=== PATIENT | female | born 1955 | race Caucasian/White ===

== ENCOUNTER 2018-10-23 16:20 | Inpatient (IN) | payer MEDICARE, MEDICAID ==
--- NOTE | 2018-10-23 17:55 | EDM.PDOC ---
ED HPI GENERAL MEDICAL PROBLEM - General Chief Complaint: Lower Extremity Injury/Pain Stated Complaint: FALL VIA [facility] Time Seen by Provider: 10/23/18 16:40 Source of Information: Reports: Patient, EMS, Provider History Limitations: Reports: No Limitations - History of Present Illness INITIAL COMMENTS - FREE TEXT/NARRATIVE: 63-year-old female brought in by ambulance with left hip pain. She fell earlier today while transferring from the bed to chair. She has intense left hip pain, unable to bear weight and pain with movement or manipulation. Onset: Sudden Duration: Hour(s): (Within the last several hours) Associated Symptoms: Denies: Confusion, Loss of Appetite, Shortness of Breath Left Hip Pain Score (Numeric/FACES): 8 - Related Data Allergies Allergy/AdvReac Type Severity Reaction Status Date / Time adhesive Allergy Cannot Verified 10/23/18 16:26 Remember atorvastatin calcium Allergy Cannot Verified 10/23/18 16:26 [From Lipitor] Remember clindamycin Allergy Cannot Verified 10/23/18 16:26 Remember cyclobenzaprine HCl Allergy Cannot Verified 10/23/18 16:26 [From Flexeril] Remember fentanyl Allergy Rash Verified 10/23/18 16:26 gabapentin Allergy Cannot Verified 10/23/18 16:26 Remember insulin glargine, human Allergy Rash Verified 10/23/18 16:26 recombin. a [From Lantus] Iodinated Contrast- Oral and Allergy Cannot Verified 10/23/18 16:26 IV Dye Remember [Iodinated Contrast Media - IV Dye] iodine Allergy Hives Verified 10/23/18 16:26 iopamidol Allergy Hives Verified 10/23/18 16:26 lactose Allergy Cannot Verified 10/23/18 16:26 Remember Latex, Natural Rubber Allergy Cannot Verified 10/23/18 16:26 Remember levofloxacin [From Levaquin] Allergy Rash Verified 10/23/18 16:26 lisinopril Allergy Cannot Verified 10/23/18 16:26 Remember oxybutynin Allergy Cannot Verified 10/23/18 16:26 Remember piperacillin Allergy Hives Verified 10/23/18 16:26 piperacillin sodium Allergy Hives Verified 10/23/18 16:26 [From Zosyn] red dye Allergy Cannot Verified 10/23/18 16:26 Remember silver Allergy Rash Verified 10/23/18 16:26 [From Tegaderm AG Mesh] simvastatin [From Zocor] Allergy Cannot Verified 10/23/18 16:26 Remember Sulfa (Sulfonamide Allergy Hives Verified 10/23/18 16:26 Antibiotics) tazobactam Allergy Hives Verified 10/23/18 16:26 tazobactam sodium Allergy Hives Verified 10/23/18 16:26 [From Zosyn] varenicline [Varenicline] Allergy Cannot Verified 10/23/18 16:26 Remember varenicline tartrate Allergy Cannot Verified 10/23/18 16:26 [From Chantix] Remember venlafaxine HCl Allergy Cannot Verified 10/23/18 16:26 [From Effexor] Remember baclofen AdvReac Irritabilit Verified 10/23/18 16:26 y esomeprazole AdvReac Diarrhea Verified 10/23/18 16:26 esomeprazole magnesium AdvReac Diarrhea Verified 10/23/18 16:26 [From Nexium] exenatide AdvReac Tachycardia Verified 10/23/18 16:26 insulin detemir AdvReac Nausea and Verified 10/23/18 16:26 [From Levemir] Vomiting metformin AdvReac Nausea Verified 10/23/18 16:26 promethazine AdvReac Nausea and Verified 10/23/18 16:26 Vomiting promethazine HCl AdvReac Nausea and Verified 10/23/18 16:26 [From Phenergan] Vomiting Home Meds: Home Meds Aspirin [Adult Low Dose Aspirin EC] 81 mg PO DAILY 04/16/13 [History] Ibuprofen 800 mg PO TID 04/16/13 [History] Lactulose [Generlac] 30 ml PO BID 04/16/13 [History] Magnesium Hydroxide [Milk of Magnesia] 30 ml PO Q48H PRN 03/31/16 [History] Sertraline [Zoloft] 150 mg PO DAILY 03/31/16 [History] Dextrose [Glucose] 1 tab PO Q1H PRN 06/12/16 [History] Hydrocodone/Acetaminophen [Hydrocodon-Acetaminophn 10-325] 1 tab PO TID [History] Menthol/Methyl Salicylate [Pain Relieving Rub Cream] 1 applic TOP TID 06/12/16 [ History] Propylene Glycol/Peg 400 [Systane Ultra 0.4-0.3% Eye Drp] 1 drop EYERT Q2HR PRN 06/12/16 [History] Calcium Carbonate/Vitamin D3 [Calcium 600 + Vit D 400 Softgl] 1 tab PO BID 10/23 [History] Chlorhexidine Gluconate 15 ml PO BID 10/23/18 [History] DULoxetine HCl [Duloxetine HCl] 30 mg PO BEDTIME 10/23/18 [History] DULoxetine HCl [Duloxetine HCl] 60 mg PO ACBREAKFAST 10/23/18 [History] Enalapril Maleate 40 mg PO BID 10/23/18 [History] Fluticasone Propionate [Flonase Allergy Relief] 2 spray KASIA ACBREAKFAST [History] Fluticasone/Salmeterol [Advair 250-50 Diskus] 1 puff INH BID 10/23/18 [History] Furosemide [Lasix] 20 mg PO DAILY 10/23/18 [History] Insulin Lispro Prot/Lispro [HumaLOG Mix 75-25] 62 units SUBCNJ BID 10/23/18 [ History] Lansoprazole [Prevacid] 30 mg PO BID 10/23/18 [History] Loratadine [Claritin] 10 mg PO BEDTIME 10/23/18 [History] Metoprolol Succinate [Toprol XL] 25 mg PO DAILY 10/23/18 [History] Potassium Chloride 20 meq PO TID 10/23/18 [History] Pregabalin [Lyrica] 150 mg PO BID 10/23/18 [History] Propylene Glycol/PEG 400/Pf [Systane 0.3-0.4% Eye Drop] 2 drop EYERT BID [History] SitaGLIPtin [Januvia] 50 mg PO DAILY 10/23/18 [History] Sucralfate [Carafate] 1 gm PO TID 10/23/18 [History] Torsemide 100 mg PO DAILY 10/23/18 [History] clonazePAM [Clonazepam] 1 mg PO BEDTIME 10/23/18 [History] Past Medical History HEENT History: Reports: Allergic Rhinitis, Impaired Vision Cardiovascular History: Reports: CAD, High Cholesterol, Hypertension, [place] Respiratory History: Reports: Bronchitis, Recurrent, Pneumonia, Recurrent, SOB Other Respiratory History: home O2 Gastrointestinal History: Reports: Chronic Constipation, Chronic Diarrhea, Gastritis, GERD, Hiatal Hernia [employer] History: Reports: Dysfunctional Uterine Bleeding, Musculoskeletal History: Reports: Back Pain, Chronic, Fibromyalgia, Osteoarthritis, Other (See Below) Other Musculoskeletal History: primary lateral sclerosis Psychiatric History: Reports: Anxiety, Panic Attack Endocrine/Metabolic History: Reports: Diabetes, Type II, IDDM, Obesity/BMI 30+ Hematologic History: Reports: Blood Transfusion(s) Dermatologic History: Reports: Decubitus Ulcer - Infectious Disease History Infectious Disease History: Reports: Other (See Below) Other Infectious Disease History: unable to obtain - Past Surgical History Cardiovascular Surgical History: Reports: Other (See Below) GI Surgical History: Reports: Appendectomy, Cholecystectomy, Colonoscopy, Other (See Below) Female Surgical History: Reports: D&C, Hysterectomy, Tubal Ligation Neurological Surgical History: Reports: Spinal Fusion, Other (See Below) Musculoskeletal Surgical History: Reports: Other (See Below) Social & Family History - Family History Family Medical History: Unobtainable - Tobacco Use Smoking Status *Q: Former Smoker Used Tobacco, but Quit: Yes Month/Year Tobacco Last Used: 06/2018 - Caffeine Use Caffeine Use: Reports: Coffee, Soda - Recreational Drug Use Recreational Drug Use: No Review of Systems - Review of Systems Review Of Systems: See Below Constitutional: Denies: Fever Respiratory: Reports: Shortness of Breath (Chronic COPD but much improved after stopping smoking) Cardiovascular: Denies: Chest Pain GI/Abdominal: Denies: Nausea, Vomiting Genitourinary: Reports: No Symptoms Skin: Denies: Bruising Neurological: Reports: Other (Chronic mood instability with PLS) Psychiatric: Reports: Depression, Mood Lability, Anxiety ED EXAM, GENERAL - Physical Exam Exam: See Below Exam Limited By: No Limitations General Appearance: Alert, Mild Distress (Fairly uncomfortable especially with any movement) Respiratory/Chest: No Respiratory Distress, Lungs Clear Cardiovascular: Regular Rate, Rhythm GI/Abdominal: Other (Morbidly obese) Extremities: Other (Left leg is extremely tender around the hip with any palpation or passive range of motion) Neurological: Alert, Oriented Skin Exam: Warm, Dry Course - Vital Signs Last Recorded V/S: Last Vital Signs Temp 97.7 F 10/24/18 04:02 Pulse 76 10/24/18 04:02 Resp 16 10/24/18 04:02 BP 115/45 L 10/24/18 04:02 Pulse Ox 91 L 10/24/18 05:00 - Orders/Labs/Meds Orders: Active Orders 24 hr Category Date Time Status Briscoe Catheter Insertion [Insert Urinary Catheter] [OM. Care 10/23/18 17:45 Ordered PC] Q24H Urinary Catheter Assessment [RC] ASDIRECTED Care 10/23/18 17:36 Active Medication Orders Hydrocodone Bitart/Acetaminophen ([place] 325-10 Mg) 1 tab PO TID [facility] Last Admin: 10/23/18 21:47 Dose: 1 tab Hydrocodone Bitart/Acetaminophen ([place] 325-10 Mg) 1 tab PO Q4H PRN PRN Reason: Pain (moderate 4-6) Albuterol (Proventil Neb Soln) 2.5 mg NEB Q4H PRN PRN Reason: Shortness Of Breath/wheezing Alogliptin Benzoate (Alogliptin) 12.5 mg PO DAILY [facility] Aspirin (Halfprin) 81 mg PO DAILY [facility] Clonazepam (Klonopin) 1 mg PO BEDTIME [facility] Last Admin: 10/23/18 21:47 Dose: 1 mg Duloxetine HCl (Cymbalta) 30 mg PO BEDTIME [facility] Last Admin: 10/23/18 21:47 Dose: 30 mg Duloxetine HCl (Cymbalta) 60 mg PO ACBREAKFAST [facility] Enalapril Maleate (Vasotec) 40 mg PO BID [facility] Last Admin: 10/23/18 22:40 Dose: 40 mg Ibuprofen (Motrin) 600 mg PO Q6H PRN PRN Reason: Pain/Fever Insulin Human Lispro (Humalog) 0 unit SUBCUT QIDACANDBED [facility]; Protocol Last Admin: 10/23/18 21:46 Dose: 4 units Lactulose (Chronulac) 30 gm PO BID [facility] Last Admin: 10/23/18 21:47 Dose: 30 gm Metoprolol Succinate (Toprol Xl) 25 mg PO DAILY [facility] Morphine Sulfate (Morphine) 4 mg IVPUSH Q2H PRN PRN Reason: Pain (severe 7-10) Last Admin: 10/24/18 04:04 Dose: 4 mg Admin: 10/24/18 00:39 Dose: 4 mg Admin: 10/23/18 22:26 Dose: 4 mg Non-Formulary Medication (Propylene Glycol/Peg 400/Pf [Systane 0.3-0.4% Eye Drop ]) 2 drop EYERT BID [facility] Non-Formulary Medication (Propylene Glycol/Peg 400 [Systane Ultra 0.4-0.3% Eye Drp]) 1 drop EYERT Q2HR PRN PRN Reason: tearing Ondansetron HCl (Zofran Odt) 4 mg PO Q6H PRN PRN Reason: Nausea able to take PO Ondansetron HCl (Zofran) 4 mg IV Q6H PRN PRN Reason: Nausea/Vomiting Pantoprazole Sodium (Protonix) 40 mg PO BIDAC [facility] Polyethylene Glycol (Miralax) 17 gm PO DAILY PRN PRN Reason: Constipation Pregabalin (Lyrica) 150 mg PO BID [facility] Last Admin: 10/23/18 21:47 Dose: 150 mg Fluticasone/Salmeterol (Fluticasone-Salmeterol 113-14 Mcg Powder Inh) 1 puff INH BID [facility] Last Admin: 10/23/18 22:27 Dose: Sertraline HCl (Zoloft) 150 mg PO DAILY [facility] Sucralfate (Carafate) 1 gm PO TID [facility] Last Admin: 10/23/18 21:52 Dose: 1 gm Labs: Laboratory Tests 10/23/18 10/23/18 Range/Units 18:00 18:00 WBC 6.7 (4.5-11.0) K/uL RBC 4.63 (3.30-5.50) M/uL Hgb 11.2 L (12.0-15.0) g/dL Hct 36.3 (36.0-48.0) % MCV 78 L (80-98) fL MCH 24 L (27-31) pg MCHC 31 L (32-36) % Plt Count 113 L (150-400) K/uL Neut % (Auto) 68 H (36-66) % Lymph % (Auto) 14 L (24-44) % Jerome % (Auto) 15 H (2-6) % Eos % (Auto) 3 (2-4) % Baso % (Auto) 1 (0-1) % Sodium 144 (140-148) mmol/L Potassium 3.0 L (3.6-5.2) mmol/L Chloride 104 (100-108) mmol/L Carbon Dioxide 32 (21-32) mmol/L Anion Gap 11.0 (5.0-14.0) mmol/L BUN 11 (7-18) mg/dL Creatinine 0.7 (0.6-1.0) mg/dL Est Cr Clr Drug Dosing 62.82 mL/min Estimated GFR (MDRD) > 60 (>60) Glucose 83 (74-106) mg/dL Calcium 8.8 (8.5-10.1) mg/dL Meds: Medications Generic Name Dose Route Start Last Admin Trade Name Freq PRN Reason Stop Dose Admin Hydrocodone Bitart/Acetaminophen 1 tab 10/23/18 21:00 10/23/18 21:47 [place] 325-10 Mg PO 1 tab TID [facility] Administration Hydrocodone Bitart/Acetaminophen 1 tab 10/23/18 19:19 [place] 325-10 Mg PO Q4H PRN Pain (moderate 4-6) Albuterol 2.5 mg 10/23/18 19:19 Proventil Neb Soln NEB Q4H PRN Shortness Of Breath/wheezing Alogliptin Benzoate 12.5 mg 10/24/18 09:00 Alogliptin PO DAILY [facility] Aspirin 81 mg 10/24/18 09:00 Halfprin PO DAILY [facility] Clonazepam 1 mg 10/23/18 21:00 10/23/18 21:47 Klonopin PO 1 mg BEDTIME [facility] Administration Duloxetine HCl 30 mg 10/23/18 21:00 10/23/18 21:47 Cymbalta PO 30 mg BEDTIME [facility] Administration Duloxetine HCl 60 mg 10/24/18 07:30 Cymbalta PO ACBREAKFAST [facility] Enalapril Maleate 40 mg 10/23/18 21:00 10/23/18 22:40 Vasotec PO 40 mg BID [facility] Administration Ibuprofen 600 mg 10/23/18 19:19 Motrin PO Q6H PRN Pain/Fever Insulin Human Lispro 0 unit 10/23/18 20:00 10/23/18 21:46 Humalog SUBCUT 4 units QIDACANDBED [facility] Administration Protocol Lactulose 30 gm 10/23/18 21:00 10/23/18 21:47 Chronulac PO 30 gm BID [facility] Administration Metoprolol Succinate 25 mg 10/24/18 09:00 Toprol Xl PO DAILY [facility] Morphine Sulfate 4 mg 10/23/18 19:19 10/24/18 04:04 Morphine IVPUSH 4 mg Q2H PRN Administration Pain (severe 7-10) Non-Formulary Medication 2 drop 10/23/18 21:00 Propylene Glycol/Peg 400/Pf [Systane 0.3-0.4% Eye Drop] EYERT BID [facility] Non-Formulary Medication 1 drop 10/23/18 19:19 Propylene Glycol/Peg 400 [Systane Ultra 0.4-0.3% Eye Drp] EYERT Q2HR PRN tearing Ondansetron HCl 4 mg 10/23/18 19:19 Zofran Odt PO Q6H PRN Nausea able to take PO Ondansetron HCl 4 mg 10/23/18 19:19 Zofran IV Q6H PRN Nausea/Vomiting Pantoprazole Sodium 40 mg 10/24/18 07:30 Protonix PO BIDAC [facility] Polyethylene Glycol 17 gm 10/23/18 19:19 Miralax PO DAILY PRN Constipation Pregabalin 150 mg 10/23/18 21:00 10/23/18 21:47 Lyrica PO 150 mg BID [facility] Administration Fluticasone/Salmeterol 1 puff 10/23/18 21:00 10/23/18 22:27 Fluticasone-Salmeterol 113-14 Mcg Powder Inh INH Not Given BID [facility] Sertraline HCl 150 mg 10/24/18 09:00 Zoloft PO DAILY [facility] Sucralfate 1 gm 10/23/18 21:00 10/23/18 21:52 Carafate PO 1 gm TID [facility] Administration Discontinued Medications Generic Name Dose Route Start Last Admin Trade Name Freq PRN Reason Stop Dose Admin Hydrocodone Bitart/Acetaminophen 1 tab 10/23/18 18:30 10/23/18 18:30 [place] 325-7.5 Mg PO 10/23/18 18:31 1 tab ONETIME ONE Administration - Re-Assessments/Exams Free Text/Narrative Re-Assessment/Exam: 10/23/18 18:40 X-ray of the pelvis and left hip were obtained which showed an intertrochanteric fracture, slightly displaced. Orthopedic consultation was obtained who consulted the hospitalist service and they agreed to admit the patient for medical preparation for left hip repair. Departure - Departure Time of Disposition: 19:18 Disposition: Admitted As Inpatient 64 Condition: Fair Clinical Impression: Closed intertrochanteric fracture of left hip, COPD (chronic obstructive pulmonary disease) - Discharge Information - My Orders Last 24 Hours: My Active Orders 10/23/18 17:36 Urinary Catheter Assessment [RC] ASDIRECTED 10/23/18 17:45 Briscoe Catheter Insertion [Insert Urinary Catheter] [OM.PC] Q24H - Assessment/Plan Last 24 Hours: My Active Orders 10/23/18 17:36 Urinary Catheter Assessment [RC] ASDIRECTED 10/23/18 17:45 Briscoe Catheter Insertion [Insert Urinary Catheter] [OM.PC] Q24H
--- NOTE | 2018-10-23 18:12 | CRLCR ---
Indication: Left hip pain after fall Technique: Frontal view pelvis, two view left hip Comparison: None Findings/impression: There is an intertrochanteric fracture of the left femur. There is mild cephalad migration of the femoral shaft in relation to the femoral head and neck. Remainder of the osseous structures appear intact. Dictated by Prema Dodson MD @ Oct 23 2018 6:09PM Signed by Dr. Prema Dodson @ Oct 23 2018 6:11PM
[2018-10-23] MEDS ORDERED: Acetaminophen/HYDROcodone 325-7.5 MG Tab PO ONE (18:30)
--- NOTE | 2018-10-23 18:46 | PCM.HP ---
H&P History of Present Illness - General Date of Service: 10/23/18 Admit Problem/Dx: Admission Diagnosis/Problem Admission Diagnosis/Problem Hip fracture requiring operative repair Source of Information: Patient, Family, Provider History Limitations: Reports: No Limitations - History of Present Illness Initial Comments - Free Text/Narative: Francisca presents to the emergency room today with left hip pain. She reports that she was transferring from her wheelchair to her regular chair in her apartment. Her left leg gave out on her and she fell to the floor landing on her left hip. She had immediate sharp and severe pain in the left hip. The pain did not radiate. She did not take anything to help with the pain prior to coming. An ambulance was summoned right away. She has had recent difficulties with pain in the left groin but it was not nearly as severe as this pain. She had been feeling well prior to the fall other than the left groin pain over the past few weeks. No recent difficulties with cough or shortness of breath. No fevers. No change in bowel or bladder habits. She has been up and moving around with her walker. She has been fairly independent in her assisted-living apartment. Workup in the emergency room revealed an intertrochanteric fracture of the left hip. Orthopedic surgery was consulted and operative intervention is planned as soon as parts are available, likely tomorrow. The patient will be admitted for pain control and surgical intervention. Left Hip Pain Score (Numeric/FACES): 8 - Related Data Allergies/Adverse Reactions: Allergies Allergy/AdvReac Type Severity Reaction Status Date / Time adhesive Allergy Cannot Verified 10/23/18 16:26 Remember atorvastatin calcium Allergy Cannot Verified 10/23/18 16:26 [From Lipitor] Remember clindamycin Allergy Cannot Verified 10/23/18 16:26 Remember cyclobenzaprine HCl Allergy Cannot Verified 10/23/18 16:26 [From Flexeril] Remember fentanyl Allergy Rash Verified 10/23/18 16:26 gabapentin Allergy Cannot Verified 10/23/18 16:26 Remember insulin glargine, human Allergy Rash Verified 10/23/18 16:26 recombin. a [From Lantus] Iodinated Contrast- Oral and Allergy Cannot Verified 10/23/18 16:26 IV Dye Remember [Iodinated Contrast Media - IV Dye] iodine Allergy Hives Verified 10/23/18 16:26 iopamidol Allergy Hives Verified 10/23/18 16:26 lactose Allergy Cannot Verified 10/23/18 16:26 Remember Latex, Natural Rubber Allergy Cannot Verified 10/23/18 16:26 Remember levofloxacin [From Levaquin] Allergy Rash Verified 10/23/18 16:26 lisinopril Allergy Cannot Verified 10/23/18 16:26 Remember oxybutynin Allergy Cannot Verified 10/23/18 16:26 Remember piperacillin Allergy Hives Verified 10/23/18 16:26 piperacillin sodium Allergy Hives Verified 10/23/18 16:26 [From Zosyn] red dye Allergy Cannot Verified 10/23/18 16:26 Remember silver Allergy Rash Verified 10/23/18 16:26 [From Tegaderm AG Mesh] simvastatin [From Zocor] Allergy Cannot Verified 10/23/18 16:26 Remember Sulfa (Sulfonamide Allergy Hives Verified 10/23/18 16:26 Antibiotics) tazobactam Allergy Hives Verified 10/23/18 16:26 tazobactam sodium Allergy Hives Verified 10/23/18 16:26 [From Zosyn] varenicline [Varenicline] Allergy Cannot Verified 10/23/18 16:26 Remember varenicline tartrate Allergy Cannot Verified 10/23/18 16:26 [From Chantix] Remember venlafaxine HCl Allergy Cannot Verified 10/23/18 16:26 [From Effexor] Remember baclofen AdvReac Irritabilit Verified 10/23/18 16:26 y esomeprazole AdvReac Diarrhea Verified 10/23/18 16:26 esomeprazole magnesium AdvReac Diarrhea Verified 10/23/18 16:26 [From Nexium] exenatide AdvReac Tachycardia Verified 10/23/18 16:26 insulin detemir AdvReac Nausea and Verified 10/23/18 16:26 [From Levemir] Vomiting metformin AdvReac Nausea Verified 10/23/18 16:26 promethazine AdvReac Nausea and Verified 10/23/18 16:26 Vomiting promethazine HCl AdvReac Nausea and Verified 10/23/18 16:26 [From Phenergan] Vomiting Home Medications: Home Meds Aspirin [Adult Low Dose Aspirin EC] 81 mg PO DAILY 04/16/13 [History] Ibuprofen 800 mg PO TID 04/16/13 [History] Lactulose [Generlac] 30 ml PO BID 04/16/13 [History] Magnesium Hydroxide [Milk of Magnesia] 30 ml PO Q48H PRN 03/31/16 [History] Sertraline [Zoloft] 150 mg PO DAILY 03/31/16 [History] Dextrose [Glucose] 1 tab PO Q1H PRN 06/12/16 [History] Hydrocodone/Acetaminophen [Hydrocodon-Acetaminophn 10-325] 1 tab PO TID [History] Menthol/Methyl Salicylate [Pain Relieving Rub Cream] 1 applic TOP TID 06/12/16 [ History] Propylene Glycol/Peg 400 [Systane Ultra 0.4-0.3% Eye Drp] 1 drop EYERT Q2HR PRN 06/12/16 [History] Calcium Carbonate/Vitamin D3 [Calcium 600 + Vit D 400 Softgl] 1 tab PO BID 10/23 [History] Chlorhexidine Gluconate 15 ml PO BID 10/23/18 [History] DULoxetine HCl [Duloxetine HCl] 30 mg PO BEDTIME 10/23/18 [History] DULoxetine HCl [Duloxetine HCl] 60 mg PO ACBREAKFAST 10/23/18 [History] Enalapril Maleate 40 mg PO BID 10/23/18 [History] Fluticasone Propionate [Flonase Allergy Relief] 2 spray KASIA ACBREAKFAST [History] Fluticasone/Salmeterol [Advair 250-50 Diskus] 1 puff INH BID 10/23/18 [History] Furosemide [Lasix] 20 mg PO DAILY 10/23/18 [History] Insulin Lispro Prot/Lispro [HumaLOG Mix 75-25] 62 units SUBCNJ BID 10/23/18 [ History] Lansoprazole [Prevacid] 30 mg PO BID 10/23/18 [History] Loratadine [Claritin] 10 mg PO BEDTIME 10/23/18 [History] Metoprolol Succinate [Toprol XL] 25 mg PO DAILY 10/23/18 [History] Potassium Chloride 20 meq PO TID 10/23/18 [History] Pregabalin [Lyrica] 150 mg PO BID 10/23/18 [History] Propylene Glycol/PEG 400/Pf [Systane 0.3-0.4% Eye Drop] 2 drop EYERT BID [History] SitaGLIPtin [Januvia] 50 mg PO DAILY 10/23/18 [History] Sucralfate [Carafate] 1 gm PO TID 10/23/18 [History] Torsemide 100 mg PO DAILY 10/23/18 [History] clonazePAM [Clonazepam] 1 mg PO BEDTIME 10/23/18 [History] Past Medical History HEENT History: Reports: Allergic Rhinitis, Impaired Vision Cardiovascular History: Reports: CAD, High Cholesterol, Hypertension, [place] Respiratory History: Reports: Bronchitis, Recurrent, Pneumonia, Recurrent, SOB Other Respiratory History: home O2 Gastrointestinal History: Reports: Chronic Constipation, Chronic Diarrhea, Gastritis, GERD, Hiatal Hernia [employer]ER History: Reports: Dysfunctional Uterine Bleeding, Musculoskeletal History: Reports: Back Pain, Chronic, Fibromyalgia, Osteoarthritis, Other (See Below) Other Musculoskeletal History: primary lateral sclerosis Psychiatric History: Reports: Anxiety, Panic Attack Endocrine/Metabolic History: Reports: Diabetes, Type II, IDDM, Obesity/BMI 30+ Hematologic History: Reports: Blood Transfusion(s) Dermatologic History: Reports: Decubitus Ulcer - Infectious Disease History Infectious Disease History: Reports: Other (See Below) Other Infectious Disease History: unable to obtain - Past Surgical History Cardiovascular Surgical History: Reports: Other (See Below) GI Surgical History: Reports: Appendectomy, Cholecystectomy, Colonoscopy, Other (See Below) Female Surgical History: Reports: D&C, Hysterectomy, Tubal Ligation Neurological Surgical History: Reports: Spinal Fusion, Other (See Below) Musculoskeletal Surgical History: Reports: Other (See Below) Social & Family History - Family History Family Medical History: Unobtainable - Tobacco Use Smoking Status *Q: Former Smoker Used Tobacco, but Quit: Yes Month/Year Tobacco Last Used: 06/2018 - Caffeine Use Caffeine Use: Reports: Coffee, Soda - Alcohol Use Alcohol Use History: No - Recreational Drug Use Recreational Drug Use: No H&P Review of Systems - Review of Systems: Review Of Systems: See Below Free Text/Narrative: A complete 12 point review of systems was obtained. Pertinent positives and negatives are noted in the history of present illness. All other systems were reviewed and were negative except as noted. Exam - Exam Exam: See Below - Vital Signs Vital Signs: Last Vital Signs Temp 35.8 C 10/23/18 16:28 Pulse 74 10/23/18 17:52 Resp 18 10/23/18 17:52 BP 181/82 H 10/23/18 17:52 Pulse Ox 94 L 10/23/18 17:52 Weight: 96.1 kg - Exam Quality Assessment: No: Supplemental Oxygen General: Alert, Oriented, Cooperative. No: Mild Distress HEENT: Conjunctiva Clear, Mucosa Moist & [place]. No: Scleral Icterus Neck: Supple, Trachea Midline. No: Lymphadenopathy Lungs: Clear to Auscultation, Normal Respiratory Effort Cardiovascular: Regular Rate, Regular Rhythm. No: Systolic Murmur GI/Abdominal Exam: Normal Bowel Sounds, Soft, Non-Tender, No Distention Extremities: Pedal Edema, Other (Tender over the left hip) Peripheral Pulses: 1+: Dorsalis Pedis (L), Dorsalis Pedis (R) Skin: Warm, Dry. No: Ecchymosis Neuro Extensive - Mental Status: Alert, Oriented x3, Nl Response to Commands Neuro Extensive - Motor, Sensory, Reflexes: CN II-XII Intact. No: Dysarthria, Abnormal Motor, Tremor Psychiatric: Alert, Normal Affect - Patient Data Lab Results Last 24 hrs: Laboratory Results - last 24 hr 10/23/18 Range/Units 18:00 WBC 6.7 (4.5-11.0) K/uL RBC 4.63 (3.30-5.50) M/uL Hgb 11.2 L (12.0-15.0) g/dL Hct 36.3 (36.0-48.0) % MCV 78 L (80-98) fL MCH 24 L (27-31) pg MCHC 31 L (32-36) % Plt Count 113 L (150-400) K/uL Neut % (Auto) 68 H (36-66) % Lymph % (Auto) 14 L (24-44) % [place] % (Auto) 15 H (2-6) % Eos % (Auto) 3 (2-4) % Baso % (Auto) 1 (0-1) % Result Diagrams: 10/23/18 18:00 Imaging Impressions Last 24 hrs: Left hip x-ray - images personally reviewed -there is evidence for a displaced intertrochanteric fracture of the left femur. Moderate arthritis changes also noted in the hip joint. *Q Meaningful Use (ADM) - VTE Risk Assess *Q Each Risk Factor Represents 1 Point: Swollen Legs, Current, Obesity ( BMI > 25 kg/m2), Abnormal Pulmonary Function (COPD) Total Score 1 Point Risk Factors: 3 Each Risk Factor Represents 2 Points: Age 60 - 74 Years Total Score 2 Point Risk Factors: 2 Each Risk Factor Represents 3 Points: None Total Score 3 Point Risk Factors: 0 Each Risk Factor Represents 5 Points: Hip, Pelvis or Leg Fracture, Less than 1 month Total Score 5 Point Risk Factors: 5 Venous Thromboembolism Risk Factor Score *Q: 10 - Problem List (1) Intertrochanteric fracture of left femur SNOMED Code(s): 334123244 ICD Code: S72.142A - DISPLACED INTERTROCHANTERIC FRACTURE OF LEFT FEMUR, INIT Status: Acute Current Visit: Yes Qualifiers: Encounter type: initial encounter Fracture type: closed Fracture alignment: displaced Qualified Code(s): S72.142A - Displaced intertrochanteric fracture of left femur, initial encounter for closed fracture (2) Diabetes mellitus, insulin dependent (IDDM), controlled SNOMED Code(s): 31677116 ICD Code: E11.9 - TYPE 2 DIABETES MELLITUS WITHOUT COMPLICATIONS; Z79.4 - WEIGHT TRAINER (CURRENT) USE OF INSULIN Status: Chronic Current Visit: No (3) Primary lateral sclerosis SNOMED Code(s): 34518340 ICD Code: G12.29 - OTHER MOTOR NEURON DISEASE Status: Chronic Current Visit: No Problem List Initiated/Reviewed/Updated: Yes Orders Last 24hrs: Active Orders 24 hr Category Date Time Status Patient Status Manage Transfer [TRANSFER] Routine ADT 10/23/18 18:24 Ordered Briscoe Catheter Insertion [Insert Urinary Catheter] [OM. Care 10/23/18 17:45 Ordered PC] Q24H Urinary Catheter Assessment [RC] ASDIRECTED Care 10/23/18 17:36 Active BASIC METABOLIC PANEL,BMP [CHEM] Urgent Lab 10/23/18 18:00 Received Resuscitation Status Routine Resus Stat 10/23/18 18:28 Ordered Assessment/Plan Comment:: ASSESSMENT AND PLAN - Intertrochanteric fracture left hip - secondary to fall. Recent difficulties with pain likely reflective of her arthritis in the hip joint. Operative intervention is recommended. I believe she is in optimal achievable medical condition at this time. She has had some recent difficulty with lower extremity swelling and I think an echocardiogram would be useful to rule out structural heart disease though believe this is unlikely. -Pain control -Nonweightbearing left leg -Echo in the morning -Orthopedic consultation obtained, surgical intervention will likely occur tomorrow afternoon -Nothing by mouth after midnight Type 2 diabetes mellitus, insulin-dependent - This is been well-controlled. Since she will be nothing by mouth after midnight we will hold her insulin and cover with medium dose sliding scale. Also noted are her allergies to glargine and Levemir. 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 Essential hypertension - Blood pressure moderately elevated, likely related to her pain. -Continue home medications Maintenance issues - - DVT prophylaxis - Mechanical with upcoming surgery - GI prophylaxis - PPI - Nutrition - nothing by mouth after midnight - Briscoe catheter - Placed in the emergency room with hip fracture need for strict intake and output monitoring CODE STATUS - Full code Admission justification - This patient will be admitted for inpatient services and is medically appropriate meeting medical necessity for inpatient admission as outlined in my documentation. I reasonably expect the patient will require inpatient services that span a period time over 2 midnights. I reasonably expect this patient to be discharged or transferred within 96 hours after admission to the Critical [facility]. Disposition - I would anticipate [facility] to [facility] after the hospital stay Primary care physician - Dr Herminia Meza M.D.
[2018-10-23] MEDS ORDERED: Ondansetron 4 MG/2 ML SDV IV PRN (19:19)
[2018-10-23] MEDS ORDERED: Ondansetron 4 MG Tab.DIS PO PRN (19:19)
[2018-10-23] MEDS ORDERED: Acetaminophen/HYDROcodone 325-10 MG Tab PO PRN (19:19)
[2018-10-23] MEDS ORDERED: Polyethylene Glycol 3350 Powder 17 GM Packet PO PRN (19:19)
[2018-10-23] MEDS ORDERED: Albuterol 0.083% 2.5 MG/3 ML Neb Soln NEB PRN (19:19)
[2018-10-23] MEDS ORDERED: Sucralfate 1 GM Tab PO SCH (21:00)
[2018-10-23] MEDS ORDERED: Fluticasone-Salmeterol 113-14 MCG Powder Inhalant INH SCH (21:00)
[2018-10-23] MEDS: Insulin Lispro 100 Unit/ML 3 ML KwikPen SUBCUT SCH (21:46)
[2018-10-23] MEDS: DULoxetine 30 MG Cap PO SCH (21:47)
[2018-10-23] MEDS: ClonazePAM 1 MG Tab PO SCH (21:47)
[2018-10-23] MEDS: Acetaminophen/HYDROcodone 325-10 MG Tab PO SCH (21:47)
[2018-10-23] MEDS: Lactulose Soln 10 GM/15 ML 15 ML UD Cup PO SCH (21:47)
[2018-10-23] MEDS: Pregabalin 75 MG Cap PO SCH (21:47)
[2018-10-23] MEDS: Morphine 4 MG/ML Syringe IVPUSH PRN (22:26)
[2018-10-23] MEDS: Enalapril 5 MG Tab PO SCH (22:40)
[2018-10-24] MEDS: Morphine 4 MG/ML Syringe IVPUSH PRN ×3 (00:39→13:38)
--- NOTE | 2018-10-24 07:42 | PCM.CONS ---
H&P History of Present Illness - General Date of Service: 10/24/18 Admit Problem/Dx: Admission Diagnosis/Problem Admission Diagnosis/Problem Hip fracture requiring operative repair Source of Information: Patient, Family, Old Records, Provider History Limitations: Reports: No Limitations - History of Present Illness Initial Comments - Free Text/Narative: 63 year old female admitted through ED yesterday with left hip fracture. Patient slipped while tranferring to a chair. Fell to the floor and had had hip pain. Evaluation in ED revealed a high intertrochanteric hip fracture. Has multiple medical problems, no further work up anticipated. Symptom Onset Date: 10/23/18 Location: Reports: Lower Extremity, Left ( ) Left Hip Pain Score (Numeric/FACES): 8 - Related Data Allergies/Adverse Reactions: Allergies Allergy/AdvReac Type Severity Reaction Status Date / Time adhesive Allergy Cannot Verified 10/23/18 16:26 Remember atorvastatin calcium Allergy Cannot Verified 10/23/18 16:26 [From Lipitor] Remember clindamycin Allergy Cannot Verified 10/23/18 16:26 Remember cyclobenzaprine HCl Allergy Cannot Verified 10/23/18 16:26 [From Flexeril] Remember fentanyl Allergy Rash Verified 10/23/18 16:26 gabapentin Allergy Cannot Verified 10/23/18 16:26 Remember insulin glargine, human Allergy Rash Verified 10/23/18 16:26 recombin. a [From Lantus] Iodinated Contrast- Oral and Allergy Cannot Verified 10/23/18 16:26 IV Dye Remember [Iodinated Contrast Media - IV Dye] iodine Allergy Hives Verified 10/23/18 16:26 iopamidol Allergy Hives Verified 10/23/18 16:26 lactose Allergy Cannot Verified 10/23/18 16:26 Remember Latex, Natural Rubber Allergy Cannot Verified 10/23/18 16:26 Remember levofloxacin [From Levaquin] Allergy Rash Verified 10/23/18 16:26 lisinopril Allergy Cannot Verified 10/23/18 16:26 Remember oxybutynin Allergy Cannot Verified 10/23/18 16:26 Remember piperacillin Allergy Hives Verified 10/23/18 16:26 piperacillin sodium Allergy Hives Verified 10/23/18 16:26 [From Zosyn] red dye Allergy Cannot Verified 10/23/18 16:26 Remember silver Allergy Rash Verified 10/23/18 16:26 [From Tegaderm AG Mesh] simvastatin [From Zocor] Allergy Cannot Verified 10/23/18 16:26 Remember Sulfa (Sulfonamide Allergy Hives Verified 10/23/18 16:26 Antibiotics) tazobactam Allergy Hives Verified 10/23/18 16:26 tazobactam sodium Allergy Hives Verified 10/23/18 16:26 [From Zosyn] varenicline [Varenicline] Allergy Cannot Verified 10/23/18 16:26 Remember varenicline tartrate Allergy Cannot Verified 10/23/18 16:26 [From Chantix] Remember venlafaxine HCl Allergy Cannot Verified 10/23/18 16:26 [From Effexor] Remember baclofen AdvReac Irritabilit Verified 10/23/18 16:26 y esomeprazole AdvReac Diarrhea Verified 10/23/18 16:26 esomeprazole magnesium AdvReac Diarrhea Verified 10/23/18 16:26 [From Nexium] exenatide AdvReac Tachycardia Verified 10/23/18 16:26 insulin detemir AdvReac Nausea and Verified 10/23/18 16:26 [From Levemir] Vomiting metformin AdvReac Nausea Verified 10/23/18 16:26 promethazine AdvReac Nausea and Verified 10/23/18 16:26 Vomiting promethazine HCl AdvReac Nausea and Verified 10/23/18 16:26 [From Phenergan] Vomiting Home Medications: Home Meds Aspirin [Adult Low Dose Aspirin EC] 81 mg PO DAILY 04/16/13 [History] Ibuprofen 800 mg PO TID 04/16/13 [History] Lactulose [Generlac] 30 ml PO BID 04/16/13 [History] Magnesium Hydroxide [Milk of Magnesia] 30 ml PO Q48H PRN 03/31/16 [History] Sertraline [Zoloft] 150 mg PO DAILY 03/31/16 [History] Dextrose [Glucose] 1 tab PO Q1H PRN 06/12/16 [History] Hydrocodone/Acetaminophen [Hydrocodon-Acetaminophn 10-325] 1 tab PO TID [History] Menthol/Methyl Salicylate [Pain Relieving Rub Cream] 1 applic TOP TID 06/12/16 [ History] Propylene Glycol/Peg 400 [Systane Ultra 0.4-0.3% Eye Drp] 1 drop EYERT Q2HR PRN 06/12/16 [History] Calcium Carbonate/Vitamin D3 [Calcium 600 + Vit D 400 Softgl] 1 tab PO BID 10/23 [History] Chlorhexidine Gluconate 15 ml PO BID 10/23/18 [History] DULoxetine HCl [Duloxetine HCl] 30 mg PO BEDTIME 10/23/18 [History] DULoxetine HCl [Duloxetine HCl] 60 mg PO ACBREAKFAST 10/23/18 [History] Enalapril Maleate 40 mg PO BID 10/23/18 [History] Fluticasone Propionate [Flonase Allergy Relief] 2 spray [place] ACBREAKFAST [History] Fluticasone/Salmeterol [Advair 250-50 Diskus] 1 puff INH BID 10/23/18 [History] Furosemide [Lasix] 20 mg PO DAILY 10/23/18 [History] Insulin Lispro Prot/Lispro [HumaLOG Mix 75-25] 62 units SUBCNJ BID 10/23/18 [ History] Lansoprazole [Prevacid] 30 mg PO BID 10/23/18 [History] Loratadine [Claritin] 10 mg PO BEDTIME 10/23/18 [History] Metoprolol Succinate [Toprol XL] 25 mg PO DAILY 10/23/18 [History] Potassium Chloride 20 meq PO TID 10/23/18 [History] Pregabalin [Lyrica] 150 mg PO BID 10/23/18 [History] Propylene Glycol/PEG 400/Pf [Systane 0.3-0.4% Eye Drop] 2 drop EYERT BID [History] SitaGLIPtin [Januvia] 50 mg PO DAILY 10/23/18 [History] Sucralfate [Carafate] 1 gm PO TID 10/23/18 [History] Torsemide 100 mg PO DAILY 10/23/18 [History] clonazePAM [Clonazepam] 1 mg PO BEDTIME 10/23/18 [History] Past Medical History HEENT History: Reports: Allergic Rhinitis, Impaired Vision Cardiovascular History: Reports: CAD, High Cholesterol, Hypertension, [place] Respiratory History: Reports: Bronchitis, Recurrent, Pneumonia, Recurrent, SOB Other Respiratory History: home O2 Gastrointestinal History: Reports: Chronic Constipation, Chronic Diarrhea, Gastritis, GERD, Hiatal Hernia VP RHEUMATOLOGY History: Reports: Dysfunctional Uterine Bleeding, Musculoskeletal History: Reports: Back Pain, Chronic, Fibromyalgia, Osteoarthritis, Other (See Below) Other Musculoskeletal History: primary lateral sclerosis Psychiatric History: Reports: Anxiety, Panic Attack Endocrine/Metabolic History: Reports: Diabetes, Type II, IDDM, Obesity/BMI 30+ Hematologic History: Reports: Blood Transfusion(s) Dermatologic History: Reports: Decubitus Ulcer - Infectious Disease History Infectious Disease History: Reports: Other (See Below) Other Infectious Disease History: unable to obtain - Past Surgical History Cardiovascular Surgical History: Reports: Other (See Below) GI Surgical History: Reports: Appendectomy, Cholecystectomy, Colonoscopy, Other (See Below) Female Surgical History: Reports: D&C, Hysterectomy, Tubal Ligation Neurological Surgical History: Reports: Spinal Fusion, Other (See Below) Musculoskeletal Surgical History: Reports: Other (See Below) Social & Family History - Family History Family Medical History: Unobtainable - Tobacco Use Smoking Status *Q: Former Smoker Used Tobacco, but Quit: Yes Month/Year Tobacco Last Used: 06/2018 Second Hand Smoke Exposure: No - Caffeine Use Caffeine Use: Reports: Coffee, Soda - Recreational Drug Use Recreational Drug Use: No H&P Review of Systems - Review of Systems: Review Of Systems: See Below Musculoskeletal: Reports: Other (has been having left hip/groin pain ) Exam - Exam Exam: See Below - Vital Signs Vital Signs: Last Vital Signs Temp 35.9 C 10/24/18 07:16 Pulse 74 10/24/18 07:16 Resp 14 10/24/18 07:16 BP 102/41 L 10/24/18 07:16 Pulse Ox 91 L 10/24/18 07:16 Weight: 114.305 kg - Exam General: Alert, Oriented Skin: Warm, Dry, Intact Physical Exam Comments:: Left leg short compared to right, pain with motion of the leg, sensation intact , circulation intact - Patient Data Lab Results Last 24 hrs: Laboratory Results - last 24 hr 10/23/18 10/23/18 Range/Units 18:00 18:00 WBC 6.7 (4.5-11.0) K/uL RBC 4.63 (3.30-5.50) M/uL Hgb 11.2 L (12.0-15.0) g/dL Hct 36.3 (36.0-48.0) % MCV 78 L (80-98) fL MCH 24 L (27-31) pg MCHC 31 L (32-36) % Plt Count 113 L (150-400) K/uL Neut % (Auto) 68 H (36-66) % Lymph % (Auto) 14 L (24-44) % [place] % (Auto) 15 H (2-6) % Eos % (Auto) 3 (2-4) % Baso % (Auto) 1 (0-1) % Sodium 144 (140-148) mmol/L Potassium 3.0 L (3.6-5.2) mmol/L Chloride 104 (100-108) mmol/L Carbon Dioxide 32 (21-32) mmol/L Anion Gap 11.0 (5.0-14.0) mmol/L BUN 11 (7-18) mg/dL Creatinine 0.7 (0.6-1.0) mg/dL Est Cr Clr Drug Dosing 62.82 mL/min Estimated GFR (MDRD) > 60 (>60) Glucose 83 (74-106) mg/dL Calcium 8.8 (8.5-10.1) mg/dL Result Diagrams: 10/23/18 18:00 10/23/18 18:00 Consult PN Assessment/Plan Procedures: Procedures AIRWAY INHALATION TREATMENT (07/23/16) ASSAY OF CK (CPK) (12/17/15) ASSAY OF LACTIC ACID (07/23/16) ASSAY OF LIPASE (12/17/15) ASSAY OF MAGNESIUM (07/23/16) ASSAY OF NATRIURETIC PEPTIDE (07/23/16) ASSAY OF TROPONIN QUANT (03/31/16) BLOOD CULTURE FOR BACTERIA (07/23/16) BLOOD GASES ANY COMBINATION (03/31/16) C-REACTIVE PROTEIN (03/31/16) CARDIAC REHAB/MONITOR (08/04/14) CHANGE GASTROSTOMY TUBE (09/18/14) CHEST X-RAY 1 VIEW FRONTAL (07/23/16) CHEST X-RAY 2VW FRONTAL&LATL (09/24/14) COMPLETE CBC AUTOMATED (07/23/16) COMPLETE CBC W/AUTO DIFF WBC (07/23/16) COMPREHEN METABOLIC PANEL (07/23/16) CT ABD & PELVIS W/O CONTRAST (09/24/14) CT HEAD/BRAIN W/O DYE (03/31/16) CT THORAX W/O DYE (09/24/14) CULTURE AEROBIC IDENTIFY (07/23/16) CULTURE OTHR SPECIMN AEROBIC (07/23/16) DX MAMMO INCL CAD UNI (11/15/17) ELECTROCARDIOGRAM REPORT (03/31/16) ELECTROCARDIOGRAM TRACING (03/31/16) EMERGENCY DEPT VISIT (07/23/16) EMERGENCY DEPT VISIT (06/12/16) EMERGENCY DEPT VISIT (06/12/16) EMERGENCY DEPT VISIT (09/24/14) EMERGENCY DEPT VISIT (09/24/14) EMERGENCY DEPT VISIT (03/22/14) EVALUATE PT USE OF INHALER (03/31/16) GLUCOSE BLOOD TEST (07/23/16) HYDRATE IV INFUSION ADD-ON (07/23/16) HYDRATION IV INFUSION INIT (07/23/16) INFLUENZA ASSAY W/OPTIC (07/23/16) INITIAL OBSERVATION CARE (03/31/16) MEASURE BLOOD OXYGEN LEVEL (03/31/16) METABOLIC PANEL TOTAL CA (07/23/16) OT EVALUATION (02/17/14) PROTHROMBIN TIME (07/23/16) PT EVAL LOW COMPLEX 20 MIN (07/23/16) RBC SED RATE NONAUTOMATED (03/31/16) ROUTINE VENIPUNCTURE (07/23/16) SCR MAMMO BI INCL CAD (11/10/17) SMEAR GRAM STAIN (07/23/16) THER/PROPH/DIAG INJ IV PUSH (03/31/16) THROMBOPLASTIN TIME PARTIAL (07/23/16) TX/PRO/DX INJ SAME DRUG WOOL FLEECE SORTER (03/31/16) ULTRASOUND BREAST LIMITED (11/15/17) URINALYSIS AUTO W/SCOPE (07/23/16) WITHDRAWAL OF ARTERIAL BLOOD (03/31/16) X-RAY EXAM SERIES ABDOMEN (09/24/14) (1) Closed intertrochanteric fracture of left hip SNOMED Code(s): 02970990 Code(s): S72.142A - DISPLACED INTERTROCHANTERIC FRACTURE OF LEFT FEMUR, INIT Current Visit: Yes Qualifiers: Encounter type: initial encounter Fracture alignment: displaced Qualified Code(s): S72.142A - Displaced intertrochanteric fracture of left femur , initial encounter for closed fracture Problem List Initiated/Reviewed/Updated: Yes Plan: Left hip fracture requires surgery. Given configuration of the fracture and patients medical conditions, recommend hemiarthroplasty of left hip. This type of fracture requires a prosthesis other than the standard stem that is in- house. Specialized instruments and implants are being shipped in. May be available this afternoon but unsure at this time when surgery could be performed. Discussed planned surgery with patient and family yesterday in ED. Will proceed when implants available.
[2018-10-24] MEDS: Hypromellose 0.4% Ophth Soln 15 ML Bottle EYERT SCH ×3 (07:58→22:04)
[2018-10-24] MEDS: DULoxetine 30 MG Cap PO SCH ×2 (08:16→22:00)
[2018-10-24] MEDS: Pantoprazole 40 MG Tab.CR PO SCH ×2 (08:16→17:24)
[2018-10-24] MEDS: Insulin Lispro 100 Unit/ML 3 ML KwikPen SUBCUT SCH ×4 (08:26→22:06)
[2018-10-24] MEDS: Lactulose Soln 10 GM/15 ML 15 ML UD Cup PO SCH ×2 (08:58→22:01)
[2018-10-24] MEDS: Aspirin 81 MG Tab.EC PO SCH (08:58)
[2018-10-24] MEDS: Sertraline 50 MG Tab PO SCH (08:59)
[2018-10-24] MEDS: Pregabalin 75 MG Cap PO SCH ×2 (08:59→23:21)
[2018-10-24] MEDS: Acetaminophen/HYDROcodone 325-10 MG Tab PO SCH ×3 (08:59→21:59)
[2018-10-24] MEDS: Potassium Chloride 20 MEQ, Lidocaine 1% 2 ML in Sodium Chloride 0.9% 100 ML IV SCH ×2 (10:19→12:32)
[2018-10-24] MEDS: Sucralfate 1 GM Tab PO SCH ×2 (13:32→16:09)
--- NOTE | 2018-10-24 14:33 | PCM.PN ---
- General Info Date of Service: 10/24/18 Subjective Update: there were no acute events overnight. She did receive morphine 3 times because of severe pain in the left leg. She is very somnolent this morning and had difficulty talking to her. She has not had any fevers. Surgical intervention is planned later in the day. Functional Status: Reports: Pain Controlled - Patient Data Vitals - Most Recent: Last Vital Signs Temp 36.2 C 10/24/18 10:54 Pulse 72 10/24/18 10:54 Resp 16 10/24/18 10:54 BP 105/39 L 10/24/18 10:54 Pulse Ox 94 L 10/24/18 10:54 Weight - Most Recent: 114.305 kg I&O - Last 24 Hours: Intake & Output 10/23/18 10/24/18 10/24/18 22:59 06:59 14:59 Intake Total 240 168 Output Total 2550 350 Balance -2310 -350 168 Lab Results Last 24 Hours: Laboratory Results - last 24 hr 10/23/18 10/23/18 10/24/18 Range/Units 18:00 18:00 08:43 WBC 6.7 (4.5-11.0) K/uL RBC 4.63 (3.30-5.50) M/uL Hgb 11.2 L (12.0-15.0) g/dL Hct 36.3 (36.0-48.0) % MCV 78 L (80-98) fL MCH 24 L (27-31) pg MCHC 31 L (32-36) % Plt Count 113 L (150-400) K/uL Neut % (Auto) 68 H (36-66) % Lymph % (Auto) 14 L (24-44) % [place] % (Auto) 15 H (2-6) % Eos % (Auto) 3 (2-4) % Baso % (Auto) 1 (0-1) % Sodium 144 (140-148) mmol/L Potassium 3.0 L (3.6-5.2) mmol/L Chloride 104 (100-108) mmol/L Carbon Dioxide 32 (21-32) mmol/L Anion Gap 11.0 (5.0-14.0) mmol/L BUN 11 (7-18) mg/dL Creatinine 0.7 (0.6-1.0) mg/dL Est Cr Clr Drug Dosing 62.82 mL/min Estimated GFR (MDRD) > 60 (>60) Glucose 83 (74-106) mg/dL Calcium 8.8 (8.5-10.1) mg/dL Blood Type A POSITIVE Gel Antibody Screen Negative Med Orders - Current: Current Medications Hydrocodone Bitart/Acetaminophen ([place] 325-10 Mg) 1 tab PO TID [facility] Last Admin: 10/24/18 08:59 Dose: Not Given Hydrocodone Bitart/Acetaminophen ([place] 325-10 Mg) 1 tab PO Q4H PRN PRN Reason: Pain (moderate 4-6) Last Admin: 10/24/18 09:32 Dose: 1 tab Albuterol (Proventil Neb Soln) 2.5 mg NEB Q4H PRN PRN Reason: Shortness Of Breath/wheezing Alogliptin Benzoate (Alogliptin) 12.5 mg PO DAILY [facility] Last Admin: 10/24/18 08:58 Dose: Not Given Artificial Tears (Natural Balance Tears) 0 ml EYERT BID [facility] Last Admin: 10/24/18 09:31 Dose: Not Given Artificial Tears (Natural Balance Tears) 0 ml EYERT Q2H PRN PRN Reason: tearing Aspirin (Halfprin) 81 mg PO DAILY [facility] Last Admin: 10/24/18 08:58 Dose: Not Given Bandage/Support Products ( Nasal Reaming Machine Operator) 1 applic NASBOTH BID [facility] Stop: 10/31/18 09:01 Clonazepam (Klonopin) 1 mg PO BEDTIME [facility] Last Admin: 10/23/18 21:47 Dose: 1 mg Duloxetine HCl (Cymbalta) 30 mg PO BEDTIME [facility] Last Admin: 10/23/18 21:47 Dose: 30 mg Duloxetine HCl (Cymbalta) 60 mg PO ACBREAKFAST [facility] Last Admin: 10/24/18 08:16 Dose: Not Given Enalapril Maleate (Vasotec) 40 mg PO BID [facility] Last Admin: 10/23/18 22:40 Dose: 40 mg Cefazolin Sodium/Dextrose 2 gm (/ Premix) 50 mls @ 100 mls/hr IV ONETIME ONE Stop: 10/24/18 08:57 Ibuprofen (Motrin) 600 mg PO Q6H PRN PRN Reason: Pain/Fever Insulin Human Lispro (Humalog) 0 unit SUBCUT QIDACANDBED [facility]; Protocol Last Admin: 10/24/18 11:43 Dose: 2 units Lactulose (Chronulac) 30 gm PO BID [facility] Last Admin: 10/24/18 08:58 Dose: Not Given Metoprolol Succinate (Toprol Xl) 25 mg PO DAILY [facility] Ondansetron HCl (Zofran Odt) 4 mg PO Q6H PRN PRN Reason: Nausea able to take PO Ondansetron HCl (Zofran) 4 mg IV Q6H PRN PRN Reason: Nausea/Vomiting Pantoprazole Sodium (Protonix) 40 mg PO BIDAC [facility] Last Admin: 10/24/18 08:16 Dose: Not Given Polyethylene Glycol (Miralax) 17 gm PO DAILY PRN PRN Reason: Constipation Pregabalin (Lyrica) 150 mg PO BID [facility] Last Admin: 10/24/18 08:59 Dose: Not Given Fluticasone/Salmeterol (Fluticasone-Salmeterol 113-14 Mcg Powder Inh) 0 puff INH BIDRT [facility] Sertraline HCl (Zoloft) 150 mg PO DAILY [facility] Last Admin: 10/24/18 08:59 Dose: Not Given Sucralfate (Carafate) 1 gm PO TIDAC [facility] Last Admin: 10/24/18 13:32 Dose: Not Given Discontinued Medications Hydrocodone Bitart/Acetaminophen ([place] 325-7.5 Mg) 1 tab PO ONETIME ONE Stop: 10/23/18 18:31 Last Admin: 10/23/18 18:30 Dose: 1 tab Potassium Chloride 20 meq/Lidocaine HCl 2 ml/ Sodium Chloride 112 mls @ 56 mls/ hr IV Q2H [facility] Stop: 10/24/18 13:59 Last Admin: 10/24/18 12:32 Dose: 56 mls/hr Morphine Sulfate (Morphine) 4 mg IVPUSH Q2H PRN PRN Reason: Pain (severe 7-10) Last Admin: 10/24/18 13:38 Dose: 4 mg Fluticasone/Salmeterol (Fluticasone-Salmeterol 113-14 Mcg Powder Inh) 1 puff INH BID [facility] Last Admin: 10/23/18 22:27 Dose: Not Given Sucralfate (Carafate) 1 gm PO TID [facility] Last Admin: 10/23/18 21:52 Dose: 1 gm - Exam Quality Assessment: Supplemental Oxygen General: Lethargic. No: Alert HEENT: Pupils Equal Lungs: Normal Respiratory Effort Cardiovascular: Regular Rate, Regular Rhythm GI/Abdominal Exam: Soft, No Distention Psy/Mental Status: No: Alert, Agitated - Problem List & Annotations (1) Intertrochanteric fracture of left femur SNOMED Code(s): 953348274 Code(s): S72.142A - DISPLACED INTERTROCHANTERIC FRACTURE OF LEFT FEMUR, INIT Status: Acute Current Visit: Yes Qualifiers: Encounter type: initial encounter Fracture type: closed Fracture alignment: displaced Qualified Code(s): S72.142A - Displaced intertrochanteric fracture of left femur, initial encounter for closed fracture (2) Diabetes mellitus, insulin dependent (IDDM), controlled SNOMED Code(s): 36688965 Code(s): E11.9 - TYPE 2 DIABETES MELLITUS WITHOUT COMPLICATIONS; Z79.4 - MANAGER MONITORING (CURRENT) USE OF INSULIN Status: Chronic Current Visit: No (3) Primary lateral sclerosis SNOMED Code(s): 70015946 Code(s): G12.29 - OTHER MOTOR NEURON DISEASE Status: Chronic Current Visit: No - Problem List Review Problem List Initiated/Reviewed/Updated: Yes - My Orders Last 24 Hours: My Active Orders 10/23/18 18:28 Resuscitation Status Routine 10/23/18 19:19 Patient Status [ADT] Routine Antiembolic Devices [RC] .Routine Bedrest Bedside Commode [RC] ASDIRECTED Communication Order [RC] PRN Communication Order [RC] PRN Diabetes Education [RC] Click to Edit Intake and Output [RC] QSHIFT Notify Provider Consults [RC] ASDIRECTED Notify Provider Vital Signs [RC] ASDIRECTED Notify Provider [RC] PRN Oxygen Therapy [RC] PRN RT Aerosol Therapy [RC] ASDIRECTED VTE/DVT Education [RC] Per Unit Routine Vital Signs [RC] Q4H Consult to Physician [CONS] Routine Acetaminophen/HYDROcodone [[place] 325-10 MG] 1 tab PO Q4H PRN Albuterol [Proventil Neb Soln] 2.5 mg NEB Q4H PRN Hypromellose [Natural Balance Tears] 0 ml EYERT Q2H PRN Ibuprofen [Motrin] 600 mg PO Q6H PRN Morphine 4 mg IVPUSH Q2H PRN Ondansetron [Zofran ODT] 4 mg PO Q6H PRN Ondansetron [Zofran] 4 mg IV Q6H PRN Polyethylene Glycol 3350 [MiraLAX] 17 gm PO DAILY PRN Antiembolic Hose [OM.PC] Per Unit Routine VTE Pharmacological Contraindications [AST] Per Unit Routine 10/23/18 20:00 Insulin Lispro [HumaLOG] See Protocol SUBCUT QIDACANDBED 10/23/18 21:00 Acetaminophen/HYDROcodone [[place] 325-10 MG] 1 tab PO TID ClonazePAM [KlonoPIN] 1 mg PO BEDTIME DULoxetine [Cymbalta] 30 mg PO BEDTIME Enalapril [Vasotec] 40 mg PO BID Hypromellose [Natural Balance Tears] 0 ml EYERT BID Lactulose [Chronulac] 30 gm PO BID Pregabalin [Lyrica] 150 mg PO BID 10/23/18 Dinner Nothing per Oral After Midnight Diet [DIET] 10/24/18 07:00 Echo Comp wo Cont [US] Routine 10/24/18 07:30 DULoxetine [Cymbalta] 60 mg PO ACBREAKFAST Pantoprazole [ProTONIX] 40 mg PO BIDAC 10/24/18 09:00 Alogliptin Benzoate [Alogliptin] 12.5 mg PO DAILY Aspirin [Halfprin] 81 mg PO DAILY Metoprolol Succinate [Toprol XL] 25 mg PO DAILY Sertraline [Zoloft] 150 mg PO DAILY 10/24/18 11:00 Sucralfate [Carafate] 1 gm PO TIDAC 10/24/18 14:30 Morphine 2 mg IVPUSH Q2H PRN 10/24/18 16:30 GLUCOSE POC LAB TO COLLECT [POC] QIDACANDBED 10/24/18 21:00 GLUCOSE POC LAB TO COLLECT [POC] QIDACANDBED Fluticasone/Salmeterol [Fluticasone-Salmeterol 113-14 MCG Powder Inh] 0 puff INH BIDRT 10/25/18 05:00 BASIC METABOLIC PANEL,BMP [CHEM] Timed CBC W/O DIFF,HEMOGRAM [HEME] Timed (1) - Plan Plan:: ASSESSMENT AND PLAN - Intertrochanteric fracture left hip - secondary to fall. Operative intervention is planned for later in the day. Pain control has been adequate and she is lethargic, probably secondary to pain medications at this time. -Pain control (decreasing morphine dose) -Nonweightbearing left leg -Orthopedic consultation appreciated, surgery planned later -Nothing by mouth Type 2 diabetes mellitus, insulin-dependent - This has been well-controlled. currently not receiving long-acting insulin because of nothing by mouth status. 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 Essential hypertension - Blood pressure moderately elevated, likely related to her pain. -Continue home medications Maintenance issues - - DVT prophylaxis - Mechanical with upcoming surgery - GI prophylaxis - PPI - Nutrition - nothing by mouth - Briscoe catheter - Placed in the emergency room with hip fracture need for strict intake and output monitoring, will remain in place until after surgery Disposition - I would anticipate discharge to the care home for subacute rehabilitation after the hospital stay Patrick Meza M.D.
[2018-10-24] MEDS: Lactated Ringers 1,000 ML IV SCH (14:47)
[2018-10-24] MEDS: Enalapril 5 MG Tab PO SCH ×2 (15:03→22:02)
[2018-10-24] MEDS: Metoprolol Succinate 25 MG Tab.ER PO SCH (15:03)
[2018-10-24] MEDS ORDERED: hydrOXYzine HCl 100 MG/2 ML SDV IM ONE (15:15)
[2018-10-24] MEDS ORDERED: Lactated Ringers 500 ML IV SCH (15:15)
[2018-10-24] MEDS ORDERED: Povidone-Iodine 10% Soln 118.25 ML Bottle ONE (15:32)
[2018-10-24] MEDS ORDERED: fentaNYL 100 MCG/2 ML SDV ONE (15:56)
[2018-10-24] MEDS ORDERED: Propofol 200 MG/20 ML SDV ONE ×2 (15:56→17:44)
[2018-10-24] MEDS ORDERED: Midazolam 1 MG/ML 2 ML SDV ONE (15:57)
[2018-10-24] MEDS: Morphine 2 MG/ML Syringe IVPUSH PRN ×2 (16:00→20:10)
[2018-10-24] MEDS: Nozin Nasal Sanitizer NASBOTH SCH ×2 (16:07→22:06)
[2018-10-24] MEDS ORDERED: ceFAZolin 2 GM in Premix Bag 1 BAG IV ONE (16:15)
[2018-10-24] MEDS ORDERED: ePHEDrine 50 MG/ML SDV ONE (17:41)
[2018-10-24] MEDS ORDERED: Lactated Ringers 1,000 ML ONE (18:29)
--- NOTE | 2018-10-24 19:54 | CRLCR ---
INDICATION: Status left hip repair. TECHNIQUE: X-ray left hip, single portable view. COMPARISON: Left pelvic radiograph 10/23/2018. FINDINGS: There are interval postsurgical changes of a total left hip arthroplasty. The alignment appears within normal limits. The remaining visualized osseous structures are unremarkable. No radiopaque foreign body is seen. IMPRESSION: Postsurgical changes of total left hip arthroplasty. Dictated by Anne Marie Le MD @ 10/24/2018 7:51:55 PM Dictated by: Anne Marie Le MD @ 10/24/2018 19:51:59 (Electronically Signed)
[2018-10-24] MEDS ORDERED: Furosemide 40 MG/4 ML VIAL IVPUSH ONE (21:46)
[2018-10-24] MEDS: Hypromellose 0.4% Ophth Soln 15 ML Bottle EYERT PRN (22:00)
[2018-10-24] MEDS ORDERED: ceFAZolin 1 GM Vial ONE (22:03)
[2018-10-24] MEDS: Fluticasone-Salmeterol 113-14 MCG Powder Inhalant INH SCH (22:03)
[2018-10-24] MEDS ORDERED: Sodium Chloride 0.9% 50 ML ONE (22:03)
[2018-10-24] MEDS: ceFAZolin 1 GM in Premix Bag 1 BAG IV SCH ×2 (22:20→22:27)
[2018-10-24] MEDS: ClonazePAM 1 MG Tab PO SCH (23:21)
[2018-10-25] MEDS: Morphine 2 MG/ML Syringe IVPUSH PRN ×2 (00:26→06:26)
[2018-10-25] MEDS: Ibuprofen 600 MG Tab PO PRN (00:26)
[2018-10-25] MEDS: Lactated Ringers 1,000 ML IV SCH ×2 (00:39→09:45)
[2018-10-25] MEDS: Acetaminophen/oxyCODONE 325-5 MG Tab PO PRN ×3 (01:33→20:50)
[2018-10-25] MEDS ORDERED: ceFAZolin 1 GM Vial ONE (05:16)
[2018-10-25] MEDS ORDERED: Sodium Chloride 0.9% 50 ML ONE (05:16)
[2018-10-25] MEDS: ceFAZolin 1 GM in Premix Bag 1 BAG IV SCH ×3 (05:24→22:48)
[2018-10-25] MEDS: Fluticasone-Salmeterol 113-14 MCG Powder Inhalant INH SCH ×2 (07:14→20:50)
[2018-10-25] MEDS: Pantoprazole 40 MG Tab.CR PO SCH ×2 (07:27→15:59)
[2018-10-25] MEDS: DULoxetine 30 MG Cap PO SCH ×2 (07:27→20:52)
[2018-10-25] MEDS: Sucralfate 1 GM Tab PO SCH ×3 (07:27→15:59)
--- NOTE | 2018-10-25 07:48 | PCM.SN ---
- Free Text/Narrative Note: 10/24/2018 time: 2100 call from 2 [facility], concerns of shortness of breath and wheezing O:Vital signs: RR 17-18 B/P 120/58 O2 sat 88-90% on 3 L NC Lungs wheezing bilateral A: wheezing P: Lasix 40 mg IV now and give Albuterol neb. continue present plan of care.
[2018-10-25] MEDS: Enoxaparin 30 MG/0.3 ML Syringe SUBCUT SCH (08:34)
[2018-10-25] MEDS: Nozin Nasal Sanitizer NASBOTH SCH ×2 (08:34→20:52)
[2018-10-25] MEDS: Aspirin 81 MG Tab.EC PO SCH (08:35)
[2018-10-25] MEDS: Lactulose Soln 10 GM/15 ML 15 ML UD Cup PO SCH ×2 (08:35→20:51)
[2018-10-25] MEDS: Hypromellose 0.4% Ophth Soln 15 ML Bottle EYERT SCH ×2 (08:36→21:11)
[2018-10-25] MEDS: Enalapril 5 MG Tab PO SCH ×2 (08:38→21:11)
[2018-10-25] MEDS: Sertraline 50 MG Tab PO SCH (08:38)
[2018-10-25] MEDS: Metoprolol Succinate 25 MG Tab.ER PO SCH (08:39)
[2018-10-25] MEDS: Acetaminophen/HYDROcodone 325-10 MG Tab PO SCH (08:49)
[2018-10-25] MEDS: Pregabalin 75 MG Cap PO SCH ×2 (08:49→20:57)
[2018-10-25] MEDS: Insulin Lispro 100 Unit/ML 3 ML KwikPen SUBCUT SCH ×4 (08:50→20:49)
--- NOTE | 2018-10-25 10:22 | PCM.PN ---
- General Info Date of Service: 10/25/18 Subjective Update: Overnight the patient had some difficulty with increased shortness of breath. She did receive a dose of furosemide with improvement in her respiratory status. This morning she has sleepy again like yesterday. She is able to wake up but not able to stay awake very long. She has not had pain medication recently. Her sisters report that this is not unusual for her to be very sleepy in the morning. Blood pressures are on the low side of normal at this time. Urine output has been on the low side. She has not had any fevers. Surgical intervention yesterday went well. Functional Status: Reports: Pain Controlled - Review of Systems General: Reports: Weakness Musculoskeletal: Reports: Leg Pain - Patient Data Vitals - Most Recent: Last Vital Signs Temp 35.7 C 10/25/18 07:54 Pulse 80 10/25/18 08:39 Resp 16 10/25/18 07:54 BP 110/41 L 10/25/18 08:39 Pulse Ox 91 L 10/25/18 07:54 Weight - Most Recent: 114.305 kg I&O - Last 24 Hours: Intake & Output 10/24/18 10/25/18 10/25/18 22:59 06:59 14:59 Intake Total 1200 1648 Output Total 650 250 35 Balance 550 1398 -35 Lab Results Last 24 Hours: Laboratory Results - last 24 hr 10/24/18 10/25/18 10/25/18 Range/Units 19:00 04:45 04:45 WBC 7.6 (4.5-11.0) K/uL RBC 3.70 (3.30-5.50) M/uL Hgb 10.6 L 8.9 L (12.0-15.0) g/dL Hct 35.9 L 29.8 L (36.0-48.0) % MCV 81 (80-98) fL MCH 24 L (27-31) pg MCHC 30 L (32-36) % Plt Count 106 L (150-400) K/uL Sodium 141 (140-148) mmol/L Potassium 3.4 L (3.6-5.2) mmol/L Chloride 105 (100-108) mmol/L Carbon Dioxide 31 (21-32) mmol/L Anion Gap 8.4 (5.0-14.0) mmol/L BUN 21 H D (7-18) mg/dL Creatinine 1.0 (0.6-1.0) mg/dL Est Cr Clr Drug Dosing 46.40 mL/min Estimated GFR (MDRD) 56 L (>60) Glucose 245 H (74-106) mg/dL Calcium 7.9 L (8.5-10.1) mg/dL Med Orders - Current: Current Medications Hydrocodone Bitart/Acetaminophen ([place]ide 325-10 Mg) 1 tab PO Q3H PRN PRN Reason: Pain (mild 1-3) Albuterol (Proventil Neb Soln) 2.5 mg NEB Q4H PRN PRN Reason: Shortness Of Breath/wheezing Last Admin: 10/24/18 22:01 Dose: 2.5 mg Alogliptin Benzoate (Alogliptin) 12.5 mg PO DAILY [facility] Last Admin: 10/25/18 08:35 Dose: 12.5 mg Artificial Tears (Natural Balance Tears) 0 ml EYERT BID [facility] Last Admin: 10/25/18 08:36 Dose: 2 drop Artificial Tears (Natural Balance Tears) 0 ml EYERT Q2H PRN PRN Reason: tearing Last Admin: 10/24/18 22:00 Dose: 2 drop Aspirin (Halfprin) 81 mg PO DAILY [facility] Last Admin: 10/25/18 08:35 Dose: 81 mg Bandage/Support Products ( Nasal Operational Intelligence Officer) 1 applic NASBOTH BID [facility] Stop: 10/31/18 09:01 Last Admin: 10/25/18 08:34 Dose: 1 applic Clonazepam (Klonopin) 1 mg PO BEDTIME [facility] Last Admin: 10/24/18 23:21 Dose: Not Given Duloxetine HCl (Cymbalta) 30 mg PO BEDTIME [facility] Last Admin: 10/24/18 22:00 Dose: 30 mg Duloxetine HCl (Cymbalta) 60 mg PO ACBREAKFAST [facility] Last Admin: 10/25/18 07:27 Dose: 60 mg Enalapril Maleate (Vasotec) 40 mg PO BID [facility] Last Admin: 10/25/18 08:38 Dose: 40 mg Enoxaparin Sodium (Lovenox) 30 mg SUBCUT Q24H [facility] Last Admin: 10/25/18 08:34 Dose: 30 mg Furosemide (Lasix) 20 mg PO DAILY [facility] Lactated Ringer's (Ringers, Lactated) 1,000 mls @ 100 mls/hr IV ASDIRECTED [facility] Last Admin: 10/25/18 09:45 Dose: 100 mls/hr Cefazolin Sodium/Dextrose 1 gm (/ Premix) 50 mls @ 100 mls/hr IV Q8HR [facility] Stop: 10/26/18 06:29 Last Admin: 10/25/18 05:24 Dose: Not Given Potassium Chloride 20 meq/Lidocaine HCl 2 ml/ Sodium Chloride 112 mls @ 56 mls/ hr IV Q2H [facility] Stop: 10/25/18 13:59 Ibuprofen (Motrin) 600 mg PO Q6H PRN PRN Reason: Pain/Fever Last Admin: 10/25/18 00:26 Dose: 600 mg Insulin Human Lispro (Humalog) 0 unit SUBCUT QIDACANDBED [facility]; Protocol Last Admin: 10/25/18 08:50 Dose: 4 units Lactulose (Chronulac) 30 gm PO BID [facility] Last Admin: 10/25/18 08:35 Dose: 30 gm Metoprolol Succinate (Toprol Xl) 25 mg PO DAILY [facility] Last Admin: 10/25/18 08:39 Dose: 25 mg Morphine Sulfate (Morphine) 2 mg IVPUSH Q2H PRN PRN Reason: Pain (severe 7-10) Last Admin: 10/25/18 06:26 Dose: 2 mg Ondansetron HCl (Zofran Odt) 4 mg PO Q6H PRN PRN Reason: Nausea able to take PO Ondansetron HCl (Zofran) 4 mg IV Q6H PRN PRN Reason: Nausea/Vomiting Oxycodone/Acetaminophen (Percocet 325-5 Mg) 0 tab PO Q6H PRN PRN Reason: Pain (moderate 4-6) Last Admin: 10/25/18 01:33 Dose: 2 tab Pantoprazole Sodium (Protonix) 40 mg PO BIDAC [facility] Last Admin: 10/25/18 07:27 Dose: 40 mg Polyethylene Glycol (Miralax) 17 gm PO DAILY PRN PRN Reason: Constipation Pregabalin (Lyrica) 150 mg PO BID [facility] Last Admin: 10/25/18 08:49 Dose: 150 mg Fluticasone/Salmeterol (Fluticasone-Salmeterol 113-14 Mcg Powder Inh) 0 puff INH BIDRT [facility] Last Admin: 10/25/18 07:14 Dose: 1 puff Sertraline HCl (Zoloft) 150 mg PO DAILY [facility] Last Admin: 10/25/18 08:38 Dose: 150 mg Sucralfate (Carafate) 1 gm PO TIDAC [facility] Last Admin: 10/25/18 07:27 Dose: 1 gm Discontinued Medications Hydrocodone Bitart/Acetaminophen ([place] 325-7.5 Mg) 1 tab PO ONETIME ONE Stop: 10/23/18 18:31 Last Admin: 10/23/18 18:30 Dose: 1 tab Hydrocodone Bitart/Acetaminophen ([place]ide 325-10 Mg) 1 tab PO TID [facility] Last Admin: 10/25/18 08:49 Dose: 1 tab Hydrocodone Bitart/Acetaminophen ([place]ide 325-10 Mg) 1 tab PO Q4H PRN PRN Reason: Pain (moderate 4-6) Last Admin: 10/24/18 09:32 Dose: 1 tab Cefazolin Sodium (Ancef) Confirm Administered Dose 1 gm .ROUTE .STK-MED ONE Stop: 10/24/18 22:04 Last Admin: 10/24/18 22:27 Dose: 1 gm Cefazolin Sodium (Ancef) Confirm Administered Dose 1 gm .ROUTE .STK-MED ONE Stop: 10/25/18 05:17 Last Admin: 10/25/18 05:24 Dose: 1 gm Ephedrine Sulfate (Ephedrine Sulfate) Confirm Administered Dose 50 mg .ROUTE .STK-MED ONE Stop: 10/24/18 17:42 Fentanyl (Sublimaze) Confirm Administered Dose 100 mcg .ROUTE .STK-MED ONE Stop: 10/24/18 15:57 Furosemide (Lasix) 40 mg IVPUSH ONETIME ONE Stop: 10/24/18 21:47 Last Admin: 10/24/18 22:20 Dose: 40 mg Hydroxyzine HCl (Vistaril) 50 mg IM ONETIME ONE Stop: 10/24/18 15:16 Last Admin: 10/24/18 15:11 Dose: 50 mg Potassium Chloride 20 meq/Lidocaine HCl 2 ml/ Sodium Chloride 112 mls @ 56 mls/ hr IV Q2H [facility] Stop: 10/24/18 13:59 Last Admin: 10/24/18 12:32 Dose: 56 mls/hr Cefazolin Sodium/Dextrose 2 gm (/ Premix) 50 mls @ 100 mls/hr IV ONETIME ONE Stop: 10/24/18 16:44 Last Admin: 10/24/18 16:30 Dose: 100 mls/hr Lactated Ringer's (Ringers, Lactated) 500 mls @ 500 mls/hr IV ASDIRECTED [facility] Stop: 10/24/18 16:16 Last Admin: 10/24/18 15:15 Dose: 500 mls/hr Lactated Ringer's (Ringers, Lactated) Confirm Administered Dose 1,000 mls @ as directed .ROUTE .STK-MED ONE Stop: 10/24/18 18:30 Sodium Chloride (Normal Saline) Confirm Administered Dose 50 mls @ as directed .ROUTE .STK-MED ONE Stop: 10/24/18 22:04 Last Admin: 10/24/18 22:27 Dose: 100 mls/hr Sodium Chloride (Normal Saline) Confirm Administered Dose 50 mls @ as directed .ROUTE .STK-MED ONE Stop: 10/25/18 05:17 Last Admin: 10/25/18 05:24 Dose: 100 mls/hr Midazolam HCl (Versed 1 Mg/Ml) Confirm Administered Dose 2 mg .ROUTE .STK-MED ONE Stop: 10/24/18 15:58 Morphine Sulfate (Morphine) 4 mg IVPUSH Q2H PRN PRN Reason: Pain (severe 7-10) Last Admin: 10/24/18 13:38 Dose: 4 mg Povidone Iodine (Betadine 10% Soln) Confirm Administered Dose 1 ml .ROUTE .STK- MED ONE Stop: 10/24/18 15:33 Last Admin: 10/24/18 17:08 Dose: 20 ml Propofol (Diprivan 20 Ml) Confirm Administered Dose 200 mg .ROUTE .STK-MED ONE Stop: 10/24/18 15:57 Propofol (Diprivan 20 Ml) Confirm Administered Dose 200 mg .ROUTE .STK-MED ONE Stop: 10/24/18 17:45 Fluticasone/Salmeterol (Fluticasone-Salmeterol 113-14 Mcg Powder Inh) 1 puff INH BID [facility] Last Admin: 10/23/18 22:27 Dose: Not Given Sucralfate (Carafate) 1 gm PO TID [facility] Last Admin: 10/23/18 21:52 Dose: 1 gm - Exam Quality Assessment: Supplemental Oxygen General: Alert, No Acute Distress, Lethargic. No: Oriented, Cooperative Lungs: Clear to Auscultation, Normal Respiratory Effort Cardiovascular: Regular Rate, Regular Rhythm GI/Abdominal Exam: Soft, No Distention Extremities: No Pedal Edema. No: Increased Warmth Skin: Warm, Dry Wound/Incisions: Dressing Dry and Intact, No Drainage Psy/Mental Status: Alert. No: Agitated - Problem List & Annotations (1) Intertrochanteric fracture of left femur SNOMED Code(s): 769856851 Code(s): S72.142A - DISPLACED INTERTROCHANTERIC FRACTURE OF LEFT FEMUR, INIT Status: Acute Current Visit: Yes Qualifiers: Encounter type: initial encounter Fracture type: closed Fracture alignment: displaced Qualified Code(s): S72.142A - Displaced intertrochanteric fracture of left femur, initial encounter for closed fracture (2) Diabetes mellitus, insulin dependent (IDDM), controlled SNOMED Code(s): 84770135 Code(s): E11.9 - TYPE 2 DIABETES MELLITUS WITHOUT COMPLICATIONS; Z79.4 - SKILLED NURSING (CURRENT) USE OF INSULIN Status: Chronic Current Visit: No (3) Primary lateral sclerosis SNOMED Code(s): 50839776 Code(s): G12.29 - OTHER MOTOR NEURON DISEASE Status: Chronic Current Visit: No - Problem List Review Problem List Initiated/Reviewed/Updated: Yes - My Orders Last 24 Hours: My Active Orders 10/24/18 11:00 Sucralfate [Carafate] 1 gm PO TIDAC 10/24/18 14:30 Morphine 2 mg IVPUSH Q2H PRN 10/24/18 14:45 Lactated Ringers [Ringers, Lactated] 1,000 ml IV ASDIRECTED 10/24/18 21:00 Fluticasone/Salmeterol [Fluticasone-Salmeterol 113-14 MCG Powder Inh] 0 puff INH BIDRT 10/25/18 07:00 Echo Comp wo Cont [US] Routine 10/25/18 10:00 Potassium Chloride 20 meq Lidocaine 1% [Xylocaine 1%] 2 ml Sodium Chloride 0.9 % [Normal Saline] 100 ml IV Q2H 04/25/19 10:19 Up With Assistance [RC] ASDIRECTED 10/25/18 11:30 GLUCOSE POC LAB TO COLLECT [POC] QIDACANDBED 10/25/18 16:30 GLUCOSE POC LAB TO COLLECT [POC] QIDACANDBED 10/25/18 21:00 GLUCOSE POC LAB TO COLLECT [POC] QIDACANDBED 10/26/18 05:00 BASIC METABOLIC PANEL,BMP [CHEM] Timed CBC W/O DIFF,HEMOGRAM [HEME] Timed (1) 10/26/18 09:00 Furosemide [Lasix] 20 mg PO DAILY - Plan Plan:: ASSESSMENT AND PLAN - Intertrochanteric fracture left hip - status post surgical intervention with left hemiarthroplasty. Pain well-controlled but she is little bit somnolent. Urine output on the borderline side. -Pain control (decreasing morphine dose) -Weightbearing as tolerated -Physical therapy Type 2 diabetes mellitus, insulin-dependent - moderate elevation of sugars, plan to restart long-acting insulin. 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 Essential hypertension - Blood pressure moderately elevated, likely related to her pain. -Continue home medications Maintenance issues - - DVT prophylaxis - Mechanical - GI prophylaxis - PPI - Nutrition - ADAT - Briscoe catheter - Placed in the emergency room with hip fracture need for strict intake and output monitoring, will remain in place until tomorrow Disposition - I would anticipate discharge to the long-term for subacute rehabilitation after the hospital stay Patrick Meza M.D.
[2018-10-25] MEDS: Potassium Chloride 20 MEQ, Lidocaine 1% 2 ML in Sodium Chloride 0.9% 100 ML IV SCH ×2 (10:25→13:51)
[2018-10-25] MEDS ORDERED: Sodium Chloride 0.9% 500 ML IV SCH (12:30)
[2018-10-25] MEDS ORDERED: Sodium Chloride 0.9% 500 ML IV ONE (13:30)
--- NOTE | 2018-10-25 16:43 | PCM.SURGPN ---
- General Info Date of Service: 10/25/18 Date of Surgery/Procedure: 10/24/18 POD#: 1 Functional Status: Reports: Pain Controlled, Tolerating Diet - Review of Systems Systems Review Comment:: Drowsy but arousable, reports pain is more under control than before surgery. - Patient Data Vitals - Most Recent: Last Vital Signs Temp 35.9 C 10/25/18 14:37 Pulse 80 10/25/18 14:37 Resp 14 10/25/18 14:37 BP 104/43 L 10/25/18 14:37 Pulse Ox 92 L 10/25/18 14:37 Weight - Most Recent: 114.305 kg I&O - Last 24 Hours: Intake & Output 10/25/18 10/25/18 10/25/18 06:59 14:59 22:59 Intake Total 1648 1329 Output Total 250 35 Balance 1398 1294 Lab Results Last 24 Hrs: Laboratory Results - last 24 hr 10/24/18 10/25/18 10/25/18 Range/Units 19:00 04:45 04:45 WBC 7.6 (4.5-11.0) K/uL RBC 3.70 (3.30-5.50) M/uL Hgb 10.6 L 8.9 L (12.0-15.0) g/dL Hct 35.9 L 29.8 L (36.0-48.0) % MCV 81 (80-98) fL MCH 24 L (27-31) pg MCHC 30 L (32-36) % Plt Count 106 L (150-400) K/uL Sodium 141 (140-148) mmol/L Potassium 3.4 L (3.6-5.2) mmol/L Chloride 105 (100-108) mmol/L Carbon Dioxide 31 (21-32) mmol/L Anion Gap 8.4 (5.0-14.0) mmol/L BUN 21 H D (7-18) mg/dL Creatinine 1.0 (0.6-1.0) mg/dL Est Cr Clr Drug Dosing 46.40 mL/min Estimated GFR (MDRD) 56 L (>60) Glucose 245 H (74-106) mg/dL Calcium 7.9 L (8.5-10.1) mg/dL Med Orders - Current: Current Medications Hydrocodone Bitart/Acetaminophen (Nada 325-10 Mg) 1 tab PO Q3H PRN PRN Reason: Pain (mild 1-3) Albuterol (Proventil Neb Soln) 2.5 mg NEB Q4H PRN PRN Reason: Shortness Of Breath/wheezing Last Admin: 10/24/18 22:01 Dose: 2.5 mg Alogliptin Benzoate (Alogliptin) 12.5 mg PO DAILY [facility] Last Admin: 10/25/18 08:35 Dose: 12.5 mg Artificial Tears (Natural Balance Tears) 0 ml EYERT BID [facility] Last Admin: 10/25/18 08:36 Dose: 2 drop Artificial Tears (Natural Balance Tears) 0 ml EYERT Q2H PRN PRN Reason: tearing Last Admin: 10/24/18 22:00 Dose: 2 drop Aspirin (Halfprin) 81 mg PO DAILY [facility] Last Admin: 10/25/18 08:35 Dose: 81 mg Bandage/Support Products ( Nasal Employment Educational Coord) 1 applic NASBOTH BID [facility] Stop: 10/31/18 09:01 Last Admin: 10/25/18 08:34 Dose: 1 applic Clonazepam (Klonopin) 1 mg PO BEDTIME [facility] Last Admin: 10/24/18 23:21 Dose: Not Given Duloxetine HCl (Cymbalta) 30 mg PO BEDTIME [facility] Last Admin: 10/24/18 22:00 Dose: 30 mg Duloxetine HCl (Cymbalta) 60 mg PO ACBREAKFAST [facility] Last Admin: 10/25/18 07:27 Dose: 60 mg Enalapril Maleate (Vasotec) 40 mg PO BID [facility] Last Admin: 10/25/18 08:38 Dose: 40 mg Enoxaparin Sodium (Lovenox) 30 mg SUBCUT Q24H [facility] Last Admin: 10/25/18 08:34 Dose: 30 mg Furosemide (Lasix) 20 mg PO DAILY [facility] Lactated Ringer's (Ringers, Lactated) 1,000 mls @ 100 mls/hr IV ASDIRECTED [facility] Last Admin: 10/25/18 09:45 Dose: 100 mls/hr Cefazolin Sodium/Dextrose 1 gm (/ Premix) 50 mls @ 100 mls/hr IV Q8HR [facility] Stop: 10/26/18 06:29 Last Admin: 10/25/18 14:45 Dose: 100 mls/hr Ibuprofen (Motrin) 600 mg PO Q6H PRN PRN Reason: Pain/Fever Last Admin: 10/25/18 00:26 Dose: 600 mg Insulin Human Lispro (Humalog) 0 unit SUBCUT QIDACANDBED [facility]; Protocol Insulin Lispro Protam/Lispro Human (Humalog Mix 75-25) 15 unit SUBCUT BIDAC [facility] Lactulose (Chronulac) 30 gm PO BID [facility] Last Admin: 10/25/18 08:35 Dose: 30 gm Metoprolol Succinate (Toprol Xl) 25 mg PO DAILY [facility] Last Admin: 10/25/18 08:39 Dose: 25 mg Morphine Sulfate (Morphine) 2 mg IVPUSH Q2H PRN PRN Reason: Pain (severe 7-10) Last Admin: 10/25/18 06:26 Dose: 2 mg Ondansetron HCl (Zofran Odt) 4 mg PO Q6H PRN PRN Reason: Nausea able to take PO Ondansetron HCl (Zofran) 4 mg IV Q6H PRN PRN Reason: Nausea/Vomiting Oxycodone/Acetaminophen (Percocet 325-5 Mg) 0 tab PO Q6H PRN PRN Reason: Pain (moderate 4-6) Last Admin: 10/25/18 11:25 Dose: 2 tab Pantoprazole Sodium (Protonix) 40 mg PO BIDAC [facility] Last Admin: 10/25/18 15:59 Dose: 40 mg Polyethylene Glycol (Miralax) 17 gm PO DAILY PRN PRN Reason: Constipation Pregabalin (Lyrica) 150 mg PO BID [facility] Last Admin: 10/25/18 08:49 Dose: 150 mg Fluticasone/Salmeterol (Fluticasone-Salmeterol 113-14 Mcg Powder Inh) 0 puff INH BIDRT [facility] Last Admin: 10/25/18 07:14 Dose: 1 puff Sertraline HCl (Zoloft) 150 mg PO DAILY [facility] Last Admin: 10/25/18 08:38 Dose: 150 mg Sucralfate (Carafate) 1 gm PO TIDAC [facility] Last Admin: 10/25/18 15:59 Dose: 1 gm Discontinued Medications Hydrocodone Bitart/Acetaminophen (Nada 325-7.5 Mg) 1 tab PO ONETIME ONE Stop: 10/23/18 18:31 Last Admin: 10/23/18 18:30 Dose: 1 tab Hydrocodone Bitart/Acetaminophen (Nada 325-10 Mg) 1 tab PO TID MINA Last Admin: 10/25/18 08:49 Dose: 1 tab Hydrocodone Bitart/Acetaminophen (Nada 325-10 Mg) 1 tab PO Q4H PRN PRN Reason: Pain (moderate 4-6) Last Admin: 10/24/18 09:32 Dose: 1 tab Cefazolin Sodium (Ancef) Confirm Administered Dose 1 gm .ROUTE .STK-MED ONE Stop: 10/24/18 22:04 Last Admin: 10/24/18 22:27 Dose: 1 gm Cefazolin Sodium (Ancef) Confirm Administered Dose 1 gm .ROUTE .STK-MED ONE Stop: 10/25/18 05:17 Last Admin: 10/25/18 05:24 Dose: 1 gm Ephedrine Sulfate (Ephedrine Sulfate) Confirm Administered Dose 50 mg .ROUTE .STK-MED ONE Stop: 10/24/18 17:42 Fentanyl (Sublimaze) Confirm Administered Dose 100 mcg .ROUTE .STK-MED ONE Stop: 10/24/18 15:57 Furosemide (Lasix) 40 mg IVPUSH ONETIME ONE Stop: 10/24/18 21:47 Last Admin: 10/24/18 22:20 Dose: 40 mg Hydroxyzine HCl (Vistaril) 50 mg IM ONETIME ONE Stop: 10/24/18 15:16 Last Admin: 10/24/18 15:11 Dose: 50 mg Potassium Chloride 20 meq/Lidocaine HCl 2 ml/ Sodium Chloride 112 mls @ 56 mls/ hr IV Q2H MINA Stop: 10/24/18 13:59 Last Admin: 10/24/18 12:32 Dose: 56 mls/hr Cefazolin Sodium/Dextrose 2 gm (/ Premix) 50 mls @ 100 mls/hr IV ONETIME ONE Stop: 10/24/18 16:44 Last Admin: 10/24/18 16:30 Dose: 100 mls/hr Lactated Ringer's (Ringers, Lactated) 500 mls @ 500 mls/hr IV ASDIRECTED MINA Stop: 10/24/18 16:16 Last Admin: 10/24/18 15:15 Dose: 500 mls/hr Lactated Ringer's (Ringers, Lactated) Confirm Administered Dose 1,000 mls @ as directed .ROUTE .STK-MED ONE Stop: 10/24/18 18:30 Sodium Chloride (Normal Saline) Confirm Administered Dose 50 mls @ as directed .ROUTE .STK-MED ONE Stop: 10/24/18 22:04 Last Admin: 10/24/18 22:27 Dose: 100 mls/hr Sodium Chloride (Normal Saline) Confirm Administered Dose 50 mls @ as directed .ROUTE .STK-MED ONE Stop: 10/25/18 05:17 Last Admin: 10/25/18 05:24 Dose: 100 mls/hr Potassium Chloride 20 meq/Lidocaine HCl 2 ml/ Sodium Chloride 112 mls @ 56 mls/ hr IV Q2H MINA Stop: 10/25/18 13:59 Last Admin: 10/25/18 13:51 Dose: 56 mls/hr Sodium Chloride (Normal Saline) 500 mls @ 500 mls/hr IV ASDIRECTED ONE Stop: 10/25/18 14:29 Last Admin: 10/25/18 13:31 Dose: 500 mls/hr Insulin Human Lispro (Humalog) 0 unit SUBCUT QIDACANDBED [facility]; Protocol Last Admin: 10/25/18 13:32 Dose: 2 units Midazolam HCl (Versed 1 Mg/Ml) Confirm Administered Dose 2 mg .ROUTE .STK-MED ONE Stop: 10/24/18 15:58 Morphine Sulfate (Morphine) 4 mg IVPUSH Q2H PRN PRN Reason: Pain (severe 7-10) Last Admin: 10/24/18 13:38 Dose: 4 mg Povidone Iodine (Betadine 10% Soln) Confirm Administered Dose 1 ml .ROUTE .STK- MED ONE Stop: 10/24/18 15:33 Last Admin: 10/24/18 17:08 Dose: 20 ml Propofol (Diprivan 20 Ml) Confirm Administered Dose 200 mg .ROUTE .STK-MED ONE Stop: 10/24/18 15:57 Propofol (Diprivan 20 Ml) Confirm Administered Dose 200 mg .ROUTE .STK-MED ONE Stop: 10/24/18 17:45 Fluticasone/Salmeterol (Fluticasone-Salmeterol 113-14 Mcg Powder Inh) 1 puff INH BID [facility] Last Admin: 10/23/18 22:27 Dose: Not Given Sucralfate (Carafate) 1 gm PO TID MINA Last Admin: 10/23/18 21:52 Dose: 1 gm - Exam Wound/Incisions: Dressing Dry and Intact Physical Findings Comment:: Moderate swelling around hip, no excessive swelling in leg, Jil's negative. - Problem List & Annotations (1) Closed intertrochanteric fracture of left hip SNOMED Code(s): 64040622 Code(s): S72.142A - DISPLACED INTERTROCHANTERIC FRACTURE OF LEFT FEMUR, INIT Status: Acute Current Visit: Yes Qualifiers: Encounter type: initial encounter Fracture alignment: displaced Qualified Code(s): S72.142A - Displaced intertrochanteric fracture of left femur , initial encounter for closed fracture (2) Postoperative anemia due to acute blood loss SNOMED Code(s): 24756334131027891 Code(s): D62 - ACUTE POSTHEMORRHAGIC ANEMIA Status: Acute Current Visit: Yes - Problem List Review Problem List Initiated/Reviewed/Updated: Yes - My Orders Last 24 Hours: Active Orders 24 hr Category Date Time Status Communication Order [RC] PRN Care 10/25/18 16:06 Active Communication Order [RC] PRN Care 10/25/18 16:06 Active Up With Assistance [RC] ASDIRECTED Care 10/25/18 10:19 Active Up to Chair [RC] QID Care 10/24/18 18:57 Active Consult to Occupational Therapy [OT Evaluation and Cons 10/24/18 18:52 Active Treatment] [CONS] Routine Consult to Physical Therapy [PT Evaluation and Cons 10/24/18 18:51 Active Treatment] [CONS] Routine 2 Gram Sodium Diet [DIET] Diet 10/25/18 Breakfast Active Echo Comp wo Cont [US] Routine Exams 10/25/18 07:00 Taken BASIC METABOLIC PANEL,BMP [CHEM] Timed Lab 10/26/18 05:00 Ordered CBC W/O DIFF,HEMOGRAM [HEME] Timed (1) Lab 10/26/18 05:00 Ordered GLUCOSE POC LAB TO COLLECT [POC] QIDACANDBED Lab 10/25/18 21:00 Ordered Acetaminophen/HYDROcodone [Nada 325-10 MG] Med 10/24/18 18:59 Active 1 tab PO Q3H PRN Acetaminophen/oxyCODONE [Percocet 325-5 MG] Med 10/24/18 18:59 Active See Dose Instructions PO Q6H PRN Enoxaparin [Lovenox] Med 10/25/18 08:00 Active 30 mg SUBCUT Q24H Fluticasone/Salmeterol [Fluticasone-Salmeterol 113-14 Med 10/24/18 21:00 Active MCG Powder Inh] 0 puff INH BIDRT Furosemide [Lasix] Med 10/26/18 09:00 Active 20 mg PO DAILY Insulin Lispro Prot/Lispro [HumaLOG Mix 75-25] Med 10/25/18 16:30 Active 15 unit SUBCUT BIDAC Insulin Lispro [HumaLOG] Med 10/25/18 17:00 Active See Protocol SUBCUT QIDACANDBED ceFAZolin [Ancef] 1 gm Med 10/24/18 22:00 Active Premix Bag 1 bag IV Q8HR Medication Orders Hydrocodone Bitart/Acetaminophen (Nada 325-10 Mg) 1 tab PO Q3H PRN PRN Reason: Pain (mild 1-3) Albuterol (Proventil Neb Soln) 2.5 mg NEB Q4H PRN PRN Reason: Shortness Of Breath/wheezing Last Admin: 10/24/18 22:01 Dose: 2.5 mg Alogliptin Benzoate (Alogliptin) 12.5 mg PO DAILY [facility] Last Admin: 10/25/18 08:35 Dose: 12.5 mg Admin: 10/24/18 08:58 Dose: Artificial Tears (Natural Balance Tears) 0 ml EYERT BID [facility] Last Admin: 10/25/18 08:36 Dose: 2 drop Admin: 10/24/18 22:04 Dose: 2 drop Admin: 10/24/18 09:31 Dose: Not Given Admin: 10/24/18 07:58 Dose: Artificial Tears (Natural Balance Tears) 0 ml EYERT Q2H PRN PRN Reason: tearing Last Admin: 10/24/18 22:00 Dose: 2 drop Aspirin (Halfprin) 81 mg PO DAILY [facility] Last Admin: 10/25/18 08:35 Dose: 81 mg Admin: 10/24/18 08:58 Dose: Bandage/Support Products ( Nasal Employment Educational Coord) 1 applic NASBOTH BID [facility] Stop: 10/31/18 09:01 Last Admin: 10/25/18 08:34 Dose: 1 applic Admin: 10/24/18 22:06 Dose: 1 applic Admin: 10/24/18 16:07 Dose: 1 applic Clonazepam (Klonopin) 1 mg PO BEDTIME [facility] Last Admin: 10/24/18 23:21 Dose: Admin: 10/23/18 21:47 Dose: 1 mg Duloxetine HCl (Cymbalta) 30 mg PO BEDTIME [facility] Last Admin: 10/24/18 22:00 Dose: 30 mg Admin: 10/23/18 21:47 Dose: 30 mg Duloxetine HCl (Cymbalta) 60 mg PO ACBREAKFAST [facility] Last Admin: 10/25/18 07:27 Dose: 60 mg Admin: 10/24/18 08:16 Dose: Enalapril Maleate (Vasotec) 40 mg PO BID [facility] Last Admin: 10/25/18 08:38 Dose: 40 mg Admin: 10/24/18 22:02 Dose: 40 mg Admin: 10/24/18 15:03 Dose: Admin: 10/23/18 22:40 Dose: 40 mg Enoxaparin Sodium (Lovenox) 30 mg SUBCUT Q24H [facility] Last Admin: 10/25/18 08:34 Dose: 30 mg Furosemide (Lasix) 20 mg PO DAILY [facility] Lactated Ringer's (Ringers, Lactated) 1,000 mls @ 100 mls/hr IV ASDIRECTED [facility] Last Admin: 10/25/18 09:45 Dose: 100 mls/hr Infusion: 10/25/18 09:45 Dose: 100 mls/hr Admin: 10/25/18 00:39 Dose: 100 mls/hr Infusion: 10/25/18 00:39 Dose: 100 mls/hr Admin: 10/24/18 14:47 Dose: 100 mls/hr Cefazolin Sodium/Dextrose 1 gm (/ Premix) 50 mls @ 100 mls/hr IV Q8HR [facility] Stop: 10/26/18 06:29 Last Admin: 10/25/18 14:45 Dose: 100 mls/hr Admin: 10/25/18 05:24 Dose: Not Given Admin: 10/24/18 22:27 Dose: Not Given Ibuprofen (Motrin) 600 mg PO Q6H PRN PRN Reason: Pain/Fever Last Admin: 10/25/18 00:26 Dose: 600 mg Insulin Human Lispro (Humalog) 0 unit SUBCUT QIDACANDBED [facility]; Protocol Insulin Lispro Protam/Lispro Human (Humalog Mix 75-25) 15 unit SUBCUT BIDAC [facility] Lactulose (Chronulac) 30 gm PO BID [facility] Last Admin: 10/25/18 08:35 Dose: 30 gm Admin: 10/24/18 22:01 Dose: 30 gm Admin: 10/24/18 08:58 Dose: Admin: 10/23/18 21:47 Dose: 30 gm Metoprolol Succinate (Toprol Xl) 25 mg PO DAILY [facility] Last Admin: 10/25/18 08:39 Dose: 25 mg Admin: 10/24/18 15:03 Dose: Morphine Sulfate (Morphine) 2 mg IVPUSH Q2H PRN PRN Reason: Pain (severe 7-10) Last Admin: 10/25/18 06:26 Dose: 2 mg Admin: 10/25/18 00:26 Dose: 2 mg Admin: 10/24/18 20:10 Dose: 2 mg Admin: 10/24/18 16:00 Dose: 2 mg Ondansetron HCl (Zofran Odt) 4 mg PO Q6H PRN PRN Reason: Nausea able to take PO Ondansetron HCl (Zofran) 4 mg IV Q6H PRN PRN Reason: Nausea/Vomiting Oxycodone/Acetaminophen (Percocet 325-5 Mg) 0 tab PO Q6H PRN PRN Reason: Pain (moderate 4-6) Last Admin: 10/25/18 11:25 Dose: 2 tab Admin: 10/25/18 01:33 Dose: 2 tab Pantoprazole Sodium (Protonix) 40 mg PO BIDAC [facility] Last Admin: 10/25/18 15:59 Dose: 40 mg Admin: 10/25/18 07:27 Dose: 40 mg Admin: 10/24/18 17:24 Dose: Not Given Admin: 10/24/18 08:16 Dose: Polyethylene Glycol (Miralax) 17 gm PO DAILY PRN PRN Reason: Constipation Pregabalin (Lyrica) 150 mg PO BID [facility] Last Admin: 10/25/18 08:49 Dose: 150 mg Admin: 10/24/18 23:21 Dose: Admin: 10/24/18 08:59 Dose: Admin: 10/23/18 21:47 Dose: 150 mg Fluticasone/Salmeterol (Fluticasone-Salmeterol 113-14 Mcg Powder Inh) 0 puff INH BIDRT [facility] Last Admin: 10/25/18 07:14 Dose: 1 puff Admin: 10/24/18 22:03 Dose: 1 puff Sertraline HCl (Zoloft) 150 mg PO DAILY [facility] Last Admin: 10/25/18 08:38 Dose: 150 mg Admin: 10/24/18 08:59 Dose: Sucralfate (Carafate) 1 gm PO TIDAC [facility] Last Admin: 10/25/18 15:59 Dose: 1 gm Admin: 10/25/18 10:34 Dose: 1 gm Admin: 10/25/18 07:27 Dose: 1 gm Admin: 10/24/18 16:09 Dose: Not Given Admin: 10/24/18 13:32 Dose: - Assessment Assessment (Free Text/Narrative):: Stable post op, no complications. Decreased H/H in the range expected for this surgery. May dip a little more over next day or so. - Plan Plan (Free Text/Narrative):: May be up in chair and transfer WBAT on the left leg. Follow posterior hip precautions for the next 4 weeks. Dressing can be changed tomorrow and OK to shower if no drainage. Recommend anti-coagulation for DVT prophylaxis for one month, Lovenox or equivalent. OK to transfer to Rehab/SNF when medically stable. Follow up in Ortho Clinic in approx. 2 weeks.
[2018-10-25] MEDS: Insulin Lispro Protamine/Lispro 75-25 100 Units/ML 10 ML Vial SUBCUT SCH (16:59)
[2018-10-25] MEDS: ClonazePAM 1 MG Tab PO SCH (21:11)
[2018-10-25] MEDS ORDERED: Lactated Ringers 500 ML IV ONE (22:35)
--- NOTE | 2018-10-26 00:01 | OR ---
DATE OF PROCEDURE: 10/24/2018 PREOPERATIVE DIAGNOSIS: Peritrochanteric fracture, left hip. POSTOPERATIVE DIAGNOSIS: Peritrochanteric fracture, left hip. PROCEDURE: Hemiarthroplasty, left hip, using cemented calcar replacing stem, size 13, 44 mm cup with a +0 neck length, 22 mm head. ANESTHESIA: Spinal with sedation. 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 She was attempting to transfer from chair to wheelchair when she slipped and fell to the floor. X-rays revealed a fracture of the left hip. Fracture is an intertrochanteric variant. She is taken to the operating room today for hemiarthroplasty of the left hip and possible fixation of the greater trochanter. The risks, benefits, and potential complications were discussed with Francisca and her family who has the power of claims attorney. PROCEDURE IN DETAIL: After adequate anesthesia was obtained, the patient was placed in the lateral decubitus position and secured with the hip positioner. The left hip and leg were then prepped and draped in a sterile fashion. Incision was made over the greater trochanter and carried down through the subcutaneous tissues. Hemostasis was obtained with electrocautery. The tensor fascia was split in line with its fibers and a Charnley retractor was then placed. Short external rotators were taken off the greater trochanter with electrocautery. The piriformis was tagged, released, and retracted medially. Hip capsule was entered. This revealed the fracture at the base of the femoral neck extending up into the medial aspect of the greater trochanter, but not extending through the lateral cortex. The femoral head and neck portion of the fragment was removed. This was measured at approximately 45 mm. A 46 mm trial was placed in the acetabulum, which had a good fit. Attention was turned to the femur. Canal was broached to a size 13. Trial stem was placed to assess length and version. A zero neck length trial head was placed with the trial cup. This recreated the limb length without a calcar buildup on the stem. The trial stem and cup were removed. Canal was then thoroughly irrigated with a pulse lavage brush tip. A canal cement restrictor was created using a small portion of bone cement just beyond the length of the planned stem. This was allowed to harden in place. The canal was then irrigated once again with the brush tip clothing trades workers. Canal was then filled in a retrograde fashion with a cement gun and the cement was pressurized. The stem was then pressed into position and held at the correct rotation as the cement cured. Excess cement was removed. Once the cement had cured, a trial reduction was again performed, which showed good mormon of limb length and stability with the hip flexed, adducted, and internally rotated. The trial was removed. The final bipolar cup and head were tapped onto the taper and reduced once again. Again, limb length was assessed and was found to be even. The hip was irrigated with a dilute solution of Betadine. Capsule was closed with a #1 Ethibond. Piriformis was reattached to the greater trochanter with #1 Ethibond. Tensor fascia was then closed in a running fashion with #1 Ethibond. Skin was closed with 2-0 Vicryl in the deep layer and a running 3-0 Monocryl on the skin. Steri-Strips were applied. Sterile dressing was then placed. The patient tolerated the procedure well. There were no complications. She was taken from the operating room in a stable condition. Brock Booth MD /[id number] RUTHIE
[2018-10-26] MEDS: ceFAZolin 1 GM in Premix Bag 1 BAG IV SCH (07:17)
[2018-10-26] MEDS: Acetaminophen/oxyCODONE 325-5 MG Tab PO PRN (07:24)
[2018-10-26] MEDS: Fluticasone-Salmeterol 113-14 MCG Powder Inhalant INH SCH ×2 (07:27→20:56)
[2018-10-26] MEDS: Pantoprazole 40 MG Tab.CR PO SCH ×2 (07:28→16:12)
[2018-10-26] MEDS: Sucralfate 1 GM Tab PO SCH ×3 (07:28→16:12)
[2018-10-26] MEDS: DULoxetine 30 MG Cap PO SCH ×2 (07:29→20:56)
[2018-10-26] MEDS: Enoxaparin 30 MG/0.3 ML Syringe SUBCUT SCH (07:31)
[2018-10-26] MEDS: Insulin Lispro 100 Unit/ML 3 ML KwikPen SUBCUT SCH ×4 (07:32→21:06)
[2018-10-26] MEDS: Insulin Lispro Protamine/Lispro 75-25 100 Units/ML 10 ML Vial SUBCUT SCH ×2 (07:37→16:21)
[2018-10-26] MEDS: Ibuprofen 600 MG Tab PO PRN (10:07)
[2018-10-26] MEDS: Enalapril 5 MG Tab PO SCH (10:08)
[2018-10-26] MEDS: Hypromellose 0.4% Ophth Soln 15 ML Bottle EYERT PRN ×2 (10:09→21:00)
[2018-10-26] MEDS: Nozin Nasal Sanitizer NASBOTH SCH ×2 (10:09→20:54)
[2018-10-26] MEDS: Lactulose Soln 10 GM/15 ML 15 ML UD Cup PO SCH ×2 (10:10→20:55)
[2018-10-26] MEDS: Sertraline 50 MG Tab PO SCH (10:12)
[2018-10-26] MEDS: Furosemide 20 MG Tab PO SCH (10:13)
[2018-10-26] MEDS: Aspirin 81 MG Tab.EC PO SCH (10:13)
[2018-10-26] MEDS: Hypromellose 0.4% Ophth Soln 15 ML Bottle EYERT SCH ×2 (10:14→21:03)
[2018-10-26] MEDS: Pregabalin 75 MG Cap PO SCH ×2 (10:22→21:10)
[2018-10-26] MEDS: Lactated Ringers 1,000 ML IV SCH ×2 (11:47→20:50)
--- NOTE | 2018-10-26 12:24 | PCM.PN ---
- General Info Date of Service: 10/26/18 Subjective Update: Overnight there is difficulty with hypotension and low urine output. Patient did receive a fluid bolus with some improvement. She continues to be sleepy though less so today. She has not been out of bed or able to work with physical therapy as of yet. She appears comfortable at rest but has severe pain in her left hip with any sort of movement. No complaints of shortness of breath. Blood sugars have been fairly well-controlled but appetite has not been great. Hemoglobin has trended down. Functional Status: Reports: Pain Controlled, Tolerating Diet - Review of Systems General: Reports: Weakness. Denies: Fever Musculoskeletal: Reports: Leg Pain Psychiatric: Reports: Confusion - Patient Data Vitals - Most Recent: Last Vital Signs Temp 35.4 C 10/26/18 10:52 Pulse 86 10/26/18 10:52 Resp 18 10/26/18 10:52 BP 106/38 L 10/26/18 10:52 Pulse Ox 96 10/26/18 10:52 Weight - Most Recent: 114.305 kg I&O - Last 24 Hours: Intake & Output 10/25/18 10/26/18 10/26/18 22:59 06:59 14:59 Intake Total 297 2359 Output Total 155 240 275 Balance 142 -240 2084 Lab Results Last 24 Hours: Laboratory Results - last 24 hr 10/26/18 10/26/18 Range/Units 05:47 05:47 WBC 8.3 (4.5-11.0) K/uL RBC 3.29 L (3.30-5.50) M/uL Hgb 8.0 L (12.0-15.0) g/dL Hct 26.8 L (36.0-48.0) % MCV 82 (80-98) fL MCH 24 L (27-31) pg MCHC 30 L (32-36) % Plt Count 88 L (150-400) K/uL Sodium 141 (140-148) mmol/L Potassium 3.7 (3.6-5.2) mmol/L Chloride 106 (100-108) mmol/L Carbon Dioxide 28 (21-32) mmol/L Anion Gap 7.1 (5.0-14.0) mmol/L BUN 29 H (7-18) mg/dL Creatinine 1.3 H (0.6-1.0) mg/dL Est Cr Clr Drug Dosing 35.68 mL/min Estimated GFR (MDRD) 41 L (>60) Glucose 158 H (74-106) mg/dL Calcium 8.0 L (8.5-10.1) mg/dL Med Orders - Current: Current Medications Hydrocodone Bitart/Acetaminophen ([place] 325-10 Mg) 1 tab PO Q3H PRN PRN Reason: Pain Albuterol (Proventil Neb Soln) 2.5 mg NEB Q4H PRN PRN Reason: Shortness Of Breath/wheezing Last Admin: 10/24/18 22:01 Dose: 2.5 mg Alogliptin Benzoate (Alogliptin) 12.5 mg PO DAILY [facility] Last Admin: 10/26/18 10:12 Dose: 12.5 mg Artificial Tears (Natural Balance Tears) 0 ml EYERT BID [facility] Last Admin: 10/26/18 10:14 Dose: 2 drop Artificial Tears (Natural Balance Tears) 0 ml EYERT Q2H PRN PRN Reason: tearing Last Admin: 10/26/18 10:09 Dose: 1 drop Aspirin (Halfprin) 81 mg PO DAILY [facility] Last Admin: 10/26/18 10:13 Dose: 81 mg Bandage/Support Products ( Nasal Resolution Rep) 1 applic NASBOTH BID [facility] Stop: 10/31/18 09:01 Last Admin: 10/26/18 10:09 Dose: 1 applic Clonazepam (Klonopin) 1 mg PO BEDTIME [facility] Last Admin: 10/25/18 21:11 Dose: Not Given Duloxetine HCl (Cymbalta) 30 mg PO BEDTIME [facility] Last Admin: 10/25/18 20:52 Dose: 30 mg Duloxetine HCl (Cymbalta) 60 mg PO ACBREAKFAST [facility] Last Admin: 10/26/18 07:29 Dose: 60 mg Enalapril Maleate (Vasotec) 40 mg PO BID [facility] Last Admin: 10/26/18 10:08 Dose: Not Given Enoxaparin Sodium (Lovenox) 30 mg SUBCUT Q24H [facility] Last Admin: 10/26/18 07:31 Dose: 30 mg Furosemide (Lasix) 20 mg PO DAILY [facility] Last Admin: 10/26/18 10:13 Dose: 20 mg Lactated Ringer's (Ringers, Lactated) 1,000 mls @ 100 mls/hr IV ASDIRECTED [facility] Last Admin: 10/26/18 11:47 Dose: 100 mls/hr Ibuprofen (Motrin) 600 mg PO Q6H PRN PRN Reason: Pain/Fever Last Admin: 10/26/18 10:07 Dose: 600 mg Insulin Human Lispro (Humalog) 0 unit SUBCUT QIDACANDBED [facility]; Protocol Last Admin: 10/26/18 12:18 Dose: 2 unit Lactulose (Chronulac) 30 gm PO BID [facility] Last Admin: 10/26/18 10:10 Dose: 30 gm Metoprolol Succinate (Toprol Xl) 25 mg PO DAILY [facility] Last Admin: 10/25/18 08:39 Dose: 25 mg Morphine Sulfate (Morphine) 2 mg IVPUSH Q2H PRN PRN Reason: Pain (severe 7-10) Last Admin: 10/25/18 06:26 Dose: 2 mg Ondansetron HCl (Zofran Odt) 4 mg PO Q6H PRN PRN Reason: Nausea able to take PO Ondansetron HCl (Zofran) 4 mg IV Q6H PRN PRN Reason: Nausea/Vomiting Pantoprazole Sodium (Protonix) 40 mg PO BIDAC [facility] Last Admin: 10/26/18 07:28 Dose: 40 mg Polyethylene Glycol (Miralax) 17 gm PO DAILY PRN PRN Reason: Constipation Pregabalin (Lyrica) 150 mg PO BID [facility] Last Admin: 10/26/18 10:22 Dose: 150 mg Fluticasone/Salmeterol (Fluticasone-Salmeterol 113-14 Mcg Powder Inh) 0 puff INH BIDRT [facility] Last Admin: 10/26/18 07:27 Dose: 60 puff Sertraline HCl (Zoloft) 150 mg PO DAILY [facility] Last Admin: 10/26/18 10:12 Dose: 150 mg Sucralfate (Carafate) 1 gm PO TIDAC [facility] Last Admin: 10/26/18 12:19 Dose: 1 gm Discontinued Medications Hydrocodone Bitart/Acetaminophen ([place] 325-7.5 Mg) 1 tab PO ONETIME ONE Stop: 10/23/18 18:31 Last Admin: 10/23/18 18:30 Dose: 1 tab Hydrocodone Bitart/Acetaminophen ([place] 325-10 Mg) 1 tab PO TID [facility] Last Admin: 10/25/18 08:49 Dose: 1 tab Hydrocodone Bitart/Acetaminophen ([place] 325-10 Mg) 1 tab PO Q4H PRN PRN Reason: Pain (moderate 4-6) Last Admin: 10/24/18 09:32 Dose: 1 tab Cefazolin Sodium (Ancef) Confirm Administered Dose 1 gm .ROUTE .STK-MED ONE Stop: 10/24/18 22:04 Last Admin: 10/24/18 22:27 Dose: 1 gm Cefazolin Sodium (Ancef) Confirm Administered Dose 1 gm .ROUTE .STK-MED ONE Stop: 10/25/18 05:17 Last Admin: 10/25/18 05:24 Dose: 1 gm Ephedrine Sulfate (Ephedrine Sulfate) Confirm Administered Dose 50 mg .ROUTE .STK-MED ONE Stop: 10/24/18 17:42 Fentanyl (Sublimaze) Confirm Administered Dose 100 mcg .ROUTE .STK-MED ONE Stop: 10/24/18 15:57 Furosemide (Lasix) 40 mg IVPUSH ONETIME ONE Stop: 10/24/18 21:47 Last Admin: 10/24/18 22:20 Dose: 40 mg Hydroxyzine HCl (Vistaril) 50 mg IM ONETIME ONE Stop: 10/24/18 15:16 Last Admin: 10/24/18 15:11 Dose: 50 mg Potassium Chloride 20 meq/Lidocaine HCl 2 ml/ Sodium Chloride 112 mls @ 56 mls/ hr IV Q2H [facility] Stop: 10/24/18 13:59 Last Admin: 10/24/18 12:32 Dose: 56 mls/hr Cefazolin Sodium/Dextrose 2 gm (/ Premix) 50 mls @ 100 mls/hr IV ONETIME ONE Stop: 10/24/18 16:44 Last Admin: 10/24/18 16:30 Dose: 100 mls/hr Lactated Ringer's (Ringers, Lactated) 500 mls @ 500 mls/hr IV ASDIRECTED [facility] Stop: 10/24/18 16:16 Last Admin: 10/24/18 15:15 Dose: 500 mls/hr Lactated Ringer's (Ringers, Lactated) Confirm Administered Dose 1,000 mls @ as directed .ROUTE .STK-MED ONE Stop: 10/24/18 18:30 Cefazolin Sodium/Dextrose 1 gm (/ Premix) 50 mls @ 100 mls/hr IV Q8HR [facility] Stop: 10/26/18 06:29 Last Admin: 10/26/18 07:17 Dose: 100 mls/hr Sodium Chloride (Normal Saline) Confirm Administered Dose 50 mls @ as directed .ROUTE .STK-MED ONE Stop: 10/24/18 22:04 Last Admin: 10/24/18 22:27 Dose: 100 mls/hr Sodium Chloride (Normal Saline) Confirm Administered Dose 50 mls @ as directed .ROUTE .STK-MED ONE Stop: 10/25/18 05:17 Last Admin: 10/25/18 05:24 Dose: 100 mls/hr Potassium Chloride 20 meq/Lidocaine HCl 2 ml/ Sodium Chloride 112 mls @ 56 mls/ hr IV Q2H [facility] Stop: 10/25/18 13:59 Last Admin: 10/25/18 13:51 Dose: 56 mls/hr Sodium Chloride (Normal Saline) 500 mls @ 500 mls/hr IV ASDIRECTED ONE Stop: 10/25/18 14:29 Last Admin: 10/25/18 13:31 Dose: 500 mls/hr Lactated Ringer's (Ringers, Lactated) 500 mls @ 500 mls/hr IV ONETIME ONE Stop: 10/25/18 23:34 Last Admin: 10/25/18 22:46 Dose: 500 mls/hr Insulin Human Lispro (Humalog) 0 unit SUBCUT QIDACANDBED [facility]; Protocol Last Admin: 10/25/18 13:32 Dose: 2 units Insulin Lispro Protam/Lispro Human (Humalog Mix 75-25) 15 unit SUBCUT BIDAC [facility] Last Admin: 10/26/18 07:37 Dose: 15 units Midazolam HCl (Versed 1 Mg/Ml) Confirm Administered Dose 2 mg .ROUTE .STK-MED ONE Stop: 10/24/18 15:58 Morphine Sulfate (Morphine) 4 mg IVPUSH Q2H PRN PRN Reason: Pain (severe 7-10) Last Admin: 10/24/18 13:38 Dose: 4 mg Oxycodone/Acetaminophen (Percocet 325-5 Mg) 0 tab PO Q6H PRN PRN Reason: Pain (moderate 4-6) Last Admin: 10/26/18 07:24 Dose: 1 tab Povidone Iodine (Betadine 10% Soln) Confirm Administered Dose 1 ml .ROUTE .STK- MED ONE Stop: 10/24/18 15:33 Last Admin: 10/24/18 17:08 Dose: 20 ml Propofol (Diprivan 20 Ml) Confirm Administered Dose 200 mg .ROUTE .STK-MED ONE Stop: 10/24/18 15:57 Propofol (Diprivan 20 Ml) Confirm Administered Dose 200 mg .ROUTE .STK-MED ONE Stop: 10/24/18 17:45 Fluticasone/Salmeterol (Fluticasone-Salmeterol 113-14 Mcg Powder Inh) 1 puff INH BID [facility] Last Admin: 10/23/18 22:27 Dose: Not Given Sucralfate (Carafate) 1 gm PO TID [facility] Last Admin: 10/23/18 21:52 Dose: 1 gm - Exam Quality Assessment: Supplemental Oxygen General: Alert, Cooperative, No Acute Distress, Lethargic. No: Oriented HEENT: Pupils Equal Lungs: Clear to Auscultation, Normal Respiratory Effort Cardiovascular: Regular Rate, Regular Rhythm GI/Abdominal Exam: Soft, No Distention Extremities: No Pedal Edema Skin: Warm, Dry Wound/Incisions: Dressing Dry and Intact, No Drainage Psy/Mental Status: Alert, Other (confused) - Problem List & Annotations (1) Intertrochanteric fracture of left femur SNOMED Code(s): 876607275 Code(s): S72.142A - DISPLACED INTERTROCHANTERIC FRACTURE OF LEFT FEMUR, INIT Status: Acute Current Visit: Yes Qualifiers: Encounter type: initial encounter Fracture type: closed Fracture alignment: displaced Qualified Code(s): S72.142A - Displaced intertrochanteric fracture of left femur, initial encounter for closed fracture (2) Diabetes mellitus, insulin dependent (IDDM), controlled SNOMED Code(s): 18834614 Code(s): E11.9 - TYPE 2 DIABETES MELLITUS WITHOUT COMPLICATIONS; Z79.4 - [facility] (CURRENT) USE OF INSULIN Status: Chronic Current Visit: No (3) Primary lateral sclerosis SNOMED Code(s): 00420593 Code(s): G12.29 - OTHER MOTOR NEURON DISEASE Status: Chronic Current Visit: No - Problem List Review Problem List Initiated/Reviewed/Updated: Yes - My Orders Last 24 Hours: My Active Orders 10/25/18 16:06 Communication Order [RC] PRN Communication Order [RC] PRN 10/25/18 16:30 Insulin Lispro Prot/Lispro [HumaLOG Mix 75-25] 15 unit SUBCUT BIDAC 10/25/18 17:00 Insulin Lispro [HumaLOG] See Protocol SUBCUT QIDACANDBED 10/26/18 09:00 Furosemide [Lasix] 20 mg PO DAILY 10/26/18 16:30 GLUCOSE POC LAB TO COLLECT [POC] QIDACANDBED Insulin Lispro Prot/Lispro [HumaLOG Mix 75-25] 20 unit SUBCUT BIDAC 10/26/18 21:00 GLUCOSE POC LAB TO COLLECT [POC] QIDACANDBED 10/27/18 05:00 BASIC METABOLIC PANEL,BMP [CHEM] Timed CBC W/O DIFF,HEMOGRAM [HEME] Timed (1) RED BLOOD CELLS LP [BBK] Timed 10/27/18 09:00 Sertraline [Zoloft] 100 mg PO DAILY - Plan Plan:: ASSESSMENT AND PLAN - Intertrochanteric fracture left hip - status post surgical intervention with left hemiarthroplasty. Pain well-controlled at rest but less so with any activity. Has not been able to work with physical therapy as of yet. -Pain control with hydrocodone -Discontinue oxycodone -Weightbearing as tolerated -Physical therapy Anemia due to acute blood loss - hemoglobin has dropped more than 3 points following surgery, possibly a component of dilution. No strong evidence for bleeding. -Repeat hemoglobin in the morning -Type and cross 2 units in the morning Type 2 diabetes mellitus, insulin-dependent - sugars fairly well controlled. 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 Essential hypertension - Blood pressure has been on the low side and antihypertensives have been on hold. -Hold home medications Maintenance issues - - DVT prophylaxis - Mechanical - GI prophylaxis - PPI - Nutrition - diabetic diet - Briscoe catheter - Placed in the emergency room with hip fracture need for strict intake and output monitoring, will remain in place until mental status normalizes Disposition - I would anticipate discharge to the intermediate for subacute rehabilitation after the hospital stay Patrick Meza M.D.
[2018-10-26] MEDS: Metoprolol Succinate 25 MG Tab.ER PO SCH (12:55)
[2018-10-26] MEDS: Acetaminophen/HYDROcodone 325-10 MG Tab PO PRN ×2 (12:58→20:52)
[2018-10-26] MEDS: Morphine 2 MG/ML Syringe IVPUSH PRN (13:02)
[2018-10-26] MEDS: ClonazePAM 1 MG Tab PO SCH (21:10)
[2018-10-27] MEDS: Lactated Ringers 1,000 ML IV SCH (06:52)
[2018-10-27] MEDS: Fluticasone-Salmeterol 113-14 MCG Powder Inhalant INH SCH ×2 (07:42→20:56)
[2018-10-27] MEDS: Insulin Lispro 100 Unit/ML 3 ML KwikPen SUBCUT SCH ×4 (08:08→21:07)
[2018-10-27] MEDS: DULoxetine 30 MG Cap PO SCH ×2 (08:15→20:55)
[2018-10-27] MEDS: Sucralfate 1 GM Tab PO SCH ×3 (08:15→15:44)
[2018-10-27] MEDS: Enoxaparin 30 MG/0.3 ML Syringe SUBCUT SCH (08:16)
[2018-10-27] MEDS: Pantoprazole 40 MG Tab.CR PO SCH ×2 (08:16→15:45)
[2018-10-27] MEDS: Lactulose Soln 10 GM/15 ML 15 ML UD Cup PO SCH ×2 (08:18→20:53)
[2018-10-27] MEDS: Aspirin 81 MG Tab.EC PO SCH (08:18)
[2018-10-27] MEDS: Furosemide 20 MG Tab PO SCH (08:19)
[2018-10-27] MEDS: Hypromellose 0.4% Ophth Soln 15 ML Bottle EYERT SCH ×2 (08:19→20:59)
[2018-10-27] MEDS: Sertraline 50 MG Tab PO SCH (08:20)
[2018-10-27] MEDS: Nozin Nasal Sanitizer NASBOTH SCH ×2 (08:40→20:52)
[2018-10-27] MEDS: Insulin Lispro Protamine/Lispro 75-25 100 Units/ML 10 ML Vial SUBCUT SCH ×3 (08:40→16:58)
[2018-10-27] MEDS: Pregabalin 75 MG Cap PO SCH ×2 (08:44→21:01)
[2018-10-27] MEDS ORDERED: Magnesium Hydroxide 400 MG/5 ML Susp 30 ML Cup PO PRN (10:48)
--- NOTE | 2018-10-27 10:51 | PCM.PN ---
- General Info Date of Service: 10/27/18 Subjective Update: There were no acute events overnight. She is more alert and interactive today though she's not back to baseline. She is still little bit confused but not hallucinating. She reports mild pain in her hip at rest but severe pain with any activity. She does not feel short of breath. Appetite has been improving. Blood sugars have been acceptable. Urine output has been better overnight. Hemoglobin did drop below 8 and she will be receiving 1 unit of packed red blood cells. She is able to get up with the Marian steady. Functional Status: Reports: Pain Controlled. Denies: Ambulating - Review of Systems General: Reports: Weakness. Denies: Fever Neurological: Reports: Confusion - Patient Data Vitals - Most Recent: Last Vital Signs Temp 36.9 C 10/27/18 08:45 Pulse 108 H 10/27/18 08:45 Resp 20 10/27/18 08:45 BP 137/45 L 10/27/18 08:45 Pulse Ox 94 L 10/27/18 08:45 Weight - Most Recent: 114.305 kg I&O - Last 24 Hours: Intake & Output 10/26/18 10/27/18 10/27/18 22:59 06:59 14:59 Intake Total 2394 1550 Output Total 575 775 Balance 1819 775 Lab Results Last 24 Hours: Laboratory Results - last 24 hr 10/24/18 10/27/18 10/27/18 Range/Units 08:43 04:25 04:25 WBC 5.6 (4.5-11.0) K/uL RBC 2.98 L (3.30-5.50) M/uL Hgb 7.5 L (12.0-15.0) g/dL Hct 23.7 L (36.0-48.0) % MCV 80 (80-98) fL MCH 25 L (27-31) pg MCHC 32 (32-36) % Plt Count 85 L (150-400) K/uL Sodium 138 L (140-148) mmol/L Potassium 3.4 L (3.6-5.2) mmol/L Chloride 103 (100-108) mmol/L Carbon Dioxide 28 (21-32) mmol/L Anion Gap 10.4 (5.0-14.0) mmol/L BUN 19 H (7-18) mg/dL Creatinine 0.7 (0.6-1.0) mg/dL Est Cr Clr Drug Dosing 66.26 mL/min Estimated GFR (MDRD) > 60 (>60) Glucose 154 H (74-106) mg/dL Calcium 8.0 L (8.5-10.1) mg/dL Blood Type Gel Antibody Screen Crossmatch See Detail 10/27/18 Range/Units 04:25 WBC (4.5-11.0) K/uL RBC (3.30-5.50) M/uL Hgb (12.0-15.0) g/dL Hct (36.0-48.0) % MCV (80-98) fL MCH (27-31) pg MCHC (32-36) % Plt Count (150-400) K/uL Sodium (140-148) mmol/L Potassium (3.6-5.2) mmol/L Chloride (100-108) mmol/L Carbon Dioxide (21-32) mmol/L Anion Gap (5.0-14.0) mmol/L BUN (7-18) mg/dL Creatinine (0.6-1.0) mg/dL Est Cr Clr Drug Dosing mL/min Estimated GFR (MDRD) (>60) Glucose (74-106) mg/dL Calcium (8.5-10.1) mg/dL Blood Type A POSITIVE Gel Antibody Screen Negative Crossmatch See Detail Med Orders - Current: Current Medications Hydrocodone Bitart/Acetaminophen (Blevins 325-10 Mg) 1 tab PO Q3H PRN PRN Reason: Pain Last Admin: 10/26/18 20:52 Dose: 1 tab Albuterol (Proventil Neb Soln) 2.5 mg NEB Q4H PRN PRN Reason: Shortness Of Breath/wheezing Last Admin: 10/24/18 22:01 Dose: 2.5 mg Alogliptin Benzoate (Alogliptin) 12.5 mg PO DAILY [facility] Last Admin: 10/27/18 08:17 Dose: 12.5 mg Artificial Tears (Natural Balance Tears) 0 ml EYERT BID [facility] Last Admin: 10/27/18 08:19 Dose: 1 drop Artificial Tears (Natural Balance Tears) 0 ml EYERT Q2H PRN PRN Reason: tearing Last Admin: 10/26/18 10:09 Dose: 1 drop Aspirin (Halfprin) 81 mg PO DAILY [facility] Last Admin: 10/27/18 08:18 Dose: 81 mg Bandage/Support Products ( Nasal Geropsychologist) 1 applic NASBOTH BID [facility] Stop: 10/31/18 09:01 Last Admin: 10/27/18 08:40 Dose: 1 applic Clonazepam (Klonopin) 1 mg PO BEDTIME [facility] Last Admin: 10/26/18 21:10 Dose: 1 mg Duloxetine HCl (Cymbalta) 30 mg PO BEDTIME [facility] Last Admin: 10/26/18 20:56 Dose: 30 mg Duloxetine HCl (Cymbalta) 60 mg PO ACBREAKFAST [facility] Last Admin: 10/27/18 08:15 Dose: 60 mg Enalapril Maleate (Vasotec) 40 mg PO BID [facility] Last Admin: 10/26/18 10:08 Dose: Not Given Furosemide (Lasix) 20 mg PO DAILY [facility] Last Admin: 10/27/18 08:19 Dose: 20 mg Lactated Ringer's (Ringers, Lactated) 1,000 mls @ 100 mls/hr IV ASDIRECTED [facility] Last Admin: 10/27/18 06:52 Dose: 100 mls/hr Ibuprofen (Motrin) 600 mg PO Q6H PRN PRN Reason: Pain/Fever Last Admin: 10/26/18 10:07 Dose: 600 mg Insulin Human Lispro (Humalog) 0 unit SUBCUT QIDACANDBED [facility]; Protocol Last Admin: 10/27/18 08:08 Dose: Not Given Insulin Lispro Protam/Lispro Human (Humalog Mix 75-25) 25 unit SUBCUT BIDAC [facility] Last Admin: 10/27/18 08:40 Dose: 25 units Lactulose (Chronulac) 30 gm PO BID [facility] Last Admin: 10/27/18 08:18 Dose: 30 gm Metoprolol Succinate (Toprol Xl) 25 mg PO DAILY [facility] Last Admin: 10/26/18 12:55 Dose: Not Given Morphine Sulfate (Morphine) 2 mg IVPUSH Q2H PRN PRN Reason: Pain (severe 7-10) Last Admin: 10/26/18 13:02 Dose: 2 mg Ondansetron HCl (Zofran Odt) 4 mg PO Q6H PRN PRN Reason: Nausea able to take PO Ondansetron HCl (Zofran) 4 mg IV Q6H PRN PRN Reason: Nausea/Vomiting Pantoprazole Sodium (Protonix) 40 mg PO BIDAC [facility] Last Admin: 10/27/18 08:16 Dose: 40 mg Polyethylene Glycol (Miralax) 17 gm PO DAILY PRN PRN Reason: Constipation Pregabalin (Lyrica) 150 mg PO BID [facility] Last Admin: 10/27/18 08:44 Dose: 150 mg Fluticasone/Salmeterol (Fluticasone-Salmeterol 113-14 Mcg Powder Inh) 0 puff INH BIDRT [facility] Last Admin: 10/27/18 07:42 Dose: 1 puff Sertraline HCl (Zoloft) 100 mg PO DAILY [facility] Last Admin: 10/27/18 08:20 Dose: 100 mg Sucralfate (Carafate) 1 gm PO TIDAC [facility] Last Admin: 10/27/18 08:15 Dose: 1 gm Discontinued Medications Hydrocodone Bitart/Acetaminophen (Blevins 325-7.5 Mg) 1 tab PO ONETIME ONE Stop: 10/23/18 18:31 Last Admin: 10/23/18 18:30 Dose: 1 tab Hydrocodone Bitart/Acetaminophen (Blevins 325-10 Mg) 1 tab PO TID [facility] Last Admin: 10/25/18 08:49 Dose: 1 tab Hydrocodone Bitart/Acetaminophen (Blevins 325-10 Mg) 1 tab PO Q4H PRN PRN Reason: Pain (moderate 4-6) Last Admin: 10/24/18 09:32 Dose: 1 tab Cefazolin Sodium (Ancef) Confirm Administered Dose 1 gm .ROUTE .STK-MED ONE Stop: 10/24/18 22:04 Last Admin: 10/24/18 22:27 Dose: 1 gm Cefazolin Sodium (Ancef) Confirm Administered Dose 1 gm .ROUTE .STK-MED ONE Stop: 10/25/18 05:17 Last Admin: 10/25/18 05:24 Dose: 1 gm Enoxaparin Sodium (Lovenox) 30 mg SUBCUT Q24H [facility] Last Admin: 10/27/18 08:16 Dose: 30 mg Ephedrine Sulfate (Ephedrine Sulfate) Confirm Administered Dose 50 mg .ROUTE .STK-MED ONE Stop: 10/24/18 17:42 Fentanyl (Sublimaze) Confirm Administered Dose 100 mcg .ROUTE .STK-MED ONE Stop: 10/24/18 15:57 Furosemide (Lasix) 40 mg IVPUSH ONETIME ONE Stop: 10/24/18 21:47 Last Admin: 10/24/18 22:20 Dose: 40 mg Hydroxyzine HCl (Vistaril) 50 mg IM ONETIME ONE Stop: 10/24/18 15:16 Last Admin: 10/24/18 15:11 Dose: 50 mg Potassium Chloride 20 meq/Lidocaine HCl 2 ml/ Sodium Chloride 112 mls @ 56 mls/ hr IV Q2H [facility] Stop: 10/24/18 13:59 Last Admin: 10/24/18 12:32 Dose: 56 mls/hr Cefazolin Sodium/Dextrose 2 gm (/ Premix) 50 mls @ 100 mls/hr IV ONETIME ONE Stop: 10/24/18 16:44 Last Admin: 10/24/18 16:30 Dose: 100 mls/hr Lactated Ringer's (Ringers, Lactated) 500 mls @ 500 mls/hr IV ASDIRECTED [facility] Stop: 10/24/18 16:16 Last Admin: 10/24/18 15:15 Dose: 500 mls/hr Lactated Ringer's (Ringers, Lactated) Confirm Administered Dose 1,000 mls @ as directed .ROUTE .STK-MED ONE Stop: 10/24/18 18:30 Cefazolin Sodium/Dextrose 1 gm (/ Premix) 50 mls @ 100 mls/hr IV Q8HR [facility] Stop: 10/26/18 06:29 Last Admin: 10/26/18 07:17 Dose: 100 mls/hr Sodium Chloride (Normal Saline) Confirm Administered Dose 50 mls @ as directed .ROUTE .STK-MED ONE Stop: 10/24/18 22:04 Last Admin: 10/24/18 22:27 Dose: 100 mls/hr Sodium Chloride (Normal Saline) Confirm Administered Dose 50 mls @ as directed .ROUTE .STK-MED ONE Stop: 10/25/18 05:17 Last Admin: 10/25/18 05:24 Dose: 100 mls/hr Potassium Chloride 20 meq/Lidocaine HCl 2 ml/ Sodium Chloride 112 mls @ 56 mls/ hr IV Q2H [facility] Stop: 10/25/18 13:59 Last Admin: 10/25/18 13:51 Dose: 56 mls/hr Sodium Chloride (Normal Saline) 500 mls @ 500 mls/hr IV ASDIRECTED ONE Stop: 10/25/18 14:29 Last Admin: 10/25/18 13:31 Dose: 500 mls/hr Lactated Ringer's (Ringers, Lactated) 500 mls @ 500 mls/hr IV ONETIME ONE Stop: 10/25/18 23:34 Last Admin: 10/25/18 22:46 Dose: 500 mls/hr Insulin Human Lispro (Humalog) 0 unit SUBCUT QIDACANDBED [facility]; Protocol Last Admin: 10/25/18 13:32 Dose: 2 units Insulin Lispro Protam/Lispro Human (Humalog Mix 75-25) 15 unit SUBCUT BIDAC [facility] Last Admin: 10/26/18 07:37 Dose: 15 units Insulin Lispro Protam/Lispro Human (Humalog Mix 75-25) 20 unit SUBCUT BIDAC [facility] Last Admin: 10/26/18 16:21 Dose: 20 units Midazolam HCl (Versed 1 Mg/Ml) Confirm Administered Dose 2 mg .ROUTE .STK-MED ONE Stop: 10/24/18 15:58 Morphine Sulfate (Morphine) 4 mg IVPUSH Q2H PRN PRN Reason: Pain (severe 7-10) Last Admin: 10/24/18 13:38 Dose: 4 mg Oxycodone/Acetaminophen (Percocet 325-5 Mg) 0 tab PO Q6H PRN PRN Reason: Pain (moderate 4-6) Last Admin: 10/26/18 07:24 Dose: 1 tab Povidone Iodine (Betadine 10% Soln) Confirm Administered Dose 1 ml .ROUTE .STK- MED ONE Stop: 10/24/18 15:33 Last Admin: 10/24/18 17:08 Dose: 20 ml Propofol (Diprivan 20 Ml) Confirm Administered Dose 200 mg .ROUTE .STK-MED ONE Stop: 10/24/18 15:57 Propofol (Diprivan 20 Ml) Confirm Administered Dose 200 mg .ROUTE .STK-MED ONE Stop: 10/24/18 17:45 Fluticasone/Salmeterol (Fluticasone-Salmeterol 113-14 Mcg Powder Inh) 1 puff INH BID [facility] Last Admin: 10/23/18 22:27 Dose: Not Given Sertraline HCl (Zoloft) 150 mg PO DAILY [facility] Last Admin: 10/26/18 10:12 Dose: 150 mg Sucralfate (Carafate) 1 gm PO TID [facility] Last Admin: 10/23/18 21:52 Dose: 1 gm - Exam Quality Assessment: Supplemental Oxygen General: Alert, Cooperative, No Acute Distress. No: Oriented HEENT: No: Mucous Membr. Moist/[place] (dry) Lungs: Clear to Auscultation, Normal Respiratory Effort Cardiovascular: Regular Rate, Regular Rhythm GI/Abdominal Exam: Normal Bowel Sounds, Soft, No Distention Extremities: No Pedal Edema. No: Increased Warmth Skin: Warm, Dry Wound/Incisions: Dressing Dry and Intact Psy/Mental Status: Alert, Other (confused) - Problem List & Annotations (1) Intertrochanteric fracture of left femur SNOMED Code(s): 071149350 Code(s): S72.142A - DISPLACED INTERTROCHANTERIC FRACTURE OF LEFT FEMUR, INIT Status: Acute Current Visit: Yes Qualifiers: Encounter type: initial encounter Fracture type: closed Fracture alignment: displaced Qualified Code(s): S72.142A - Displaced intertrochanteric fracture of left femur, initial encounter for closed fracture (2) Diabetes mellitus, insulin dependent (IDDM), controlled SNOMED Code(s): 00958517 Code(s): E11.9 - TYPE 2 DIABETES MELLITUS WITHOUT COMPLICATIONS; Z79.4 - ART THERAPY SPECIALIST (CURRENT) USE OF INSULIN Status: Chronic Current Visit: No (3) Primary lateral sclerosis SNOMED Code(s): 37389380 Code(s): G12.29 - OTHER MOTOR NEURON DISEASE Status: Chronic Current Visit: No - Problem List Review Problem List Initiated/Reviewed/Updated: Yes - My Orders Last 24 Hours: My Active Orders 10/27/18 04:25 RED BLOOD CELLS LP [BBK] Routine TYPE AND SCREEN [BBK] Routine 10/27/18 08:26 Transfuse Red Blood Cells [COMM] Routine 10/27/18 08:30 Insulin Lispro Prot/Lispro [HumaLOG Mix 75-25] 25 unit SUBCUT BIDAC 10/27/18 09:00 Sertraline [Zoloft] 100 mg PO DAILY 10/27/18 10:48 Magnesium Hydroxide [Milk of Magnesia] 30 ml PO BID PRN 04/27/19 11:00 Potassium Chloride 20 MEQ,Lidocaine 1% 2 ML IN 100ML NS @ 50 MLS/HR Potassium Chloride 20 meq Lidocaine 1% [Xylocaine 1%] 2 ml Sodium Chloride 0.9% [Normal Saline] 100 ml IV Q2H 10/27/18 11:30 GLUCOSE POC LAB TO COLLECT [POC] QIDACANDBED 10/27/18 16:30 GLUCOSE POC LAB TO COLLECT [POC] QIDACANDBED 10/27/18 21:00 GLUCOSE POC LAB TO COLLECT [POC] QIDACANDBED 10/28/18 05:00 BASIC METABOLIC PANEL,BMP [CHEM] Timed CBC W/O DIFF,HEMOGRAM [HEME] Timed (1) - Plan Plan:: ASSESSMENT AND PLAN - Intertrochanteric fracture left hip - status post surgical intervention with left hemiarthroplasty 10/24. Pain well-controlled at rest but less so with any activity. Very weak and having difficulty getting out of bed secondary to pain. Has been able to use the lift assist device to some extent. More alert and interactive today. Urine output has been acceptable. -Pain control with hydrocodone -Weightbearing as tolerated -Physical therapy Anemia due to acute blood loss - hemoglobin has dropped below 8 at this time. She is still borderline hypotensive so I plan to transfuse 1 unit of red blood cells this morning. -Transfuse 1 unit PRBCs -Repeat hemoglobin in the morning Type 2 diabetes mellitus, insulin-dependent - sugars fairly well controlled. 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 Chronic weakness is complicating her recovery. Essential hypertension - Blood pressure has been on the low side and antihypertensives have been on hold and will remain so. -Hold home medications Maintenance issues - - DVT prophylaxis - Mechanical - GI prophylaxis - PPI - Nutrition - diabetic diet - Briscoe catheter - Placed in the emergency room with hip fracture need for strict intake and output monitoring, will remain in place until mental status normalizes, hopefully tomorrow Disposition - I would anticipate [facility] after the hospital stay Patrick Meza M.D.
[2018-10-27] MEDS ORDERED: Witch Hazel Medicated Pads 100/Jar TOP PRN (10:55)
[2018-10-27] MEDS: Ibuprofen 600 MG Tab PO PRN (11:53)
[2018-10-27] MEDS: Potassium Chloride 20 MEQ, Lidocaine 1% 2 ML in Sodium Chloride 0.9% 100 ML IV SCH ×3 (14:21→17:36)
[2018-10-27] MEDS: Hypromellose 0.4% Ophth Soln 15 ML Bottle EYERT PRN (20:57)
[2018-10-27] MEDS: Nystatin Topical Powder 15 GM Bottle TOP SCH (20:58)
[2018-10-27] MEDS: ClonazePAM 1 MG Tab PO SCH (21:01)
[2018-10-27] MEDS: Acetaminophen/HYDROcodone 325-10 MG Tab PO PRN (21:06)
[2018-10-28] MEDS: Fluticasone-Salmeterol 113-14 MCG Powder Inhalant INH SCH ×2 (07:53→21:28)
[2018-10-28] MEDS: Insulin Lispro 100 Unit/ML 3 ML KwikPen SUBCUT SCH ×4 (08:41→21:24)
[2018-10-28] MEDS: Insulin Lispro Protamine/Lispro 75-25 100 Units/ML 10 ML Vial SUBCUT SCH ×2 (08:45→16:36)
[2018-10-28] MEDS: Acetaminophen/HYDROcodone 325-10 MG Tab PO PRN ×3 (08:50→21:34)
[2018-10-28] MEDS: Nozin Nasal Sanitizer NASBOTH SCH ×2 (08:52→21:24)
[2018-10-28] MEDS: Pantoprazole 40 MG Tab.CR PO SCH ×2 (08:53→16:33)
[2018-10-28] MEDS: Sertraline 50 MG Tab PO SCH (08:53)
[2018-10-28] MEDS: DULoxetine 30 MG Cap PO SCH ×2 (08:53→21:29)
[2018-10-28] MEDS: Furosemide 20 MG Tab PO SCH (08:53)
[2018-10-28] MEDS: Sucralfate 1 GM Tab PO SCH ×3 (08:53→16:33)
[2018-10-28] MEDS: Lactulose Soln 10 GM/15 ML 15 ML UD Cup PO SCH ×2 (08:54→21:26)
[2018-10-28] MEDS: Aspirin 81 MG Tab.EC PO SCH (08:54)
[2018-10-28] MEDS: Hypromellose 0.4% Ophth Soln 15 ML Bottle EYERT SCH ×2 (08:55→21:30)
[2018-10-28] MEDS: Nystatin Topical Powder 15 GM Bottle TOP SCH ×2 (08:56→21:23)
[2018-10-28] MEDS: Pregabalin 75 MG Cap PO SCH ×2 (09:06→21:34)
[2018-10-28] MEDS: Metoprolol Succinate 25 MG Tab.ER PO SCH (09:07)
--- NOTE | 2018-10-28 11:09 | PCM.PN ---
- General Info Date of Service: 10/28/18 Subjective Update: There were no acute events overnight. The patient is more alert and interactive again today but still is mildly confused. Blood pressure has stabilized but her enalapril remains on hold. Blood sugars moderately elevated. Moving much better today and was able to get to the chair. She is moving her left leg without significant pain at this time. Hemoglobin improved with transfusion yesterday. Functional Status: Reports: Pain Controlled, Tolerating Diet, Ambulating - Review of Systems General: Reports: Weakness - Patient Data Vitals - Most Recent: Last Vital Signs Temp 36.4 C 10/28/18 07:55 Pulse 101 H 10/28/18 09:07 Resp 12 10/28/18 07:55 BP 139/56 L 10/28/18 09:07 Pulse Ox 92 L 10/28/18 07:55 Weight - Most Recent: 114.305 kg I&O - Last 24 Hours: Intake & Output 10/27/18 10/28/18 10/28/18 22:59 06:59 14:59 Intake Total 961 480 Output Total 250 575 Balance 711 -95 Lab Results Last 24 Hours: Laboratory Results - last 24 hr 10/27/18 10/28/18 10/28/18 Range/Units 04:25 05:00 06:00 WBC 5.8 (4.5-11.0) K/uL RBC 3.32 (3.30-5.50) M/uL Hgb 8.4 L (12.0-15.0) g/dL Hct 27.2 L (36.0-48.0) % MCV 82 (80-98) fL MCH 25 L (27-31) pg MCHC 31 L (32-36) % Plt Count 110 L (150-400) K/uL Sodium 139 L (140-148) mmol/L Potassium 3.6 (3.6-5.2) mmol/L Chloride 105 (100-108) mmol/L Carbon Dioxide 27 (21-32) mmol/L Anion Gap 10.6 (5.0-14.0) mmol/L BUN 11 (7-18) mg/dL Creatinine 0.6 (0.6-1.0) mg/dL Est Cr Clr Drug Dosing 77.30 mL/min Estimated GFR (MDRD) > 60 (>60) Glucose 146 H (74-106) mg/dL Calcium 8.3 L (8.5-10.1) mg/dL Crossmatch See Detail Med Orders - Current: Current Medications Hydrocodone Bitart/Acetaminophen ([place] 325-10 Mg) 1 tab PO Q3H PRN PRN Reason: Pain Last Admin: 10/28/18 08:50 Dose: 1 tab Albuterol (Proventil Neb Soln) 2.5 mg NEB Q4H PRN PRN Reason: Shortness Of Breath/wheezing Last Admin: 10/24/18 22:01 Dose: 2.5 mg Alogliptin Benzoate (Alogliptin) 12.5 mg PO DAILY [facility] Last Admin: 10/28/18 08:54 Dose: 12.5 mg Artificial Tears (Natural Balance Tears) 0 ml EYERT BID [facility] Last Admin: 10/28/18 08:55 Dose: 2 drop Artificial Tears (Natural Balance Tears) 0 ml EYERT Q2H PRN PRN Reason: tearing Last Admin: 10/26/18 10:09 Dose: 1 drop Aspirin (Halfprin) 81 mg PO DAILY [facility] Last Admin: 10/28/18 08:54 Dose: 81 mg Bandage/Support Products ( Nasal Flap Presser) 1 applic NASBOTH BID [facility] Stop: 10/31/18 09:01 Last Admin: 10/28/18 08:52 Dose: 1 applic Clonazepam (Klonopin) 1 mg PO BEDTIME [facility] Last Admin: 10/27/18 21:01 Dose: 1 mg Duloxetine HCl (Cymbalta) 30 mg PO BEDTIME [facility] Last Admin: 10/27/18 20:55 Dose: 30 mg Duloxetine HCl (Cymbalta) 60 mg PO ACBREAKFAST [facility] Last Admin: 10/28/18 08:53 Dose: 60 mg Enalapril Maleate (Vasotec) 40 mg PO BID [facility] Last Admin: 10/26/18 10:08 Dose: Not Given Furosemide (Lasix) 20 mg PO DAILY [facility] Last Admin: 10/28/18 08:53 Dose: 20 mg Ibuprofen (Motrin) 600 mg PO Q6H PRN PRN Reason: Pain/Fever Last Admin: 10/27/18 11:53 Dose: 600 mg Insulin Human Lispro (Humalog) 0 unit SUBCUT QIDACANDBED [facility]; Protocol Last Admin: 10/28/18 08:41 Dose: 1 unit Insulin Lispro Protam/Lispro Human (Humalog Mix 75-25) 30 unit SUBCUT BIDAC [facility] Lactulose (Chronulac) 30 gm PO BID [facility] Last Admin: 10/28/18 08:54 Dose: 30 gm Magnesium Hydroxide (Milk Of Magnesia) 30 ml PO BID PRN PRN Reason: Constipation Last Admin: 10/27/18 15:52 Dose: 30 ml Metoprolol Succinate (Toprol Xl) 25 mg PO DAILY [facility] Last Admin: 10/28/18 09:07 Dose: 25 mg Nystatin (Nystop) 0 gm TOP BID [facility] Last Admin: 10/28/18 08:56 Dose: 1 applic Ondansetron HCl (Zofran Odt) 4 mg PO Q6H PRN PRN Reason: Nausea able to take PO Pantoprazole Sodium (Protonix) 40 mg PO BIDAC [facility] Last Admin: 10/28/18 08:53 Dose: 40 mg Polyethylene Glycol (Miralax) 17 gm PO DAILY PRN PRN Reason: Constipation Potassium Chloride (Klor-Con M20) 40 meq PO ONETIME ONE Stop: 10/28/18 11:09 Pregabalin (Lyrica) 150 mg PO BID [facility] Last Admin: 10/28/18 09:06 Dose: 150 mg Fluticasone/Salmeterol (Fluticasone-Salmeterol 113-14 Mcg Powder Inh) 0 puff INH BIDRT [facility] Last Admin: 10/28/18 07:53 Dose: 60 puff Sertraline HCl (Zoloft) 100 mg PO DAILY [facility] Last Admin: 10/28/18 08:53 Dose: 100 mg Sucralfate (Carafate) 1 gm PO TIDAC [facility] Last Admin: 10/28/18 08:53 Dose: 1 gm Witch Lala (Tucks) 1 pad TOP ASDIRECTED PRN PRN Reason: Hemorrhoids Discontinued Medications Hydrocodone Bitart/Acetaminophen ([place] 325-7.5 Mg) 1 tab PO ONETIME ONE Stop: 10/23/18 18:31 Last Admin: 10/23/18 18:30 Dose: 1 tab Hydrocodone Bitart/Acetaminophen ([place] 325-10 Mg) 1 tab PO TID [facility] Last Admin: 10/25/18 08:49 Dose: 1 tab Hydrocodone Bitart/Acetaminophen ([place] 325-10 Mg) 1 tab PO Q4H PRN PRN Reason: Pain (moderate 4-6) Last Admin: 10/24/18 09:32 Dose: 1 tab Cefazolin Sodium (Ancef) Confirm Administered Dose 1 gm .ROUTE .STK-MED ONE Stop: 10/24/18 22:04 Last Admin: 10/24/18 22:27 Dose: 1 gm Cefazolin Sodium (Ancef) Confirm Administered Dose 1 gm .ROUTE .STK-MED ONE Stop: 10/25/18 05:17 Last Admin: 10/25/18 05:24 Dose: 1 gm Enoxaparin Sodium (Lovenox) 30 mg SUBCUT Q24H [facility] Last Admin: 10/27/18 08:16 Dose: 30 mg Ephedrine Sulfate (Ephedrine Sulfate) Confirm Administered Dose 50 mg .ROUTE .STK-MED ONE Stop: 10/24/18 17:42 Fentanyl (Sublimaze) Confirm Administered Dose 100 mcg .ROUTE .STK-MED ONE Stop: 10/24/18 15:57 Furosemide (Lasix) 40 mg IVPUSH ONETIME ONE Stop: 10/24/18 21:47 Last Admin: 10/24/18 22:20 Dose: 40 mg Hydroxyzine HCl (Vistaril) 50 mg IM ONETIME ONE Stop: 10/24/18 15:16 Last Admin: 10/24/18 15:11 Dose: 50 mg Potassium Chloride 20 meq/Lidocaine HCl 2 ml/ Sodium Chloride 112 mls @ 56 mls/ hr IV Q2H [facility]A Stop: 10/24/18 13:59 Last Admin: 10/24/18 12:32 Dose: 56 mls/hr Cefazolin Sodium/Dextrose 2 gm (/ Premix) 50 mls @ 100 mls/hr IV ONETIME ONE Stop: 10/24/18 16:44 Last Admin: 10/24/18 16:30 Dose: 100 mls/hr Lactated Ringer's (Ringers, Lactated) 1,000 mls @ 100 mls/hr IV ASDIRECTED [facility] Last Admin: 10/27/18 06:52 Dose: 100 mls/hr Lactated Ringer's (Ringers, Lactated) 500 mls @ 500 mls/hr IV ASDIRECTED [facility] Stop: 10/24/18 16:16 Last Admin: 10/24/18 15:15 Dose: 500 mls/hr Lactated Ringer's (Ringers, Lactated) Confirm Administered Dose 1,000 mls @ as directed .ROUTE .STK-MED ONE Stop: 10/24/18 18:30 Cefazolin Sodium/Dextrose 1 gm (/ Premix) 50 mls @ 100 mls/hr IV Q8HR [facility] Stop: 10/26/18 06:29 Last Admin: 10/26/18 07:17 Dose: 100 mls/hr Sodium Chloride (Normal Saline) Confirm Administered Dose 50 mls @ as directed .ROUTE .STK-MED ONE Stop: 10/24/18 22:04 Last Admin: 10/24/18 22:27 Dose: 100 mls/hr Sodium Chloride (Normal Saline) Confirm Administered Dose 50 mls @ as directed .ROUTE .[facility]-MED ONE Stop: 10/25/18 05:17 Last Admin: 10/25/18 05:24 Dose: 100 mls/hr Potassium Chloride 20 meq/Lidocaine HCl 2 ml/ Sodium Chloride 112 mls @ 56 mls/ hr IV Q2H [facility] Stop: 10/25/18 13:59 Last Admin: 10/25/18 13:51 Dose: 56 mls/hr Sodium Chloride (Normal Saline) 500 mls @ 500 mls/hr IV ASDIRECTED ONE Stop: 10/25/18 14:29 Last Admin: 10/25/18 13:31 Dose: 500 mls/hr Lactated Ringer's (Ringers, Lactated) 500 mls @ 500 mls/hr IV ONETIME ONE Stop: 10/25/18 23:34 Last Admin: 10/25/18 22:46 Dose: 500 mls/hr Potassium Chloride 20 meq/Lidocaine HCl 2 ml/ Sodium Chloride 112 mls @ 56 mls/ hr IV Q2H [facility] Stop: 10/27/18 15:29 Last Admin: 10/27/18 17:36 Dose: 56 mls/hr Insulin Human Lispro (Humalog) 0 unit SUBCUT QIDACANDBED [facility]; Protocol Last Admin: 10/25/18 13:32 Dose: 2 units Insulin Lispro Protam/Lispro Human (Humalog Mix 75-25) 15 unit SUBCUT BIDAC [facility] Last Admin: 10/26/18 07:37 Dose: 15 units Insulin Lispro Protam/Lispro Human (Humalog Mix 75-25) 20 unit SUBCUT BIDAC [facility] Last Admin: 10/27/18 15:31 Dose: Not Given Insulin Lispro Protam/Lispro Human (Humalog Mix 75-25) 25 unit SUBCUT BIDAC [facility] Last Admin: 10/28/18 08:45 Dose: 25 units Midazolam HCl (Versed 1 Mg/Ml) Confirm Administered Dose 2 mg .ROUTE .STK-MED ONE Stop: 10/24/18 15:58 Morphine Sulfate (Morphine) 4 mg IVPUSH Q2H PRN PRN Reason: Pain (severe 7-10) Last Admin: 10/24/18 13:38 Dose: 4 mg Morphine Sulfate (Morphine) 2 mg IVPUSH Q2H PRN PRN Reason: Pain (severe 7-10) Last Admin: 10/26/18 13:02 Dose: 2 mg Ondansetron HCl (Zofran) 4 mg IV Q6H PRN PRN Reason: Nausea/Vomiting Oxycodone/Acetaminophen (Percocet 325-5 Mg) 0 tab PO Q6H PRN PRN Reason: Pain (moderate 4-6) Last Admin: 10/26/18 07:24 Dose: 1 tab Povidone Iodine (Betadine 10% Soln) Confirm Administered Dose 1 ml .ROUTE .STK- MED ONE Stop: 10/24/18 15:33 Last Admin: 10/24/18 17:08 Dose: 20 ml Propofol (Diprivan 20 Ml) Confirm Administered Dose 200 mg .ROUTE .STK-MED ONE Stop: 10/24/18 15:57 Propofol (Diprivan 20 Ml) Confirm Administered Dose 200 mg .ROUTE .STK-MED ONE Stop: 10/24/18 17:45 Fluticasone/Salmeterol (Fluticasone-Salmeterol 113-14 Mcg Powder Inh) 1 puff INH BID [facility] Last Admin: 10/23/18 22:27 Dose: Not Given Sertraline HCl (Zoloft) 150 mg PO DAILY [facility] Last Admin: 10/26/18 10:12 Dose: 150 mg Sucralfate (Carafate) 1 gm PO TID [facility] Last Admin: 10/23/18 21:52 Dose: 1 gm - Exam Quality Assessment: No: Supplemental Oxygen General: Alert, Oriented, Cooperative, No Acute Distress Lungs: Clear to Auscultation, Normal Respiratory Effort Cardiovascular: Regular Rate, Regular Rhythm GI/Abdominal Exam: Soft, No Distention Extremities: No Pedal Edema Psy/Mental Status: Alert, Normal Affect - Problem List & Annotations (1) Intertrochanteric fracture of left femur SNOMED Code(s): 991145099 Code(s): S72.142A - DISPLACED INTERTROCHANTERIC FRACTURE OF LEFT FEMUR, INIT Status: Acute Current Visit: Yes Qualifiers: Encounter type: initial encounter Fracture type: closed Fracture alignment: displaced Qualified Code(s): S72.142A - Displaced intertrochanteric fracture of left femur, initial encounter for closed fracture (2) Diabetes mellitus, insulin dependent (IDDM), controlled SNOMED Code(s): 96505685 Code(s): E11.9 - TYPE 2 DIABETES MELLITUS WITHOUT COMPLICATIONS; 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 Status: Chronic Current Visit: No (3) Primary lateral sclerosis SNOMED Code(s): 33883992 Code(s): G12.29 - OTHER MOTOR NEURON DISEASE Status: Chronic Current Visit: No - Problem List Review Problem List Initiated/Reviewed/Updated: Yes - My Orders Last 24 Hours: My Active Orders 10/27/18 10:48 Magnesium Hydroxide [Milk of Magnesia] 30 ml PO BID PRN 10/27/18 10:55 Witch Lala [Tucks] 1 pad TOP ASDIRECTED PRN 10/27/18 21:00 Nystatin [Nystop] 0 gm TOP BID 10/28/18 10:26 DC Briscoe Catheter [Urinary Catheter Removal] [RC] Per Unit Routine Peripheral IV Discontinue [OM.PC] Routine 10/28/18 11:08 Potassium Chloride [Klor-Con M20] 40 meq PO ONETIME ONE 10/28/18 11:30 GLUCOSE POC LAB TO COLLECT [POC] QIDACANDBED 10/28/18 16:30 GLUCOSE POC LAB TO COLLECT [POC] QIDACANDBED Insulin Lispro Prot/Lispro [HumaLOG Mix 75-25] 30 unit SUBCUT BIDAC 10/28/18 21:00 GLUCOSE POC LAB TO COLLECT [POC] QIDACANDBED 10/29/18 05:00 BASIC METABOLIC PANEL,BMP [CHEM] Timed CBC W/O DIFF,HEMOGRAM [HEME] Timed (1) - Plan Plan:: ASSESSMENT AND PLAN - Intertrochanteric fracture left hip - status post surgical intervention with left hemiarthroplasty 10/24. Pain control much better today. She is moving much better today. Still a little bit confused with previous pain medications anesthesia but overall doing much better today. -Pain control with hydrocodone -Weightbearing as tolerated -Physical therapy Anemia due to acute blood loss - hemoglobin responded well to transfusion yesterday. -Repeat hemoglobin in the morning Type 2 diabetes mellitus, insulin-dependent - sugars fairly well controlled. 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 Chronic weakness is complicating her recovery. Essential hypertension - Blood pressure has has improved over the past 24 hours. -Hold enalapril Maintenance issues - - DVT prophylaxis - Mechanical - GI prophylaxis - PPI - Nutrition - diabetic diet - Briscoe catheter - will be removed today Disposition - I would anticipate discharge to the detention for subacute rehabilitation after the hospital stay, likely tomorrow if stable overnight Patrick Meza M.D.
[2018-10-28] MEDS ORDERED: Potassium Chloride 20 MEQ Tab.ER PO ONE (11:30)
--- NOTE | 2018-10-28 15:12 | PCM.DCSUM1 ---
Discharge Summary - Hospital Course Brief History: 63 -year-old female with insulin-dependent diabetes mellitus and primary lateral sclerosis who presented with left hip pain after a fall at her assisted-living residence. Workup in the emergency room suggested a peritrochanteric fracture of the left hip and she was admitted for surgical intervention. Diagnosis: Stroke: No - Discharge Data Discharge Date: 10/29/18 Discharge Disposition: DC/Tfer to [facility] 03 Condition: Fair - Discharge Diagnosis/Problem(s) (1) Intertrochanteric fracture of left femur SNOMED Code(s): 656075593 ICD Code: S72.142A - DISPLACED INTERTROCHANTERIC FRACTURE OF LEFT FEMUR, INIT Status: Acute Current Visit: Yes Qualifiers: Encounter type: initial encounter Fracture type: closed Fracture alignment: displaced Qualified Code(s): S72.142A - Displaced intertrochanteric fracture of left femur, initial encounter for closed fracture (2) Diabetes mellitus, insulin dependent (IDDM), controlled SNOMED Code(s): 93333085 ICD Code: E11.9 - TYPE 2 DIABETES MELLITUS WITHOUT COMPLICATIONS; Z79.4 - ELECTRIFICATION ADVISER (CURRENT) USE OF INSULIN Status: Chronic Current Visit: No (3) Primary lateral sclerosis SNOMED Code(s): 53364084 ICD Code: G12.29 - OTHER MOTOR NEURON DISEASE Status: Chronic Current Visit: No (4) Hypokalemia SNOMED Code(s): 97742061 ICD Code: E87.6 - HYPOKALEMIA Status: Acute Current Visit: Yes (5) Postoperative anemia due to acute blood loss SNOMED Code(s): 33591303232761732 ICD Code: D62 - ACUTE POSTHEMORRHAGIC ANEMIA Status: Acute Current Visit : Yes (6) Status post left hip replacement SNOMED Code(s): 446558765, 983256473, 212899915, 539387872 ICD Code: Z96.642 - PRESENCE OF LEFT ARTIFICIAL HIP JOINT Status: Acute Current Visit: Yes - Patient Summary/Data Consults: Consultations 10/23/18 19:19 Consult to Physician [CONS] Routine Consulting Provider: Brock Booth Courtesy Call Completed to Consulting Physician: Yes Reason for Consult: left hip fracture Person Notified: STAFF DEVELOPMENT COORDINATOR RN Date Notified: 10/23/18 Special Instructions: planning surgery tomorrow afternoon or 10/24/18 18:51 Consult to Physical Therapy [PT Evaluation and Treatment] [CONS] Routine Please Evaluate and Treat. PT Reason for Consult: Post op Ortho Surgery Pending Discharge: Yes Discharge Disposition: [facility] Special Instructions: S/P left hip hemiarthroplasty, WBAT, posterior hip precautions This query below is only for informational purposes and is not editable. Admission Diagnosis/Problem: Hip fracture requiring operative repair 10/24/18 18:52 Consult to Occupational Therapy [OT Evaluation and Treatment] [CONS] Routine Please Evaluate and Treat. OT Reason for Consult: ADL's Pending Discharge: Yes Discharge Disposition: [facility] Facility Special Instructions: S/P left hip hemiarthroplasty, posterior hip precautions This query below is only for informational purposes and is not editable. Admission Diagnosis/Problem: Hip fracture requiring operative repair Hospital Course: Francisca presented to the emergency room with left hip pain after falling at her assisted-living residence. X-ray of the left hip revealed a peritrochanteric fracture of the left hip. This was displaced slightly. With a pH was consult and then she was admitted to the hospital for surgical management. The afternoon following admission she did have an uneventful hemiarthroplasty of the left hip. Postoperatively her course was complicated by initially a low urine output. She received several doses of IV fluids overnight to help with low urine output. The day after surgery she was fairly lethargic. This persisted for a couple of days. I suspect it was because of her sensitivity to the anesthesia medications. There is probably some contribution from her postoperative pain medications as well. She also had difficulties with hypotension and the first couple of days postoperatively. Eventually with fluid boluses and a transfusion of one unit of packed red blood cells her blood pressures have stabilized and started to rise towards the upper limits of normal. Her hypoactive delirium has slowly and steadily improved throughout the course of the hospital stay. She has been tolerating the hydrocodone quite well for pain control. She has made big strides in her ability to get out of bed in the past 24 hours. She has had a bowel movement. Pain has been very well- controlled using only oral medications. Respiratory status initially was hampered by mild hypoxia, probably related to her hypoactive delirium and a component of hypoventilation. This has been slowly improving and she is only on a small quantity of supplemental oxygen at this time. Her Briscoe catheter has been removed. Kidney function has been stable. Blood sugars have been slowly rising as her appetite has been improving and we've been titrating her insulin doses up towards her usual dose. I believe she is safe and stable for transfer to the detention at this time. She would benefit from subacute rehabilitation with her hip fracture. There are no weightbearing limitations. She should be following up with orthopedics in about 10 days. - Patient Instructions Diet: Diabetic Diet (1800 calorie ADA) Activity: As Tolerated Activity, Other: No weight bearing restrictions Showering/Bathing: May Shower Notify Provider of: Fever, Increased Pain, Nausea and/or Vomiting Other/Special Instructions: 1. You were in the hospital for management of a left hip fracture that resulted from a fall at [facility]. The fracture required operative intervention. You have been improving following surgery. You do not have any weightbearing restrictions. You may use ibuprofen for mild pain and hydrocodone for moderate or severe pain. 2. Referral to PT and OT. 3. Oxygen 1-3 L/min to keep sats >90%. 4. repeat hemoglobin in 3-4 days time - diagnosis: Anemia due to blood loss. 5. Code status - FULL CODE - Discharge Plan *PRESCRIPTION DRUG MONITORING PROGRAM REVIEWED*: No *COPY OF PRESCRIPTION DRUG MONITORING REPORT IN PATIENT DREAD: No Prescriptions/Med Rec: clonazePAM [Klonopin] 1 mg PO BEDTIME #30 tablet DULoxetine HCl [Duloxetine HCl] 30 mg PO BEDTIME #30 capsule. Hydrocodone/Acetaminophen [Hydrocodon-Acetaminophn 10-325] 1 tab PO Q4H PRN #60 tablet PRN Reason: Pain Nystatin [Nystop] 1 gm TOP BID #1 bottle Pregabalin [Lyrica] 150 mg PO BID #60 capsule Home Medications: Home Meds Aspirin [Adult Low Dose Aspirin EC] 81 mg PO DAILY 04/16/13 [History] Ibuprofen 800 mg PO TID 04/16/13 [History] Lactulose [Generlac] 30 ml PO BID 04/16/13 [History] Magnesium Hydroxide [Milk of Magnesia] 30 ml PO Q48H PRN 03/31/16 [History] Sertraline [Zoloft] 100 mg PO DAILY 03/31/16 [History] Dextrose [Glucose] 1 tab PO Q1H PRN 06/12/16 [History] Menthol/Methyl Salicylate [Pain Relieving Rub Cream] 1 applic TOP TID 06/12/16 [ History] Propylene Glycol/Peg 400 [Systane Ultra 0.4-0.3% Eye Drp] 1 drop EYERT Q2HR PRN 06/12/16 [History] Calcium Carbonate/Vitamin D3 [Calcium 600 + Vit D 400 Softgl] 1 tab PO BID 10/23 [History] Chlorhexidine Gluconate 15 ml PO BID 10/23/18 [History] DULoxetine HCl [Duloxetine HCl] 60 mg PO ACBREAKFAST 10/23/18 [History] Enalapril Maleate 40 mg PO BID 10/23/18 [History] Fluticasone Propionate [Flonase Allergy Relief] 2 spray KASIA ACBREAKFAST [History] Fluticasone/Salmeterol [Advair 250-50 Diskus] 1 puff INH BID 10/23/18 [History] Furosemide [Lasix] 20 mg PO DAILY 10/23/18 [History] Insulin Lispro Prot/Lispro [HumaLOG Mix 75-25] 62 units SUBCNJ BID 10/23/18 [ History] Lansoprazole [Prevacid] 30 mg PO BID 10/23/18 [History] Loratadine [Claritin] 10 mg PO BEDTIME 10/23/18 [History] Metoprolol Succinate [Toprol XL] 25 mg PO DAILY 10/23/18 [History] Potassium Chloride 20 meq PO TID 10/23/18 [History] Propylene Glycol/PEG 400/Pf [Systane 0.3-0.4% Eye Drop] 2 drop EYERT BID [History] SitaGLIPtin [Januvia] 50 mg PO DAILY 10/23/18 [History] Sucralfate [Carafate] 1 gm PO TID 10/23/18 [History] DULoxetine HCl [Duloxetine HCl] 30 mg PO BEDTIME #30 capsule. 10/28/18 [Rx] Hydrocodone/Acetaminophen [Hydrocodon-Acetaminophn 10-325] 1 tab PO Q4H PRN #60 tablet 10/28/18 [Rx] Nystatin [Nystop] 1 gm TOP BID #1 bottle 10/28/18 [Rx] Pregabalin [Lyrica] 150 mg PO BID #60 capsule 10/28/18 [Rx] clonazePAM [Klonopin] 1 mg PO BEDTIME #30 tablet 10/28/18 [Rx] Oxygen Therapy Mode: Nasal Cannula Oxygen Flow Rate (L/min): 1 (1-3 L/min) Patient Handouts: Hip Fracture Referrals: Brock Booth MD [Physician] - (10 days - f/u left hip fracture ) Ayush Hope MD [Physician] - (1-2 weeks - f/u hospital stay for hip fracture ) - Discharge Summary/Plan Comment DC Time >30 min.: Yes (45 - new detention discharge) - Patient Data Vitals - Most Recent: Last Vital Signs Temp 35.9 C 10/28/18 11:54 Pulse 90 10/28/18 11:54 Resp 16 10/28/18 11:54 BP 127/54 L 10/28/18 11:54 Pulse Ox 95 10/28/18 11:54 Weight - Most Recent: 114.305 kg I&O - Last 24 hours: Intake & Output 10/28/18 10/28/18 10/28/18 06:59 14:59 22:59 Intake Total 480 900 Output Total 575 800 Balance -95 100 Lab Results - Last 24 hrs: Laboratory Results - last 24 hr 10/28/18 10/28/18 Range/Units 05:00 06:00 WBC 5.8 (4.5-11.0) K/uL RBC 3.32 (3.30-5.50) M/uL Hgb 8.4 L (12.0-15.0) g/dL Hct 27.2 L (36.0-48.0) % MCV 82 (80-98) fL MCH 25 L (27-31) pg MCHC 31 L (32-36) % Plt Count 110 L (150-400) K/uL Sodium 139 L (140-148) mmol/L Potassium 3.6 (3.6-5.2) mmol/L Chloride 105 (100-108) mmol/L Carbon Dioxide 27 (21-32) mmol/L Anion Gap 10.6 (5.0-14.0) mmol/L BUN 11 (7-18) mg/dL Creatinine 0.6 (0.6-1.0) mg/dL Est Cr Clr Drug Dosing 77.30 mL/min Estimated GFR (MDRD) > 60 (>60) Glucose 146 H (74-106) mg/dL Calcium 8.3 L (8.5-10.1) mg/dL Med Orders - Current: Current Medications Hydrocodone Bitart/Acetaminophen ([place] 325-10 Mg) 1 tab PO Q3H PRN PRN Reason: Pain Last Admin: 10/28/18 08:50 Dose: 1 tab Albuterol (Proventil Neb Soln) 2.5 mg NEB Q4H PRN PRN Reason: Shortness Of Breath/wheezing Last Admin: 10/24/18 22:01 Dose: 2.5 mg Alogliptin Benzoate (Alogliptin) 12.5 mg PO DAILY [facility] Last Admin: 10/28/18 08:54 Dose: 12.5 mg Artificial Tears (Natural Balance Tears) 0 ml EYERT BID [facility] Last Admin: 10/28/18 08:55 Dose: 2 drop Artificial Tears (Natural Balance Tears) 0 ml EYERT Q2H PRN PRN Reason: tearing Last Admin: 10/26/18 10:09 Dose: 1 drop Aspirin (Halfprin) 81 mg PO DAILY [facility] Last Admin: 10/28/18 08:54 Dose: 81 mg Bandage/Support Products ( Nasal Logistics Engineer) 1 applic NASBOTH BID [facility] Stop: 10/31/18 09:01 Last Admin: 10/28/18 08:52 Dose: 1 applic Clonazepam (Klonopin) 1 mg PO BEDTIME [facility] Last Admin: 10/27/18 21:01 Dose: 1 mg Duloxetine HCl (Cymbalta) 30 mg PO BEDTIME [facility] Last Admin: 10/27/18 20:55 Dose: 30 mg Duloxetine HCl (Cymbalta) 60 mg PO ACBREAKFAST [facility] Last Admin: 10/28/18 08:53 Dose: 60 mg Enalapril Maleate (Vasotec) 40 mg PO BID [facility] Last Admin: 10/26/18 10:08 Dose: Not Given Furosemide (Lasix) 20 mg PO DAILY [facility] Last Admin: 10/28/18 08:53 Dose: 20 mg Ibuprofen (Motrin) 600 mg PO Q6H PRN PRN Reason: Pain/Fever Last Admin: 10/27/18 11:53 Dose: 600 mg Insulin Human Lispro (Humalog) 0 unit SUBCUT QIDACANDBED [facility]; Protocol Last Admin: 10/28/18 11:39 Dose: 2 unit Insulin Lispro Protam/Lispro Human (Humalog Mix 75-25) 30 unit SUBCUT BIDAC [facility] Lactulose (Chronulac) 30 gm PO BID [facility] Last Admin: 10/28/18 08:54 Dose: 30 gm Magnesium Hydroxide (Milk Of Magnesia) 30 ml PO BID PRN PRN Reason: Constipation Last Admin: 10/27/18 15:52 Dose: 30 ml Metoprolol Succinate (Toprol Xl) 25 mg PO DAILY [facility] Last Admin: 10/28/18 09:07 Dose: 25 mg Nystatin (Nystop) 0 gm TOP BID [facility] Last Admin: 10/28/18 08:56 Dose: 1 applic Ondansetron HCl (Zofran Odt) 4 mg PO Q6H PRN PRN Reason: Nausea able to take PO Pantoprazole Sodium (Protonix) 40 mg PO BIDAC [facility] Last Admin: 10/28/18 08:53 Dose: 40 mg Polyethylene Glycol (Miralax) 17 gm PO DAILY PRN PRN Reason: Constipation Pregabalin (Lyrica) 150 mg PO BID [facility] Last Admin: 10/28/18 09:06 Dose: 150 mg Fluticasone/Salmeterol (Fluticasone-Salmeterol 113-14 Mcg Powder Inh) 0 puff INH BIDRT [facility] Last Admin: 10/28/18 07:53 Dose: 60 puff Sertraline HCl (Zoloft) 100 mg PO DAILY [facility] Last Admin: 10/28/18 08:53 Dose: 100 mg Sucralfate (Carafate) 1 gm PO TIDAC [facility] Last Admin: 10/28/18 11:38 Dose: 1 gm Witch Lala (Tucks) 1 pad TOP ASDIRECTED PRN PRN Reason: Hemorrhoids Discontinued Medications Hydrocodone Bitart/Acetaminophen ([place] 325-7.5 Mg) 1 tab PO ONETIME ONE Stop: 10/23/18 18:31 Last Admin: 10/23/18 18:30 Dose: 1 tab Hydrocodone Bitart/Acetaminophen ([place] 325-10 Mg) 1 tab PO TID [facility] Last Admin: 10/25/18 08:49 Dose: 1 tab Hydrocodone Bitart/Acetaminophen ([place] 325-10 Mg) 1 tab PO Q4H PRN PRN Reason: Pain (moderate 4-6) Last Admin: 10/24/18 09:32 Dose: 1 tab Cefazolin Sodium (Ancef) Confirm Administered Dose 1 gm .ROUTE .STK-MED ONE Stop: 10/24/18 22:04 Last Admin: 10/24/18 22:27 Dose: 1 gm Cefazolin Sodium (Ancef) Confirm Administered Dose 1 gm .ROUTE .STK-MED ONE Stop: 10/25/18 05:17 Last Admin: 10/25/18 05:24 Dose: 1 gm Enoxaparin Sodium (Lovenox) 30 mg SUBCUT Q24H [facility] Last Admin: 10/27/18 08:16 Dose: 30 mg Ephedrine Sulfate (Ephedrine Sulfate) Confirm Administered Dose 50 mg .ROUTE .STK-MED ONE Stop: 10/24/18 17:42 Fentanyl (Sublimaze) Confirm Administered Dose 100 mcg .ROUTE .STK-MED ONE Stop: 10/24/18 15:57 Furosemide (Lasix) 40 mg IVPUSH ONETIME ONE Stop: 10/24/18 21:47 Last Admin: 10/24/18 22:20 Dose: 40 mg Hydroxyzine HCl (Vistaril) 50 mg IM ONETIME ONE Stop: 10/24/18 15:16 Last Admin: 10/24/18 15:11 Dose: 50 mg Potassium Chloride 20 meq/Lidocaine HCl 2 ml/ Sodium Chloride 112 mls @ 56 mls/ hr IV Q2H [facility] Stop: 10/24/18 13:59 Last Admin: 10/24/18 12:32 Dose: 56 mls/hr Cefazolin Sodium/Dextrose 2 gm (/ Premix) 50 mls @ 100 mls/hr IV ONETIME ONE Stop: 10/24/18 16:44 Last Admin: 10/24/18 16:30 Dose: 100 mls/hr Lactated Ringer's (Ringers, Lactated) 1,000 mls @ 100 mls/hr IV ASDIRECTED [facility] Last Admin: 10/27/18 06:52 Dose: 100 mls/hr Lactated Ringer's (Ringers, Lactated) 500 mls @ 500 mls/hr IV ASDIRECTED [facility] Stop: 10/24/18 16:16 Last Admin: 10/24/18 15:15 Dose: 500 mls/hr Lactated Ringer's (Ringers, Lactated) Confirm Administered Dose 1,000 mls @ as directed .ROUTE .STK-MED ONE Stop: 10/24/18 18:30 Cefazolin Sodium/Dextrose 1 gm (/ Premix) 50 mls @ 100 mls/hr IV Q8HR [facility] Stop: 10/26/18 06:29 Last Admin: 10/26/18 07:17 Dose: 100 mls/hr Sodium Chloride (Normal Saline) Confirm Administered Dose 50 mls @ as directed .[facility]TE [facility] Stop: 10/24/18 22:04 Last Admin: 10/24/18 22:27 Dose: 100 mls/hr Sodium Chloride (Normal Saline) Confirm Administered Dose 50 mls @ as directed .[facility]TE [facility] Stop: 10/25/18 05:17 Last Admin: 10/25/18 05:24 Dose: 100 mls/hr Potassium Chloride 20 meq/Lidocaine HCl 2 ml/ Sodium Chloride 112 mls @ 56 mls/ hr IV Q2H [facility] Stop: 10/25/18 13:59 Last Admin: 10/25/18 13:51 Dose: 56 mls/hr Sodium Chloride (Normal Saline) 500 mls @ 500 mls/hr IV ASDIRECTED ONE Stop: 10/25/18 14:29 Last Admin: 10/25/18 13:31 Dose: 500 mls/hr Lactated Ringer's (Ringers, Lactated) 500 mls @ 500 mls/hr IV ONETIME ONE Stop: 10/25/18 23:34 Last Admin: 10/25/18 22:46 Dose: 500 mls/hr Potassium Chloride 20 meq/Lidocaine HCl 2 ml/ Sodium Chloride 112 mls @ 56 mls/ hr IV Q2H [facility] Stop: 10/27/18 15:29 Last Admin: 10/27/18 17:36 Dose: 56 mls/hr Insulin Human Lispro (Humalog) 0 unit SUBCUT QIDACANDBED [facility]; Protocol Last Admin: 10/25/18 13:32 Dose: 2 units Insulin Lispro Protam/Lispro Human (Humalog Mix 75-25) 15 unit SUBCUT BIDAC [facility] Last Admin: 10/26/18 07:37 Dose: 15 units Insulin Lispro Protam/Lispro Human (Humalog Mix 75-25) 20 unit SUBCUT BIDAC [facility] Last Admin: 10/27/18 15:31 Dose: Not Given Insulin Lispro Protam/Lispro Human (Humalog Mix 75-25) 25 unit SUBCUT BIDAC [facility] Last Admin: 10/28/18 08:45 Dose: 25 units Midazolam HCl (Versed 1 Mg/Ml) Confirm Administered Dose 2 mg .ROUTE .STK-MED ONE Stop: 10/24/18 15:58 Morphine Sulfate (Morphine) 4 mg IVPUSH Q2H PRN PRN Reason: Pain (severe 7-10) Last Admin: 10/24/18 13:38 Dose: 4 mg Morphine Sulfate (Morphine) 2 mg IVPUSH Q2H PRN PRN Reason: Pain (severe 7-10) Last Admin: 10/26/18 13:02 Dose: 2 mg Ondansetron HCl (Zofran) 4 mg IV Q6H PRN PRN Reason: Nausea/Vomiting Oxycodone/Acetaminophen (Percocet 325-5 Mg) 0 tab PO Q6H PRN PRN Reason: Pain (moderate 4-6) Last Admin: 10/26/18 07:24 Dose: 1 tab Potassium Chloride (Klor-Con M20) 40 meq PO ONETIME ONE Stop: 10/28/18 11:31 Last Admin: 10/28/18 11:38 Dose: 40 meq Povidone Iodine (Betadine 10% Soln) Confirm Administered Dose 1 ml .ROUTE .STK- MED ONE Stop: 10/24/18 15:33 Last Admin: 10/24/18 17:08 Dose: 20 ml Propofol (Diprivan 20 Ml) Confirm Administered Dose 200 mg .ROUTE .STK-MED ONE Stop: 10/24/18 15:57 Propofol (Diprivan 20 Ml) Confirm Administered Dose 200 mg .ROUTE .STK-MED ONE Stop: 10/24/18 17:45 Fluticasone/Salmeterol (Fluticasone-Salmeterol 113-14 Mcg Powder Inh) 1 puff INH BID [facility] Last Admin: 10/23/18 22:27 Dose: Not Given Sertraline HCl (Zoloft) 150 mg PO DAILY [facility] Last Admin: 10/26/18 10:12 Dose: 150 mg Sucralfate (Carafate) 1 gm PO TID [facility] Last Admin: 10/23/18 21:52 Dose: 1 gm - Exam Quality Assessment: Reports: Supplemental Oxygen General: Reports: Alert, Oriented, Cooperative, No Acute Distress Lungs: Reports: Clear to Auscultation, Normal Respiratory Effort Cardiovascular: Reports: Regular Rate, Regular Rhythm Extremities: No Pedal Edema Wound/Incisions: Reports: Dressing Dry and Intact Psy/Mental Status: Reports: Alert, Normal Affect *Q Meaningful Use (DIS) - VTE *Q VTE Pharmacological Contraindications *Q: Patient Scheduled Surgery
[2018-10-28] MEDS: ClonazePAM 1 MG Tab PO SCH (21:34)
[2018-10-29] MEDS: Acetaminophen/HYDROcodone 325-10 MG Tab PO PRN ×2 (00:44→10:53)
[2018-10-29] MEDS: Fluticasone-Salmeterol 113-14 MCG Powder Inhalant INH SCH (07:33)
[2018-10-29 08:15] VITALS: BP 131/49
[2018-10-29] MEDS: Insulin Lispro 100 Unit/ML 3 ML KwikPen SUBCUT SCH ×2 (08:37→12:23)
[2018-10-29] MEDS: Aspirin 81 MG Tab.EC PO SCH (08:38)
[2018-10-29] MEDS: Pantoprazole 40 MG Tab.CR PO SCH (08:38)
[2018-10-29] MEDS: Sucralfate 1 GM Tab PO SCH ×2 (08:38→10:53)
[2018-10-29] MEDS: DULoxetine 30 MG Cap PO SCH (08:39)
[2018-10-29] MEDS: Lactulose Soln 10 GM/15 ML 15 ML UD Cup PO SCH (08:40)
[2018-10-29] MEDS: Furosemide 20 MG Tab PO SCH (08:41)
[2018-10-29] MEDS: Nozin Nasal Sanitizer NASBOTH SCH (08:41)
[2018-10-29] MEDS: Nystatin Topical Powder 15 GM Bottle TOP SCH (08:42)
[2018-10-29] MEDS: Hypromellose 0.4% Ophth Soln 15 ML Bottle EYERT PRN (08:42)
[2018-10-29] MEDS: Metoprolol Succinate 25 MG Tab.ER PO SCH (08:44)
[2018-10-29] MEDS: Sertraline 50 MG Tab PO SCH (08:44)
[2018-10-29] MEDS: Hypromellose 0.4% Ophth Soln 15 ML Bottle EYERT SCH (08:44)
[2018-10-29] MEDS: Pregabalin 75 MG Cap PO SCH (08:51)
[2018-10-29] MEDS: Insulin Lispro Protamine/Lispro 75-25 100 Units/ML 10 ML Vial SUBCUT SCH (08:53)
--- NOTE | 2018-10-30 12:51 | PCM.SURGPN ---
- General Info Date of Service: 10/29/18 Date of Surgery/Procedure: 10/24/18 Post-Op Diagnosis: S/P hemiarthroplasty left hip Functional Status: Reports: Pain Controlled - Review of Systems General: Reports: No Symptoms Skin: Reports: No Symptoms Systems Review Comment:: Reports PLS is acting up a bit more. Hip pain fairly well controlled. - Patient Data Vitals - Most Recent: Last Vital Signs Temp 36.3 C 10/29/18 08:12 Pulse 87 10/29/18 08:44 Resp 16 10/29/18 08:12 BP 131/49 L 10/29/18 08:44 Pulse Ox 93 L 10/29/18 08:12 Weight - Most Recent: 114.305 kg Med Orders - Current: Current Medications Discontinued Medications Hydrocodone Bitart/Acetaminophen ([place] 325-7.5 Mg) 1 tab PO ONETIME ONE Stop: 10/23/18 18:31 Last Admin: 10/23/18 18:30 Dose: 1 tab Hydrocodone Bitart/Acetaminophen ([place] 325-10 Mg) 1 tab PO TID [facility] Last Admin: 10/25/18 08:49 Dose: 1 tab Hydrocodone Bitart/Acetaminophen ([place] 325-10 Mg) 1 tab PO Q4H PRN PRN Reason: Pain (moderate 4-6) Last Admin: 10/24/18 09:32 Dose: 1 tab Hydrocodone Bitart/Acetaminophen ([place] 325-10 Mg) 1 tab PO Q3H PRN PRN Reason: Pain Last Admin: 10/29/18 10:53 Dose: 1 tab Albuterol (Proventil Neb Soln) 2.5 mg NEB Q4H PRN PRN Reason: Shortness Of Breath/wheezing Last Admin: 10/24/18 22:01 Dose: 2.5 mg Alogliptin Benzoate (Alogliptin) 12.5 mg PO DAILY [facility] Last Admin: 10/29/18 08:39 Dose: 12.5 mg Artificial Tears (Natural Balance Tears) 0 ml EYERT BID [facility] Last Admin: 10/29/18 08:44 Dose: 2 drop Artificial Tears (Natural Balance Tears) 0 ml EYERT Q2H PRN PRN Reason: tearing Last Admin: 10/29/18 08:42 Dose: 1 drop Aspirin (Halfprin) 81 mg PO DAILY [facility] Last Admin: 10/29/18 08:38 Dose: 81 mg Bandage/Support Products ( Nasal Assurance Associate) 1 applic NASBOTH BID [facility] Stop: 10/31/18 09:01 Last Admin: 10/29/18 08:41 Dose: 1 applic Cefazolin Sodium (Ancef) Confirm Administered Dose 1 gm .ROUTE .STK-MED ONE Stop: 10/24/18 22:04 Last Admin: 10/24/18 22:27 Dose: 1 gm Cefazolin Sodium (Ancef) Confirm Administered Dose 1 gm .ROUTE .STK-MED ONE Stop: 10/25/18 05:17 Last Admin: 10/25/18 05:24 Dose: 1 gm Clonazepam (Klonopin) 1 mg PO BEDTIME [facility] Last Admin: 10/28/18 21:34 Dose: 1 mg Duloxetine HCl (Cymbalta) 30 mg PO BEDTIME [facility] Last Admin: 10/28/18 21:29 Dose: 30 mg Duloxetine HCl (Cymbalta) 60 mg PO ACBREAKFAST [facility] Last Admin: 10/29/18 08:39 Dose: 60 mg Enalapril Maleate (Vasotec) 40 mg PO BID [facility] Last Admin: 10/26/18 10:08 Dose: Not Given Enoxaparin Sodium (Lovenox) 30 mg SUBCUT Q24H [facility] Last Admin: 10/27/18 08:16 Dose: 30 mg Ephedrine Sulfate (Ephedrine Sulfate) Confirm Administered Dose 50 mg .ROUTE .STK-MED ONE Stop: 10/24/18 17:42 Fentanyl (Sublimaze) Confirm Administered Dose 100 mcg .ROUTE .STK-MED ONE Stop: 10/24/18 15:57 Furosemide (Lasix) 40 mg IVPUSH ONETIME ONE Stop: 10/24/18 21:47 Last Admin: 10/24/18 22:20 Dose: 40 mg Furosemide (Lasix) 20 mg PO DAILY [facility] Last Admin: 10/29/18 08:41 Dose: 20 mg Hydroxyzine HCl (Vistaril) 50 mg IM ONETIME ONE Stop: 10/24/18 15:16 Last Admin: 10/24/18 15:11 Dose: 50 mg Potassium Chloride 20 meq/Lidocaine HCl 2 ml/ Sodium Chloride 112 mls @ 56 mls/ hr IV Q2H [facility] Stop: 10/24/18 13:59 Last Admin: 10/24/18 12:32 Dose: 56 mls/hr Cefazolin Sodium/Dextrose 2 gm (/ Premix) 50 mls @ 100 mls/hr IV ONETIME ONE Stop: 10/24/18 16:44 Last Admin: 10/24/18 16:30 Dose: 100 mls/hr Lactated Ringer's (Ringers, Lactated) 1,000 mls @ 100 mls/hr IV ASDIRECTED [facility] Last Admin: 10/27/18 06:52 Dose: 100 mls/hr Lactated Ringer's (Ringers, Lactated) 500 mls @ 500 mls/hr IV ASDIRECTED [facility] Stop: 10/24/18 16:16 Last Admin: 10/24/18 15:15 Dose: 500 mls/hr Lactated Ringer's (Ringers, Lactated) Confirm Administered Dose 1,000 mls @ as directed .ROUTE .STK-MED ONE Stop: 10/24/18 18:30 Cefazolin Sodium/Dextrose 1 gm (/ Premix) 50 mls @ 100 mls/hr IV Q8HR [facility] Stop: 10/26/18 06:29 Last Admin: 10/26/18 07:17 Dose: 100 mls/hr Sodium Chloride (Normal Saline) Confirm Administered Dose 50 mls @ as directed .ROUTE .STK-MED ONE Stop: 10/24/18 22:04 Last Admin: 10/24/18 22:27 Dose: 100 mls/hr Sodium Chloride (Normal Saline) Confirm Administered Dose 50 mls @ as directed .ROUTE .STK-MED ONE Stop: 10/25/18 05:17 Last Admin: 10/25/18 05:24 Dose: 100 mls/hr Potassium Chloride 20 meq/Lidocaine HCl 2 ml/ Sodium Chloride 112 mls @ 56 mls/ hr IV Q2H [facility] Stop: 10/25/18 13:59 Last Admin: 10/25/18 13:51 Dose: 56 mls/hr Sodium Chloride (Normal Saline) 500 mls @ 500 mls/hr IV ASDIRECTED ONE Stop: 10/25/18 14:29 Last Admin: 10/25/18 13:31 Dose: 500 mls/hr Lactated Ringer's (Ringers, Lactated) 500 mls @ 500 mls/hr IV ONETIME ONE Stop: 10/25/18 23:34 Last Admin: 10/25/18 22:46 Dose: 500 mls/hr Potassium Chloride 20 meq/Lidocaine HCl 2 ml/ Sodium Chloride 112 mls @ 56 mls/ hr IV Q2H [facility] Stop: 10/27/18 15:29 Last Admin: 10/27/18 17:36 Dose: 56 mls/hr Ibuprofen (Motrin) 600 mg PO Q6H PRN PRN Reason: Pain/Fever Last Admin: 10/27/18 11:53 Dose: 600 mg Insulin Human Lispro (Humalog) 0 unit SUBCUT QIDACANDBED [facility]; Protocol Last Admin: 10/25/18 13:32 Dose: 2 units Insulin Human Lispro (Humalog) 0 unit SUBCUT QIDACANDBED [facility]; Protocol Last Admin: 10/29/18 12:23 Dose: 2 unit Insulin Lispro Protam/Lispro Human (Humalog Mix 75-25) 15 unit SUBCUT BIDAC [facility] Last Admin: 10/26/18 07:37 Dose: 15 units Insulin Lispro Protam/Lispro Human (Humalog Mix 75-25) 20 unit SUBCUT BIDAC [facility] Last Admin: 10/27/18 15:31 Dose: Not Given Insulin Lispro Protam/Lispro Human (Humalog Mix 75-25) 25 unit SUBCUT BIDAC [facility] Last Admin: 10/28/18 08:45 Dose: 25 units Insulin Lispro Protam/Lispro Human (Humalog Mix 75-25) 30 unit SUBCUT BIDAC [facility] Last Admin: 10/29/18 08:53 Dose: 30 units Lactulose (Chronulac) 30 gm PO BID [facility] Last Admin: 10/29/18 08:40 Dose: 30 gm Magnesium Hydroxide (Milk Of Magnesia) 30 ml PO BID PRN PRN Reason: Constipation Last Admin: 10/27/18 15:52 Dose: 30 ml Metoprolol Succinate (Toprol Xl) 25 mg PO DAILY [facility] Last Admin: 10/29/18 08:44 Dose: 25 mg Midazolam HCl (Versed 1 Mg/Ml) Confirm Administered Dose 2 mg .ROUTE .STK-MED ONE Stop: 10/24/18 15:58 Morphine Sulfate (Morphine) 4 mg IVPUSH Q2H PRN PRN Reason: Pain (severe 7-10) Last Admin: 10/24/18 13:38 Dose: 4 mg Morphine Sulfate (Morphine) 2 mg IVPUSH Q2H PRN PRN Reason: Pain (severe 7-10) Last Admin: 10/26/18 13:02 Dose: 2 mg Nystatin (Nystop) 0 gm TOP BID [facility] Last Admin: 10/29/18 08:42 Dose: 1 applic Ondansetron HCl (Zofran Odt) 4 mg PO Q6H PRN PRN Reason: Nausea able to take PO Ondansetron HCl (Zofran) 4 mg IV Q6H PRN PRN Reason: Nausea/Vomiting Oxycodone/Acetaminophen (Percocet 325-5 Mg) 0 tab PO Q6H PRN PRN Reason: Pain (moderate 4-6) Last Admin: 10/26/18 07:24 Dose: 1 tab Pantoprazole Sodium (Protonix) 40 mg PO BIDAC [facility] Last Admin: 10/29/18 08:38 Dose: 40 mg Polyethylene Glycol (Miralax) 17 gm PO DAILY PRN PRN Reason: Constipation Potassium Chloride (Klor-Con M20) 40 meq PO ONETIME ONE Stop: 10/28/18 11:31 Last Admin: 10/28/18 11:38 Dose: 40 meq Povidone Iodine (Betadine 10% Soln) Confirm Administered Dose 1 ml .ROUTE .STK- MED ONE Stop: 10/24/18 15:33 Last Admin: 10/24/18 17:08 Dose: 20 ml Pregabalin (Lyrica) 150 mg PO BID [facility] Last Admin: 10/29/18 08:51 Dose: 150 mg Propofol (Diprivan 20 Ml) Confirm Administered Dose 200 mg .ROUTE .STK-MED ONE Stop: 10/24/18 15:57 Propofol (Diprivan 20 Ml) Confirm Administered Dose 200 mg .ROUTE .STK-MED ONE Stop: 10/24/18 17:45 Fluticasone/Salmeterol (Fluticasone-Salmeterol 113-14 Mcg Powder Inh) 1 puff INH BID [facility] Last Admin: 10/23/18 22:27 Dose: Not Given Fluticasone/Salmeterol (Fluticasone-Salmeterol 113-14 Mcg Powder Inh) 0 puff INH BIDRT [facility] Last Admin: 10/29/18 07:33 Dose: 1 puff Sertraline HCl (Zoloft) 150 mg PO DAILY [facility] Last Admin: 10/26/18 10:12 Dose: 150 mg Sertraline HCl (Zoloft) 100 mg PO DAILY [facility] Last Admin: 10/29/18 08:44 Dose: 100 mg Sucralfate (Carafate) 1 gm PO TID [facility] Last Admin: 10/23/18 21:52 Dose: 1 gm Sucralfate (Carafate) 1 gm PO TIDAC [facility] Last Admin: 10/29/18 10:53 Dose: 1 gm Witch Lala (Tucks) 1 pad TOP ASDIRECTED PRN PRN Reason: Hemorrhoids - Exam Wound/Incisions: Healing Well Skin: Warm, Dry, Intact Physical Findings Comment:: Mild swelling in hip and thigh, Jil's negative. - Problem List & Annotations (1) Closed intertrochanteric fracture of left hip SNOMED Code(s): 08177653 Code(s): S72.142A - DISPLACED INTERTROCHANTERIC FRACTURE OF LEFT FEMUR, INIT Status: Acute Qualifiers: Encounter type: initial encounter Fracture alignment: displaced Qualified Code(s): S72.142A - Displaced intertrochanteric fracture of left femur , initial encounter for closed fracture (2) Postoperative anemia due to acute blood loss SNOMED Code(s): 04391068405122627 Code(s): D62 - ACUTE POSTHEMORRHAGIC ANEMIA Status: Acute (3) Status post left hip replacement SNOMED Code(s): 162207073, 700990368, 701611891, 879820123 Code(s): Z96.642 - PRESENCE OF LEFT ARTIFICIAL HIP JOINT Status: Acute Annotation/Comment:: Cemented hemiarthroplasty - Problem List Review Problem List Initiated/Reviewed/Updated: Yes - Assessment Assessment (Free Text/Narrative):: No new complaints. Tolerating being up in chair. - Plan Plan (Free Text/Narrative):: Transferring to SNF today. Continue PT/OT, WBAT on left. Follow up Ortho 2 weeks.
== END 2018-10-29 12:30 | DRG 470 ==
LOC: JP.ED 16:20 → JP.2SS 18:24 → JP.MS 10-26 15:16
PROVIDERS: ADMIT Internal Medicine; ATTEND Hospitalist
PROC: 0SRS0J9 Replacement of Left Hip Joint, Femoral Surface with Synthetic Substitute, Cemented, Open Approach (ICD-10-PCS; principal; 2018-10-24)
PROC: 30233N1 Transfusion of Nonautologous Red Blood Cells into Peripheral Vein, Percutaneous Approach (ICD-10-PCS; 2018-10-27)
DX: S72.142A Displaced intertrochanteric fracture of left femur, initial encounter for closed fracture (principal); G12.23 Primary lateral sclerosis; D62 Acute posthemorrhagic anemia; W07.XXXA Fall from chair, initial encounter; Y92.099 Unspecified place in other non-institutional residence as the place of occurrence of the external cause; I10 Essential (primary) hypertension; E11.9 Type 2 diabetes mellitus without complications; J44.9 Chronic obstructive pulmonary disease, unspecified; Z87.891 Personal history of nicotine dependence; M25.552 Pain in left hip; Z99.81 Dependence on supplemental oxygen; I25.10 Atherosclerotic heart disease of native coronary artery without angina pectoris; I95.9 Hypotension, unspecified; J30.9 Allergic rhinitis, unspecified; E78.00 Pure hypercholesterolemia, unspecified; I25.2 Old myocardial infarction; Z98.1 Arthrodesis status; F41.9 Anxiety disorder, unspecified; F41.0 Panic disorder [episodic paroxysmal anxiety]; M79.7 Fibromyalgia; M54.9 Dorsalgia, unspecified; G89.29 Other chronic pain; K59.09 Other constipation; K44.9 Diaphragmatic hernia without obstruction or gangrene; K21.9 Gastro-esophageal reflux disease without esophagitis; Z87.01 Personal history of pneumonia (recurrent); H54.7 Unspecified visual loss; E66.9 Obesity, unspecified; Z68.38 Body mass index [BMI] 38.0-38.9, adult; Z79.4 Long term (current) use of insulin; Z79.82 Long term (current) use of aspirin; Z88.1 Allergy status to other antibiotic agents; Z91.041 Radiographic dye allergy status; Z91.040 Latex allergy status; Z88.2 Allergy status to sulfonamides; Z88.8 Allergy status to other drugs, medicaments and biological substances; Z91.048 Other nonmedicinal substance allergy status; Z90.49 Acquired absence of other specified parts of digestive tract; Z90.710 Acquired absence of both cervix and uterus; E87.6 Hypokalemia
CPT/HCPCS: 36415; 36430; 51702; 72170; 73502-LT; 80048; 82962; 85014; 85018; 85025; 85027; 86850; 86900; 86901; 86920; 86922; 93306; 94640; 94762; 97110-GP; 97162-GP; 97530-GP; 99284; 99284-25; A9270-GY; C1713; J0690; J1650; J1815; J1940; J2001; J2250; J2270; J2704; J3010; J3410; J3480; J7030; J7040; J7050; J7120; P9016

== ENCOUNTER 2018-12-24 15:29 | Inpatient (IN) | payer MEDICARE ==
--- NOTE | 2018-12-24 16:47 | EDM.PDOC ---
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 She does still live in assisted living so it's unsure if she's had dark stools or another source of blood loss. She denies any persistent fevers, denies shortness of breath or cough. She's been walking with her walker without difficulty, and his been confused enough to go outside without assistance. She is not showing up for her meals regularly as she usually does. Over the weekend she ate "a gallon of ice cream" and nothing else. She denies any headaches or nausea or vomiting. She does have a significant bruise around her left knee from a recent fall, and chronic slowly worsening lower extremity edema. Onset: Unknown/Unsure (Symptoms seem to be worsening over the past 2 months since her surgery, worse especially the last several days) Associated Symptoms: Reports: Confusion, Loss of Appetite, Malaise. Denies: Chest Pain, Cough, Nausea/Vomiting - Related Data Allergies Allergy/AdvReac Type Severity Reaction Status Date / Time adhesive Allergy Cannot Verified 10/23/18 16:26 Remember atorvastatin calcium Allergy Cannot Verified 10/23/18 16:26 [From Lipitor] Remember clindamycin Allergy Cannot Verified 10/23/18 16:26 Remember cyclobenzaprine HCl Allergy Cannot Verified 10/23/18 16:26 [From Flexeril] Remember fentanyl Allergy Rash Verified 10/23/18 16:26 gabapentin Allergy Cannot Verified 10/23/18 16:26 Remember insulin glargine, human Allergy Rash Verified 10/23/18 16:26 recombin. a [From Lantus] Iodinated Contrast- Oral and Allergy Cannot Verified 10/23/18 16:26 IV Dye Remember [Iodinated Contrast Media - IV Dye] iodine Allergy Hives Verified 10/23/18 16:26 iopamidol Allergy Hives Verified 10/23/18 16:26 lactose Allergy Cannot Verified 10/23/18 16:26 Remember Latex, Natural Rubber Allergy Cannot Verified 04/23/19 16:26 Remember levofloxacin [From Levaquin] Allergy Rash Verified 10/23/18 16:26 lisinopril Allergy Cannot Verified 10/23/18 16:26 Remember oxybutynin Allergy Cannot Verified 10/23/18 16:26 Remember piperacillin Allergy Hives Verified 10/23/18 16:26 piperacillin sodium Allergy Hives Verified 10/23/18 16:26 [From Zosyn] red dye Allergy Cannot Verified 10/23/18 16:26 Remember silver Allergy Rash Verified 10/23/18 16:26 [From Tegaderm AG Mesh] simvastatin [From Zocor] Allergy Cannot Verified 10/23/18 16:26 Remember Sulfa (Sulfonamide Allergy Hives Verified 10/23/18 16:26 Antibiotics) tazobactam Allergy Hives Verified 10/23/18 16:26 tazobactam sodium Allergy Hives Verified 10/23/18 16:26 [From Zosyn] varenicline [Varenicline] Allergy Cannot Verified 10/23/18 16:26 Remember varenicline tartrate Allergy Cannot Verified 10/23/18 16:26 [From Chantix] Remember venlafaxine HCl Allergy Cannot Verified 10/23/18 16:26 [From Effexor] Remember baclofen AdvReac Irritabilit Verified 10/23/18 16:26 y esomeprazole AdvReac Diarrhea Verified 10/23/18 16:26 esomeprazole magnesium AdvReac Diarrhea Verified 10/23/18 16:26 [From Nexium] exenatide AdvReac Tachycardia Verified 10/23/18 16:26 insulin detemir AdvReac Nausea and Verified 10/23/18 16:26 [From Levemir] Vomiting metformin AdvReac Nausea Verified 10/23/18 16:26 promethazine AdvReac Nausea and Verified 10/23/18 16:26 Vomiting promethazine HCl AdvReac Nausea and Verified 10/23/18 16:26 [From Phenergan] Vomiting Home Meds: Home Meds Aspirin [Adult Low Dose Aspirin EC] 81 mg PO DAILY 04/16/13 [History] Ibuprofen 800 mg PO TID 04/16/13 [History] Lactulose [Generlac] 30 ml PO BID 04/16/13 [History] Magnesium Hydroxide [Milk of Magnesia] 30 ml PO Q48H PRN 03/31/16 [History] Sertraline [Zoloft] 100 mg PO DAILY 03/31/16 [History] Dextrose [Glucose] 1 tab PO Q1H PRN 06/12/16 [History] Menthol/Methyl Salicylate [Pain Relieving Rub Cream] 1 applic TOP TID 06/12/16 [ History] Propylene Glycol/Peg 400 [Systane Ultra 0.4-0.3% Eye Drp] 1 drop EYERT Q2HR PRN 06/12/16 [History] Calcium Carbonate/Vitamin D3 [Calcium 600 + Vit D 400 Softgl] 1 tab PO BID 10/23 [History] Chlorhexidine Gluconate 15 ml PO BID 10/23/18 [History] DULoxetine HCl [Duloxetine HCl] 60 mg PO ACBREAKFAST 10/23/18 [History] Enalapril Maleate 40 mg PO BID 10/23/18 [History] Fluticasone Propionate [Flonase Allergy Relief] 2 spray KASIA ACBREAKFAST [History] Fluticasone/Salmeterol [Advair 250-50 Diskus] 1 puff INH BID 10/23/18 [History] Furosemide [Lasix] 20 mg PO DAILY 10/23/18 [History] Insulin Lispro Prot/Lispro [HumaLOG Mix 75-25] 62 units SUBCNJ BID 10/23/18 [ History] Lansoprazole [Prevacid] 30 mg PO BID 10/23/18 [History] Loratadine [Claritin] 10 mg PO BEDTIME 10/23/18 [History] Metoprolol Succinate [Toprol XL] 25 mg PO DAILY 10/23/18 [History] Potassium Chloride 20 meq PO TID 10/23/18 [History] Propylene Glycol/PEG 400/Pf [Systane 0.3-0.4% Eye Drop] 2 drop EYERT BID [History] SitaGLIPtin [Januvia] 50 mg PO DAILY 10/23/18 [History] Sucralfate [Carafate] 1 gm PO TID 10/23/18 [History] DULoxetine HCl [Duloxetine HCl] 30 mg PO BEDTIME #30 capsule.dr 10/28/18 [Rx] Hydrocodone/Acetaminophen [Hydrocodon-Acetaminophn 10-325] 1 tab PO Q4H PRN #60 tablet 10/28/18 [Rx] Nystatin [Nystop] 1 gm TOP BID #1 bottle 10/28/18 [Rx] Pregabalin [Lyrica] 150 mg PO BID #60 capsule 10/28/18 [Rx] clonazePAM [Klonopin] 1 mg PO BEDTIME #30 tablet 10/28/18 [Rx] Alendronate Sodium 1 tab PO ASDIRECTED 12/24/18 [History] Loperamide HCl [Imodium A-D] 2 mg PO ASDIRECTED 12/24/18 [History] Torsemide 50 mg PO DAILY 12/24/18 [History] Past Medical History HEENT History: Reports: Allergic Rhinitis, Impaired Vision Cardiovascular History: Reports: CAD, High Cholesterol, Hypertension, [place] Respiratory History: Reports: Bronchitis, Recurrent, Pneumonia, Recurrent, SOB Other Respiratory History: home O2 at night Gastrointestinal History: Reports: Chronic Constipation, Chronic Diarrhea, Gastritis, GERD, Hiatal Hernia Genitourinary History: Reports: None LYMPHEDEMA THERAPIST History: Reports: Dysfunctional Uterine Bleeding, Musculoskeletal History: Reports: Back Pain, Chronic, Fibromyalgia, Osteoarthritis, Other (See Below) Other Musculoskeletal History: primary lateral sclerosis Neurological History: Reports: None Psychiatric History: Reports: Anxiety, Panic Attack Endocrine/Metabolic History: Reports: Diabetes, Type II, IDDM, Obesity/BMI 30+ Hematologic History: Reports: Blood Transfusion(s) Immunologic History: Reports: None Oncologic (Cancer) History: Reports: None Dermatologic History: Reports: Decubitus Ulcer - Infectious Disease History Infectious Disease History: Reports: Other (See Below) Other Infectious Disease History: unable to obtain - Past Surgical History GI Surgical History: Reports: Appendectomy, Cholecystectomy, Colonoscopy Female Surgical History: Reports: D&C, Hysterectomy, Tubal Ligation Neurological Surgical History: Reports: Spinal Fusion Musculoskeletal Surgical History: Reports: Hip Replacement Other Musculoskeletal Surgeries/Procedures:: left hip liana Social & Family History - Family History Family Medical History: Unobtainable - Tobacco Use Smoking Status *Q: Never Smoker - Caffeine Use Caffeine Use: Reports: Coffee, Soda - Recreational Drug Use Recreational Drug Use: No ED ROS GENERAL - Review of Systems Review Of Systems: See Below Constitutional: Reports: Malaise, Decreased Appetite. Denies: Fever, Chills Respiratory: Denies: Shortness of Breath Cardiovascular: Denies: Chest Pain GI/Abdominal: Denies: Abdominal Pain, Nausea, Vomiting : Reports: No Symptoms Neurological: Reports: Confusion, Other (Worsening expressive aphasia) ED EXAM, GENERAL - Physical Exam Exam: See Below Exam Limited By: Physical Impairment (Some expressive aphasia) General Appearance: Alert, No Apparent Distress Eye Exam: Bilateral Eye: EOMI (No jaundice) Throat/Mouth: Other (Dental caries are present) Head: Atraumatic Neck: Supple, Non-Tender Respiratory/Chest: Lungs Clear Cardiovascular: Regular Rate, Rhythm GI/Abdominal: Other (Morbidly obese) Extremities: Pedal Edema (Significant pitting edema bilaterally, fairly large ecchymotic bruise around the inferior lateral aspect of the left knee) Neurological: Alert, Oriented, Confused, Slow to Respond Psychiatric: Anxious, Tearful (Intermittently tearful when discussing her concerns) Skin Exam: Other (Large bruise around the left knee, also several bruises on the abdomen and upper extremities) Course - Vital Signs Last Recorded V/S: Last Vital Signs Temp 96.7 F 12/26/18 10:03 Pulse 76 12/26/18 10:03 Resp 16 12/26/18 10:03 BP 158/70 H 12/26/18 10:03 Pulse Ox 93 L 12/26/18 10:03 - Orders/Labs/Meds Orders: Medication Orders Acetaminophen (Tylenol) 650 mg PO Q4H PRN PRN Reason: Pain (Mild 1-3)/fever Alendronate Sodium (Fosamax) 70 mg PO Mo@0700 [facility] Alogliptin Benzoate (Alogliptin) 25 mg PO DAILY [facility] Last Admin: 12/25/18 09:10 Dose: 25 mg Artificial Tears (Natural Balance Tears) 0 ml EYERT BID [facility] Last Admin: 12/25/18 21:08 Dose: 1 drop Admin: 12/25/18 09:09 Dose: 2 drop Admin: 12/24/18 23:00 Dose: 2 drop Aspirin (Halfprin) 81 mg PO DAILY [facility] Last Admin: 12/25/18 09:06 Dose: 81 mg Clonazepam (Klonopin) 1 mg PO BEDTIME [facility] Last Admin: 12/25/18 21:04 Dose: 1 mg Admin: 12/24/18 22:37 Dose: 1 mg Dextrose (Glutose 15) 15 gm PO ONETIME PRN PRN Reason: Hypoglycemia Dextrose/Water (Dextrose 50% In Water) 50 ml IV ONETIME PRN PRN Reason: Hypoglycemia Last Admin: 12/26/18 00:44 Dose: 50 ml Duloxetine HCl (Cymbalta) 30 mg PO BEDTIME [facility] Last Admin: 12/25/18 21:04 Dose: 30 mg Admin: 12/24/18 22:36 Dose: 30 mg Duloxetine HCl (Cymbalta) 60 mg PO ACBREAKFAST [facility] Last Admin: 12/25/18 09:02 Dose: 60 mg Enalapril Maleate (Vasotec) 40 mg PO BID [facility] Last Admin: 12/25/18 21:10 Dose: 40 mg Admin: 12/25/18 09:08 Dose: 40 mg Admin: 12/24/18 22:52 Dose: 40 mg Enoxaparin Sodium (Lovenox) 40 mg SUBCUT DAILY [facility] Last Admin: 12/25/18 09:06 Dose: 40 mg Ferrous Sulfate (Ferrous Sulfate) 325 mg PO BIDMEALS [facility] Last Admin: 12/25/18 17:02 Dose: 325 mg Fluticasone Propionate (Flonase) 0 gm KASIA ACBREAKFAST [facility] Last Admin: 12/25/18 09:01 Dose: 1 spray Ferric Sodium Gluconate Complex 250 mg/ Sodium Chloride 120 mls @ 50 mls/hr IV ONETIME ONE Stop: 12/26/18 12:23 Dextrose/Sodium Chloride (Dextrose 5%-Normal Saline) 1,000 mls @ 100 mls/hr IV ASDIRECTED [facility] Last Admin: 12/26/18 01:00 Dose: 100 mls/hr Ibuprofen (Motrin) 800 mg PO TID [facility] Last Admin: 12/25/18 21:08 Dose: 800 mg Admin: 12/25/18 13:51 Dose: 800 mg Admin: 12/25/18 09:08 Dose: 800 mg Admin: 12/24/18 22:37 Dose: 800 mg Insulin Human Lispro (Humalog) 0 unit SUBCUT QIDACANDBED [facility]; Protocol Last Admin: 12/26/18 08:42 Dose: Not Given Admin: 12/25/18 21:05 Dose: 2 units Admin: 12/25/18 16:59 Dose: 1 units Admin: 12/25/18 11:21 Dose: Not Given Admin: 12/25/18 07:58 Dose: Not Given Admin: 12/24/18 22:51 Dose: 3 units Insulin Lispro Protam/Lispro Human (Humalog Mix 75-25) 62 unit SUBCUT BID [facility] Last Admin: 12/25/18 21:27 Dose: 62 units Admin: 12/25/18 09:17 Dose: 62 units Admin: 12/24/18 22:58 Dose: 62 units Lactulose (Chronulac) 20 gm PO BID [facility] Last Admin: 12/25/18 21:05 Dose: 20 gm Admin: 12/25/18 09:04 Dose: Not Given Admin: 12/24/18 22:44 Dose: Not Given Loratadine (Claritin) 10 mg PO BEDTIME [facility] Last Admin: 12/25/18 21:07 Dose: 10 mg Admin: 12/24/18 22:37 Dose: 10 mg Metoprolol Succinate (Toprol Xl) 25 mg PO DAILY [facility] Last Admin: 12/25/18 09:10 Dose: 25 mg Ondansetron HCl (Zofran) 4 mg IV Q4H PRN PRN Reason: Nausea/Vomiting Pantoprazole Sodium (Protonix) 40 mg PO BID [facility] Last Admin: 12/25/18 21:09 Dose: 40 mg Admin: 12/25/18 09:08 Dose: 40 mg Admin: 12/24/18 22:37 Dose: 40 mg Polyethylene Glycol (Miralax) 17 gm PO DAILY PRN PRN Reason: Constipation Potassium Chloride (Klor-Con M20) 20 meq PO TID [facility] Last Admin: 12/25/18 21:08 Dose: 20 meq Admin: 12/25/18 13:52 Dose: 20 meq Admin: 12/25/18 09:06 Dose: 20 meq Admin: 12/24/18 22:38 Dose: 20 meq Pregabalin (Lyrica) 150 mg PO BID [facility] Last Admin: 12/25/18 21:04 Dose: 150 mg Admin: 12/25/18 09:16 Dose: 150 mg Admin: 12/24/18 22:36 Dose: 150 mg Fluticasone/Salmeterol (Fluticasone-Salmeterol 113-14 Mcg Powder Inh) 1 puff INH BIDRT [facility] Last Admin: 12/26/18 07:50 Dose: 1 puff Admin: 12/25/18 21:07 Dose: 1 puff Sertraline HCl (Zoloft) 100 mg PO DAILY [facility] Last Admin: 12/25/18 09:07 Dose: 100 mg Sodium Chloride (Saline Flush) 10 ml FLUSH ASDIRECTED PRN PRN Reason: Keep Vein Open Sucralfate (Carafate) 1 gm PO TID [facility] Last Admin: 12/25/18 21:07 Dose: 1 gm Admin: 12/25/18 13:51 Dose: 1 gm Admin: 12/25/18 09:03 Dose: 1 gm Admin: 12/24/18 22:38 Dose: 1 gm Labs: Laboratory Tests 12/24/18 12/24/18 12/24/18 Range/Units 16:54 16:55 16:55 WBC 3.7 L (4.5-11.0) K/uL RBC 3.38 (3.30-5.50) M/uL Hgb 7.7 L (12.0-15.0) g/dL Hct 26.4 L (36.0-48.0) % MCV 78 L (80-98) fL MCH 23 L (27-31) pg MCHC 29 L (32-36) % Plt Count 129 L (150-400) K/uL Neut % (Auto) 55 (36-66) % Lymph % (Auto) 23 L (24-44) % Moca % (Auto) 17 H (2-6) % Eos % (Auto) 5 H (2-4) % Baso % (Auto) 1 (0-1) % Sodium 141 (140-148) mmol/L Potassium 3.2 L (3.6-5.2) mmol/L Chloride 104 (100-108) mmol/L Carbon Dioxide 31 (21-32) mmol/L Anion Gap 9.2 (5.0-14.0) mmol/L BUN 14 D (7-18) mg/dL Creatinine 0.8 (0.6-1.0) mg/dL Est Cr Clr Drug Dosing 55.45 mL/min Estimated GFR (MDRD) > 60 (>60) Glucose 186 H (74-106) mg/dL Calcium 8.1 L (8.5-10.1) mg/dL Total Bilirubin 1.0 D (0.2-1.0) mg/dL AST 33 (15-37) U/L ALT 23 (12-78) U/L Alkaline Phosphatase 118 H (46-116) U/L Troponin I (0.000-0.056) ng/mL Total Protein 6.3 L (6.4-8.2) g/dL Albumin 2.5 L (3.4-5.0) g/dL Globulin 3.8 H (2.3-3.5) g/dL Albumin/Globulin Ratio 0.7 L (1.2-2.2) TSH, Ultra Sensitive (0.358-3.740) uIU/mL Urine Color Urine Appearance Urine pH (4.5-8.0) Ur Specific [place] (1.008-1.030) Urine Protein (NEGATIVE) mg/dL Urine Glucose (UA) (NEGATIVE) mg/dL Urine Ketones (NEGATIVE) mg/dL Urine Occult Blood (NEGATIVE) Urine Nitrite (NEGATIVE) Urine Bilirubin (NEGATIVE) Urine Urobilinogen (NORMAL) mg/dL Ur Leukocyte Esterase (NEGATIVE) Urine RBC (0-5) Urine WBC (0-5) Ur Epithelial Cells Amorphous Sediment Urine Bacteria Urine Mucus Blood Type A POSITIVE Gel Antibody Screen Negative Crossmatch See Detail 12/24/18 12/24/18 Range/Units 16:55 17:24 WBC (4.5-11.0) K/uL RBC (3.30-5.50) M/uL Hgb (12.0-15.0) g/dL Hct (36.0-48.0) % MCV (80-98) fL MCH (27-31) pg MCHC (32-36) % Plt Count (150-400) K/uL Neut % (Auto) (36-66) % Lymph % (Auto) (24-44) % Moca % (Auto) (2-6) % Eos % (Auto) (2-4) % Baso % (Auto) (0-1) % Sodium (140-148) mmol/L Potassium (3.6-5.2) mmol/L Chloride (100-108) mmol/L Carbon Dioxide (21-32) mmol/L Anion Gap (5.0-14.0) mmol/L BUN (7-18) mg/dL Creatinine (0.6-1.0) mg/dL Est Cr Clr Drug Dosing mL/min Estimated GFR (MDRD) (>60) Glucose (74-106) mg/dL Calcium (8.5-10.1) mg/dL Total Bilirubin (0.2-1.0) mg/dL AST (15-37) U/L ALT (12-78) U/L Alkaline Phosphatase (46-116) U/L Troponin I 0.021 (0.000-0.056) ng/mL Total Protein (6.4-8.2) g/dL Albumin (3.4-5.0) g/dL Globulin (2.3-3.5) g/dL Albumin/Globulin Ratio (1.2-2.2) TSH, Ultra Sensitive 2.298 (0.358-3.740) uIU/mL Urine Color Yellow Urine Appearance Clear Urine pH 6.0 (4.5-8.0) Ur Specific [place] 1.010 (1.008-1.030) Urine Protein Negative (NEGATIVE) mg/dL Urine Glucose (UA) Normal (NEGATIVE) mg/dL Urine Ketones Negative (NEGATIVE) mg/dL Urine Occult Blood Negative (NEGATIVE) Urine Nitrite Negative (NEGATIVE) Urine Bilirubin Negative (NEGATIVE) Urine Urobilinogen Normal (NORMAL) mg/dL Ur Leukocyte Esterase Negative (NEGATIVE) Urine RBC Not seen (0-5) Urine WBC 0-5 (0-5) Ur Epithelial Cells Rare Amorphous Sediment Not seen Urine Bacteria Not seen Urine Mucus Not seen Blood Type Gel Antibody Screen Crossmatch Meds: Medications Generic Name Dose Route Start Last Admin Trade Name Freq PRN Reason Stop Dose Admin Acetaminophen 650 mg 12/24/18 20:34 Tylenol PO Q4H PRN Pain (Mild 1-3)/fever Alendronate Sodium 70 mg 12/31/18 07:00 Fosamax PO Mo@0700 [facility] Alogliptin Benzoate 25 mg 12/25/18 09:00 12/25/18 09:10 Alogliptin PO 25 mg DAILY [facility] Administration Artificial Tears 0 ml 12/24/18 21:00 12/25/18 21:08 Natural Balance Tears EYERT 1 drop BID [facility] Administration Aspirin 81 mg 12/25/18 09:00 12/25/18 09:06 Halfprin PO 81 mg DAILY [facility] Administration Clonazepam 1 mg 12/24/18 21:00 12/25/18 21:04 Klonopin PO 1 mg BEDTIME [facility] Administration Dextrose 15 gm 12/24/18 20:34 Glutose 15 PO ONETIME PRN Hypoglycemia Dextrose/Water 50 ml 12/24/18 20:34 12/26/18 00:44 Dextrose 50% In Water IV 50 ml ONETIME PRN Administration Hypoglycemia Duloxetine HCl 30 mg 12/24/18 21:00 12/25/18 21:04 Cymbalta PO 30 mg BEDTIME [facility] Administration Duloxetine HCl 60 mg 12/25/18 07:30 12/25/18 09:02 Cymbalta PO 60 mg ACBREAKFAST [facility] Administration Enalapril Maleate 40 mg 12/24/18 21:00 12/25/18 21:10 Vasotec PO 40 mg BID [facility] Administration Enoxaparin Sodium 40 mg 12/25/18 09:00 12/25/18 09:06 Lovenox SUBCUT 40 mg DAILY [facility] Administration Ferrous Sulfate 325 mg 12/25/18 17:00 12/25/18 17:02 Ferrous Sulfate PO 325 mg BIDMEALS [facility] Administration Fluticasone Propionate 0 gm 12/25/18 07:30 12/25/18 09:01 Flonase KASIA 1 spray ACBREAKFAST [facility] Administration Ferric Sodium Gluconate 120 mls @ 50 mls/hr 12/26/18 10:00 Complex 250 mg/ Sodium IV 12/26/18 12:23 Chloride ONETIME ONE Dextrose/Sodium Chloride 1,000 mls @ 100 mls/hr 12/26/18 01:00 12/26/18 01:00 Dextrose 5%-Normal Saline IV 100 mls/hr ASDIRECTED [facility] Administration Ibuprofen 800 mg 12/24/18 21:00 12/25/18 21:08 Motrin PO 800 mg TID [facility] Administration Insulin Human Lispro 0 unit 12/24/18 20:34 12/26/18 08:42 Humalog SUBCUT Not Given QIDACANDBED [facility] Protocol Insulin Lispro Protam/Lispro Human 62 unit 12/24/18 21:00 12/25/18 21:27 Humalog Mix 75-25 SUBCUT 62 units BID [facility] Administration Lactulose 20 gm 12/24/18 21:00 12/25/18 21:05 Chronulac PO 20 gm BID [facility] Administration Loratadine 10 mg 12/24/18 21:00 12/25/18 21:07 Claritin PO 10 mg BEDTIME [facility] Administration Metoprolol Succinate 25 mg 12/25/18 09:00 12/25/18 09:10 Toprol Xl PO 25 mg DAILY [facility] Administration Ondansetron HCl 4 mg 12/24/18 20:34 Zofran IV Q4H PRN Nausea/Vomiting Pantoprazole Sodium 40 mg 12/24/18 21:00 12/25/18 21:09 Protonix PO 40 mg BID [facility] Administration Polyethylene Glycol 17 gm 12/24/18 20:34 Miralax PO DAILY PRN Constipation Potassium Chloride 20 meq 12/24/18 21:00 12/25/18 21:08 Klor-Con M20 PO 20 meq TID [facility] Administration Pregabalin 150 mg 12/24/18 21:00 12/25/18 21:04 Lyrica PO 150 mg BID [facility] Administration Fluticasone/Salmeterol 1 puff 12/25/18 21:00 12/26/18 07:50 Fluticasone-Salmeterol 113-14 Mcg Powder Inh INH 1 puff BIDRT [facility] Administration Sertraline HCl 100 mg 12/25/18 09:00 12/25/18 09:07 Zoloft PO 100 mg DAILY [facility] Administration Sodium Chloride 10 ml 12/24/18 20:34 Saline Flush FLUSH ASDIRECTED PRN Keep Vein Open Sucralfate 1 gm 12/24/18 21:00 12/25/18 21:07 Carafate PO 1 gm TID [facility] Administration Discontinued Medications Generic Name Dose Route Start Last Admin Trade Name Freq PRN Reason Stop Dose Admin Bisacodyl 10 mg 12/25/18 16:15 12/25/18 16:34 Dulcolax PO 12/25/18 16:16 10 mg ONETIME ONE Administration Bisacodyl 10 mg 12/25/18 20:00 12/25/18 21:06 Dulcolax PO 12/25/18 20:01 10 mg ONETIME ONE Administration Fluticasone Propionate 0 gm 12/25/18 07:30 Flonase KASIA ACBREAKFAST [facility] Furosemide 40 mg 12/24/18 20:34 12/24/18 22:56 Lasix IVPUSH 12/24/18 20:35 40 mg NOW ONE Administration Ferric Sodium Gluconate 120 mls @ 50 mls/hr 12/25/18 10:00 12/25/18 11:18 Complex 250 mg/ Sodium IV 12/25/18 12:23 50 mls/hr Chloride ONETIME ONE Administration Lactated Ringer's Confirm 12/26/18 08:46 Ringers, Lactated Administered 12/26/18 08:47 Dose 1,000 mls @ as directed .ROUTE .STK-MED ONE Polyethylene Glycol 238 gm 12/25/18 17:00 12/25/18 16:57 Miralax PO 12/25/18 17:01 238 gram ONETIME ONE Administration Potassium Chloride 40 meq 12/24/18 20:34 12/24/18 22:36 Klor-Con M20 PO 12/24/18 20:35 40 meq ONETIME ONE Administration Potassium Chloride 40 meq 12/24/18 22:00 12/24/18 23:03 Klor-Con M20 PO 12/24/18 22:01 40 meq ONETIME ONE Administration Potassium Chloride 40 meq 12/26/18 09:00 Klor-Con M20 PO 12/26/18 09:01 ONETIME ONE Propofol Confirm 12/26/18 08:17 Diprivan 20 Ml Administered 12/26/18 08:18 Dose 200 mg .ROUTE .STK-MED ONE Propofol Confirm 12/26/18 08:57 Diprivan 20 Ml Administered 12/26/18 08:58 Dose 200 mg .ROUTE .STK-MED ONE Fluticasone/Salmeterol 1 puff 12/24/18 21:00 12/25/18 08:19 Fluticasone-Salmeterol 113-14 Mcg Powder Inh INH 1 puff BID [facility] Administration - Re-Assessments/Exams Free Text/Narrative Re-Assessment/Exam: 12/24/18 17:34 A CBC, CMP, TSH was obtained as well as a head CT. A UA also obtained by clean catch. 12/24/18 18:12 CBC revealed a hemoglobin of only 7.7. TSH was normal, UA negative and CT of the head was normal. CMP showed no cause for confusion or weakness. The family does not feel the patient is stable enough, is too confused and is at high risk of hurting herself if she goes back to assisted living. I discussed her case with Dr. Velazquez, he agreed to visit with the family and patient and consider admission for anemia of unknown cause and increasing confusion. Departure - Departure Time of Disposition: 19:57 Disposition: Admitted As Inpatient 64 Clinical Impression: Confusion Anemia Qualifiers: Anemia type: unspecified type Qualified Code(s): D64.9 - Anemia, unspecified - Discharge Information
--- NOTE | 2018-12-24 17:50 | CRLCT ---
INDICATION: Confusion TECHNIQUE: CT head without contrast. COMPARISON: None. FINDINGS: CSF spaces: Within normal limits for age. Brain parenchyma: The cruz-white differentiation is normal. No sign of mass, hemorrhage, or midline shift. Skull base and calvarium: The visualized paranasal sinuses and mastoid air cells demonstrate no acute or significant findings. The visualized orbits are grossly unremarkable. No skull fractures. Bilateral temporomandibular joint osteoarthritis. IMPRESSION: Unremarkable noncontrast head CT. Please note that all CT scans at this facility use dose modulation, iterative reconstruction, and/or weight-based dosing when appropriate to reduce radiation dose to as low as reasonably achievable. Dictated by Carlos Santos MD @ Dec 24 2018 5:46PM Signed by Dr. Carlos Santos @ Dec 24 2018 5:48PM
--- NOTE | 2018-12-24 19:24 | PCM.HP ---
H&P History of Present Illness - General Date of Service: 12/24/18 Admit Problem/Dx: Admission Diagnosis/Problem Admission Diagnosis/Problem Anemia Source of Information: Family, Old Records, Provider, RN Notes Reviewed History Limitations: Reports: Altered Mental Status (Cognitive impairment/ confusion) - History of Present Illness Initial Comments - Free Text/Narative: Ms. Lee is a 63-year-old woman who was admitted through the emergency department for further evaluation and management of confusion and worsening anemia. She has a known history of chronic anemia, during last hospitalization for a hip fracture recurrent transfusion of 1 unit of red blood cells. At the time of discharge hemoglobin was 9.3. 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 Family is noted since her hip surgery 2 months ago that she is experienced more rapid cognitive decline and his often been very confused. Sister was going to visit her daughter today and found her walking down the street wearing her winter coat, despite the relatively high temperature. Patient is unaware of her confusion and denies that there is a significant problem. Family reports that at times she is fairly lucid and at other times very confused. Decline in cognitive function has occurred over the past few years but has become significantly worse in the past few months. There is a family history of early onset dementia. - Related Data Allergies/Adverse Reactions: Allergies Allergy/AdvReac Type Severity Reaction Status Date / Time adhesive Allergy Cannot Verified 10/23/18 16:26 Remember atorvastatin calcium Allergy Cannot Verified 10/23/18 16:26 [From Lipitor] Remember clindamycin Allergy Cannot Verified 10/23/18 16:26 Remember cyclobenzaprine HCl Allergy Cannot Verified 10/23/18 16:26 [From Flexeril] Remember fentanyl Allergy Rash Verified 10/23/18 16:26 gabapentin Allergy Cannot Verified 10/23/18 16:26 Remember insulin glargine, human Allergy Rash Verified 10/23/18 16:26 recombin. a [From Lantus] Iodinated Contrast- Oral and Allergy Cannot Verified 10/23/18 16:26 IV Dye Remember [Iodinated Contrast Media - IV Dye] iodine Allergy Hives Verified 10/23/18 16:26 iopamidol Allergy Hives Verified 10/23/18 16:26 lactose Allergy Cannot Verified 10/23/18 16:26 Remember Latex, Natural Rubber Allergy Cannot Verified 10/23/18 16:26 Remember levofloxacin [From Levaquin] Allergy Rash Verified 10/23/18 16:26 lisinopril Allergy Cannot Verified 10/23/18 16:26 Remember oxybutynin Allergy Cannot Verified 10/23/18 16:26 Remember piperacillin Allergy Hives Verified 10/23/18 16:26 piperacillin sodium Allergy Hives Verified 10/23/18 16:26 [From Zosyn] red dye Allergy Cannot Verified 10/23/18 16:26 Remember silver Allergy Rash Verified 10/23/18 16:26 [From Tegaderm AG Mesh] simvastatin [From Zocor] Allergy Cannot Verified 10/23/18 16:26 Remember Sulfa (Sulfonamide Allergy Hives Verified 10/23/18 16:26 Antibiotics) tazobactam Allergy Hives Verified 10/23/18 16:26 tazobactam sodium Allergy Hives Verified 10/23/18 16:26 [From Zosyn] varenicline [Varenicline] Allergy Cannot Verified 10/23/18 16:26 Remember varenicline tartrate Allergy Cannot Verified 10/23/18 16:26 [From Chantix] Remember venlafaxine HCl Allergy Cannot Verified 10/23/18 16:26 [From Effexor] Remember baclofen AdvReac Irritabilit Verified 10/23/18 16:26 y esomeprazole AdvReac Diarrhea Verified 10/23/18 16:26 esomeprazole magnesium AdvReac Diarrhea Verified 10/23/18 16:26 [From Nexium] exenatide AdvReac Tachycardia Verified 10/23/18 16:26 insulin detemir AdvReac Nausea and Verified 10/23/18 16:26 [From Levemir] Vomiting metformin AdvReac Nausea Verified 10/23/18 16:26 promethazine AdvReac Nausea and Verified 10/23/18 16:26 Vomiting promethazine HCl AdvReac Nausea and Verified 10/23/18 16:26 [From Phenergan] Vomiting Home Medications: Home Meds Aspirin [Adult Low Dose Aspirin EC] 81 mg PO DAILY 04/16/13 [History] Ibuprofen 800 mg PO TID 04/16/13 [History] Lactulose [Generlac] 30 ml PO BID 04/16/13 [History] Magnesium Hydroxide [Milk of Magnesia] 30 ml PO Q48H PRN 03/31/16 [History] Sertraline [Zoloft] 100 mg PO DAILY 03/31/16 [History] Dextrose [Glucose] 1 tab PO Q1H PRN 06/12/16 [History] Menthol/Methyl Salicylate [Pain Relieving Rub Cream] 1 applic TOP TID 06/12/16 [ History] Propylene Glycol/Peg 400 [Systane Ultra 0.4-0.3% Eye Drp] 1 drop EYERT Q2HR PRN 06/12/16 [History] Calcium Carbonate/Vitamin D3 [Calcium 600 + Vit D 400 Softgl] 1 tab PO BID 10/23 [History] Chlorhexidine Gluconate 15 ml PO BID 10/23/18 [History] DULoxetine HCl [Duloxetine HCl] 60 mg PO ACBREAKFAST 10/23/18 [History] Enalapril Maleate 40 mg PO BID 10/23/18 [History] Fluticasone Propionate [Flonase Allergy Relief] 2 spray KASIA ACBREAKFAST [History] Fluticasone/Salmeterol [Advair 250-50 Diskus] 1 puff INH BID 10/23/18 [History] Furosemide [Lasix] 20 mg PO DAILY 10/23/18 [History] Insulin Lispro Prot/Lispro [HumaLOG Mix 75-25] 62 units SUBCNJ BID 10/23/18 [ History] Lansoprazole [Prevacid] 30 mg PO BID 10/23/18 [History] Loratadine [Claritin] 10 mg PO BEDTIME 10/23/18 [History] Metoprolol Succinate [Toprol XL] 25 mg PO DAILY 10/23/18 [History] Potassium Chloride 20 meq PO TID 10/23/18 [History] Propylene Glycol/PEG 400/Pf [Systane 0.3-0.4% Eye Drop] 2 drop EYERT BID [History] SitaGLIPtin [Januvia] 50 mg PO DAILY 10/23/18 [History] Sucralfate [Carafate] 1 gm PO TID 10/23/18 [History] DULoxetine HCl [Duloxetine HCl] 30 mg PO BEDTIME #30 capsule. 10/28/18 [Rx] Hydrocodone/Acetaminophen [Hydrocodon-Acetaminophn 10-325] 1 tab PO Q4H PRN #60 tablet 10/28/18 [Rx] Nystatin [Nystop] 1 gm TOP BID #1 bottle 10/28/18 [Rx] Pregabalin [Lyrica] 150 mg PO BID #60 capsule 10/28/18 [Rx] clonazePAM [Klonopin] 1 mg PO BEDTIME #30 tablet 10/28/18 [Rx] Alendronate Sodium 1 tab PO ASDIRECTED 12/24/18 [History] Loperamide HCl [Imodium A-D] 2 mg PO ASDIRECTED 12/24/18 [History] Torsemide 50 mg PO DAILY 12/24/18 [History] Past Medical History HEENT History: Reports: Allergic Rhinitis, Impaired Vision Cardiovascular History: Reports: CAD, High Cholesterol, Hypertension, [place] Respiratory History: Reports: Bronchitis, Recurrent, Pneumonia, Recurrent, SOB Other Respiratory History: home O2 at night Gastrointestinal History: Reports: Chronic Constipation, Chronic Diarrhea, Gastritis, GERD, Hiatal Hernia Genitourinary History: Reports: None [employer] History: Reports: Dysfunctional Uterine Bleeding, Musculoskeletal History: Reports: Back Pain, Chronic, Fibromyalgia, Osteoarthritis, Other (See Below) Other Musculoskeletal History: primary lateral sclerosis Neurological History: Reports: None Psychiatric History: Reports: Anxiety, Panic Attack Endocrine/Metabolic History: Reports: Diabetes, Type II, IDDM, Obesity/BMI 30+ Hematologic History: Reports: Blood Transfusion(s) Immunologic History: Reports: None Oncologic (Cancer) History: Reports: None Dermatologic History: Reports: Decubitus Ulcer - Infectious Disease History Infectious Disease History: Reports: Other (See Below) Other Infectious Disease History: unable to obtain - Past Surgical History GI Surgical History: Reports: Appendectomy, Cholecystectomy, Colonoscopy Female Surgical History: Reports: D&C, Hysterectomy, Tubal Ligation Neurological Surgical History: Reports: Spinal Fusion Musculoskeletal Surgical History: Reports: Hip Replacement Other Musculoskeletal Surgeries/Procedures:: left hip liana Social & Family History - Family History Family Medical History: Unobtainable - Tobacco Use Smoking Status *Q: Never Smoker - Caffeine Use Caffeine Use: Reports: Coffee, Soda - Recreational Drug Use Recreational Drug Use: No H&P Review of Systems - Review of Systems: Review Of Systems: Unable To Obtain General: Reports: ROS unobtainable (Secondary to cognitive impairment) Exam - Exam Exam: See Below - Vital Signs Vital Signs: Last Vital Signs Temp 97.0 F 12/24/18 16:21 Pulse 88 12/24/18 18:44 Resp 16 12/24/18 16:21 BP 150/69 H 12/24/18 18:44 Pulse Ox 93 L 12/24/18 16:21 Weight: 252 lb - Exam Quality Assessment: DVT Prophylaxis General: Alert, Cooperative, Mild Distress. No: Oriented HEENT: Conjunctiva Clear, Hearing Intact, Mucosa Moist & [place], Normal Nasal Septum, Posterior Pharynx Clear, Pupils Equal Neck: Supple, Trachea Midline, +2 Carotid Pulse wo Bruit Lungs: Clear to Auscultation, Normal Respiratory Effort Cardiovascular: Regular Rate, Regular Rhythm, Normal S1, Normal S2 GI/Abdominal Exam: Soft, Non-Tender, No Organomegaly, No Distention Back Exam: Normal Inspection, Full Range of Motion Extremities: Non-Tender, Pedal Edema Skin: Warm, Dry, Intact Neurological: Cranial Nerves Intact, Strength Equal Bilateral, Normal Speech, Sensation Intact. No: Focal Deficit Neuro Extensive - Mental Status: Alert, Disorientation to Time, Memory Loss- Remote Events, Memory Loss-Recent Events. No: Oriented x3, Normal Cognition, Memory Intact, Disorientation to Person, Disorientation to Place - Patient Data Lab Results Last 24 hrs: Laboratory Results - last 24 hr 12/24/18 12/24/18 12/24/18 Range/Units 16:55 16:55 16:55 WBC 3.7 L (4.5-11.0) K/uL RBC 3.38 (3.30-5.50) M/uL Hgb 7.7 L (12.0-15.0) g/dL Hct 26.4 L (36.0-48.0) % MCV 78 L (80-98) fL MCH 23 L (27-31) pg MCHC 29 L (32-36) % Plt Count 129 L (150-400) K/uL Neut % (Auto) 55 (36-66) % Lymph % (Auto) 23 L (24-44) % [place] % (Auto) 17 H (2-6) % Eos % (Auto) 5 H (2-4) % Baso % (Auto) 1 (0-1) % Sodium 141 (140-148) mmol/L Potassium 3.2 L (3.6-5.2) mmol/L Chloride 104 (100-108) mmol/L Carbon Dioxide 31 (21-32) mmol/L Anion Gap 9.2 (5.0-14.0) mmol/L BUN 14 D (7-18) mg/dL Creatinine 0.8 (0.6-1.0) mg/dL Est Cr Clr Drug Dosing 55.45 mL/min Estimated GFR (MDRD) > 60 (>60) Glucose 186 H (74-106) mg/dL Calcium 8.1 L (8.5-10.1) mg/dL Total Bilirubin 1.0 D (0.2-1.0) mg/dL AST 33 (15-37) U/L ALT 23 (12-78) U/L Alkaline Phosphatase 118 H (46-116) U/L Troponin I 0.021 (0.000-0.056) ng/mL Total Protein 6.3 L (6.4-8.2) g/dL Albumin 2.5 L (3.4-5.0) g/dL Globulin 3.8 H (2.3-3.5) g/dL Albumin/Globulin Ratio 0.7 L (1.2-2.2) TSH, Ultra Sensitive 2.298 (0.358-3.740) uIU/mL Urine Color Urine Appearance Urine pH (4.5-8.0) Ur Specific [place] (1.008-1.030) Urine Protein (NEGATIVE) mg/dL Urine Glucose (UA) (NEGATIVE) mg/dL Urine Ketones (NEGATIVE) mg/dL Urine Occult Blood (NEGATIVE) Urine Nitrite (NEGATIVE) Urine Bilirubin (NEGATIVE) Urine Urobilinogen (NORMAL) mg/dL Ur Leukocyte Esterase (NEGATIVE) Urine RBC (0-5) Urine WBC (0-5) Ur Epithelial Cells Amorphous Sediment Urine Bacteria Urine Mucus 12/24/18 Range/Units 17:24 WBC (4.5-11.0) K/uL RBC (3.30-5.50) M/uL Hgb (12.0-15.0) g/dL Hct (36.0-48.0) % MCV (80-98) fL MCH (27-31) pg MCHC (32-36) % Plt Count (150-400) K/uL Neut % (Auto) (36-66) % Lymph % (Auto) (24-44) % [place] % (Auto) (2-6) % Eos % (Auto) (2-4) % Baso % (Auto) (0-1) % Sodium (140-148) mmol/L Potassium (3.6-5.2) mmol/L Chloride (100-108) mmol/L Carbon Dioxide (21-32) mmol/L Anion Gap (5.0-14.0) mmol/L BUN (7-18) mg/dL Creatinine (0.6-1.0) mg/dL Est Cr Clr Drug Dosing mL/min Estimated GFR (MDRD) (>60) Glucose (74-106) mg/dL Calcium (8.5-10.1) mg/dL Total Bilirubin (0.2-1.0) mg/dL AST (15-37) U/L ALT (12-78) U/L Alkaline Phosphatase (46-116) U/L Troponin I (0.000-0.056) ng/mL Total Protein (6.4-8.2) g/dL Albumin (3.4-5.0) g/dL Globulin (2.3-3.5) g/dL Albumin/Globulin Ratio (1.2-2.2) TSH, Ultra Sensitive (0.358-3.740) uIU/mL Urine Color Yellow Urine Appearance Clear Urine pH 6.0 (4.5-8.0) Ur Specific [place] 1.010 (1.008-1.030) Urine Protein Negative (NEGATIVE) mg/dL Urine Glucose (UA) Normal (NEGATIVE) mg/dL Urine Ketones Negative (NEGATIVE) mg/dL Urine Occult Blood Negative (NEGATIVE) Urine Nitrite Negative (NEGATIVE) Urine Bilirubin Negative (NEGATIVE) Urine Urobilinogen Normal (NORMAL) mg/dL Ur Leukocyte Esterase Negative (NEGATIVE) Urine RBC Not seen (0-5) Urine WBC 0-5 (0-5) Ur Epithelial Cells Rare Amorphous Sediment Not seen Urine Bacteria Not seen Urine Mucus Not seen Result Diagrams: 12/24/18 16:55 12/24/18 16:55 *Q Meaningful Use (ADM) - VTE Risk Assess *Q Each Risk Factor Represents 1 Point: Obesity ( BMI > 25 kg/m2) Total Score 1 Point Risk Factors: 1 Each Risk Factor Represents 2 Points: Age 60 - 74 Years Total Score 2 Point Risk Factors: 2 Each Risk Factor Represents 3 Points: None Total Score 3 Point Risk Factors: 0 Each Risk Factor Represents 5 Points: None Total Score 5 Point Risk Factors: 0 Venous Thromboembolism Risk Factor Score *Q: 3 Problem List Initiated/Reviewed/Updated: Yes Orders Last 24hrs: Active Orders 24 hr Category Date Time Status Patient Status Manage Transfer [TRANSFER] Routine ADT 12/24/18 18:59 Active Resuscitation Status Routine Resus Stat 12/24/18 19:04 Ordered Assessment/Plan Comment:: ASSESSMENT AND PLAN MICROCYTIC ANEMIA-chronic anemia, with more acute drop over the last few months. She is confused and unable to provide a good history concerning melenic or bloody stools. -Reassess hemoglobin in a.m. -Consider transfusion if hemoglobin drops below 7 -Iron, B12, folic acid, reticulocyte count, and LDH pending with a.m. lab -Consider upper and lower endoscopy for further evaluation PLS-resonant for many years and resulting in progressive neurologic decline. COGNITIVE IMPAIRMENT-slowly progressive over the past few years, more rapid progression in the past few months. Cognitive decline is reached the point that she is no longer safe in a semi-independent living situation -Received with long term placement -Outpatient neuropsychiatric evaluation TYPE 2 DIABETES MELLITUS -Continue usual dose of long acting insulin -4 times a day glucometers -Low-dose sliding scale insulin MAINTENANCE ISSUES -DVT prophylaxis; Lovenox 40 mg subcutaneous daily -GI prophylaxis; not indicated -[place] catheter; not indicated -Nutrition; 2 g sodium diet -Nicotine dependence; not required CODE STATUS-FULL CODE ADMISSION STATUS-patient will be admitted to inpatient status, expect at least a 2 night hospital stay for evaluation and management of problems as outlined above. At the time of this admission I do not reasonably expected evaluation and management of this problem will require more than a 96 hour hospital stay. DISPOSITION-anticipate discharge to home after the hospital stay. PRIMARY CARE PROVIDER-Dr. Hope
[2018-12-24] MEDS ORDERED: Furosemide 40 MG/4 ML VIAL IVPUSH ONE (20:34)
[2018-12-24] MEDS ORDERED: Acetaminophen 325 MG Tab PO PRN (20:34)
[2018-12-24] MEDS ORDERED: Ondansetron 4 MG/2 ML SDV IV PRN (20:34)
[2018-12-24] MEDS ORDERED: Sodium Chloride 0.9% 10 ML Syringe FLUSH PRN (20:34)
[2018-12-24] MEDS ORDERED: Glucose Gel 15 GM in 37.5 GM Tube PO PRN (20:34)
[2018-12-24] MEDS ORDERED: 50% Dextrose in Water 50 ML Syringe IV PRN (20:34)
[2018-12-24] MEDS ORDERED: Polyethylene Glycol 3350 Powder 17 GM Packet PO PRN (20:34)
[2018-12-24] MEDS ORDERED: Potassium Chloride 20 MEQ Tab.ER PO ONE ×2 (20:34→22:00)
[2018-12-24] MEDS: Lactulose Soln 10 GM/15 ML 15 ML UD Cup PO SCH ×2 (22:35→22:44)
[2018-12-24] MEDS: Pregabalin 75 MG Cap PO SCH (22:36)
[2018-12-24] MEDS: DULoxetine 30 MG Cap PO SCH (22:36)
[2018-12-24] MEDS: Loratadine 10 MG Tab PO SCH (22:37)
[2018-12-24] MEDS: ClonazePAM 1 MG Tab PO SCH (22:37)
[2018-12-24] MEDS: Pantoprazole 40 MG Tab.CR PO SCH (22:37)
[2018-12-24] MEDS: Ibuprofen 800 MG Tab PO SCH (22:37)
[2018-12-24] MEDS: Sucralfate 1 GM Tab PO SCH (22:38)
[2018-12-24] MEDS: Potassium Chloride 20 MEQ Tab.ER PO SCH (22:38)
[2018-12-24] MEDS: Insulin Lispro 100 Unit/ML 3 ML KwikPen SUBCUT SCH (22:51)
[2018-12-24] MEDS: Enalapril 5 MG Tab PO SCH (22:52)
[2018-12-24] MEDS: Fluticasone-Salmeterol 113-14 MCG Powder Inhalant INH SCH (22:57)
[2018-12-24] MEDS: Insulin Lispro Protamine/Lispro 75-25 100 Units/ML 10 ML Vial SUBCUT SCH (22:58)
[2018-12-24] MEDS: Hypromellose 0.4% Ophth Soln 15 ML Bottle EYERT SCH (23:00)
[2018-12-25] MEDS ORDERED: Fluticasone Propionate Nasal Spray 16 GM Bottle NAS SCH (07:30)
[2018-12-25] MEDS: Insulin Lispro 100 Unit/ML 3 ML KwikPen SUBCUT SCH ×4 (07:58→21:05)
[2018-12-25] MEDS: Fluticasone-Salmeterol 113-14 MCG Powder Inhalant INH SCH ×2 (08:19→21:07)
[2018-12-25] MEDS: Fluticasone Propionate Nasal Spray 16 GM Bottle NAS SCH (09:01)
[2018-12-25] MEDS: DULoxetine 30 MG Cap PO SCH ×2 (09:02→21:04)
[2018-12-25] MEDS: Sucralfate 1 GM Tab PO SCH ×3 (09:03→21:07)
[2018-12-25] MEDS: Lactulose Soln 10 GM/15 ML 15 ML UD Cup PO SCH ×2 (09:04→21:05)
[2018-12-25] MEDS: Aspirin 81 MG Tab.EC PO SCH (09:06)
[2018-12-25] MEDS: Potassium Chloride 20 MEQ Tab.ER PO SCH ×3 (09:06→21:08)
[2018-12-25] MEDS: Enoxaparin 40 MG/0.4 ML Syringe SUBCUT SCH (09:06)
[2018-12-25] MEDS: Sertraline 50 MG Tab PO SCH (09:07)
[2018-12-25] MEDS: Enalapril 5 MG Tab PO SCH ×2 (09:08→21:10)
[2018-12-25] MEDS: Ibuprofen 800 MG Tab PO SCH ×3 (09:08→21:08)
[2018-12-25] MEDS: Pantoprazole 40 MG Tab.CR PO SCH ×2 (09:08→21:09)
[2018-12-25] MEDS: Hypromellose 0.4% Ophth Soln 15 ML Bottle EYERT SCH ×2 (09:09→21:08)
[2018-12-25] MEDS: Metoprolol Succinate 25 MG Tab.ER PO SCH (09:10)
[2018-12-25] MEDS: Pregabalin 75 MG Cap PO SCH ×2 (09:16→21:04)
[2018-12-25] MEDS: Insulin Lispro Protamine/Lispro 75-25 100 Units/ML 10 ML Vial SUBCUT SCH ×2 (09:17→21:27)
[2018-12-25] MEDS ORDERED: Sodium Ferric Gluconate Cmplex 250 MG in Sodium Chloride 0.9% 100 ML IV ONE (10:00)
--- NOTE | 2018-12-25 15:36 | PCM.PN ---
- General Info Date of Service: 12/25/18 Subjective Update: Ms. Hooker has remained fairly weak and lethargic thus far during hospitalization. Hemoglobin remains low, peripheral edema improved with IV diuretics. She denies significant pain or discomfort. Evaluation of anemia shows evidence of a low iron level and low iron saturation, with microcytic indices. - Review of Systems General: Reports: Weakness. Denies: Fever, Chills Pulmonary: Reports: No Symptoms Cardiovascular: Reports: No Symptoms Gastrointestinal: Reports: No Symptoms - Patient Data Vitals - Most Recent: Last Vital Signs Temp 98.8 F 12/25/18 15:19 Pulse 76 12/25/18 15:19 Resp 18 12/25/18 15:19 BP 125/46 L 12/25/18 15:19 Pulse Ox 95 12/25/18 15:19 Weight - Most Recent: 249 lb 14.4 oz I&O - Last 24 Hours: Intake & Output 12/25/18 12/25/18 12/25/18 06:59 14:59 22:59 Intake Total 650 Output Total 1300 575 100 Balance -1300 75 -100 Lab Results Last 24 Hours: Laboratory Results - last 24 hr 12/24/18 12/24/18 12/24/18 Range/Units 16:55 16:55 16:55 WBC 3.7 L (4.5-11.0) K/uL RBC 3.38 (3.30-5.50) M/uL Hgb 7.7 L (12.0-15.0) g/dL Hct 26.4 L (36.0-48.0) % MCV 78 L (80-98) fL MCH 23 L (27-31) pg MCHC 29 L (32-36) % Plt Count 129 L (150-400) K/uL Neut % (Auto) 55 (36-66) % Lymph % (Auto) 23 L (24-44) % [place] % (Auto) 17 H (2-6) % Eos % (Auto) 5 H (2-4) % Baso % (Auto) 1 (0-1) % Percent Retic (0.5-1.5) % Sodium 141 (140-148) mmol/L Potassium 3.2 L (3.6-5.2) mmol/L Chloride 104 (100-108) mmol/L Carbon Dioxide 31 (21-32) mmol/L Anion Gap 9.2 (5.0-14.0) mmol/L BUN 14 D (7-18) mg/dL Creatinine 0.8 (0.6-1.0) mg/dL Est Cr Clr Drug Dosing 55.45 mL/min Estimated GFR (MDRD) > 60 (>60) Glucose 186 H (74-106) mg/dL Calcium 8.1 L (8.5-10.1) mg/dL Iron (50-170) ug/dL TIBC (250-450) ug/dl % Saturation (20-55) % Total Bilirubin 1.0 D (0.2-1.0) mg/dL AST 33 (15-37) U/L ALT 23 (12-78) U/L Alkaline Phosphatase 118 H (46-116) U/L Lactate Dehydrogenase (82-234) U/L Troponin I 0.021 (0.000-0.056) ng/mL Total Protein 6.3 L (6.4-8.2) g/dL Albumin 2.5 L (3.4-5.0) g/dL Globulin 3.8 H (2.3-3.5) g/dL Albumin/Globulin Ratio 0.7 L (1.2-2.2) Vitamin B12 (193-986) pg/ml Folate (8.6-58.9) ng/ml TSH, Ultra Sensitive 2.298 (0.358-3.740) uIU/mL Urine Color Urine Appearance Urine pH (4.5-8.0) Ur Specific [place] (1.008-1.030) Urine Protein (NEGATIVE) mg/dL Urine Glucose (UA) (NEGATIVE) mg/dL Urine Ketones (NEGATIVE) mg/dL Urine Occult Blood (NEGATIVE) Urine Nitrite (NEGATIVE) Urine Bilirubin (NEGATIVE) Urine Urobilinogen (NORMAL) mg/dL Ur Leukocyte Esterase (NEGATIVE) Urine RBC (0-5) Urine WBC (0-5) Ur Epithelial Cells Amorphous Sediment Urine Bacteria Urine Mucus 12/24/18 12/25/18 12/25/18 Range/Units 17:24 05:10 05:10 WBC 4.0 L (4.5-11.0) K/uL RBC 3.37 (3.30-5.50) M/uL Hgb 7.7 L (12.0-15.0) g/dL Hct 26.3 L (36.0-48.0) % MCV 78 L (80-98) fL MCH 23 L (27-31) pg MCHC 29 L (32-36) % Plt Count 133 L (150-400) K/uL Neut % (Auto) 62 (36-66) % Lymph % (Auto) 16 L (24-44) % [place] % (Auto) 19 H (2-6) % Eos % (Auto) 3 (2-4) % Baso % (Auto) 1 (0-1) % Percent Retic 2.2 H (0.5-1.5) % Sodium 144 (140-148) mmol/L Potassium 3.7 (3.6-5.2) mmol/L Chloride 108 (100-108) mmol/L Carbon Dioxide 29 (21-32) mmol/L Anion Gap 7.0 (5.0-14.0) mmol/L BUN 13 (7-18) mg/dL Creatinine 0.7 (0.6-1.0) mg/dL Est Cr Clr Drug Dosing 63.37 mL/min Estimated GFR (MDRD) > 60 (>60) Glucose 72 L (74-106) mg/dL Calcium 8.2 L (8.5-10.1) mg/dL Iron (50-170) ug/dL TIBC (250-450) ug/dl % Saturation (20-55) % Total Bilirubin (0.2-1.0) mg/dL AST (15-37) U/L ALT (12-78) U/L Alkaline Phosphatase (46-116) U/L Lactate Dehydrogenase 330 H (82-234) U/L Troponin I (0.000-0.056) ng/mL Total Protein (6.4-8.2) g/dL Albumin (3.4-5.0) g/dL Globulin (2.3-3.5) g/dL Albumin/Globulin Ratio (1.2-2.2) Vitamin B12 852 (193-986) pg/ml Folate > 20.0 (8.6-58.9) ng/ml TSH, Ultra Sensitive (0.358-3.740) uIU/mL Urine Color Yellow Urine Appearance Clear Urine pH 6.0 (4.5-8.0) Ur Specific [place] 1.010 (1.008-1.030) Urine Protein Negative (NEGATIVE) mg/dL Urine Glucose (UA) Normal (NEGATIVE) mg/dL Urine Ketones Negative (NEGATIVE) mg/dL Urine Occult Blood Negative (NEGATIVE) Urine Nitrite Negative (NEGATIVE) Urine Bilirubin Negative (NEGATIVE) Urine Urobilinogen Normal (NORMAL) mg/dL Ur Leukocyte Esterase Negative (NEGATIVE) Urine RBC Not seen (0-5) Urine WBC 0-5 (0-5) Ur Epithelial Cells Rare Amorphous Sediment Not seen Urine Bacteria Not seen Urine Mucus Not seen 12/25/18 Range/Units 05:10 WBC (4.5-11.0) K/uL RBC (3.30-5.50) M/uL Hgb (12.0-15.0) g/dL Hct (36.0-48.0) % MCV (80-98) fL MCH (27-31) pg MCHC (32-36) % Plt Count (150-400) K/uL Neut % (Auto) (36-66) % Lymph % (Auto) (24-44) % [place] % (Auto) (2-6) % Eos % (Auto) (2-4) % Baso % (Auto) (0-1) % Percent Retic (0.5-1.5) % Sodium (140-148) mmol/L Potassium (3.6-5.2) mmol/L Chloride (100-108) mmol/L Carbon Dioxide (21-32) mmol/L Anion Gap (5.0-14.0) mmol/L BUN (7-18) mg/dL Creatinine (0.6-1.0) mg/dL Est Cr Clr Drug Dosing mL/min Estimated GFR (MDRD) (>60) Glucose (74-106) mg/dL Calcium (8.5-10.1) mg/dL Iron 21 L (50-170) ug/dL TIBC 386 (250-450) ug/dl % Saturation 5 L (20-55) % Total Bilirubin (0.2-1.0) mg/dL AST (15-37) U/L ALT (12-78) U/L Alkaline Phosphatase (46-116) U/L Lactate Dehydrogenase (82-234) U/L Troponin I (0.000-0.056) ng/mL Total Protein (6.4-8.2) g/dL Albumin (3.4-5.0) g/dL Globulin (2.3-3.5) g/dL Albumin/Globulin Ratio (1.2-2.2) Vitamin B12 (193-986) pg/ml Folate (8.6-58.9) ng/ml TSH, Ultra Sensitive (0.358-3.740) uIU/mL Urine Color Urine Appearance Urine pH (4.5-8.0) Ur Specific [place] (1.008-1.030) Urine Protein (NEGATIVE) mg/dL Urine Glucose (UA) (NEGATIVE) mg/dL Urine Ketones (NEGATIVE) mg/dL Urine Occult Blood (NEGATIVE) Urine Nitrite (NEGATIVE) Urine Bilirubin (NEGATIVE) Urine Urobilinogen (NORMAL) mg/dL Ur Leukocyte Esterase (NEGATIVE) Urine RBC (0-5) Urine WBC (0-5) Ur Epithelial Cells Amorphous Sediment Urine Bacteria Urine Mucus Med Orders - Current: Current Medications Acetaminophen (Tylenol) 650 mg PO Q4H PRN PRN Reason: Pain (Mild 1-3)/fever Alendronate Sodium (Fosamax) 70 mg PO Mo@0700 [facility] Alogliptin Benzoate (Alogliptin) 25 mg PO DAILY [facility] Last Admin: 12/25/18 09:10 Dose: 25 mg Artificial Tears (Natural Balance Tears) 0 ml EYERT BID [facility] Last Admin: 12/25/18 09:09 Dose: 2 drop Aspirin (Halfprin) 81 mg PO DAILY [facility] Last Admin: 12/25/18 09:06 Dose: 81 mg Bisacodyl (Dulcolax) 10 mg PO ONETIME ONE Stop: 12/25/18 15:28 Bisacodyl (Dulcolax) 10 mg PO ONETIME ONE Stop: 12/25/18 20:01 Clonazepam (Klonopin) 1 mg PO BEDTIME [facility] Last Admin: 12/24/18 22:37 Dose: 1 mg Dextrose (Glutose 15) 15 gm PO ONETIME PRN PRN Reason: Hypoglycemia Dextrose/Water (Dextrose 50% In Water) 50 ml IV ONETIME PRN PRN Reason: Hypoglycemia Duloxetine HCl (Cymbalta) 30 mg PO BEDTIME [facility] Last Admin: 12/24/18 22:36 Dose: 30 mg Duloxetine HCl (Cymbalta) 60 mg PO ACBREAKFAST [facility] Last Admin: 12/25/18 09:02 Dose: 60 mg Enalapril Maleate (Vasotec) 40 mg PO BID [facility] Last Admin: 12/25/18 09:08 Dose: 40 mg Enoxaparin Sodium (Lovenox) 40 mg SUBCUT DAILY [facility] Last Admin: 12/25/18 09:06 Dose: 40 mg Fluticasone Propionate (Flonase) 0 gm KASIA ACBREAKFAST [facility] Last Admin: 12/25/18 09:01 Dose: 1 spray Ferric Sodium Gluconate Complex 250 mg/ Sodium Chloride 120 mls @ 50 mls/hr IV ONETIME ONE Stop: 12/26/18 11:23 Ibuprofen (Motrin) 800 mg PO TID [facility] Last Admin: 12/25/18 13:51 Dose: 800 mg Insulin Human Lispro (Humalog) 0 unit SUBCUT QIDACANDBED [facility]; Protocol Last Admin: 12/25/18 11:21 Dose: Not Given Insulin Lispro Protam/Lispro Human (Humalog Mix 75-25) 62 unit SUBCUT BID [facility] Last Admin: 12/25/18 09:17 Dose: 62 units Lactulose (Chronulac) 20 gm PO BID [facility] Last Admin: 12/25/18 09:04 Dose: Not Given Loratadine (Claritin) 10 mg PO BEDTIME [facility] Last Admin: 12/24/18 22:37 Dose: 10 mg Metoprolol Succinate (Toprol Xl) 25 mg PO DAILY [facility] Last Admin: 12/25/18 09:10 Dose: 25 mg Ondansetron HCl (Zofran) 4 mg IV Q4H PRN PRN Reason: Nausea/Vomiting Pantoprazole Sodium (Protonix) 40 mg PO BID [facility] Last Admin: 12/25/18 09:08 Dose: 40 mg Polyethylene Glycol (Miralax) 17 gm PO DAILY PRN PRN Reason: Constipation Polyethylene Glycol (Miralax) 238 gm PO ONETIME ONE Stop: 12/25/18 17:01 Potassium Chloride (Klor-Con M20) 20 meq PO TID [facility] Last Admin: 12/25/18 13:52 Dose: 20 meq Pregabalin (Lyrica) 150 mg PO BID [facility] Last Admin: 12/25/18 09:16 Dose: 150 mg Fluticasone/Salmeterol (Fluticasone-Salmeterol 113-14 Mcg Powder Inh) 1 puff INH BIDRT [facility] Sertraline HCl (Zoloft) 100 mg PO DAILY [facility] Last Admin: 12/25/18 09:07 Dose: 100 mg Sodium Chloride (Saline Flush) 10 ml FLUSH ASDIRECTED PRN PRN Reason: Keep Vein Open Sucralfate (Carafate) 1 gm PO TID [facility] Last Admin: 12/25/18 13:51 Dose: 1 gm Discontinued Medications Fluticasone Propionate (Flonase) 0 gm KASIA ACBREAKFAST [facility] Furosemide (Lasix) 40 mg IVPUSH NOW ONE Stop: 12/24/18 20:35 Last Admin: 12/24/18 22:56 Dose: 40 mg Ferric Sodium Gluconate Complex 250 mg/ Sodium Chloride 120 mls @ 50 mls/hr IV ONETIME ONE Stop: 12/25/18 12:23 Last Admin: 12/25/18 11:18 Dose: 50 mls/hr Potassium Chloride (Klor-Con M20) 40 meq PO ONETIME ONE Stop: 12/24/18 20:35 Last Admin: 12/24/18 22:36 Dose: 40 meq Potassium Chloride (Klor-Con M20) 40 meq PO ONETIME ONE Stop: 12/24/18 22:01 Last Admin: 12/24/18 23:03 Dose: 40 meq Fluticasone/Salmeterol (Fluticasone-Salmeterol 113-14 Mcg Powder Inh) 1 puff INH BID [facility] Last Admin: 12/25/18 08:19 Dose: 1 puff - Exam Quality Assessment: DVT Prophylaxis General: Cooperative, No Acute Distress Lungs: Clear to Auscultation, Normal Respiratory Effort Cardiovascular: Regular Rate, Regular Rhythm, No Murmurs GI/Abdominal Exam: Soft, Non-Tender, No Organomegaly, No Distention Extremities: Non-Tender, Pedal Edema - Problem List Review Problem List Initiated/Reviewed/Updated: Yes - My Orders Last 24 Hours: My Active Orders 12/24/18 19:04 Resuscitation Status Routine 12/24/18 20:34 Patient Status [ADT] Routine Ambulate [RC] QID Blood Glucose Check, Bedside [RC] QIDACANDBED Communication Order [RC] STAT Diabetes Education [RC] Click to Edit Height and Weight [RC] DAILY Intake and Output [RC] QSHIFT Notify Provider Vital Signs [RC] ASDIRECTED Notify Provider [RC] PRN Oxygen Therapy [RC] PRN Up With Assistance [RC] ASDIRECTED Up to Chair [RC] QID VTE/DVT Education [RC] Per Unit Routine Vital Signs [RC] Q4H Acetaminophen [Tylenol] 650 mg PO Q4H PRN Dextrose 50% in Water 50 ml IV ONETIME PRN Dextrose [Glutose 15] 15 gm PO ONETIME PRN Insulin Lispro [HumaLOG] See Protocol SUBCUT QIDACANDBED Ondansetron [Zofran] 4 mg IV Q4H PRN Polyethylene Glycol 3350 [MiraLAX] 17 gm PO DAILY PRN Sodium Chloride 0.9% [Saline Flush] 10 ml FLUSH ASDIRECTED PRN Saline Lock Insert [OM.PC] Routine 12/24/18 21:00 ClonazePAM [KlonoPIN] 1 mg PO BEDTIME DULoxetine [Cymbalta] 30 mg PO BEDTIME Enalapril [Vasotec] 40 mg PO BID Hypromellose [Natural Balance Tears] 0 ml EYERT BID Ibuprofen [Motrin] 800 mg PO TID Insulin Lispro Prot/Lispro [HumaLOG Mix 75-25] 62 unit SUBCUT BID Lactulose [Chronulac] 20 gm PO BID Loratadine [Claritin] 10 mg PO BEDTIME Pantoprazole [ProTONIX] 40 mg PO BID Potassium Chloride [Klor-Con M20] 20 meq PO TID Pregabalin [Lyrica] 150 mg PO BID Sucralfate [Carafate] 1 gm PO TID 12/25/18 07:30 DULoxetine [Cymbalta] 60 mg PO ACBREAKFAST Fluticasone Propionate [Flonase] 0 gm KASIA ACBREAKFAST 12/25/18 09:00 Alogliptin Benzoate [Alogliptin] 25 mg PO DAILY Aspirin [Halfprin] 81 mg PO DAILY Enoxaparin [Lovenox] 40 mg SUBCUT DAILY Metoprolol Succinate [Toprol XL] 25 mg PO DAILY Sertraline [Zoloft] 100 mg PO DAILY 12/25/18 15:27 Verify Patient Consent Obtain [RC] ASDIRECTED Bisacodyl [Dulcolax] 10 mg PO ONETIME ONE Schedule Procedure [COMM] Routine 12/25/18 15:28 Notify Provider Consults [RC] ASDIRECTED Consult to Physician [CONS] Routine 12/25/18 15:32 Consult to Physical Therapy [PT Evaluation and Treatment] [CONS] Routine 12/25/18 16:30 GLUCOSE POC LAB TO COLLECT [POC] QIDACANDBED 12/25/18 17:00 Polyethylene Glycol 3350 [MiraLAX] 238 gm PO ONETIME ONE 12/25/18 20:00 Bisacodyl [Dulcolax] 10 mg PO ONETIME ONE 12/25/18 21:00 GLUCOSE POC LAB TO COLLECT [POC] QIDACANDBED Fluticasone/Salmeterol [Fluticasone-Salmeterol 113-14 MCG Powder Inh] 1 puff INH BIDRT 12/25/18 Breakfast Clear Liquid Diet [DIET] 12/26/18 05:00 BASIC METABOLIC PANEL,BMP [CHEM] Timed CBC WITH AUTO DIFF [HEME] Timed 12/26/18 07:30 GLUCOSE POC LAB TO COLLECT [POC] QIDACANDBED 12/26/18 09:00 Sodium Ferric Gluconate Cmplex [Ferrlecit IV] 250 mg Sodium Chloride 0.9% [ Normal Saline] 100 ml IV ONETIME 12/26/18 11:30 GLUCOSE POC LAB TO COLLECT [POC] QIDACANDBED 12/26/18 16:30 GLUCOSE POC LAB TO COLLECT [POC] QIDACANDBED 12/26/18 21:00 GLUCOSE POC LAB TO COLLECT [POC] QIDACANDBED 12/27/18 07:30 GLUCOSE POC LAB TO COLLECT [POC] QIDACANDBED 12/27/18 11:30 GLUCOSE POC LAB TO COLLECT [POC] QIDACANDBED 12/27/18 16:30 GLUCOSE POC LAB TO COLLECT [POC] QIDACANDBED 12/27/18 21:00 GLUCOSE POC LAB TO COLLECT [POC] QIDACANDBED 12/28/18 07:30 GLUCOSE POC LAB TO COLLECT [POC] QIDACANDBED 12/28/18 11:30 GLUCOSE POC LAB TO COLLECT [POC] QIDACANDBED 12/28/18 16:30 GLUCOSE POC LAB TO COLLECT [POC] QIDACANDBED 12/28/18 21:00 GLUCOSE POC LAB TO COLLECT [POC] QIDACANDBED 12/29/18 07:30 GLUCOSE POC LAB TO COLLECT [POC] QIDACANDBED 12/29/18 11:30 GLUCOSE POC LAB TO COLLECT [POC] QIDACANDBED 12/29/18 16:30 GLUCOSE POC LAB TO COLLECT [POC] QIDACANDBED 12/31/18 07:00 Alendronate [Fosamax] 70 mg PO Mo@0700 - Plan Plan:: ASSESSMENT AND PLAN MICROCYTIC ANEMIA-chronic anemia, with more acute drop over the last few months. She is confused and unable to provide a good history concerning melenic or bloody stools. Iron level found to be low on labs from earlier today. -IV iron 250 mg today and tomorrow -EGD and colonoscopy in a.m, Dr. Delgado -Reassess hemoglobin in a.m. 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 COGNITIVE IMPAIRMENT-slowly progressive over the past few years, more rapid progression in the past few months. Cognitive decline is reached the point that she is no longer safe in a semi-independent living situation -Proceed with halfway placement -Outpatient neuropsychiatric evaluation TYPE 2 DIABETES MELLITUS -Continue usual dose of long acting insulin -4 times a day glucometers -Low-dose sliding scale insulin MAINTENANCE ISSUES -DVT prophylaxis; Lovenox 40 mg subcutaneous daily -GI prophylaxis; not indicated -[place] catheter; not indicated -Nutrition; 2 g sodium diet -Nicotine dependence; not required CODE STATUS-FULL CODE ADMISSION STATUS-patient will be admitted to inpatient status, expect at least a 2 night hospital stay for evaluation and management of problems as outlined above. At the time of this admission I do not reasonably expected evaluation and management of this problem will require more than a 96 hour hospital stay. DISPOSITION-anticipate discharge to home after the hospital stay. PRIMARY CARE PROVIDER-Dr. Hope
[2018-12-25] MEDS ORDERED: Bisacodyl 5 MG Tab PO ONE ×2 (16:15→20:00)
[2018-12-25] MEDS ORDERED: Polyethylene Glycol 3350 Powder 238 GM Bot PO ONE (17:00)
[2018-12-25] MEDS: Ferrous Sulfate 325 MG Tab PO SCH (17:02)
[2018-12-25] MEDS: ClonazePAM 1 MG Tab PO SCH (21:04)
[2018-12-25] MEDS: Loratadine 10 MG Tab PO SCH (21:07)
[2018-12-26] MEDS: Dextrose 5%-0.9% NaCl 1,000 ML IV SCH ×2 (01:00→10:34)
[2018-12-26] MEDS: Fluticasone-Salmeterol 113-14 MCG Powder Inhalant INH SCH ×2 (07:50→20:45)
[2018-12-26] MEDS ORDERED: Propofol 200 MG/20 ML SDV ONE ×2 (08:17→08:57)
[2018-12-26] MEDS: Insulin Lispro 100 Unit/ML 3 ML KwikPen SUBCUT SCH ×4 (08:42→22:24)
[2018-12-26] MEDS ORDERED: Lactated Ringers 1,000 ML ONE (08:46)
[2018-12-26] MEDS ORDERED: Sodium Ferric Gluconate Cmplex 250 MG in Sodium Chloride 0.9% 100 ML IV ONE (10:00)
[2018-12-26] MEDS: Ibuprofen 800 MG Tab PO SCH ×3 (10:15→20:41)
[2018-12-26] MEDS: Sucralfate 1 GM Tab PO SCH ×3 (10:15→20:41)
[2018-12-26] MEDS: DULoxetine 30 MG Cap PO SCH ×2 (10:16→20:41)
[2018-12-26] MEDS: Potassium Chloride 20 MEQ Tab.ER PO ONE ×2 (10:17→10:20)
[2018-12-26] MEDS: Enalapril 5 MG Tab PO SCH ×2 (10:18→20:40)
[2018-12-26] MEDS: Ferrous Sulfate 325 MG Tab PO SCH ×2 (10:18→17:30)
[2018-12-26] MEDS: Aspirin 81 MG Tab.EC PO SCH (10:19)
[2018-12-26] MEDS: Pantoprazole 40 MG Tab.CR PO SCH ×2 (10:19→20:41)
[2018-12-26] MEDS: Sertraline 50 MG Tab PO SCH (10:20)
[2018-12-26] MEDS: Metoprolol Succinate 25 MG Tab.ER PO SCH (10:21)
[2018-12-26] MEDS: Potassium Chloride 20 MEQ Tab.ER PO SCH ×3 (10:22→20:41)
[2018-12-26] MEDS: Hypromellose 0.4% Ophth Soln 15 ML Bottle EYERT SCH ×2 (10:22→20:42)
[2018-12-26] MEDS: Lactulose Soln 10 GM/15 ML 15 ML UD Cup PO SCH ×3 (10:23→20:57)
[2018-12-26] MEDS: Fluticasone Propionate Nasal Spray 16 GM Bottle NAS SCH (10:44)
[2018-12-26] MEDS: Pregabalin 75 MG Cap PO SCH ×2 (10:51→20:50)
[2018-12-26] MEDS: Insulin Lispro Protamine/Lispro 75-25 100 Units/ML 10 ML Vial SUBCUT SCH ×2 (11:45→22:23)
--- NOTE | 2018-12-26 16:08 | PCM.PN ---
- General Info Date of Service: 12/26/18 Subjective Update: Ms. Hooker has been stable since yesterday, hemoglobin did drop to 7.5 morning. She will be transfused 1 unit of red blood cells today. EGD and colonoscopy performed earlier today by Dr. Delgado. EGD showed evidence of esophageal varices as well as gastritis which is the likely source of recent blood loss. Colonoscopy was clear except for evidence of diverticulosis. There was no evidence of active bleeding noted on either study. Functional Status: Reports: Pain Controlled, Tolerating Diet, Ambulating, Urinating - Review of Systems General: Reports: Weakness. Denies: Fever, Chills Pulmonary: Reports: No Symptoms Cardiovascular: Reports: No Symptoms Gastrointestinal: Reports: No Symptoms Psychiatric: Reports: Depression - Patient Data Vitals - Most Recent: Last Vital Signs Temp 98 F 12/26/18 15:00 Pulse 87 12/26/18 10:40 Resp 18 12/26/18 15:00 BP 155/73 H 12/26/18 10:40 Pulse Ox 90 L 12/26/18 10:40 Weight - Most Recent: 255 lb 9 oz I&O - Last 24 Hours: Intake & Output 12/26/18 12/26/18 12/26/18 06:59 14:59 22:59 Intake Total 1060 200 Output Total 1500 Balance -440 200 Lab Results Last 24 Hours: Laboratory Results - last 24 hr 12/24/18 12/26/18 12/26/18 Range/Units 16:54 05:00 05:00 WBC 3.9 L (4.5-11.0) K/uL RBC 3.29 L (3.30-5.50) M/uL Hgb 7.5 L (12.0-15.0) g/dL Hct 25.7 L (36.0-48.0) % MCV 78 L (80-98) fL MCH 23 L (27-31) pg MCHC 29 L (32-36) % Plt Count 119 L (150-400) K/uL Neut % (Auto) 61 (36-66) % Lymph % (Auto) 19 L (24-44) % Mower % (Auto) 17 H (2-6) % Eos % (Auto) 3 (2-4) % Baso % (Auto) 1 (0-1) % Sodium 143 (140-148) mmol/L Potassium 3.5 L (3.6-5.2) mmol/L Chloride 110 H (100-108) mmol/L Carbon Dioxide 29 (21-32) mmol/L Anion Gap 7.5 (5.0-14.0) mmol/L BUN 9 (7-18) mg/dL Creatinine 0.6 (0.6-1.0) mg/dL Est Cr Clr Drug Dosing 73.93 mL/min Estimated GFR (MDRD) > 60 (>60) Glucose 60 L (74-106) mg/dL Calcium 8.2 L (8.5-10.1) mg/dL Blood Type A POSITIVE Gel Antibody Screen Negative Crossmatch See Detail Med Orders - Current: Current Medications Acetaminophen (Tylenol) 650 mg PO Q4H PRN PRN Reason: Pain (Mild 1-3)/fever Alendronate Sodium (Fosamax) 70 mg PO Mo@0700 [facility] Alogliptin Benzoate (Alogliptin) 25 mg PO DAILY [facility] Last Admin: 12/26/18 10:16 Dose: 25 mg Artificial Tears (Natural Balance Tears) 0 ml EYERT BID [facility] Last Admin: 12/26/18 10:22 Dose: 2 drop Aspirin (Halfprin) 81 mg PO DAILY [facility] Last Admin: 12/26/18 10:19 Dose: 81 mg Clonazepam (Klonopin) 1 mg PO BEDTIME [facility] Last Admin: 12/25/18 21:04 Dose: 1 mg Dextrose (Glutose 15) 15 gm PO ONETIME PRN PRN Reason: Hypoglycemia Dextrose/Water (Dextrose 50% In Water) 50 ml IV ONETIME PRN PRN Reason: Hypoglycemia Last Admin: 12/26/18 00:44 Dose: 50 ml Duloxetine HCl (Cymbalta) 30 mg PO BEDTIME [facility] Last Admin: 12/25/18 21:04 Dose: 30 mg Duloxetine HCl (Cymbalta) 60 mg PO ACBREAKFAST [facility] Last Admin: 12/26/18 10:16 Dose: 60 mg Enalapril Maleate (Vasotec) 40 mg PO BID [facility] Last Admin: 12/26/18 10:18 Dose: 40 mg Enoxaparin Sodium (Lovenox) 40 mg SUBCUT DAILY [facility] Last Admin: 12/25/18 09:06 Dose: 40 mg Ferrous Sulfate (Ferrous Sulfate) 325 mg PO BIDMEALS [facility] Last Admin: 12/26/18 10:18 Dose: 325 mg Fluticasone Propionate (Flonase) 0 gm KASIA ACBREAKFAST [facility] Last Admin: 12/26/18 10:44 Dose: 2 spray Ibuprofen (Motrin) 800 mg PO TID [facility] Last Admin: 12/26/18 14:38 Dose: 800 mg Insulin Human Lispro (Humalog) 0 unit SUBCUT QIDACANDBED [facility]; Protocol Last Admin: 12/26/18 12:56 Dose: 1 units Insulin Lispro Protam/Lispro Human (Humalog Mix 75-25) 62 unit SUBCUT BID [facility] Last Admin: 12/26/18 11:45 Dose: Not Given Lactulose (Chronulac) 20 gm PO BID [facility] Last Admin: 12/26/18 10:23 Dose: 20 gm Loratadine (Claritin) 10 mg PO BEDTIME [facility] Last Admin: 12/25/18 21:07 Dose: 10 mg Metoprolol Succinate (Toprol Xl) 25 mg PO DAILY [facility] Last Admin: 12/26/18 10:21 Dose: 25 mg Ondansetron HCl (Zofran) 4 mg IV Q4H PRN PRN Reason: Nausea/Vomiting Pantoprazole Sodium (Protonix) 40 mg PO BID [facility] Last Admin: 12/26/18 10:19 Dose: 40 mg Polyethylene Glycol (Miralax) 17 gm PO DAILY PRN PRN Reason: Constipation Potassium Chloride (Klor-Con M20) 20 meq PO TID [facility] Last Admin: 12/26/18 14:38 Dose: 20 meq Pregabalin (Lyrica) 150 mg PO BID [facility] Last Admin: 12/26/18 10:51 Dose: 150 mg Fluticasone/Salmeterol (Fluticasone-Salmeterol 113-14 Mcg Powder Inh) 1 puff INH BIDRT [facility] Last Admin: 12/26/18 07:50 Dose: 1 puff Sertraline HCl (Zoloft) 150 mg PO DAILY [facility] Sodium Chloride (Saline Flush) 10 ml FLUSH ASDIRECTED PRN PRN Reason: Keep Vein Open Sucralfate (Carafate) 1 gm PO TID [facility] Last Admin: 12/26/18 14:38 Dose: 1 gm Discontinued Medications Bisacodyl (Dulcolax) 10 mg PO ONETIME ONE Stop: 12/25/18 16:16 Last Admin: 12/25/18 16:34 Dose: 10 mg Bisacodyl (Dulcolax) 10 mg PO ONETIME ONE Stop: 12/25/18 20:01 Last Admin: 12/25/18 21:06 Dose: 10 mg Fluticasone Propionate (Flonase) 0 gm KASIA ACBREAKFAST [facility] Furosemide (Lasix) 40 mg IVPUSH NOW ONE Stop: 12/24/18 20:35 Last Admin: 12/24/18 22:56 Dose: 40 mg Ferric Sodium Gluconate Complex 250 mg/ Sodium Chloride 120 mls @ 50 mls/hr IV ONETIME ONE Stop: 12/25/18 12:23 Last Admin: 12/25/18 11:18 Dose: 50 mls/hr Ferric Sodium Gluconate Complex 250 mg/ Sodium Chloride 120 mls @ 50 mls/hr IV ONETIME ONE Stop: 12/26/18 12:23 Last Admin: 12/26/18 10:35 Dose: 50 mls/hr Dextrose/Sodium Chloride (Dextrose 5%-Normal Saline) 1,000 mls @ 100 mls/hr IV ASDIRECTED [facility] Last Admin: 12/26/18 10:34 Dose: 100 mls/hr Lactated Ringer's (Ringers, Lactated) Confirm Administered Dose 1,000 mls @ as directed .ROUTE .STK-MED ONE Stop: 12/26/18 08:47 Polyethylene Glycol (Miralax) 238 gm PO ONETIME ONE Stop: 12/25/18 17:01 Last Admin: 12/25/18 16:57 Dose: 238 gram Potassium Chloride (Klor-Con M20) 40 meq PO ONETIME ONE Stop: 12/24/18 20:35 Last Admin: 12/24/18 22:36 Dose: 40 meq Potassium Chloride (Klor-Con M20) 40 meq PO ONETIME ONE Stop: 12/24/18 22:01 Last Admin: 12/24/18 23:03 Dose: 40 meq Potassium Chloride (Klor-Con M20) 40 meq PO ONETIME ONE Stop: 12/26/18 09:01 Last Admin: 12/26/18 10:20 Dose: 40 meq Propofol (Diprivan 20 Ml) Confirm Administered Dose 200 mg .ROUTE .STK-MED ONE Stop: 12/26/18 08:18 Propofol (Diprivan 20 Ml) Confirm Administered Dose 200 mg .ROUTE .STK-MED ONE Stop: 12/26/18 08:58 Fluticasone/Salmeterol (Fluticasone-Salmeterol 113-14 Mcg Powder Inh) 1 puff INH BID [facility] Last Admin: 12/25/18 08:19 Dose: 1 puff Sertraline HCl (Zoloft) 100 mg PO DAILY [facility] Last Admin: 12/26/18 10:20 Dose: 100 mg - Exam Quality Assessment: DVT Prophylaxis General: Alert, Cooperative, No Acute Distress Lungs: Clear to Auscultation, Normal Respiratory Effort Cardiovascular: Regular Rate, Regular Rhythm, No Murmurs GI/Abdominal Exam: Soft, Non-Tender, No Organomegaly, No Distention Extremities: Non-Tender, Pedal Edema Skin: Warm, Dry - Problem List Review Problem List Initiated/Reviewed/Updated: Yes - My Orders Last 24 Hours: My Active Orders 12/25/18 15:27 Verify Patient Consent Obtain [RC] ASDIRECTED Schedule Procedure [COMM] Routine 12/25/18 15:28 Notify Provider Consults [RC] ASDIRECTED Consult to Physician [CONS] Routine 12/25/18 15:32 Consult to Physical Therapy [PT Evaluation and Treatment] [CONS] Routine 12/25/18 17:00 Ferrous Sulfate 325 mg PO BIDMEALS 12/25/18 21:00 Fluticasone/Salmeterol [Fluticasone-Salmeterol 113-14 MCG Powder Inh] 1 puff INH BIDRT 12/26/18 08:16 RED BLOOD CELLS LP [BBK] Routine TYPE AND SCREEN [BBK] Routine Transfuse Red Blood Cells [COMM] Urgent 12/26/18 14:51 Convert IV to Saline Lock [OM.PC] Routine 12/26/18 16:30 GLUCOSE POC LAB TO COLLECT [POC] QIDACANDBED 12/26/18 17:00 Potassium Chloride [Klor-Con M20] 40 meq PO ONETIME ONE 12/26/18 21:00 GLUCOSE POC LAB TO COLLECT [POC] QIDACANDBED 12/27/18 05:11 HEMOGLOBIN [HEME] AM POTASSIUM,K [CHEM] AM 12/27/18 07:30 GLUCOSE POC LAB TO COLLECT [POC] QIDACANDBED 12/27/18 09:00 Sertraline [Zoloft] 150 mg PO DAILY 12/27/18 11:30 GLUCOSE POC LAB TO COLLECT [POC] QIDACANDBED 12/27/18 16:30 GLUCOSE POC LAB TO COLLECT [POC] QIDACANDBED 12/27/18 21:00 GLUCOSE POC LAB TO COLLECT [POC] QIDACANDBED 12/28/18 07:30 GLUCOSE POC LAB TO COLLECT [POC] QIDACANDBED 12/28/18 11:30 GLUCOSE POC LAB TO COLLECT [POC] QIDACANDBED 12/28/18 16:30 GLUCOSE POC LAB TO COLLECT [POC] QIDACANDBED 12/28/18 21:00 GLUCOSE POC LAB TO COLLECT [POC] QIDACANDBED 12/29/18 07:30 GLUCOSE POC LAB TO COLLECT [POC] QIDACANDBED 12/29/18 11:30 GLUCOSE POC LAB TO COLLECT [POC] QIDACANDBED 12/29/18 16:30 GLUCOSE POC LAB TO COLLECT [POC] QIDACANDBED 12/31/18 07:00 Alendronate [Fosamax] 70 mg PO Mo@0700 - Plan Plan:: ASSESSMENT AND PLAN MICROCYTIC ANEMIA-chronic anemia, with more acute drop over the last few months. EGD showed gastritis, likely source of recent blood loss. Also documented esophageal varices, no evidence of active bleeding. Colonoscopy documented diverticulitis but no obvious source of recent blood loss. She has completed 2 iron infusions and has been started on oral iron replacement as well. Currently on fairly maximal therapy for acid control and management of gastritis with Protonix twice daily and Carafate 4 times daily -Transfusion of 1 unit of red blood cells -Reassess hemoglobin in a.m. GASTRITIS -Management as above PLS-present for many years and resulting in progressive neurologic decline. COGNITIVE IMPAIRMENT-slowly progressive over the past few years, more rapid progression in the past few months. Cognitive decline is reached the point that she is no longer safe in a semi-independent living situation -Proceed with fci placement -Outpatient neuropsychiatric evaluation TYPE 2 DIABETES MELLITUS -Continue usual dose of long acting insulin -4 times a day glucometers -Low-dose sliding scale insulin DEPRESSION-with recent developments reports symptoms of increased depression -Increase Zoloft to 150 mg daily MAINTENANCE ISSUES -DVT prophylaxis; Lovenox 40 mg subcutaneous daily -GI prophylaxis; not indicated -Briscoe catheter; not indicated -Nutrition; 2 g sodium diet -Nicotine dependence; not required CODE STATUS-FULL CODE ADMISSION STATUS-patient will be admitted to inpatient status, expect at least a 2 night hospital stay for evaluation and management of problems as outlined above. At the time of this admission I do not reasonably expected evaluation and management of this problem will require more than a 96 hour hospital stay. DISPOSITION-anticipate discharge to home after the hospital stay. PRIMARY CARE PROVIDER-Dr. Hope
[2018-12-26] MEDS ORDERED: Potassium Chloride 20 MEQ Tab.ER PO ONE (17:00)
[2018-12-26] MEDS: Loratadine 10 MG Tab PO SCH (20:41)
[2018-12-26] MEDS: ClonazePAM 1 MG Tab PO SCH (20:50)
[2018-12-27] MEDS: Fluticasone-Salmeterol 113-14 MCG Powder Inhalant INH SCH (06:59)
--- NOTE | 2018-12-27 07:54 | OR ---
DATE OF PROCEDURE: 12/26/2018 PREOPERATIVE DIAGNOSIS: Anemia. POSTOPERATIVE DIAGNOSES: 1. Anemia, etiology unknown. 2. Esophageal varices. 3. Gastritis. 4. Gastric polyps. 5. Colonic diverticulosis. PROCEDURES: Esophagogastroduodenoscopy with antral biopsies for CLOtest and for pathology to look for Helicobacter pylori, biopsy of gastric polyp, colonoscopy to the cecum. SURGEON: Rell Delgado MD ANESTHESIA: IV anesthesia with monitored anesthesia care. INDICATION: This 63-year-old white female was admitted to the hospital anemic with a hemoglobin in the 6 range. She has been transfused. Request was made for upper and lower endoscopy. I counseled her for upper and lower endoscopy with possible biopsy and/or polypectomy, including risks and alternatives, and she gave her informed consent to proceed. DESCRIPTION OF PROCEDURE: The patient was placed in the left lateral decubitus position. IV anesthesia was administered by the Anesthesia Service. Time-out was held. The flexible video Olympus upper endoscope was passed through her mouth, down her esophagus, and into her stomach. The scope was easily passed through the pylorus into the duodenum, reaching its third portion. The scope was then slowly withdrawn, examining the mucosa throughout. We saw no old or new blood anywhere in the upper gastrointestinal tract. The duodenal mucosa appeared unremarkable. The scope was brought up through the pylorus. The antrum showed erythematous streaking consistent with gastritis. We obtained antral biopsies for CLOtest, sent for pathology to look for Helicobacter pylori. The scope was retroflexed. In the proximal stomach, we saw several small polyps. The scope was straightened. We removed one of the small polyps and sent to the laboratory. The scope was then brought up through the GE junction where I encountered some esophageal varices. There was no bleeding associated with them. The scope was then brought up through the otherwise unremarkable appearing esophagus and was removed. Next, a rectal exam was performed, which was unremarkable. The flexible video Olympus colonoscope was introduced through her anus, up her rectum out her colon all the way to the cecum. En route, we saw a few left-sided diverticula. There was no bleeding or inflammation associated with them. Once the cecum was reached, the scope was slowly withdrawn, examining the mucosa throughout. No additional mucosal abnormalities were noted. The scope was retroflexed in the rectum with the distal rectum appearing unremarkable. The scope was straightened and removed. She tolerated the procedure well. Rell Delgado MD /[id number]
[2018-12-27] MEDS: Insulin Lispro 100 Unit/ML 3 ML KwikPen SUBCUT SCH ×2 (08:45→11:38)
[2018-12-27] MEDS ORDERED: Sertraline 50 MG Tab PO SCH (09:00)
[2018-12-27] MEDS: Aspirin 81 MG Tab.EC PO SCH (09:06)
[2018-12-27] MEDS: Sucralfate 1 GM Tab PO SCH ×2 (09:06→15:34)
[2018-12-27] MEDS: Ibuprofen 800 MG Tab PO SCH ×2 (09:06→15:35)
[2018-12-27] MEDS: Ferrous Sulfate 325 MG Tab PO SCH (09:07)
[2018-12-27] MEDS: Enoxaparin 40 MG/0.4 ML Syringe SUBCUT SCH (09:07)
[2018-12-27] MEDS: Potassium Chloride 20 MEQ Tab.ER PO SCH ×2 (09:07→15:35)
[2018-12-27] MEDS: Fluticasone Propionate Nasal Spray 16 GM Bottle NAS SCH (09:08)
[2018-12-27] MEDS: Pantoprazole 40 MG Tab.CR PO SCH (09:08)
[2018-12-27] MEDS: Hypromellose 0.4% Ophth Soln 15 ML Bottle EYERT SCH (09:08)
[2018-12-27] MEDS: DULoxetine 30 MG Cap PO SCH (09:08)
[2018-12-27] MEDS: Enalapril 5 MG Tab PO SCH (09:09)
[2018-12-27] MEDS: Metoprolol Succinate 25 MG Tab.ER PO SCH (09:10)
[2018-12-27] MEDS: Lactulose Soln 10 GM/15 ML 15 ML UD Cup PO SCH (09:11)
[2018-12-27] MEDS: Insulin Lispro Protamine/Lispro 75-25 100 Units/ML 10 ML Vial SUBCUT SCH (09:19)
[2018-12-27] MEDS: Pregabalin 75 MG Cap PO SCH (09:20)
[2018-12-27] MEDS ORDERED: Insulin Lispro Protamine/Lispro 75-25 100 Units/ML 10 ML Vial SUBCUT ONE (09:58)
--- NOTE | 2018-12-27 11:04 | PCM.DCSUM1 ---
Discharge Summary - Hospital Course Brief History: Ms. Hooker is a 63-year-old woman who was admitted through the emergency department with weakness and increased confusion, as well as associated anemia. - Discharge Data Discharge Date: 12/27/18 Discharge Disposition: Home, Self-Care 01 Condition: Fair - Discharge Diagnosis/Problem(s) (1) Acute blood loss anemia SNOMED Code(s): 765523021 ICD Code: D62 - ACUTE POSTHEMORRHAGIC ANEMIA Status: Acute Current Visit : Yes (2) Gastritis SNOMED Code(s): 5851468 ICD Code: K29.70 - GASTRITIS, UNSPECIFIED, WITHOUT BLEEDING Status: Acute Current Visit: Yes (3) Esophageal varices determined by endoscopy SNOMED Code(s): 20321342, 443018910 ICD Code: I85.00 - ESOPHAGEAL VARICES WITHOUT BLEEDING Status: Acute Current Visit: Yes (4) Confusion SNOMED Code(s): 003063596 ICD Code: R41.0 - DISORIENTATION, UNSPECIFIED Status: Acute Current Visit : Yes (5) COPD (chronic obstructive pulmonary disease) SNOMED Code(s): 18765382 ICD Code: J44.9 - CHRONIC OBSTRUCTIVE PULMONARY DISEASE, UNSPECIFIED Status : Chronic Current Visit: No (6) Diabetes mellitus, insulin dependent (IDDM), controlled SNOMED Code(s): 30292683, 340101231 ICD Code: E11.9 - TYPE 2 DIABETES MELLITUS WITHOUT COMPLICATIONS; Z79.4 - DESK SERGEANT (CURRENT) USE OF INSULIN Status: Chronic Current Visit: No (7) Primary lateral sclerosis SNOMED Code(s): 23473596 ICD Code: G12.29 - OTHER MOTOR NEURON DISEASE Status: Chronic Current Visit: No (8) JAYSON (obstructive sleep apnea) SNOMED Code(s): 60393713 ICD Code: G47.33 - OBSTRUCTIVE SLEEP APNEA (ADULT) (PEDIATRIC) Status: Chronic Current Visit: No - Patient Summary/Data Consults: Consultations 12/25/18 15:28 Consult to Physician [CONS] Routine Consulting Provider: Rell Delgado Call Completed to Consulting Physician: Yes Reason for Consult: Microcytic anemia, EGD and colonoscopy in a.m. 12/25/18 15:32 Consult to Physical Therapy [PT Evaluation and Treatment] [CONS] Routine Please Evaluate and Treat. PT Reason for Consult: weakness This query below is only for informational purposes and is not editable. Admission Diagnosis/Problem: Anemia Hospital Course: Ms. Hooker is a 63-year-old woman who was admitted through the emergency department for further evaluation and management of confusion and worsening anemia. She has a known history of chronic anemia, during last hospitalization for a hip fracture she received transfusion of 1 unit of red blood cells. At the time of discharge hemoglobin was 9.3. 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 Family has noted since her hip surgery 2 months ago that she is experienced more rapid cognitive decline and has often been very confused. Sister was going to visit her her today and found her walking down the street wearing her winter coat, despite the relatively high temperature. Patient is unaware of her confusion and denies that there is a significant problem. Family reports that at times she is fairly lucid and at other times very confused. Decline in cognitive function has occurred over the past few years but has become significantly worse in the past few months. There is a family history of early onset dementia. On evaluation in the emergency department she was found to have worsening anemia with a hemoglobin of 7.7 and microcytic indices. After admission laboratory studies were obtained for further evaluation of anemia and her iron level was found to be low. She was given 2 iron infusions of Ferrleit 250 mg and was also started on oral iron supplementation. By the following morning hemoglobin is dropped to 7.5 and she was transfused 1 unit of red blood cells. Surgical consult was obtained with Dr. Delgado, EGD and colonoscopy were performed. EGD showed evidence of esophageal varices as well as gastritis, despite recent therapy with Carafate and Prevacid. Because of her confusion and it's unclear as to whether she has been taking her medication on a regular basis. Colonoscopy showed evidence of diverticulosis but no other abnormalities. There was no evidence of active bleeding seen on EGD or colonoscopy. After transfusion of 1 unit of red blood cells her hemoglobin did come up to 8.3 and it's expected that she should recover from the anemia following iron infusion and ongoing iron supplement. Because of her confusion it is felt that she is no longer safe to be living at home and will be admitted to the [facility] for physical therapy occupational therapy as well as ongoing care. Hemoglobin levels were found to be low during her hospital stay and her dose of split insulin will be decreased to 40 units twice daily. Activity will be as tolerated and she will be on a low-sodium diabetic diet. Follow-up with primary care will be at the retirement as needed. Follow-up labs will be obtained on January 01; including BMP and CBC. - Patient Instructions Diet: Low Sodium, Diabetic Diet Activity: As Tolerated Other/Special Instructions: Please schedule follow-up lab for January 01; BMP and CBC. Please schedule outpatient neuropsychiatric evaluation, to further evaluate decline in cognitive function. - Discharge Plan *PRESCRIPTION DRUG MONITORING PROGRAM REVIEWED*: Not Applicable *COPY OF PRESCRIPTION DRUG MONITORING REPORT IN PATIENT DREAD: Not Applicable Prescriptions/Med Rec: Ferrous Sulfate 325 mg PO BIDMEALS #60 tablet Home Medications: Home Meds Aspirin [Adult Low Dose Aspirin EC] 81 mg PO DAILY 04/16/13 [History] Lactulose [Generlac] 30 ml PO BID 04/16/13 [History] Magnesium Hydroxide [Milk of Magnesia] 30 ml PO Q48H PRN 03/31/16 [History] Sertraline [Zoloft] 100 mg PO DAILY 03/31/16 [History] Dextrose [Glucose] 1 tab PO Q1H PRN 06/12/16 [History] Menthol/Methyl Salicylate [Pain Relieving Rub Cream] 1 applic TOP TID 06/12/16 [ History] Propylene Glycol/Peg 400 [Systane Ultra 0.4-0.3% Eye Drp] 1 drop EYERT Q2HR PRN 06/12/16 [History] Calcium Carbonate/Vitamin D3 [Calcium 600 + Vit D 400 Softgl] 1 tab PO BID 10/23 [History] Chlorhexidine Gluconate 15 ml PO BID 10/23/18 [History] DULoxetine HCl [Duloxetine HCl] 60 mg PO ACBREAKFAST 10/23/18 [History] Enalapril Maleate 40 mg PO BID 10/23/18 [History] Fluticasone Propionate [Flonase Allergy Relief] 2 spray KASIA ACBREAKFAST [History] Fluticasone/Salmeterol [Advair 250-50 Diskus] 1 puff INH BID 10/23/18 [History] Lansoprazole [Prevacid] 30 mg PO BID 10/23/18 [History] Loratadine [Claritin] 10 mg PO BEDTIME 10/23/18 [History] Metoprolol Succinate [Toprol XL] 25 mg PO DAILY 10/23/18 [History] Potassium Chloride 20 meq PO TID 10/23/18 [History] Propylene Glycol/PEG 400/Pf [Systane 0.3-0.4% Eye Drop] 2 drop EYERT BID [History] SitaGLIPtin [Januvia] 50 mg PO DAILY 10/23/18 [History] Sucralfate [Carafate] 1 gm PO TID 10/23/18 [History] DULoxetine HCl [Duloxetine HCl] 30 mg PO BEDTIME #30 capsule. 10/28/18 [Rx] Hydrocodone/Acetaminophen [Hydrocodon-Acetaminophn 10-325] 1 tab PO Q4H PRN #60 tablet 10/28/18 [Rx] Nystatin [Nystop] 1 gm TOP BID #1 bottle 10/28/18 [Rx] Pregabalin [Lyrica] 150 mg PO BID #60 capsule 10/28/18 [Rx] clonazePAM [Klonopin] 1 mg PO BEDTIME #30 tablet 10/28/18 [Rx] Alendronate Sodium 1 tab PO ASDIRECTED 12/24/18 [History] Loperamide HCl [Imodium A-D] 2 mg PO ASDIRECTED 12/24/18 [History] Torsemide 50 mg PO DAILY 12/24/18 [History] Ferrous Sulfate 325 mg PO BIDMEALS #60 tablet 12/27/18 [Rx] Insulin Lispro Prot/Lispro [HumaLOG Mix 75-25] 40 units SUBCNJ BID #0 12/27/18 [ Rx] Referrals: Ayush Hope MD [Primary Care Provider] - - Discharge Summary/Plan Comment DC Time >30 min.: No - Patient Data Vitals - Most Recent: Last Vital Signs Temp 98.6 F 12/27/18 08:31 Pulse 78 12/27/18 09:10 Resp 18 12/27/18 08:31 BP 135/50 L 12/27/18 09:10 Pulse Ox 94 L 12/27/18 08:31 Weight - Most Recent: 255 lb 9 oz I&O - Last 24 hours: Intake & Output 12/26/18 12/27/18 12/27/18 22:59 06:59 14:59 Intake Total 1757 500 Output Total 500 Balance 1257 500 Lab Results - Last 24 hrs: Laboratory Results - last 24 hr 12/24/18 12/27/18 12/27/18 Range/Units 16:54 04:40 05:11 Hgb 8.3 L (12.0-15.0) g/dL Potassium 4.3 (3.6-5.2) mmol/L Blood Type A POSITIVE Gel Antibody Screen Negative Crossmatch See Detail JEFFREY Results - Last 24 hrs: Microbiology 12/26/18 08:50 CLOtest - Final Stomach NEGATIVE CLOTEST REFERENCE RANGE: NEGATIVE Med Orders - Current: Current Medications Acetaminophen (Tylenol) 650 mg PO Q4H PRN PRN Reason: Pain (Mild 1-3)/fever Alendronate Sodium (Fosamax) 70 mg PO Mo@0700 [facility] Alogliptin Benzoate (Alogliptin) 25 mg PO DAILY [facility] Last Admin: 12/27/18 09:07 Dose: 25 mg Artificial Tears (Natural Balance Tears) 0 ml EYERT BID [facility] Last Admin: 12/27/18 09:08 Dose: 2 drop Aspirin (Halfprin) 81 mg PO DAILY [facility] Last Admin: 12/27/18 09:06 Dose: 81 mg Clonazepam (Klonopin) 1 mg PO BEDTIME [facility] Last Admin: 12/26/18 20:50 Dose: 1 mg Dextrose (Glutose 15) 15 gm PO ONETIME PRN PRN Reason: Hypoglycemia Dextrose/Water (Dextrose 50% In Water) 50 ml IV ONETIME PRN PRN Reason: Hypoglycemia Last Admin: 12/26/18 00:44 Dose: 50 ml Duloxetine HCl (Cymbalta) 30 mg PO BEDTIME [facility] Last Admin: 12/26/18 20:41 Dose: 30 mg Duloxetine HCl (Cymbalta) 60 mg PO ACBREAKFAST [facility] Last Admin: 12/27/18 09:08 Dose: 60 mg Enalapril Maleate (Vasotec) 40 mg PO BID [facility] Last Admin: 12/27/18 09:09 Dose: 40 mg Enoxaparin Sodium (Lovenox) 40 mg SUBCUT DAILY [facility] Last Admin: 12/27/18 09:07 Dose: 40 mg Ferrous Sulfate (Ferrous Sulfate) 325 mg PO BIDMEALS [facility] Last Admin: 12/27/18 09:07 Dose: 325 mg Fluticasone Propionate (Flonase) 0 gm KASIA ACBREAKFAST [facility] Last Admin: 12/27/18 09:08 Dose: 2 spray Ibuprofen (Motrin) 800 mg PO TID [facility] Last Admin: 12/27/18 09:06 Dose: 800 mg Insulin Human Lispro (Humalog) 0 unit SUBCUT QIDACANDBED [facility]; Protocol Last Admin: 12/27/18 08:45 Dose: Not Given Insulin Lispro Protam/Lispro Human (Humalog Mix 75-25) 62 unit SUBCUT BID [facility] Last Admin: 12/27/18 09:19 Dose: Not Given Lactulose (Chronulac) 20 gm PO BID [facility] Last Admin: 12/27/18 09:11 Dose: 20 gm Loratadine (Claritin) 10 mg PO BEDTIME [facility] Last Admin: 12/26/18 20:41 Dose: 10 mg Metoprolol Succinate (Toprol Xl) 25 mg PO DAILY [facility] Last Admin: 12/27/18 09:10 Dose: 25 mg Ondansetron HCl (Zofran) 4 mg IV Q4H PRN PRN Reason: Nausea/Vomiting Pantoprazole Sodium (Protonix) 40 mg PO BID [facility] Last Admin: 12/27/18 09:08 Dose: 40 mg Polyethylene Glycol (Miralax) 17 gm PO DAILY PRN PRN Reason: Constipation Potassium Chloride (Klor-Con M20) 20 meq PO TID [facility] Last Admin: 12/27/18 09:07 Dose: 20 meq Pregabalin (Lyrica) 150 mg PO BID [facility] Last Admin: 12/27/18 09:20 Dose: 150 mg Fluticasone/Salmeterol (Fluticasone-Salmeterol 113-14 Mcg Powder Inh) 1 puff INH BIDRT [facility] Last Admin: 12/27/18 06:59 Dose: 1 puff Sertraline HCl (Zoloft) 150 mg PO DAILY [facility] Last Admin: 12/27/18 09:07 Dose: 150 mg Sodium Chloride (Saline Flush) 10 ml FLUSH ASDIRECTED PRN PRN Reason: Keep Vein Open Sucralfate (Carafate) 1 gm PO TID [facility] Last Admin: 12/27/18 09:06 Dose: 1 gm Discontinued Medications Bisacodyl (Dulcolax) 10 mg PO ONETIME ONE Stop: 12/25/18 16:16 Last Admin: 12/25/18 16:34 Dose: 10 mg Bisacodyl (Dulcolax) 10 mg PO ONETIME ONE Stop: 12/25/18 20:01 Last Admin: 12/25/18 21:06 Dose: 10 mg Fluticasone Propionate (Flonase) 0 gm KASIA ACBREAKFAST [facility] Furosemide (Lasix) 40 mg IVPUSH NOW ONE Stop: 12/24/18 20:35 Last Admin: 12/24/18 22:56 Dose: 40 mg Ferric Sodium Gluconate Complex 250 mg/ Sodium Chloride 120 mls @ 50 mls/hr IV ONETIME ONE Stop: 12/25/18 12:23 Last Admin: 12/25/18 11:18 Dose: 50 mls/hr Ferric Sodium Gluconate Complex 250 mg/ Sodium Chloride 120 mls @ 50 mls/hr IV ONETIME ONE Stop: 12/26/18 12:23 Last Admin: 12/26/18 10:35 Dose: 50 mls/hr Dextrose/Sodium Chloride (Dextrose 5%-Normal Saline) 1,000 mls @ 100 mls/hr IV ASDIRECTED [facility] Last Admin: 12/26/18 10:34 Dose: 100 mls/hr Lactated Ringer's (Ringers, Lactated) Confirm Administered Dose 1,000 mls @ as directed .ROUTE .STK-MED ONE Stop: 12/26/18 08:47 Insulin Lispro Protam/Lispro Human (Humalog Mix 75-25) 40 unit SUBCUT ONETIME ONE Stop: 12/27/18 09:59 Polyethylene Glycol (Miralax) 238 gm PO ONETIME ONE Stop: 12/25/18 17:01 Last Admin: 12/25/18 16:57 Dose: 238 gram Potassium Chloride (Klor-Con M20) 40 meq PO ONETIME ONE Stop: 12/24/18 20:35 Last Admin: 12/24/18 22:36 Dose: 40 meq Potassium Chloride (Klor-Con M20) 40 meq PO ONETIME ONE Stop: 12/24/18 22:01 Last Admin: 12/24/18 23:03 Dose: 40 meq Potassium Chloride (Klor-Con M20) 40 meq PO ONETIME ONE Stop: 12/26/18 09:01 Last Admin: 12/26/18 10:20 Dose: 40 meq Potassium Chloride (Klor-Con M20) 40 meq PO ONETIME ONE Stop: 12/26/18 17:01 Last Admin: 12/26/18 17:29 Dose: 40 meq Propofol (Diprivan 20 Ml) Confirm Administered Dose 200 mg .ROUTE .STK-MED ONE Stop: 12/26/18 08:18 Propofol (Diprivan 20 Ml) Confirm Administered Dose 200 mg .ROUTE .STK-MED ONE Stop: 12/26/18 08:58 Fluticasone/Salmeterol (Fluticasone-Salmeterol 113-14 Mcg Powder Inh) 1 puff INH BID [facility] Last Admin: 12/25/18 08:19 Dose: 1 puff Sertraline HCl (Zoloft) 100 mg PO DAILY [facility] Last Admin: 12/26/18 10:20 Dose: 100 mg - Exam Quality Assessment: Reports: DVT Prophylaxis General: Reports: Alert, Cooperative, No Acute Distress Lungs: Reports: Clear to Auscultation, Normal Respiratory Effort Cardiovascular: Reports: Regular Rate, Regular Rhythm, No Murmurs GI/Abdominal Exam: Soft, Non-Tender, No Organomegaly, No Distention
[2018-12-27 11:48] VITALS: BP 142/55
[2018-12-31] MEDS ORDERED: Alendronate 70 MG Tab PO SCH (07:00)
== END 2018-12-27 14:35 | DRG 812 ==
LOC: JP.ED 15:29 → JP.MS 18:59
PROVIDERS: ADMIT Hospitalist; ATTEND Hospitalist
PROC: 30233N1 Transfusion of Nonautologous Red Blood Cells into Peripheral Vein, Percutaneous Approach (ICD-10-PCS; principal; 2018-12-26)
PROC: 0DB78ZX Excision of Stomach, Pylorus, Via Natural or Artificial Opening Endoscopic, Diagnostic (ICD-10-PCS; 2018-12-26)
PROC: 0DB68ZX Excision of Stomach, Via Natural or Artificial Opening Endoscopic, Diagnostic (ICD-10-PCS; 2018-12-26)
PROC: 0DJD8ZZ Inspection of Lower Intestinal Tract, Via Natural or Artificial Opening Endoscopic (ICD-10-PCS; 2018-12-26)
DX: D64.9 Anemia, unspecified (principal); R41.0 Disorientation, unspecified; D62 Acute posthemorrhagic anemia; I85.00 Esophageal varices without bleeding; G12.29 Other motor neuron disease; Z68.42 Body mass index [BMI] 45.0-49.9, adult; D11.9 Benign neoplasm of major salivary gland, unspecified; K29.70 Gastritis, unspecified, without bleeding; D50.9 Iron deficiency anemia, unspecified; K31.7 Polyp of stomach and duodenum; K57.30 Diverticulosis of large intestine without perforation or abscess without bleeding; G31.84 Mild cognitive impairment of uncertain or unknown etiology; I10 Essential (primary) hypertension; E11.9 Type 2 diabetes mellitus without complications; Z79.4 Long term (current) use of insulin; Z99.81 Dependence on supplemental oxygen; I25.10 Atherosclerotic heart disease of native coronary artery without angina pectoris; E78.00 Pure hypercholesterolemia, unspecified; I25.2 Old myocardial infarction; M79.7 Fibromyalgia; M19.90 Unspecified osteoarthritis, unspecified site; G89.29 Other chronic pain; Z98.1 Arthrodesis status; F41.9 Anxiety disorder, unspecified; F41.0 Panic disorder [episodic paroxysmal anxiety]; K21.9 Gastro-esophageal reflux disease without esophagitis; K59.09 Other constipation; Z87.01 Personal history of pneumonia (recurrent); J30.9 Allergic rhinitis, unspecified; H54.7 Unspecified visual loss; J44.9 Chronic obstructive pulmonary disease, unspecified; G47.33 Obstructive sleep apnea (adult) (pediatric); Z82.0 Family history of epilepsy and other diseases of the nervous system; E66.9 Obesity, unspecified; Z79.82 Long term (current) use of aspirin; Z88.1 Allergy status to other antibiotic agents; Z91.041 Radiographic dye allergy status; Z91.040 Latex allergy status; Z88.2 Allergy status to sulfonamides; Z88.8 Allergy status to other drugs, medicaments and biological substances; Z91.048 Other nonmedicinal substance allergy status; Z96.642 Presence of left artificial hip joint; Z90.49 Acquired absence of other specified parts of digestive tract; Z90.710 Acquired absence of both cervix and uterus
CPT/HCPCS: 36415; 36430; 70450; 80048; 80053; 81001; 82607; 82746; 82962; 83550; 83615; 84132; 84443; 84484; 85018; 85025; 85045; 86850; 86900; 86901; 86920; 86922; 87081; 94640; 97161-GP; 99284; 99285-25; A4216; A9270-GY; J1650; J1815; J1940; J2704; J2916; J7030; J7120; P9016

== ENCOUNTER 2019-01-23 15:07 | Observation (INO) | payer MEDICARE ==
--- NOTE | 2019-01-23 16:31 | EDM.PDOC ---
ED HPI GENERAL MEDICAL PROBLEM - General Chief Complaint: General Stated Complaint: not feeling well Time Seen by Provider: 01/23/19 16:15 Source of Information: Reports: Patient, Old Records, RN History Limitations: Reports: No Limitations - History of Present Illness INITIAL COMMENTS - FREE TEXT/NARRATIVE: 63 yo female resident of an assisted living facility presents for evaluation of increased confusion. No fever, pain, dysuria or SOB is reported. Is cooperative. Was admitted here about a month ago for this same thing and cleared in about 2 days. Has had other spells as well, no cause has been found. Has a hx of PLS. Onset: Today Onset Date: 01/23/19 Duration: Hour(s):, Constant Location: Reports: Head (confusion) Quality: Reports: Other (no pain) Severity: Moderate Improves with: Reports: None Worsens with: Reports: Other (unknown) Context: Reports: Other (see HPI) Associated Symptoms: Reports: Confusion. Denies: Cough, Diaphoresis, Fever/ Chills, Headaches, Nausea/Vomiting, Seizure, Shortness of Breath, Syncope Treatments PARAFFINER: Reports: Other (see below) (none) denies Pain Score (Numeric/FACES): 0 - Related Data Allergies Allergy/AdvReac Type Severity Reaction Status Date / Time adhesive Allergy Cannot Verified 01/23/19 16:05 Remember atorvastatin calcium Allergy Cannot Verified 01/23/19 16:05 [From Lipitor] Remember clindamycin Allergy Cannot Verified 01/23/19 16:05 Remember cyclobenzaprine HCl Allergy Cannot Verified 01/23/19 16:05 [From Flexeril] Remember fentanyl Allergy Rash Verified 01/23/19 16:05 gabapentin Allergy Cannot Verified 01/23/19 16:05 Remember insulin glargine, human Allergy Rash Verified 01/23/19 16:05 recombin. a [From Lantus] Iodinated Contrast- Oral and Allergy Cannot Verified 01/23/19 16:05 IV Dye Remember [Iodinated Contrast Media - IV Dye] iodine Allergy Hives Verified 01/23/19 16:05 iopamidol Allergy Hives Verified 01/23/19 16:05 lactose Allergy Cannot Verified 01/23/19 16:05 Remember Latex, Natural Rubber Allergy Cannot Verified 01/23/19 16:05 Remember levofloxacin [From Levaquin] Allergy Rash Verified 01/23/19 16:05 lisinopril Allergy Cannot Verified 01/23/19 16:05 Remember oxybutynin Allergy Cannot Verified 01/23/19 16:05 Remember piperacillin Allergy Hives Verified 01/23/19 16:05 piperacillin sodium Allergy Hives Verified 01/23/19 16:05 [From Zosyn] red dye Allergy Cannot Verified 01/23/19 16:05 Remember silver Allergy Rash Verified 01/23/19 16:05 [From Tegaderm AG Mesh] simvastatin [From Zocor] Allergy Cannot Verified 01/23/19 16:05 Remember Sulfa (Sulfonamide Allergy Hives Verified 01/23/19 16:05 Antibiotics) tazobactam Allergy Hives Verified 01/23/19 16:05 tazobactam sodium Allergy Hives Verified 01/23/19 16:05 [From Zosyn] varenicline [Varenicline] Allergy Cannot Verified 01/23/19 16:05 Remember varenicline tartrate Allergy Cannot Verified 01/23/19 16:05 [From Chantix] Remember venlafaxine HCl Allergy Cannot Verified 01/23/19 16:05 [From Effexor] Remember baclofen AdvReac Irritabilit Verified 01/23/19 16:05 y esomeprazole AdvReac Diarrhea Verified 01/23/19 16:05 esomeprazole magnesium AdvReac Diarrhea Verified 01/23/19 16:05 [From Nexium] exenatide AdvReac Tachycardia Verified 01/23/19 16:05 insulin detemir AdvReac Nausea and Verified 01/23/19 16:05 [From Levemir] Vomiting metformin AdvReac Nausea Verified 01/23/19 16:05 promethazine AdvReac Nausea and Verified 01/23/19 16:05 Vomiting promethazine HCl AdvReac Nausea and Verified 01/23/19 16:05 [From Phenergan] Vomiting Home Meds: Home Meds Aspirin [Adult Low Dose Aspirin EC] 81 mg PO DAILY 04/16/13 [History] Lactulose [Generlac] 30 ml PO BID 04/16/13 [History] Magnesium Hydroxide [Milk of Magnesia] 30 ml PO Q48H PRN 03/31/16 [History] Sertraline [Zoloft] 100 mg PO DAILY 03/31/16 [History] Dextrose [Glucose] 1 tab PO Q1H PRN 06/12/16 [History] Menthol/Methyl Salicylate [Pain Relieving Rub Cream] 1 applic TOP TID 06/12/16 [ History] Propylene Glycol/Peg 400 [Systane Ultra 0.4-0.3% Eye Drp] 1 drop EYERT Q2HR PRN 06/12/16 [History] Calcium Carbonate/Vitamin D3 [Calcium 600 + Vit D 400 Softgl] 1 tab PO BID 10/23 [History] Chlorhexidine Gluconate 15 ml PO BID 10/23/18 [History] DULoxetine HCl [Duloxetine HCl] 60 mg PO ACBREAKFAST 10/23/18 [History] Enalapril Maleate 40 mg PO BID 10/23/18 [History] Fluticasone Propionate [Flonase Allergy Relief] 2 spray [place] ACBREAKFAST [History] Fluticasone/Salmeterol [Advair 250-50 Diskus] 1 puff INH BID 10/23/18 [History] Lansoprazole [Prevacid] 30 mg PO BID 10/23/18 [History] Loratadine [Claritin] 10 mg PO BEDTIME 10/23/18 [History] Metoprolol Succinate [Toprol XL] 25 mg PO DAILY 10/23/18 [History] Potassium Chloride 20 meq PO TID 10/23/18 [History] Propylene Glycol/PEG 400/Pf [Systane 0.3-0.4% Eye Drop] 2 drop EYERT BID [History] SitaGLIPtin [Januvia] 50 mg PO DAILY 10/23/18 [History] Sucralfate [Carafate] 1 gm PO TID 10/23/18 [History] DULoxetine HCl [Duloxetine HCl] 30 mg PO BEDTIME #30 capsule.dr 10/28/18 [Rx] Hydrocodone/Acetaminophen [Hydrocodon-Acetaminophn 10-325] 1 tab PO Q4H PRN #60 tablet 10/28/18 [Rx] Nystatin [Nystop] 1 gm TOP BID #1 bottle 10/28/18 [Rx] Pregabalin [Lyrica] 150 mg PO BID #60 capsule 10/28/18 [Rx] clonazePAM [Klonopin] 1 mg PO BEDTIME #30 tablet 10/28/18 [Rx] Alendronate Sodium 1 tab PO ASDIRECTED 12/24/18 [History] Loperamide HCl [Imodium A-D] 2 mg PO ASDIRECTED 12/24/18 [History] Torsemide 50 mg PO DAILY 12/24/18 [History] Ferrous Sulfate 325 mg PO BIDMEALS #60 tablet 12/27/18 [Rx] Insulin Lispro Prot/Lispro [HumaLOG Mix 75-25] 40 units SUBCNJ BID #0 12/27/18 [ Rx] Past Medical History HEENT History: Reports: Allergic Rhinitis, Impaired Vision Cardiovascular History: Reports: CAD, High Cholesterol, Hypertension, [place] Respiratory History: Reports: Bronchitis, Recurrent, Pneumonia, Recurrent, SOB Other Respiratory History: home O2 at night Gastrointestinal History: Reports: Chronic Constipation, Chronic Diarrhea, Gastritis, GERD, Hiatal Hernia Genitourinary History: Reports: None CATEGORY CONSULTANT History: Reports: Dysfunctional Uterine Bleeding, Musculoskeletal History: Reports: Back Pain, Chronic, Fibromyalgia, Osteoarthritis, Other (See Below) Other Musculoskeletal History: primary lateral sclerosis Neurological History: Reports: None Psychiatric History: Reports: Anxiety, Panic Attack Endocrine/Metabolic History: Reports: Diabetes, Type II, IDDM, Obesity/BMI 30+, Other (See Below) Other Endocrine/Metabolic History: PLS Hematologic History: Reports: Blood Transfusion(s) Immunologic History: Reports: None Oncologic (Cancer) History: Reports: None Dermatologic History: Reports: Decubitus Ulcer - Infectious Disease History Infectious Disease History: Reports: Chicken Pox Other Infectious Disease History: unable to obtain - Past Surgical History Head Surgeries/Procedures: Reports: None GI Surgical History: Reports: Appendectomy, Cholecystectomy, Colonoscopy Female Surgical History: Reports: D&C, Hysterectomy, Tubal Ligation Neurological Surgical History: Reports: Spinal Fusion Musculoskeletal Surgical History: Reports: Hip Replacement Other Musculoskeletal Surgeries/Procedures:: left hip replacement Social & Family History - Family History Family Medical History: Unobtainable - Tobacco Use Smoking Status *Q: Never Smoker Second Hand Smoke Exposure: No - Caffeine Use Caffeine Use: Reports: Coffee, Soda - Recreational Drug Use Recreational Drug Use: No ED ROS GENERAL - Review of Systems Review Of Systems: See Below Constitutional: Reports: No Symptoms HEENT: Reports: No Symptoms Respiratory: Reports: No Symptoms Cardiovascular: Reports: No Symptoms GI/Abdominal: Reports: No Symptoms : Reports: No Symptoms Musculoskeletal: Reports: No Symptoms Skin: Reports: Bruising (scattered from falls she has incurred. ) Neurological: Reports: Confusion, Dizziness (mild). Denies: Headache, Numbness , Seizure, Tingling, Tremors, Trouble Speaking, Change in Speech Psychiatric: Reports: No Symptoms ED EXAM, GENERAL - Physical Exam Exam: See Below Exam Limited By: No Limitations General Appearance: Alert, WD/WN, No Apparent Distress, Obese Eye Exam: Bilateral Eye: Normal Inspection Ears: Normal External Exam, Normal Canal, Hearing Grossly Normal, Normal TMs Ear Exam: Bilateral Ear: Auricle Normal, Canal Normal, TM normal Nose: Normal Inspection, No Blood Throat/Mouth: Normal Inspection, Normal Lips, Normal Oropharynx, Normal Voice, No Airway Compromise Head: Atraumatic, Normocephalic Neck: Normal Inspection Respiratory/Chest: No Respiratory Distress, Lungs Clear, Normal Breath Sounds, No Accessory Muscle Use Cardiovascular: Regular Rate, Rhythm, No Edema GI/Abdominal: Normal Bowel Sounds, Soft, Non-Tender, No Distention Extremities: Normal Inspection, Normal Range of Motion, Non-Tender, No Pedal Edema Neurological: Alert, Oriented, CN II-XII Intact, Normal Cognition, No Motor/ Sensory Deficits Psychiatric: Normal Affect, Normal Mood Skin Exam: Warm, Dry, Intact, Normal Color, No Rash, Ecchymosis (scattered on extrems only.) Course - Vital Signs Text/Narrative:: Dr. Velazquez called @ 1723h Last Recorded V/S: Last Vital Signs Temp 36.4 C 01/23/19 16:04 Pulse 71 01/23/19 16:04 Resp 18 01/23/19 16:04 BP 130/55 L 01/23/19 16:04 Pulse Ox 93 L 01/23/19 16:04 - Orders/Labs/Meds Orders: Active Orders 24 hr Category Date Time Status Head wo Cont [CT] Stat Exams 01/23/19 17:16 Stop Req MAGNESIUM [CHEM] Stat Lab 01/23/19 17:15 Ordered Labs: Laboratory Tests 01/23/19 01/23/19 01/23/19 Range/Units 16:28 16:28 16:42 WBC 4.7 (4.5-11.0) K/uL RBC 4.94 (3.30-5.50) M/uL Hgb 13.2 D (12.0-15.0) g/dL Hct 42.4 (36.0-48.0) % MCV 86 (80-98) fL MCH 27 (27-31) pg MCHC 31 L (32-36) % Plt Count 101 L (150-400) K/uL Sodium 143 (140-148) mmol/L Potassium 3.2 L (3.6-5.2) mmol/L Chloride 104 (100-108) mmol/L Carbon Dioxide 34 H (21-32) mmol/L Anion Gap 8.2 (5.0-14.0) mmol/L BUN 11 (7-18) mg/dL Creatinine 0.9 (0.6-1.0) mg/dL Est Cr Clr Drug Dosing 49.29 mL/min Estimated GFR (MDRD) > 60 (>60) Glucose 171 H (74-106) mg/dL Calcium 8.7 (8.5-10.1) mg/dL Troponin I < 0.017 (0.000-0.056) ng/mL Urine Color Yellow Urine Appearance Clear Urine pH 8.0 (4.5-8.0) Ur Specific [place] 1.010 (1.008-1.030) Urine Protein Negative (NEGATIVE) mg/dL Urine Glucose (UA) Negative (NEGATIVE) mg/dL Urine Ketones Negative (NEGATIVE) mg/dL Urine Occult Blood Negative (NEGATIVE) Urine Nitrite Negative (NEGATIVE) Urine Bilirubin Negative (NEGATIVE) Urine Urobilinogen Normal (NORMAL) mg/dL Ur Leukocyte Esterase Negative (NEGATIVE) Urine RBC 0-5 (0-5) Urine WBC 0-5 (0-5) Ur Epithelial Cells Not seen Amorphous Sediment Rare Urine Bacteria Not seen Urine Mucus Rare Meds: Medications Discontinued Medications Generic Name Dose Route Start Last Admin Trade Name Freq PRN Reason Stop Dose Admin Potassium Chloride 40 meq 01/23/19 17:15 01/23/19 17:21 Potassium Chloride PO 01/23/19 17:16 40 meq ONETIME ONE Administration Departure - Departure Time of Disposition: 17:45 Disposition: Admitted As Inpatient 64 Condition: Fair Clinical Impression: Acute confusion - Discharge Information *PRESCRIPTION DRUG MONITORING PROGRAM REVIEWED*: No *COPY OF PRESCRIPTION DRUG MONITORING REPORT IN PATIENT DREAD: No Referrals: Ayush Hope MD [Primary Care Provider] - Forms: ED Department Discharge - My Orders Last 24 Hours: My Active Orders 01/23/19 17:15 MAGNESIUM [CHEM] Stat 01/23/19 17:16 Head wo Cont [CT] Stat - Assessment/Plan Last 24 Hours: My Active Orders 01/23/19 17:15 MAGNESIUM [CHEM] Stat 01/23/19 17:16 Head wo Cont [CT] Stat
[2019-01-23] MEDS ORDERED: Potassium Chloride 10 MEQ Cap.ER PO ONE (17:15)
--- NOTE | 2019-01-23 19:07 | PCM.HP ---
H&P History of Present Illness - General Date of Service: 01/23/19 Admit Problem/Dx: Admission Diagnosis/Problem Admission Diagnosis/Problem Confusion Source of Information: Family (Sister Arin Santiago" at bedside, she is POA), Provider, RN History Limitations: Reports: Altered Mental Status - History of Present Illness Initial Comments - Free Text/Narative: Chief Complaint: confusion This is a 63 year old female who is a direct admission from [facility]. Her Sister Irene reports she is in a Assisted Living Home in [place], [place]. For the past few days she has been seen wandering around the apartments at night. Seems confused. Today she had a appointment with Director Shopper Marketing for Diabetes Management, she was noted to be confused, kept trying to go into the closet, then left the clinic with her walker, and trying to board the [employer]. The [employer] -nail galvanizer knew her and was able to get her off the bus and bring back to the clinic, she was then sent to ER for further evaluation. Sister reports she is "good" for about 2 months then becomes confused for a few days, then she returns to baseline. 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 100% disabled. Onset of Symptoms: Reports: Gradual Duration of Symptoms: Reports: Day(s): (2), Getting Worse Location: Reports: Generalized Quality: Reports: Same as Previous Episode Improves with: Reports: None Worsens with: Reports: None Context: Reports: Other (chronic illness) Associated Symptoms: Reports: Confusion denies Pain Score (Numeric/FACES): 0 - Related Data Allergies/Adverse Reactions: Allergies Allergy/AdvReac Type Severity Reaction Status Date / Time adhesive Allergy Cannot Verified 01/23/19 16:05 Remember atorvastatin calcium Allergy Cannot Verified 01/23/19 16:05 [From Lipitor] Remember clindamycin Allergy Cannot Verified 01/23/19 16:05 Remember cyclobenzaprine HCl Allergy Cannot Verified 01/23/19 16:05 [From Flexeril] Remember fentanyl Allergy Rash Verified 01/23/19 16:05 gabapentin Allergy Cannot Verified 01/23/19 16:05 Remember insulin glargine, human Allergy Rash Verified 01/23/19 16:05 recombin. a [From Lantus] Iodinated Contrast- Oral and Allergy Cannot Verified 01/23/19 16:05 IV Dye Remember [Iodinated Contrast Media - IV Dye] iodine Allergy Hives Verified 01/23/19 16:05 iopamidol Allergy Hives Verified 01/23/19 16:05 lactose Allergy Cannot Verified 01/23/19 16:05 Remember Latex, Natural Rubber Allergy Cannot Verified 01/23/19 16:05 Remember levofloxacin [From Levaquin] Allergy Rash Verified 01/23/19 16:05 lisinopril Allergy Cannot Verified 01/23/19 16:05 Remember oxybutynin Allergy Cannot Verified 01/23/19 16:05 Remember piperacillin Allergy Hives Verified 01/23/19 16:05 piperacillin sodium Allergy Hives Verified 01/23/19 16:05 [From Zosyn] red dye Allergy Cannot Verified 01/23/19 16:05 Remember silver Allergy Rash Verified 01/23/19 16:05 [From Tegaderm AG Mesh] simvastatin [From Zocor] Allergy Cannot Verified 01/23/19 16:05 Remember Sulfa (Sulfonamide Allergy Hives Verified 01/23/19 16:05 Antibiotics) tazobactam Allergy Hives Verified 01/23/19 16:05 tazobactam sodium Allergy Hives Verified 01/23/19 16:05 [From Zosyn] varenicline [Varenicline] Allergy Cannot Verified 01/23/19 16:05 Remember varenicline tartrate Allergy Cannot Verified 01/23/19 16:05 [From Chantix] Remember venlafaxine HCl Allergy Cannot Verified 01/23/19 16:05 [From Effexor] Remember baclofen AdvReac Irritabilit Verified 01/23/19 16:05 y esomeprazole AdvReac Diarrhea Verified 01/23/19 16:05 esomeprazole magnesium AdvReac Diarrhea Verified 01/23/19 16:05 [From Nexium] exenatide AdvReac Tachycardia Verified 01/23/19 16:05 insulin detemir AdvReac Nausea and Verified 01/23/19 16:05 [From Levemir] Vomiting metformin AdvReac Nausea Verified 01/23/19 16:05 promethazine AdvReac Nausea and Verified 01/23/19 16:05 Vomiting promethazine HCl AdvReac Nausea and Verified 01/23/19 16:05 [From Phenergan] Vomiting Home Medications: Home Meds Aspirin [Adult Low Dose Aspirin EC] 81 mg PO DAILY 10/15/13 [History] Lactulose [Generlac] 30 ml PO BID 04/16/13 [History] Magnesium Hydroxide [Milk of Magnesia] 30 ml PO Q48H PRN 03/31/16 [History] Sertraline [Zoloft] 100 mg PO DAILY 03/31/16 [History] Dextrose [Glucose] 1 tab PO Q1H PRN 06/12/16 [History] Menthol/Methyl Salicylate [Pain Relieving Rub Cream] 1 applic TOP TID 06/12/16 [ History] Propylene Glycol/Peg 400 [Systane Ultra 0.4-0.3% Eye Drp] 1 drop EYERT Q2HR PRN 06/12/16 [History] Calcium Carbonate/Vitamin D3 [Calcium 600 + Vit D 400 Softgl] 1 tab PO BID 10/23 [History] Chlorhexidine Gluconate 15 ml PO BID 10/23/18 [History] DULoxetine HCl [Duloxetine HCl] 60 mg PO ACBREAKFAST 10/23/18 [History] Enalapril Maleate 40 mg PO BID 10/23/18 [History] Fluticasone Propionate [Flonase Allergy Relief] 2 spray KASIA ACBREAKFAST [History] Fluticasone/Salmeterol [Advair 250-50 Diskus] 1 puff INH BID 10/23/18 [History] Lansoprazole [Prevacid] 30 mg PO BID 10/23/18 [History] Loratadine [Claritin] 10 mg PO BEDTIME 10/23/18 [History] Metoprolol Succinate [Toprol XL] 25 mg PO DAILY 10/23/18 [History] Potassium Chloride 20 meq PO TID 10/23/18 [History] Propylene Glycol/PEG 400/Pf [Systane 0.3-0.4% Eye Drop] 2 drop EYERT BID [History] SitaGLIPtin [Januvia] 50 mg PO DAILY 10/23/18 [History] Sucralfate [Carafate] 1 gm PO TID 10/23/18 [History] DULoxetine HCl [Duloxetine HCl] 30 mg PO BEDTIME #30 capsule.dr 10/28/18 [Rx] Hydrocodone/Acetaminophen [Hydrocodon-Acetaminophn 10-325] 1 tab PO Q4H PRN #60 tablet 10/28/18 [Rx] Nystatin [Nystop] 1 gm TOP BID #1 bottle 10/28/18 [Rx] Pregabalin [Lyrica] 150 mg PO BID #60 capsule 10/28/18 [Rx] clonazePAM [Klonopin] 1 mg PO BEDTIME #30 tablet 10/28/18 [Rx] Alendronate Sodium 1 tab PO ASDIRECTED 12/24/18 [History] Loperamide HCl [Imodium A-D] 2 mg PO ASDIRECTED 12/24/18 [History] Torsemide 50 mg PO DAILY 12/24/18 [History] Ferrous Sulfate 325 mg PO BIDMEALS #60 tablet 12/27/18 [Rx] Insulin Lispro Prot/Lispro [HumaLOG Mix 75-25] 40 units SUBCNJ BID #0 12/27/18 [ Rx] Past Medical History HEENT History: Reports: Allergic Rhinitis, Impaired Vision Cardiovascular History: Reports: CAD, High Cholesterol, Hypertension, CO Respiratory History: Reports: Bronchitis, Recurrent, Pneumonia, Recurrent, SOB Other Respiratory History: home O2 at night Gastrointestinal History: Reports: Chronic Constipation, Chronic Diarrhea, Gastritis, GERD, Hiatal Hernia Genitourinary History: Reports: None SENIOR POWER SCHEDULER History: Reports: Dysfunctional Uterine Bleeding, Musculoskeletal History: Reports: Back Pain, Chronic, Fibromyalgia, Osteoarthritis, Other (See Below) Other Musculoskeletal History: primary lateral sclerosis Neurological History: Reports: None Psychiatric History: Reports: Anxiety, Panic Attack Endocrine/Metabolic History: Reports: Diabetes, Type II, IDDM, Obesity/BMI 30+, Other (See Below) Other Endocrine/Metabolic History: PLS Hematologic History: Reports: Blood Transfusion(s) Immunologic History: Reports: None Oncologic (Cancer) History: Reports: None Dermatologic History: Reports: Decubitus Ulcer - Infectious Disease History Infectious Disease History: Reports: Chicken Pox Other Infectious Disease History: unable to obtain - Past Surgical History Head Surgeries/Procedures: Reports: None GI Surgical History: Reports: Appendectomy, Cholecystectomy, Colonoscopy Female Surgical History: Reports: D&C, Hysterectomy, Tubal Ligation Neurological Surgical History: Reports: Spinal Fusion Musculoskeletal Surgical History: Reports: Hip Replacement Other Musculoskeletal Surgeries/Procedures:: left hip replacement Social & Family History - Family History Family Medical History: Unobtainable - Tobacco Use Smoking Status *Q: Never Smoker Second Hand Smoke Exposure: No - Caffeine Use Caffeine Use: Reports: Coffee, Soda - Recreational Drug Use Recreational Drug Use: No - Living Situation & Occupation Living situation: Reports: Single, Assisted Living Occupation: Disabled (has two grown Daughters in thier 40"s - one lives in the Cities and the other lives out of state. has been disabled due to medical condition.) H&P Review of Systems - Review of Systems: Review Of Systems: See Below General: Reports: No Symptoms HEENT: Reports: No Symptoms Pulmonary: Reports: No Symptoms Cardiovascular: Reports: Edema (chronic lower leg edema) Gastrointestinal: Reports: No Symptoms Genitourinary: Reports: No Symptoms Musculoskeletal: Reports: No Symptoms Skin: Reports: No Symptoms Psychiatric: Reports: Confusion Neurological: Reports: Confusion, Pre-Existing Deficit (ambulates with walker) Hematologic/Lymphatic: Reports: No Symptoms Immunologic: Reports: No Symptoms Exam - Exam Exam: See Below - Vital Signs Vital Signs: Last Vital Signs Temp 36 C 01/23/19 18:00 Pulse 68 01/23/19 18:00 Resp 18 01/23/19 18:00 BP 128/50 L 01/23/19 18:00 Pulse Ox 92 L 01/23/19 18:00 Weight: 104.78 kg - Exam General: Alert, Other (she is not orientated to place and time. know Irene and herself. obese appears chronically ill.) HEENT: Conjunctiva Clear, EOMI, Hearing Intact, Mucosa Moist & Astatula, Nares Patent, Pupils Equal, Pupils Reactive Neck: Supple, Trachea Midline Lungs: Clear to Auscultation, Normal Respiratory Effort Cardiovascular: Regular Rate, Regular Rhythm, Normal S1, Normal S2 GI/Abdominal Exam: Normal Bowel Sounds, Soft, Non-Tender, Other (obese) (Female) Exam: Deferred Rectal (Female) Exam: Deferred Back Exam: Normal Inspection, Full Range of Motion Extremities: Normal Range of Motion, Non-Tender, Normal Capillary Refill, Pedal Edema (bilateral pitting edema.) Skin: Warm, Dry, Intact Neurological: Reflexes Equal Bilateral, Strength Equal Bilateral, Normal Speech , Normal Tone Neuro Extensive - Mental Status: Alert, Disorientation to Place, Disorientation to Time, Inattentive, Memory Loss-Recent Events Neuro Extensive - Motor, Sensory, Reflexes: Motor/Sensory Deficits Psychiatric: Alert, Normal Affect, Normal Mood - Patient Data Lab Results Last 24 hrs: Laboratory Results - last 24 hr 07/24/19 07/24/19 07/24/19 Range/Units 16:28 16:28 16:42 WBC 4.7 (4.5-11.0) K/uL RBC 4.94 (3.30-5.50) M/uL Hgb 13.2 D (12.0-15.0) g/dL Hct 42.4 (36.0-48.0) % MCV 86 (80-98) fL MCH 27 (27-31) pg MCHC 31 L (32-36) % Plt Count 101 L (150-400) K/uL Sodium 143 (140-148) mmol/L Potassium 3.2 L (3.6-5.2) mmol/L Chloride 104 (100-108) mmol/L Carbon Dioxide 34 H (21-32) mmol/L Anion Gap 8.2 (5.0-14.0) mmol/L BUN 11 (7-18) mg/dL Creatinine 0.9 (0.6-1.0) mg/dL Est Cr Clr Drug Dosing 49.29 mL/min Estimated GFR (MDRD) > 60 (>60) Glucose 171 H (74-106) mg/dL Calcium 8.7 (8.5-10.1) mg/dL Magnesium (1.8-2.4) mg/dL Troponin I < 0.017 (0.000-0.056) ng/mL Urine Color Yellow Urine Appearance Clear Urine pH 8.0 (4.5-8.0) Ur Specific [place] 1.010 (1.008-1.030) Urine Protein Negative (NEGATIVE) mg/dL Urine Glucose (UA) Negative (NEGATIVE) mg/dL Urine Ketones Negative (NEGATIVE) mg/dL Urine Occult Blood Negative (NEGATIVE) Urine Nitrite Negative (NEGATIVE) Urine Bilirubin Negative (NEGATIVE) Urine Urobilinogen Normal (NORMAL) mg/dL Ur Leukocyte Esterase Negative (NEGATIVE) Urine RBC 0-5 (0-5) Urine WBC 0-5 (0-5) Ur Epithelial Cells Not seen Amorphous Sediment Rare Urine Bacteria Not seen Urine Mucus Rare 01/23/19 Range/Units 17:15 WBC (4.5-11.0) K/uL RBC (3.30-5.50) M/uL Hgb (12.0-15.0) g/dL Hct (36.0-48.0) % MCV (80-98) fL MCH (27-31) pg MCHC (32-36) % Plt Count (150-400) K/uL Sodium (140-148) mmol/L Potassium (3.6-5.2) mmol/L Chloride (100-108) mmol/L Carbon Dioxide (21-32) mmol/L Anion Gap (5.0-14.0) mmol/L BUN (7-18) mg/dL Creatinine (0.6-1.0) mg/dL Est Cr Clr Drug Dosing mL/min Estimated GFR (MDRD) (>60) Glucose (74-106) mg/dL Calcium (8.5-10.1) mg/dL Magnesium 1.7 L (1.8-2.4) mg/dL Troponin I (0.000-0.056) ng/mL Urine Color Urine Appearance Urine pH (4.5-8.0) Ur Specific [place] (1.008-1.030) Urine Protein (NEGATIVE) mg/dL Urine Glucose (UA) (NEGATIVE) mg/dL Urine Ketones (NEGATIVE) mg/dL Urine Occult Blood (NEGATIVE) Urine Nitrite (NEGATIVE) Urine Bilirubin (NEGATIVE) Urine Urobilinogen (NORMAL) mg/dL Ur Leukocyte Esterase (NEGATIVE) Urine RBC (0-5) Urine WBC (0-5) Ur Epithelial Cells Amorphous Sediment Urine Bacteria Urine Mucus Result Diagrams: 01/23/19 16:28 01/23/19 16:28 - Problem List (1) Primary lateral sclerosis SNOMED Code(s): 89589877 ICD Code: G12.29 - OTHER MOTOR NEURON DISEASE Status: Chronic Current Visit: No (2) Confusion SNOMED Code(s): 050395370 ICD Code: R41.0 - DISORIENTATION, UNSPECIFIED Status: Acute Priority: High Current Visit: Yes (3) Diabetes mellitus, insulin dependent (IDDM), controlled SNOMED Code(s): 46933172, 730634194 ICD Code: E11.9 - TYPE 2 DIABETES MELLITUS WITHOUT COMPLICATIONS; Z79.4 - SKILLED NURSING (CURRENT) USE OF INSULIN Status: Chronic Priority: Medium Current Visit: Yes (4) COPD (chronic obstructive pulmonary disease) SNOMED Code(s): 03752660 ICD Code: J44.9 - CHRONIC OBSTRUCTIVE PULMONARY DISEASE, UNSPECIFIED Status : Chronic Priority: Low Current Visit: No Qualifiers: COPD type: unspecified COPD Qualified Code(s): J44.9 - Chronic obstructive pulmonary disease, unspecified (5) Acute hypokalemia SNOMED Code(s): 12342115 ICD Code: E87.6 - HYPOKALEMIA Status: Acute Priority: Medium Current Visit: Yes Problem List Initiated/Reviewed/Updated: Yes Orders Last 24hrs: Active Orders 24 hr Category Date Time Status Patient Status Manage Transfer [TRANSFER] Routine ADT 01/23/19 17:39 Active Resuscitation Status Routine Resus Stat 01/23/19 17:44 Ordered Assessment/Plan Comment:: ASSESSMENT AND PLAN This is a 63 year old female who is a direct admission from [facility]. Her Sister Irene reports she is in a Assisted Living Home in [place], [place]. For the past few days she has been seen wandering around the apartments at night. Seems confused. Today she had a appointment with Director [employer] for Diabetes Management, she was noted to be confused, kept trying to go into the closet, then left the clinic with her walker, and trying to board the [employer] [facility]. The [employer] -nail galvanizer knew her and was able to get her off the bus and bring back to the clinic, she was then sent to ER for further evaluation. Sister reports she is "good" for about 2 months then becomes confused for a few days, then resolves on its own. Francisca is has a neuro disorder. In ER, Labs CBC, Chemistries, Trop., Ua all normal range except for K+ 3.2 Plan: admit OBS for monitoring overnight. Sister Irene agrees with plan of care. Confusion - secondary to progressive chronic neurologic disorder, Primary Lateral Sclerosis. She continue to have decline in abilities to care for self and has confusion to place and time. She does know her Sister and herself, does not where she is or date and time. -monitor over night -continue home medications -Social Service or Linoleum Floor Installer for Halfway placement. Sister doesn't feel she safe in an unsupervised home. -repeat labs in am CBC, BMP COPD-all compensated on current therapy -Continue current outpatient medications Diabetes type 2 Insulin dependent-continue on current therapy -Note changes in medical therapy as above -blood sugar check before meals and at bedtime. Hypokalemia -Potassium replacement -labs: K+ in am MAINTENANCE ISSUES -DVT prophylaxis; Lovenox subcut -GI prophylaxis; continue PPI therapy -[place] catheter; not indicated -Nutrition; consistent carb diet -Nicotine dependence; not required CODE STATUS-FULL ADMISSION STATUS-this patient will be admitted to observation status, expect no more than a one night hospital stay for evaluation and management of problems as outlined above. DISPOSITION-anticipate discharge to Assisted Living or Halfway after the hospital stay. PRIMARY CARE PROVIDER - Dr. Hope HOSPITALIST - Dr. Velazquez
[2019-01-23] MEDS ORDERED: Sodium Chloride 0.9% 10 ML Syringe FLUSH PRN (19:09)
[2019-01-23] MEDS ORDERED: Ondansetron 4 MG/2 ML SDV IV PRN (19:09)
[2019-01-23] MEDS ORDERED: Acetaminophen 325 MG Tab PO PRN (19:09)
[2019-01-23] MEDS ORDERED: Glucose Gel 15 GM in 37.5 GM Tube PO PRN (19:09)
[2019-01-23] MEDS ORDERED: Sodium Chloride 0.9% 1,000 ML IV SCH (19:09)
[2019-01-23] MEDS ORDERED: Polyethylene Glycol 3350 Powder 17 GM Packet PO PRN (19:09)
[2019-01-23] MEDS ORDERED: Acetaminophen/HYDROcodone 325-10 MG Tab PO PRN (19:09)
[2019-01-23] MEDS ORDERED: 50% Dextrose in Water 50 ML Syringe IV PRN (19:09)
[2019-01-23] MEDS ORDERED: Enoxaparin 40 MG/0.4 ML Syringe SUBCUT SCH (19:09)
[2019-01-23] MEDS: Magnesium Sulfate/Water 2 GM in Premix Bag 1 BAG IV SCH (20:04)
[2019-01-23] MEDS ORDERED: Sucralfate 1 GM Tab PO SCH (21:00)
[2019-01-23] MEDS ORDERED: DULOXETINE 30 MG PO SCH (21:00)
[2019-01-23] MEDS ORDERED: ClonazePAM 1 MG Tab PO SCH (21:00)
[2019-01-23] MEDS ORDERED: Potassium Chloride 20 MEQ Tab.ER PO ONE (21:00)
[2019-01-23] MEDS: Insulin Lispro 100 Unit/ML 3 ML KwikPen SUBCUT SCH (21:26)
[2019-01-23] MEDS ORDERED: Insulin NPH/Insulin Regular,Human 70-30 100 Units/ML 10 ML Vial SUBCUT SCH (23:15)
[2019-01-24] MEDS: Pregabalin 75 MG Cap PO SCH ×2 (00:41→10:20)
[2019-01-24] MEDS: Magnesium Sulfate/Water 2 GM in Premix Bag 1 BAG IV SCH (00:49)
[2019-01-24] MEDS: Insulin Lispro 100 Unit/ML 3 ML KwikPen SUBCUT SCH ×2 (07:29→12:00)
[2019-01-24] MEDS ORDERED: [UNRECOGNIZED DRUG - OTHER] SUBCUT SCH (07:30)
[2019-01-24] MEDS ORDERED: INSULIN LISPRO PROTAMINE SUBCUT SCH (07:30)
[2019-01-24] MEDS ORDERED: DULOXETINE 30 MG PO SCH (07:30)
[2019-01-24] MEDS ORDERED: Ferrous Sulfate 325 MG Tab PO SCH (08:00)
[2019-01-24] MEDS ORDERED: Aspirin 81 MG Tab.EC PO SCH (09:00)
[2019-01-24] MEDS ORDERED: Sertraline 50 MG Tab PO SCH (09:00)
[2019-01-24] MEDS ORDERED: METOPROLOL SUCCINATE 25 MG PO SCH (09:00)
[2019-01-24] MEDS ORDERED: TORSEMIDE 100 MG PO SCH (09:00)
[2019-01-24] MEDS ORDERED: SERTRALINE 100 MG PO SCH (09:00)
[2019-01-24] MEDS ORDERED: SITAGLIPTIN 50 MG PO SCH (09:00)
--- NOTE | 2019-01-24 09:40 | PCM.PN ---
- General Info Date of Service: 01/24/19 Subjective Update: Ms. Hooker has been stable since admission, but remains confused. History of progressive cognitive decline over the past several months with episodes of more severe confusion. Over the last few days is been more confused. Evaluation in the emergency department was unremarkable as to specific etiology. When she was last here one month ago had significant anemia, which is now resolved. There is no evidence of underlying infection or significant metabolic abnormality. Functional Status: Reports: Tolerating Diet, Ambulating, Urinating - Review of Systems General: Reports: Weakness. Denies: Fever, Chills Pulmonary: Reports: No Symptoms Cardiovascular: Reports: No Symptoms Gastrointestinal: Reports: No Symptoms - Patient Data Vitals - Most Recent: Last Vital Signs Temp 96.8 F 01/24/19 07:00 Pulse 64 01/24/19 07:00 Resp 20 01/24/19 07:00 BP 141/55 H 01/24/19 07:00 Pulse Ox 95 01/24/19 07:00 Weight - Most Recent: 230 lb 1.614 oz I&O - Last 24 Hours: Intake & Output 01/23/19 01/24/19 01/24/19 22:59 06:59 14:59 Intake Total 50 514 Output Total 500 500 Balance -450 14 Lab Results Last 24 Hours: Laboratory Results - last 24 hr 01/23/19 01/23/19 01/23/19 Range/Units 16:28 16:28 16:42 WBC 4.7 (4.5-11.0) K/uL RBC 4.94 (3.30-5.50) M/uL Hgb 13.2 D (12.0-15.0) g/dL Hct 42.4 (36.0-48.0) % MCV 86 (80-98) fL MCH 27 (27-31) pg MCHC 31 L (32-36) % Plt Count 101 L (150-400) K/uL Add Manual Diff Neutrophils % (Manual) (36-66) % Band Neutrophils % (5-11) % Lymphocytes % (Manual) (24-44) % Monocytes % (Manual) (2-6) % Eosinophils % (Manual) (2-4) % Poikilocytosis Anisocytosis Sodium 143 (140-148) mmol/L Potassium 3.2 L (3.6-5.2) mmol/L Chloride 104 (100-108) mmol/L Carbon Dioxide 34 H (21-32) mmol/L Anion Gap 8.2 (5.0-14.0) mmol/L BUN 11 (7-18) mg/dL Creatinine 0.9 (0.6-1.0) mg/dL Est Cr Clr Drug Dosing 49.29 mL/min Estimated GFR (MDRD) > 60 (>60) Glucose 171 H (74-106) mg/dL Calcium 8.7 (8.5-10.1) mg/dL Magnesium (1.8-2.4) mg/dL Troponin I < 0.017 (0.000-0.056) ng/mL Urine Color Yellow Urine Appearance Clear Urine pH 8.0 (4.5-8.0) Ur Specific [place] 1.010 (1.008-1.030) Urine Protein Negative (NEGATIVE) mg/dL Urine Glucose (UA) Negative (NEGATIVE) mg/dL Urine Ketones Negative (NEGATIVE) mg/dL Urine Occult Blood Negative (NEGATIVE) Urine Nitrite Negative (NEGATIVE) Urine Bilirubin Negative (NEGATIVE) Urine Urobilinogen Normal (NORMAL) mg/dL Ur Leukocyte Esterase Negative (NEGATIVE) Urine RBC 0-5 (0-5) Urine WBC 0-5 (0-5) Ur Epithelial Cells Not seen Amorphous Sediment Rare Urine Bacteria Not seen Urine Mucus Rare 01/23/19 01/24/19 01/24/19 Range/Units 17:15 05:14 05:14 WBC 4.6 (4.5-11.0) K/uL RBC 4.78 (3.30-5.50) M/uL Hgb 12.7 (12.0-15.0) g/dL Hct 41.4 (36.0-48.0) % MCV 87 (80-98) fL MCH 27 (27-31) pg MCHC 31 L (32-36) % Plt Count 98 L (150-400) K/uL Add Manual Diff Yes Neutrophils % (Manual) 60 (36-66) % Band Neutrophils % 4 L (5-11) % Lymphocytes % (Manual) 22 L (24-44) % Monocytes % (Manual) 12 H (2-6) % Eosinophils % (Manual) 2 (2-4) % Poikilocytosis Moderate H Anisocytosis Marked H Sodium 146 (140-148) mmol/L Potassium 4.1 (3.6-5.2) mmol/L Chloride 110 H (100-108) mmol/L Carbon Dioxide 30 (21-32) mmol/L Anion Gap 10.1 (5.0-14.0) mmol/L BUN 12 (7-18) mg/dL Creatinine 0.7 (0.6-1.0) mg/dL Est Cr Clr Drug Dosing 62.82 mL/min Estimated GFR (MDRD) > 60 (>60) Glucose 155 H (74-106) mg/dL Calcium 8.5 (8.5-10.1) mg/dL Magnesium 1.7 L 2.7 H D (1.8-2.4) mg/dL Troponin I (0.000-0.056) ng/mL Urine Color Urine Appearance Urine pH (4.5-8.0) Ur Specific [place] (1.008-1.030) Urine Protein (NEGATIVE) mg/dL Urine Glucose (UA) (NEGATIVE) mg/dL Urine Ketones (NEGATIVE) mg/dL Urine Occult Blood (NEGATIVE) Urine Nitrite (NEGATIVE) Urine Bilirubin (NEGATIVE) Urine Urobilinogen (NORMAL) mg/dL Ur Leukocyte Esterase (NEGATIVE) Urine RBC (0-5) Urine WBC (0-5) Ur Epithelial Cells Amorphous Sediment Urine Bacteria Urine Mucus Med Orders - Current: Current Medications Acetaminophen (Tylenol) 650 mg PO Q4H PRN PRN Reason: Pain (Mild 1-3)/fever Hydrocodone Bitart/Acetaminophen ([place] 325-10 Mg) 1 tab PO Q4H PRN PRN Reason: Pain Aspirin (Halfprin) 81 mg PO DAILY [facility] Clonazepam (Klonopin) 1 mg PO BEDTIME [facility] Last Admin: 01/23/19 21:27 Dose: 1 mg Dextrose (Glutose 15) 15 gm PO ONETIME PRN PRN Reason: Hypoglycemia Dextrose/Water (Dextrose 50% In Water) 50 ml IV ONETIME PRN PRN Reason: Hypoglycemia Duloxetine HCl (Cymbalta) 30 mg PO BEDTIME [facility] Last Admin: 01/24/19 00:42 Dose: 30 mg Duloxetine HCl (Cymbalta) 60 mg PO ACBREAKFAST [facility] Enoxaparin Sodium (Lovenox) 40 mg SUBCUT DAILY@2000 [facility] Ferrous Sulfate (Ferrous Sulfate) 325 mg PO BIDMEALS [facility] Insulin Human Lispro (Humalog) 0 unit SUBCUT QIDACANDBED [facility]; Protocol Last Admin: 01/24/19 07:29 Dose: 1 units Insulin Lispro Protam/Lispro Human (Humalog Mix 75-25) 40 unit SUBCUT BIDAC [facility] Metoprolol Succinate (Toprol Xl) 25 mg PO DAILY [facility] (Enalapril Maleate [ Enalapril Maleate] 20mg)*Pom* 40 mg PO BID [place] (Fluticasone/Salmeterol 250/50) * Pom* 1 puff INH BID [place] (Lansoprazole [ Prevacid] 30 Mg)*Pom * 30 mg PO BID [place] [Systane 0.3-0.4% (Eye Drop] *Pom*) 2 drop EYERT BID [place] (Propylene Glycol/Peg 400 [Systane Ultra 0.4-0.3% Eye Drp] 1 drop EYERT Q2H PRN PRN Reason: tearing (Sitagliptin [ (Januvia] 50 Mg)*Pom*) 50 mg PO DAILY [facility] Torsemide 100mg *Pom (*) 50 mg PO DAILY [facility] Sertraline 100 Mg (Tab*Pom*) 1 each PO DAILY [facility] Ondansetron HCl (Zofran) 4 mg IV Q4H PRN PRN Reason: Nausea/Vomiting Polyethylene Glycol (Miralax) 17 gm PO DAILY PRN PRN Reason: Constipation Potassium Chloride (Klor-Con M20) 20 meq PO TIDMEALS [facility] Pregabalin (Lyrica) 150 mg PO BID [facility] Last Admin: 01/24/19 00:41 Dose: 150 mg Sodium Chloride (Saline Flush) 10 ml FLUSH ASDIRECTED PRN PRN Reason: Keep Vein Open Sucralfate (Carafate) 1 gm PO TIDAC [facility] Discontinued Medications Enoxaparin Sodium (Lovenox) 40 mg SUBCUT DAILY [facility] Last Admin: 01/23/19 20:04 Dose: 40 mg Magnesium Sulfate 2 gm/ Premix 50 mls @ 25 mls/hr IV Q6H [facility] Stop: 01/24/19 03:08 Last Admin: 01/24/19 00:49 Dose: 25 mls/hr Sodium Chloride (Normal Saline) 1,000 mls @ 75 mls/hr IV ASDIRECTED [facility] Last Admin: 01/24/19 00:48 Dose: 75 mls/hr Insulin Human Isoph/Insulin Regular (Humulin 70-30) 0 units SUBCUT BID [facility] Last Admin: 01/24/19 00:39 Dose: Not Given Potassium Chloride (Potassium Chloride) 40 meq PO ONETIME ONE Stop: 01/23/19 17:16 Last Admin: 01/23/19 17:21 Dose: 40 meq Potassium Chloride (Klor-Con M20) 40 meq PO ONETIME ONE Stop: 01/23/19 21:01 Last Admin: 01/23/19 21:27 Dose: 40 meq Sertraline HCl (Zoloft) 100 mg PO DAILY [place] Sucralfate (Carafate) 1 gm PO TID [facility] Last Admin: 01/24/19 00:41 Dose: Not Given - Exam Quality Assessment: DVT Prophylaxis General: Alert, Cooperative, Mild Distress. No: Oriented Lungs: Clear to Auscultation, Normal Respiratory Effort Cardiovascular: Regular Rate, Regular Rhythm, No Murmurs GI/Abdominal Exam: Soft, Non-Tender, No Organomegaly, No Distention Extremities: Non-Tender, No Pedal Edema - Problem List Review Problem List Initiated/Reviewed/Updated: Yes - My Orders Last 24 Hours: My Active Orders 01/23/19 17:44 Resuscitation Status Routine 01/23/19 19:09 Patient Status [ADT] Routine Ambulate [RC] QID Blood Glucose Check, Bedside [RC] QIDACANDBED Diabetes Education [RC] Click to Edit Height and Weight [RC] DAILY Intake and Output [RC] QSHIFT Notify Provider Vital Signs [RC] ASDIRECTED Notify Provider [RC] PRN Oxygen Therapy [RC] PRN Peripheral IV Care [RC] . DIRECTED Up With Assistance [RC] ASDIRECTED Up to Chair [RC] QID VTE/DVT Education [RC] Per Unit Routine Vital Signs [RC] Q4H Acetaminophen [Tylenol] 650 mg PO Q4H PRN Acetaminophen/HYDROcodone [[place] 325-10 MG] 1 tab PO Q4H PRN Dextrose 50% in Water 50 ml IV ONETIME PRN Dextrose [Glutose 15] 15 gm PO ONETIME PRN Ondansetron [Zofran] 4 mg IV Q4H PRN Polyethylene Glycol 3350 [MiraLAX] 17 gm PO DAILY PRN Propylene Glycol/Peg 400 [Systane Ultra 0.4-0.3% Eye Drp] 1 drop EYERT Q2H PRN Sodium Chloride 0.9% [Saline Flush] 10 ml FLUSH ASDIRECTED PRN Peripheral IV Insertion Adult [OM.PC] Routine 01/23/19 20:00 Insulin Lispro [HumaLOG] See Protocol SUBCUT QIDACANDBED 01/23/19 21:00 ClonazePAM [KlonoPIN] 1 mg PO BEDTIME DULoxetine [Cymbalta] 30 mg PO BEDTIME Enalapril Maleate [Enalapril Maleate] 40 mg PO BID Fluticasone/Salmeterol [Advair 250-50 Diskus] 1 puff INH BID Lansoprazole [Prevacid] 30 mg PO BID Propylene Glycol/PEG 400/Pf [Systane 0.3-0.4% Eye Drop] 2 drop EYERT BID 01/23/19 23:15 Pregabalin [Lyrica] 150 mg PO BID 01/23/19 Dinner Consistent Carbohydrate Diet [DIET] 01/24/19 07:30 DULoxetine [Cymbalta] 60 mg PO ACBREAKFAST Insulin Lispro Prot/Lispro [HumaLOG Mix 75-25] 40 unit SUBCUT BIDAC 01/24/19 08:00 Ferrous Sulfate 325 mg PO BIDMEALS 01/24/19 09:00 Aspirin [Halfprin] 81 mg PO DAILY Metoprolol Succinate [Toprol XL] 25 mg PO DAILY Non-Formulary Medication [NF Drug] 1 each PO DAILY Potassium Chloride [Klor-Con M20] 20 meq PO TIDMEALS SitaGLIPtin [Januvia] 50 mg PO DAILY Sucralfate [Carafate] 1 gm PO TIDAC Torsemide [Torsemide] 50 mg PO DAILY 01/24/19 09:32 Convert IV to Saline Lock [OM.PC] Routine 01/24/19 11:30 GLUCOSE POC LAB TO COLLECT [POC] QIDACANDBED 01/24/19 16:30 GLUCOSE POC LAB TO COLLECT [POC] QIDACANDBED 01/24/19 20:00 Enoxaparin [Lovenox] 40 mg SUBCUT DAILY@199901/24/19 21:00 GLUCOSE POC LAB TO COLLECT [POC] QIDACANDBED 01/25/19 07:30 GLUCOSE POC LAB TO COLLECT [POC] QIDACANDBED 01/25/19 11:30 GLUCOSE POC LAB TO COLLECT [POC] QIDACANDBED 01/25/19 16:30 GLUCOSE POC LAB TO COLLECT [POC] QIDACANDBED 01/25/19 21:00 GLUCOSE POC LAB TO COLLECT [POC] QIDACANDBED 01/26/19 07:30 GLUCOSE POC LAB TO COLLECT [POC] QIDACANDBED 01/26/19 11:30 GLUCOSE POC LAB TO COLLECT [POC] QIDACANDBED 01/26/19 16:30 GLUCOSE POC LAB TO COLLECT [POC] QIDACANDBED 01/26/19 21:00 GLUCOSE POC LAB TO COLLECT [POC] QIDACANDBED 01/27/19 07:30 GLUCOSE POC LAB TO COLLECT [POC] QIDACANDBED 01/27/19 11:30 GLUCOSE POC LAB TO COLLECT [POC] QIDACANDBED 01/27/19 16:30 GLUCOSE POC LAB TO COLLECT [POC] QIDACANDBED 01/27/19 21:00 GLUCOSE POC LAB TO COLLECT [POC] QIDACANDBED 01/28/19 07:30 GLUCOSE POC LAB TO COLLECT [POC] QIDACANDBED 01/28/19 11:30 GLUCOSE POC LAB TO COLLECT [POC] QIDACANDBED 01/28/19 16:30 GLUCOSE POC LAB TO COLLECT [POC] QIDACANDBED - Plan Plan:: ASSESSMENT AND PLAN Confusion - secondary to progressive chronic neurologic disorder, Primary Lateral Sclerosis. She continue to have decline in abilities to care for self and has confusion to place and time. She does know her Sister and herself, does not where she is or date and time. -Plan for [facility] placement for more structured living situation. 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 Hypokalemia-resolved after potassium replacement MAINTENANCE ISSUES -DVT prophylaxis; Lovenox subcut -GI prophylaxis; continue PPI therapy -[place] catheter; not indicated -Nutrition; consistent carb diet -Nicotine dependence; not required CODE STATUS-FULL ADMISSION STATUS-this patient will be admitted to observation status, expect no more than a one night hospital stay for evaluation and management of problems as outlined above. DISPOSITION-anticipate discharge to Assisted Living or Custodial after the hospital stay. PRIMARY CARE PROVIDER - Dr. Hope HOSPITALIST - Dr. Velazquez
[2019-01-24] MEDS: SUCRALFATE 1 GM PO SCH ×2 (10:01→11:58)
--- NOTE | 2019-01-24 10:02 | PCM.DCSUM1 ---
Discharge Summary - Hospital Course Brief History: Ms. Hooker is a 63-year-old woman who was admitted through the emergency department observation status for further evaluation and management of acute on chronic confusion. - Discharge Data Discharge Date: 01/24/19 Discharge Disposition: Home, Self-Care 01 Condition: Fair - Discharge Diagnosis/Problem(s) (1) Dementia SNOMED Code(s): 90432028 ICD Code: F03.90 - UNSPECIFIED DEMENTIA WITHOUT BEHAVIORAL DISTURBANCE Status: Acute Current Visit: Yes (2) Confusion SNOMED Code(s): 622178491 ICD Code: R41.0 - DISORIENTATION, UNSPECIFIED Status: Acute Priority: High Current Visit: Yes (3) COPD (chronic obstructive pulmonary disease) SNOMED Code(s): 28011600 ICD Code: J44.9 - CHRONIC OBSTRUCTIVE PULMONARY DISEASE, UNSPECIFIED Status : Chronic Priority: Low Current Visit: No Qualifiers: COPD type: unspecified COPD Qualified Code(s): J44.9 - Chronic obstructive pulmonary disease, unspecified (4) Diabetes mellitus, insulin dependent (IDDM), controlled SNOMED Code(s): 13124275, 968388624 ICD Code: E11.9 - TYPE 2 DIABETES MELLITUS WITHOUT COMPLICATIONS; Z79.4 - CUSTODIAL (CURRENT) USE OF INSULIN Status: Chronic Priority: Medium Current Visit: Yes (5) Primary lateral sclerosis SNOMED Code(s): 36920874 ICD Code: G12.29 - OTHER MOTOR NEURON DISEASE Status: Chronic Current Visit: No - Patient Summary/Data Hospital Course: Ms. Hooker is a 63-year-old woman who was admitted to observation status because of acute on chronic confusion. She has a history of progressive cognitive decline over the past several months with episodes of more severe confusion. Over the last few days has been more confused. Evaluation in the emergency department was unremarkable as to specific etiology. When she was last here one month ago had significant anemia, which is now resolved. There was no evidence of underlying infection or significant metabolic abnormality. Follow-up labs obtained on the morning after admission and remained unremarkable except for mild to moderate thrombocytopenia. She remained somewhat confused although improved from what she had been at the time of admission. Mild abnormalities in potassium and magnesium level were corrected during hospital stay with supplemental doses of magnesium and potassium. She is no longer felt to be safe to live semi-independently in assisted living and will be discharged to long term for ongoing care. Activity will be as tolerated and she will resume a diabetic diet. Follow-up appointment will be scheduled with her primary care provider within one week. She should also have neuro psychology consult previously scheduled for evaluation of her dementia. - Patient Instructions Diet: Diabetic Diet Activity: As Tolerated Other/Special Instructions: Please schedule follow-up appointment with primary care provider within one week. Please check to make sure patient has appointment with neuropsychology for evaluation of dementia. - Discharge Plan *PRESCRIPTION DRUG MONITORING PROGRAM REVIEWED*: Not Applicable *COPY OF PRESCRIPTION DRUG MONITORING REPORT IN PATIENT DREAD: Not Applicable Home Medications: Home Meds Aspirin [Adult Low Dose Aspirin EC] 81 mg PO DAILY 04/16/13 [History] Lactulose [Generlac] 30 ml PO BID 04/16/13 [History] Magnesium Hydroxide [Milk of Magnesia] 30 ml PO Q48H PRN 03/31/16 [History] Sertraline [Zoloft] 100 mg PO DAILY 03/31/16 [History] Dextrose [Glucose] 1 tab PO Q1H PRN 06/12/16 [History] Menthol/Methyl Salicylate [Pain Relieving Rub Cream] 1 applic TOP TID 06/12/16 [ History] Propylene Glycol/Peg 400 [Systane Ultra 0.4-0.3% Eye Drp] 1 drop EYERT Q2HR PRN 06/12/16 [History] Calcium Carbonate/Vitamin D3 [Calcium 600 + Vit D 400 Softgl] 1 tab PO BID 10/23 [History] Chlorhexidine Gluconate 15 ml PO BID 10/23/18 [History] DULoxetine HCl [Duloxetine HCl] 60 mg PO ACBREAKFAST 10/23/18 [History] Enalapril Maleate 40 mg PO BID 10/23/18 [History] Fluticasone Propionate [Flonase Allergy Relief] 2 spray KASIA ACBREAKFAST [History] Fluticasone/Salmeterol [Advair 250-50 Diskus] 1 puff INH BID 10/23/18 [History] Lansoprazole [Prevacid] 30 mg PO BID 10/23/18 [History] Loratadine [Claritin] 10 mg PO BEDTIME 10/23/18 [History] Metoprolol Succinate [Toprol XL] 25 mg PO DAILY 10/23/18 [History] Potassium Chloride 20 meq PO TID 10/23/18 [History] Propylene Glycol/PEG 400/Pf [Systane 0.3-0.4% Eye Drop] 2 drop EYERT BID [History] SitaGLIPtin [Januvia] 50 mg PO DAILY 10/23/18 [History] Sucralfate [Carafate] 1 gm PO TID 10/23/18 [History] DULoxetine HCl [Duloxetine HCl] 30 mg PO BEDTIME #30 capsule. 10/28/18 [Rx] Hydrocodone/Acetaminophen [Hydrocodon-Acetaminophn 10-325] 1 tab PO Q4H PRN #60 tablet 10/28/18 [Rx] Nystatin [Nystop] 1 gm TOP BID #1 bottle 10/28/18 [Rx] Pregabalin [Lyrica] 150 mg PO BID #60 capsule 10/28/18 [Rx] clonazePAM [Klonopin] 1 mg PO BEDTIME #30 tablet 10/28/18 [Rx] Alendronate Sodium 1 tab PO ASDIRECTED 12/24/18 [History] Loperamide HCl [Imodium A-D] 2 mg PO ASDIRECTED 12/24/18 [History] Torsemide 50 mg PO DAILY 12/24/18 [History] Ferrous Sulfate 325 mg PO BIDMEALS #60 tablet 12/27/18 [Rx] Insulin Lispro Prot/Lispro [HumaLOG Mix 75-25] 40 units SUBCNJ BID #0 12/27/18 [ Rx] Referrals: Ayush Hope MD [Primary Care Provider] - - Discharge Summary/Plan Comment DC Time >30 min.: No - Patient Data Vitals - Most Recent: Last Vital Signs Temp 96.8 F 01/24/19 07:00 Pulse 64 01/24/19 07:00 Resp 20 01/24/19 07:00 BP 141/55 H 01/24/19 07:00 Pulse Ox 95 01/24/19 07:00 Weight - Most Recent: 230 lb 1.614 oz I&O - Last 24 hours: Intake & Output 01/23/19 01/24/19 01/24/19 22:59 06:59 14:59 Intake Total 50 514 750 Output Total 500 500 500 Balance -450 14 250 Lab Results - Last 24 hrs: Laboratory Results - last 24 hr 01/23/19 01/23/19 01/23/19 Range/Units 16:28 16:28 16:42 WBC 4.7 (4.5-11.0) K/uL RBC 4.94 (3.30-5.50) M/uL Hgb 13.2 D (12.0-15.0) g/dL Hct 42.4 (36.0-48.0) % MCV 86 (80-98) fL MCH 27 (27-31) pg MCHC 31 L (32-36) % Plt Count 101 L (150-400) K/uL Add Manual Diff Neutrophils % (Manual) (36-66) % Band Neutrophils % (5-11) % Lymphocytes % (Manual) (24-44) % Monocytes % (Manual) (2-6) % Eosinophils % (Manual) (2-4) % Poikilocytosis Anisocytosis Sodium 143 (140-148) mmol/L Potassium 3.2 L (3.6-5.2) mmol/L Chloride 104 (100-108) mmol/L Carbon Dioxide 34 H (21-32) mmol/L Anion Gap 8.2 (5.0-14.0) mmol/L BUN 11 (7-18) mg/dL Creatinine 0.9 (0.6-1.0) mg/dL Est Cr Clr Drug Dosing 49.29 mL/min Estimated GFR (MDRD) > 60 (>60) Glucose 171 H (74-106) mg/dL Calcium 8.7 (8.5-10.1) mg/dL Magnesium (1.8-2.4) mg/dL Troponin I < 0.017 (0.000-0.056) ng/mL Urine Color Yellow Urine Appearance Clear Urine pH 8.0 (4.5-8.0) Ur Specific Starlight 1.010 (1.008-1.030) Urine Protein Negative (NEGATIVE) mg/dL Urine Glucose (UA) Negative (NEGATIVE) mg/dL Urine Ketones Negative (NEGATIVE) mg/dL Urine Occult Blood Negative (NEGATIVE) Urine Nitrite Negative (NEGATIVE) Urine Bilirubin Negative (NEGATIVE) Urine Urobilinogen Normal (NORMAL) mg/dL Ur Leukocyte Esterase Negative (NEGATIVE) Urine RBC 0-5 (0-5) Urine WBC 0-5 (0-5) Ur Epithelial Cells Not seen Amorphous Sediment Rare Urine Bacteria Not seen Urine Mucus Rare 01/23/19 01/24/19 01/24/19 Range/Units 17:15 05:14 05:14 WBC 4.6 (4.5-11.0) K/uL RBC 4.78 (3.30-5.50) M/uL Hgb 12.7 (12.0-15.0) g/dL Hct 41.4 (36.0-48.0) % MCV 87 (80-98) fL MCH 27 (27-31) pg MCHC 31 L (32-36) % Plt Count 98 L (150-400) K/uL Add Manual Diff Yes Neutrophils % (Manual) 60 (36-66) % Band Neutrophils % 4 L (5-11) % Lymphocytes % (Manual) 22 L (24-44) % Monocytes % (Manual) 12 H (2-6) % Eosinophils % (Manual) 2 (2-4) % Poikilocytosis Moderate H Anisocytosis Marked H Sodium 146 (140-148) mmol/L Potassium 4.1 (3.6-5.2) mmol/L Chloride 110 H (100-108) mmol/L Carbon Dioxide 30 (21-32) mmol/L Anion Gap 10.1 (5.0-14.0) mmol/L BUN 12 (7-18) mg/dL Creatinine 0.7 (0.6-1.0) mg/dL Est Cr Clr Drug Dosing 62.82 mL/min Estimated GFR (MDRD) > 60 (>60) Glucose 155 H (74-106) mg/dL Calcium 8.5 (8.5-10.1) mg/dL Magnesium 1.7 L 2.7 H D (1.8-2.4) mg/dL Troponin I (0.000-0.056) ng/mL Urine Color Urine Appearance Urine pH (4.5-8.0) Ur Specific Starlight (1.008-1.030) Urine Protein (NEGATIVE) mg/dL Urine Glucose (UA) (NEGATIVE) mg/dL Urine Ketones (NEGATIVE) mg/dL Urine Occult Blood (NEGATIVE) Urine Nitrite (NEGATIVE) Urine Bilirubin (NEGATIVE) Urine Urobilinogen (NORMAL) mg/dL Ur Leukocyte Esterase (NEGATIVE) Urine RBC (0-5) Urine WBC (0-5) Ur Epithelial Cells Amorphous Sediment Urine Bacteria Urine Mucus Med Orders - Current: Current Medications Acetaminophen (Tylenol) 650 mg PO Q4H PRN PRN Reason: Pain (Mild 1-3)/fever Hydrocodone Bitart/Acetaminophen ([place] 325-10 Mg) 1 tab PO Q4H PRN PRN Reason: Pain Aspirin (Halfprin) 81 mg PO DAILY [facility] Clonazepam (Klonopin) 1 mg PO BEDTIME [facility] Last Admin: 01/23/19 21:27 Dose: 1 mg Dextrose (Glutose 15) 15 gm PO ONETIME PRN PRN Reason: Hypoglycemia Dextrose/Water (Dextrose 50% In Water) 50 ml IV ONETIME PRN PRN Reason: Hypoglycemia Duloxetine HCl (Cymbalta) 30 mg PO BEDTIME [facility] Last Admin: 01/24/19 00:42 Dose: 30 mg Duloxetine HCl (Cymbalta) 60 mg PO ACBREAKFAST [facility] Enoxaparin Sodium (Lovenox) 40 mg SUBCUT DAILY@2000 [facility] Ferrous Sulfate (Ferrous Sulfate) 325 mg PO BIDMEALS [facility] Insulin Human Lispro (Humalog) 0 unit SUBCUT QIDACANDBED [facility]; Protocol Last Admin: 01/24/19 07:29 Dose: 1 units Insulin Lispro Protam/Lispro Human (Humalog Mix 75-25) 40 unit SUBCUT BIDAC [facility] Metoprolol Succinate (Toprol Xl) 25 mg PO DAILY [facility] (Enalapril Maleate [ Enalapril Maleate] 20mg)*Pom* 40 mg PO BID [facility] (Fluticasone/Salmeterol 250/50) * Pom* 1 puff INH BID [facility] (Lansoprazole [ Prevacid] 30 Mg)*Pom * 30 mg PO BID [place] [Systane 0.3-0.4% (Eye Drop] *Pom*) 2 drop EYERT BID [place] (Propylene Glycol/Peg 400 [Systane Ultra 0.4-0.3% Eye Drp] 1 drop EYERT Q2H PRN PRN Reason: tearing (Sitagliptin [ (Januvia] 50 Mg)*Pom*) 50 mg PO DAILY [facility] Torsemide 100mg *Pom (*) 50 mg PO DAILY [facility] Sertraline 100 Mg (Tab*Pom*) 1 each PO DAILY [facility] Ondansetron HCl (Zofran) 4 mg IV Q4H PRN PRN Reason: Nausea/Vomiting Polyethylene Glycol (Miralax) 17 gm PO DAILY PRN PRN Reason: Constipation Potassium Chloride (Klor-Con M20) 20 meq PO TIDMEALS [facility] Pregabalin (Lyrica) 150 mg PO BID [facility] Last Admin: 01/24/19 00:41 Dose: 150 mg Sodium Chloride (Saline Flush) 10 ml FLUSH ASDIRECTED PRN PRN Reason: Keep Vein Open Sucralfate (Carafate) 1 gm PO TIDAC [facility] Discontinued Medications Enoxaparin Sodium (Lovenox) 40 mg SUBCUT DAILY [facility] Last Admin: 01/23/19 20:04 Dose: 40 mg Magnesium Sulfate 2 gm/ Premix 50 mls @ 25 mls/hr IV Q6H [facility] Stop: 01/24/19 03:08 Last Admin: 01/24/19 00:49 Dose: 25 mls/hr Sodium Chloride (Normal Saline) 1,000 mls @ 75 mls/hr IV ASDIRECTED [facility] Last Admin: 01/24/19 00:48 Dose: 75 mls/hr Insulin Human Isoph/Insulin Regular (Humulin 70-30) 0 units SUBCUT BID [facility] Last Admin: 01/24/19 00:39 Dose: Not Given Potassium Chloride (Potassium Chloride) 40 meq PO ONETIME ONE Stop: 01/23/19 17:16 Last Admin: 01/23/19 17:21 Dose: 40 meq Potassium Chloride (Klor-Con M20) 40 meq PO ONETIME ONE Stop: 01/23/19 21:01 Last Admin: 01/23/19 21:27 Dose: 40 meq Sertraline HCl (Zoloft) 100 mg PO DAILY [facility] Sucralfate (Carafate) 1 gm PO TID [facility] Last Admin: 01/24/19 00:41 Dose: Not Given - Exam Quality Assessment: Reports: DVT Prophylaxis General: Reports: Alert, Cooperative, No Acute Distress. Denies: Oriented Lungs: Reports: Clear to Auscultation, Normal Respiratory Effort Cardiovascular: Reports: Regular Rate, Regular Rhythm, No Murmurs GI/Abdominal Exam: Soft, Non-Tender, No Organomegaly, No Distention Extremities: Non-Tender, Pedal Edema
[2019-01-24] MEDS: Potassium Chloride 20 MEQ Tab.ER PO SCH ×2 (10:09→14:07)
[2019-01-24] MEDS: SALMETEROL INH SCH ×3 (10:21→10:25)
[2019-01-24] MEDS: FLUTICASONE INH SCH ×3 (10:21→10:25)
[2019-01-24] MEDS: LANSOPRAZOLE 30 MG PO SCH ×2 (10:24→10:25)
[2019-01-24] MEDS: EYE EYERT SCH ×2 (10:26→10:27)
[2019-01-24] MEDS: SYSTANE EYERT SCH ×2 (10:26→10:27)
[2019-01-24 11:58] VITALS: BP 133/66; PULSE 65
[2019-01-24] MEDS ORDERED: Enoxaparin 40 MG/0.4 ML Syringe SUBCUT SCH (20:00)
== END 2019-01-24 13:00 | disposition home or self-care (01) ==
LOC: JP.ED 15:07 → JP.MS 17:39
PROVIDERS: ADMIT Hospitalist; ATTEND Hospitalist
DX: G12.23 Primary lateral sclerosis (principal); R41.0 Disorientation, unspecified; E87.6 Hypokalemia; I25.10 Atherosclerotic heart disease of native coronary artery without angina pectoris; I10 Essential (primary) hypertension; I25.2 Old myocardial infarction; E11.9 Type 2 diabetes mellitus without complications; E78.00 Pure hypercholesterolemia, unspecified; F03.90 Unspecified dementia, unspecified severity, without behavioral disturbance, psychotic disturbance, mood disturbance, and anxiety; J44.9 Chronic obstructive pulmonary disease, unspecified; D69.6 Thrombocytopenia, unspecified; Z88.1 Allergy status to other antibiotic agents; Z88.2 Allergy status to sulfonamides; Z88.8 Allergy status to other drugs, medicaments and biological substances; Z91.040 Latex allergy status; Z91.041 Radiographic dye allergy status; Z91.048 Other nonmedicinal substance allergy status; Z79.4 Long term (current) use of insulin; Z79.82 Long term (current) use of aspirin; Z79.51 Long term (current) use of inhaled steroids; Z79.899 Other long term (current) drug therapy
CPT/HCPCS: 36415; 80048; 81001; 82962; 83735; 84484; 85025; 85027; 96361; 96365; 96366; 96372; 99285; A9270; G0378; J1650; J1815; J3475; J7030; 99217; 99218; 99284

== ENCOUNTER 2020-04-03 23:02 | Emergency (ER) | payer MEDICARE ==
[2020-04-03 23:11] VITALS: BP 138/61; PULSE 78
--- NOTE | 2020-04-03 23:31 | EDM.PDOC ---
ED HPI GENERAL MEDICAL PROBLEM - General Chief Complaint: General Stated Complaint: [facility] Time Seen by Provider: 04/03/20 23:15 Source of Information: Reports: Patient History Limitations: Reports: No Limitations - History of Present Illness INITIAL COMMENTS - FREE TEXT/NARRATIVE: 65-year-old female with a history of cirrhosis, also has a history of hepatic encephalopathy with elevated ammonia levels was confused today so they katherin her ammonia level this morning. 12 hours later this morning they got the result back and it was 111 so she was sent to the emergency room. She is mildly confused but very she has had 3 doses of lactulose today. No fevers or chills, no illness. Denies pain. Onset: Unknown/Unsure Associated Symptoms: Reports: Confusion. Denies: Loss of Appetite, Malaise, Nausea/Vomiting, Shortness of Breath - Related Data Allergies Allergy/AdvReac Type Severity Reaction Status Date / Time adhesive Allergy Cannot Verified 04/03/20 23:24 Remember atorvastatin calcium Allergy Cannot Verified 04/03/20 23:24 [From Lipitor] Remember clindamycin Allergy Cannot Verified 04/03/20 23:24 Remember cyclobenzaprine HCl Allergy Cannot Verified 04/03/20 23:24 [From Flexeril] Remember fentanyl Allergy Rash Verified 04/03/20 23:24 gabapentin Allergy Cannot Verified 04/03/20 23:24 Remember insulin glargine, human Allergy Rash Verified 04/03/20 23:24 recombin. a [From Lantus] Iodinated Contrast Media Allergy Cannot Verified 04/03/20 23:24 [Iodinated Contrast Media - Remember IV Dye] iodine Allergy Hives Verified 04/03/20 23:24 iopamidol Allergy Hives Verified 04/03/20 23:24 lactose Allergy Cannot Verified 04/03/20 23:24 Remember Latex, Natural Rubber Allergy Cannot Verified 04/03/20 23:24 Remember levofloxacin [From Levaquin] Allergy Rash Verified 04/03/20 23:24 lisinopril Allergy Cannot Verified 04/03/20 23:24 Remember oxybutynin Allergy Cannot Verified 04/03/20 23:24 Remember piperacillin Allergy Hives Verified 04/03/20 23:24 piperacillin sodium Allergy Hives Verified 04/03/20 23:24 [From Zosyn] red dye Allergy Cannot Verified 04/03/20 23:24 Remember silver Allergy Rash Verified 04/03/20 23:24 [From Tegaderm AG Mesh] simvastatin [From Zocor] Allergy Cannot Verified 04/03/20 23:24 Remember Sulfa (Sulfonamide Allergy Hives Verified 04/03/20 23:24 Antibiotics) tazobactam Allergy Hives Verified 04/03/20 23:24 tazobactam sodium Allergy Hives Verified 04/03/20 23:24 [From Zosyn] varenicline [Varenicline] Allergy Cannot Verified 04/03/20 23:24 Remember varenicline tartrate Allergy Cannot Verified 04/03/20 23:24 [From Chantix] Remember venlafaxine HCl Allergy Cannot Verified 04/03/20 23:24 [From Effexor] Remember baclofen AdvReac Irritabilit Verified 04/03/20 23:24 y esomeprazole AdvReac Diarrhea Verified 04/03/20 23:24 esomeprazole magnesium AdvReac Diarrhea Verified 04/03/20 23:24 [From Nexium] exenatide AdvReac Tachycardia Verified 04/03/20 23:24 insulin detemir AdvReac Nausea and Verified 04/03/20 23:24 [From Levemir] Vomiting metformin AdvReac Nausea Verified 04/03/20 23:24 promethazine AdvReac Nausea and Verified 04/03/20 23:24 Vomiting promethazine HCl AdvReac Nausea and Verified 04/03/20 23:24 [From Phenergan] Vomiting Home Meds: Home Meds Aspirin [Adult Low Dose Aspirin EC] 81 mg PO DAILY 04/16/13 [History] Lactulose [Generlac] 30 ml PO TID 04/16/13 [History] Magnesium Hydroxide [Milk of Magnesia] 30 ml PO Q48H PRN 03/31/16 [History] Sertraline [Zoloft] 100 mg PO DAILY 03/31/16 [History] Dextrose [Glucose] 1 tab PO Q1H PRN 06/12/16 [History] Menthol/Methyl Salicylate [Pain Relieving Rub Cream] 1 applic TOP TID 06/12/16 [History] Calcium Carbonate/Vitamin D3 [Calcium 600 + Vit D 400 Softgl] 1 tab PO BID 10/23/18 [History] Chlorhexidine Gluconate 15 ml PO BID 10/23/18 [History] DULoxetine HCl [Duloxetine HCl] 60 mg PO ACBREAKFAST 10/23/18 [History] Enalapril Maleate 40 mg PO BID 10/23/18 [History] Fluticasone Propion/Salmeterol [Advair 250-50 Diskus] 1 puff INH BID 10/23/18 [History] Fluticasone Propionate [Flonase Allergy Relief] 2 spray KASIA ACBREAKFAST 10/23/18 [History] Lansoprazole [Prevacid] 30 mg PO BID 10/23/18 [History] Loratadine [Claritin] 10 mg PO BEDTIME 10/23/18 [History] Metoprolol Succinate [Toprol XL] 25 mg PO DAILY 10/23/18 [History] Potassium Chloride 20 meq PO TID 10/23/18 [History] SitaGLIPtin [Januvia] 100 mg PO DAILY 10/23/18 [History] Sucralfate [Carafate] 1 gm PO TID 10/23/18 [History] DULoxetine HCl [Duloxetine HCl] 30 mg PO BEDTIME #30 capsule. 10/28/18 [Rx] Nystatin [Nystop] 1 gm TOP BID #1 bottle 10/28/18 [Rx] Pregabalin [Lyrica] 150 mg PO BID #60 capsule 10/28/18 [Rx] clonazePAM [Klonopin] 1 mg PO BEDTIME #30 tablet 10/28/18 [Rx] Alendronate Sodium 1 tab PO ASDIRECTED 12/24/18 [History] Loperamide HCl [Imodium A-D] 2 mg PO ASDIRECTED 12/24/18 [History] Torsemide 50 mg PO DAILY 12/24/18 [History] Ferrous Sulfate 325 mg PO BIDMEALS #60 tablet 12/27/18 [Rx] Insulin Lispro Prot/Lispro [HumaLOG Mix 75-25] 55 unit INJECT DAILY 01/16/20 [History] Latanoprost/Pf [Latanoprost 0.005% Eye Drop] 1 drop OP BEDTIME 01/16/20 [History] Mirabegron [Myrbetriq] 25 mg PO BEDTIME 01/16/20 [History] Sertraline [Zoloft] 25 mg PO DAILY 01/16/20 [History] Past Medical History HEENT History: Reports: Allergic Rhinitis, Impaired Vision Cardiovascular History: Reports: CAD, High Cholesterol, Hypertension, PR Respiratory History: Reports: Bronchitis, Recurrent, Pneumonia, Recurrent, SOB Other Respiratory History: home O2 at night Gastrointestinal History: Reports: Chronic Constipation, Chronic Diarrhea, Gastritis, GERD, Hiatal Hernia Genitourinary History: Reports: Urinary Incontinence [employer]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 History: Reports: Dysfunctional Uterine Bleeding, Musculoskeletal History: Reports: Back Pain, Chronic Other Musculoskeletal History: primary lateral sclerosis Neurological History: Reports: None Psychiatric History: Reports: Anxiety, Panic Attack Endocrine/Metabolic History: Reports: Diabetes, Type II, IDDM, Obesity/BMI 30+, Other (See Below) Other Endocrine/Metabolic History: PLS Hematologic History: Reports: Blood Transfusion(s) Immunologic History: Reports: None Oncologic (Cancer) History: Reports: None Dermatologic History: Reports: Decubitus Ulcer - Infectious Disease History Infectious Disease History: Reports: Chicken Pox, Measles, Mumps Other Infectious Disease History: unable to obtain - Past Surgical History Head Surgeries/Procedures: Reports: None HEENT Surgical History: Reports: None Cardiovascular Surgical History: Reports: None Respiratory Surgical History: Reports: None GI Surgical History: Reports: Appendectomy, Cholecystectomy, Colonoscopy Female Surgical History: Reports: D&C, Hysterectomy, Tubal Ligation Endocrine Surgical History: Reports: None Neurological Surgical History: Reports: None, Spinal Fusion Musculoskeletal Surgical History: Reports: Hip Replacement Dermatological Surgical History: Reports: None Social & Family History - Family History Family Medical History: Unobtainable - Tobacco Use Smoking Status *Q: Former Smoker Used Tobacco, but Quit: Yes Month/Year Tobacco Last Used: 2014 Second Hand Smoke Exposure: No - Caffeine Use Caffeine Use: Reports: Coffee, Soda - Recreational Drug Use Recreational Drug Use: No - Living Situation & Occupation Living situation: Reports: Single, Assisted Living Occupation: Disabled ED ROS GENERAL - Review of Systems Review Of Systems: See Below Constitutional: Denies: Fever, Chills Respiratory: Denies: Shortness of Breath Cardiovascular: Denies: Chest Pain GI/Abdominal: Denies: Nausea, Vomiting Skin: Reports: No Symptoms Neurological: Reports: Confusion. Denies: Headache ED EXAM, GENERAL - Physical Exam Exam: See Below Exam Limited By: No Limitations General Appearance: Alert, No Apparent Distress Eye Exam: Bilateral Eye: Normal Inspection (No jaundice) Head: Atraumatic Respiratory/Chest: No Respiratory Distress Cardiovascular: Regular Rate, Rhythm GI/Abdominal: Soft, Non-Tender Neurological: Alert, Oriented Psychiatric: Other (Patient appears to be carrying on a normal conversation, answering questions appropriately and exhibits very little confusion at this time) Skin Exam: Warm, Dry Course - Vital Signs Last Recorded V/S: Last Vital Signs Temp 97.7 F 04/03/20 23:16 Pulse 78 04/03/20 23:16 Resp 16 04/03/20 23:16 BP 138/61 04/03/20 23:16 Pulse Ox 92 L 04/03/20 23:16 - Orders/Labs/Meds Labs: Laboratory Tests 04/03/20 04/03/20 04/03/20 Range/Units 23:29 23:29 23:29 WBC 6.2 (4.5-11.0) K/uL RBC 4.54 (3.30-5.50) M/uL Hgb 14.2 (12.0-15.0) g/dL Hct 42.2 (36.0-48.0) % MCV 93 (80-98) fL MCH 31 (27-31) pg MCHC 34 (32-36) % Plt Count 95 L (150-400) K/uL Neut % (Auto) 57 (36-66) % Lymph % (Auto) 21 L (24-44) % [place] % (Auto) 18 H (2-6) % Eos % (Auto) 4 (2-4) % Baso % (Auto) 1 (0-1) % Sodium 139 L (140-148) mmol/L Potassium 3.6 (3.6-5.2) mmol/L Chloride 102 (100-108) mmol/L Carbon Dioxide 30 (21-32) mmol/L Anion Gap 10.6 (5.0-14.0) mmol/L BUN 18 (7-18) mg/dL Creatinine 1.0 (0.6-1.0) mg/dL Est Cr Clr Drug Dosing 45.16 mL/min Estimated GFR (MDRD) 55 L (>60) Glucose 193 H (74-106) mg/dL Calcium 8.6 (8.5-10.1) mg/dL Total Bilirubin 0.9 (0.2-1.0) mg/dL AST 36 (15-37) U/L ALT 32 (12-78) U/L Alkaline Phosphatase 80 (46-116) U/L Ammonia 55 H (11-32) mmol/L Total Protein 6.5 (6.4-8.2) g/dL Albumin 2.6 L (3.4-5.0) g/dL Globulin 3.9 H (2.3-3.5) g/dL Albumin/Globulin Ratio 0.7 L (1.2-2.2) - Re-Assessments/Exams Free Text/Narrative Re-Assessment/Exam: 04/03/20 23:31 CBC, CMP and ammonia level were obtained. 04/04/20 00:06 Lab return very reassuring normal CBC, CMP shows normal potassium she is not anemic. Ammonia level is 55. She will continue her current medications and go back to the assisted. Departure - Departure Time of Disposition: 00:32 Disposition: DC/Tfer to [employer] [facility] 61 Clinical Impression: Hepatic encephalopathy, Hyperammonemia - Discharge Information Instructions: Hepatic Encephalopathy Referrals: PCP,None [Primary Care Provider] - Forms: ED Department Discharge Care Plan Goals: Continue with current medications and recheck as needed. Encourage hydration. Sepsis Event Note (ED) - Evaluation Sepsis Screening Result: No Definite Risk - Focused Exam Vital Signs: Vital Signs Temp Pulse Resp BP Pulse Ox 04/03/20 23:16 97.7 F 78 16 138/61 92 L 04/03/20 23:10 97.7 F 78 16 138/61 92 L
== END 2020-04-04 00:31 ==
LOC: JP.ED 23:02
DX: K72.90 Hepatic failure, unspecified without coma (principal); E72.20 Disorder of urea cycle metabolism, unspecified; I10 Essential (primary) hypertension; E78.00 Pure hypercholesterolemia, unspecified; I25.10 Atherosclerotic heart disease of native coronary artery without angina pectoris; I25.2 Old myocardial infarction; K21.9 Gastro-esophageal reflux disease without esophagitis; F41.9 Anxiety disorder, unspecified; E11.9 Type 2 diabetes mellitus without complications; E66.9 Obesity, unspecified; Z68.42 Body mass index [BMI] 45.0-49.9, adult; Z90.49 Acquired absence of other specified parts of digestive tract; Z90.710 Acquired absence of both cervix and uterus; Z87.891 Personal history of nicotine dependence; Z91.048 Other nonmedicinal substance allergy status; Z88.8 Allergy status to other drugs, medicaments and biological substances; Z91.041 Radiographic dye allergy status; Z91.011 Allergy to milk products; Z91.040 Latex allergy status; Z88.1 Allergy status to other antibiotic agents; Z88.2 Allergy status to sulfonamides; Z79.82 Long term (current) use of aspirin; Z79.899 Other long term (current) drug therapy; Z79.4 Long term (current) use of insulin
CPT/HCPCS: 36415; 80053; 82140; 85025; 99284; 99285

== ENCOUNTER 2020-09-24 07:47 | Day surgery (SDC) | payer MEDICARE ==
[2020-09-24] MEDS ORDERED: Sodium Chloride 0.9% 10 ML Syringe FLUSH PRN (08:30)
[2020-09-24 08:41] VITALS: BP 117/65; PULSE 64
--- NOTE | 2020-09-24 15:09 | OR ---
DATE OF PROCEDURE: 09/24/2020 SURGEON: Dottie Rodrigues MD POSTOPERATIVE CARE: Postoperative care will be provided mainly at the [address] [place] [address] [facility] in conjunction with [facility]. PREOPERATIVE DIAGNOSIS: Cataract, right eye. POSTOPERATIVE DIAGNOSIS: Cataract, right eye. PROCEDURE: Phacoemulsification with intraocular lens placement, right eye. ANESTHESIA: Topical and intracameral. ESTIMATED BLOOD LOSS: Minimal. COMPLICATIONS: None. PATHOLOGY SPECIMENS: None. SURGICAL FINDINGS: None. INDICATION FOR PROCEDURE: The patient is a 65-year-old female with history of a visually significant cataract in the right eye, which interfered with activities of daily living. This consisted of a nuclear sclerosis cataract. Following careful discussion of the risks, benefits and alternatives to cataract extraction with intraocular lens placement including blindness and , the patient elected to proceed, and informed, written consent was obtained prior to the procedure. DESCRIPTION OF THE PROCEDURE: The patient was previously identified, and a monserrat placed above the right eye. All sources, including the patient, indicated that the right eye was the correct eye. The patient was subsequently taken to the operating room where standard monitors were applied. The patient was then prepped and draped in the usual sterile fashion for ophthalmic surgery. Attention was first directed at the 12 o'clock position where a paracentesis port was fashioned. Shugar solution followed by Viscoat was instilled into the eye. Attention was then directed to the 8:30 position where a triplanar incision was made in a near-clear manner using a keratome. A continuous capsulorrhexis was then made using a combination of the cystotome and Utrata forceps. Hydrodissection was achieved using a balanced salt solution, and the lens rotated nicely. Phacoemulsification was then done using a modified [id number] technique without complication. Phaco time was 7.69 CDE. The remaining cortex was removed using the irrigation/aspiration handpiece. Provisc was then instilled into the eye. A Technis lens, model DCB00, at 23.5 diopters was then placed in the capsular bag using an [place] injector. The remaining viscoelastic was removed using the irrigation/aspiration forceps. All wounds were then checked and found to be watertight. The lid speculum and drapes were removed. Maxitrol ointment was placed in the patient's right eye, and the eye was shielded. The patient tolerated the procedure well. The patient was instructed to follow up tomorrow. All needle and sponge counts were correct at the end of the procedure. Dottie Rodrigues MD /[id number]
== END 2020-09-24 10:15 ==
LOC: JP.SDS 07:47
PROVIDERS: ATTEND Ophthalmology
DX: H25.11 Age-related nuclear cataract, right eye (principal); I10 Essential (primary) hypertension; Z88.8 Allergy status to other drugs, medicaments and biological substances; Z91.041 Radiographic dye allergy status; Z88.2 Allergy status to sulfonamides; Z91.040 Latex allergy status; Z91.09 Other allergy status, other than to drugs and biological substances
CPT/HCPCS: V2632

== ENCOUNTER 2020-10-08 08:00 | Day surgery (SDC) | payer MEDICARE ==
[~2020-10-08 08:00] MED LIST: Sodium Chloride 0.9% 10 ML Syringe FLUSH PRN
[2020-10-08 09:58] VITALS: BP 138/63; PULSE 68
--- NOTE | 2020-10-08 14:40 | OR ---
DATE OF PROCEDURE: 10/08/2020 SURGEON: Dottie Rodrigues MD POSTOPERATIVE CARE: Postoperative care will be provided mainly at the [address] [place] [address] [facility] in conjunction with [facility]. PREOPERATIVE DIAGNOSIS: Cataract, left eye. POSTOPERATIVE DIAGNOSIS: Cataract, left eye. PROCEDURE: Phacoemulsification with intraocular lens placement, left eye. ANESTHESIA: Topical and intracameral. ESTIMATED BLOOD LOSS: Minimal. COMPLICATIONS: None. PATHOLOGY SPECIMENS: None. SURGICAL FINDINGS: None. INDICATION FOR PROCEDURE: The patient is a 65-year-old female with history of a visually significant cataract in the left eye, which interfered with activities of daily living. This consisted of a nuclear sclerosis cataract. Following careful discussion of the risks, benefits and alternatives to cataract extraction with intraocular lens placement including blindness and , the patient elected to proceed, and informed, written consent was obtained prior to the procedure. DESCRIPTION OF THE PROCEDURE: The patient was previously identified, and a monserrat placed above the left eye. All sources, including the patient, indicated that the left eye was the correct eye. The patient was subsequently taken to the operating room where standard monitors were applied. The patient was then prepped and draped in the usual sterile fashion for ophthalmic surgery. Attention was first directed at the 12 o'clock position where a paracentesis port was fashioned. Shugar solution followed by Viscoat was instilled into the eye. Attention was then directed to the 8:30 position where a triplanar incision was made in a near-clear manner using a keratome. A continuous capsulorrhexis was then made using a combination of the cystotome and Utrata forceps. Hydrodissection was achieved using a balanced salt solution, and the lens rotated nicely. Phacoemulsification was then done using a modified [id number] technique without complication. Phaco time was 5.39 CDE. The remaining cortex was removed using the irrigation/aspiration handpiece. Provisc was then instilled into the eye. A Technis lens, model DCB00, at 24.0 diopters was then placed in the capsular bag using an [place] injector. The remaining viscoelastic was removed using the irrigation/aspiration forceps. All wounds were then checked and found to be watertight. The lid speculum and drapes were removed. Maxitrol ointment was placed in the patient's left eye, and the eye was shielded. The patient tolerated the procedure well. The patient was instructed to follow up tomorrow. All needle and sponge counts were correct at the end of the procedure. Dottie Rodrigues MD /[id number]
== END 2020-10-08 10:17 | disposition home or self-care (01) ==
LOC: JP.SDS 08:00
PROVIDERS: ATTEND Ophthalmology
DX: H25.12 Age-related nuclear cataract, left eye (principal); Z88.1 Allergy status to other antibiotic agents; Z88.2 Allergy status to sulfonamides; Z91.040 Latex allergy status; Z88.8 Allergy status to other drugs, medicaments and biological substances
CPT/HCPCS: 66984; V2632

== ENCOUNTER 2022-06-29 08:14 | Observation (INO) | payer MEDICARE ==
[2022-06-29] MEDS: Dextrose 5%-Lactated Ringers 1,000 ML IV SCH ×2 (08:50→21:30)
[2022-06-29] MEDS ORDERED: HYDROmorphone 0.5 MG/0.5 ML Syringe IVPUSH ONE ×2 (09:26→12:41)
[2022-06-29] MEDS ORDERED: Propofol 200 MG/20 ML SDV ONE ×2 (09:27→12:45)
[2022-06-29] MEDS ORDERED: fentaNYL 100 MCG/2 ML SDV ONE (12:45)
[2022-06-29] MEDS ORDERED: Midazolam 1 MG/ML 2 ML SDV ONE (12:45)
[2022-06-29] MEDS ORDERED: Magnesium Hydroxide 400 MG/5 ML Susp 30 ML Cup PO PRN (13:17)
[2022-06-29] MEDS ORDERED: Ondansetron 4 MG/2 ML SDV IV PRN (13:17)
[2022-06-29] MEDS ORDERED: Acetaminophen 325 MG Tab PO PRN (13:17)
[2022-06-29] MEDS ORDERED: Albuterol 0.083% 2.5 MG/3 ML Neb Soln NEB PRN (13:17)
[2022-06-29] MEDS ORDERED: Ondansetron 4 MG Tab.DIS PO PRN (13:17)
[2022-06-29] MEDS ORDERED: HYDROmorphone 0.5 MG/0.5 ML Syringe IVPUSH PRN (13:17)
[2022-06-29] MEDS ORDERED: Non-Formulary Medication 1 Each (Potassium Chloride [Potassium Chloride] 20 MEQ Tablet.Er) PO SCH (14:00)
[2022-06-29] MEDS ORDERED: Bupivacaine 0.5% 30 ML SDV ONE (14:24)
[2022-06-29] MEDS ORDERED: ceFAZolin 1 GM Vial ONE (15:50)
[2022-06-29] MEDS ORDERED: SUCRALFATE 1 GM PO SCH (16:00)
[2022-06-29] MEDS ORDERED: INSULIN LISPRO PROTAMINE SQ SCH (16:30)
[2022-06-29] MEDS ORDERED: [UNRECOGNIZED DRUG - OTHER] SQ SCH (16:30)
[2022-06-29] MEDS ORDERED: INSULIN LISPRO SQ SCH (16:30)
[2022-06-29] MEDS: Insulin Lispro Protamine/Lispro 75-25 100 Units/ML 10 ML Vial SUBCUT SCH (17:38)
[2022-06-29] MEDS: Sucralfate 1 GM Tab PO SCH (17:38)
[2022-06-29] MEDS: Potassium Chloride 20 MEQ Tab.ER PO SCH (18:05)
[2022-06-29] MEDS: Insulin Lispro 100 Unit/ML 3 ML KwikPen SUBCUT SCH ×2 (18:06→21:22)
[2022-06-29] MEDS ORDERED: Non-Formulary Medication 1 Each (Fluticasone/Salmeterol [Advair 250-50] 14 PUFF/INHALER Di INH SCH (21:00)
[2022-06-29] MEDS ORDERED: Non-Formulary Medication 1 Each (Melatonin [Melatonin] 5 MG Tablet) PO SCH (21:00)
[2022-06-29] MEDS ORDERED: Non-Formulary Medication 1 Each (Pregabalin [Pregabalin] 150 MG Capsule) PO SCH (21:00)
[2022-06-29] MEDS ORDERED: Enalapril 5 MG Tab PO SCH (21:00)
[2022-06-29] MEDS ORDERED: Loratadine 10 MG Tab PO SCH (21:00)
[2022-06-29] MEDS ORDERED: LORATADINE 10 MG PO SCH (21:00)
[2022-06-29] MEDS ORDERED: DULoxetine 30 MG Cap PO SCH (21:00)
[2022-06-29] MEDS ORDERED: Non-Formulary Medication 1 Each (Rifaximin [Xifaxan] 550 MG Tablet) PO SCH (21:00)
[2022-06-29] MEDS ORDERED: Melatonin 3 MG Tab PO SCH (21:00)
[2022-06-29] MEDS ORDERED: DULOXETINE HCL 30 MG PO SCH (21:00)
[2022-06-29] MEDS: oxyCODONE 5 MG Tab PO PRN (21:27)
[2022-06-29] MEDS: Pregabalin 75 MG Cap PO SCH (22:16)
[2022-06-30] MEDS: oxyCODONE 5 MG Tab PO PRN (04:16)
[2022-06-30] MEDS ORDERED: Non-Formulary Medication 1 Each (Fluticasone Propionate [Flonase Allergy Relief] 9.9 ML Sp NAS SCH (07:30)
[2022-06-30] MEDS ORDERED: DULoxetine 30 MG Cap PO SCH (07:30)
[2022-06-30] MEDS ORDERED: DULOXETINE HCL 60 MG PO SCH (07:30)
[2022-06-30] MEDS ORDERED: Fluticasone NASAL Spray 16 GM Bottle NAS SCH (07:30)
[2022-06-30] MEDS ORDERED: Pantoprazole 40 MG Tab.CR PO SCH (07:30)
[2022-06-30] MEDS ORDERED: Aspirin 81 MG Tab.EC PO SCH (09:00)
[2022-06-30] MEDS ORDERED: Non-Formulary Medication 1 Each (Sertraline [Zoloft] 50 MG Tablet) PO SCH (09:00)
[2022-06-30] MEDS ORDERED: Metoprolol Succinate 25 MG Tab.ER PO SCH (09:00)
[2022-06-30] MEDS ORDERED: Non-Formulary Medication 1 Each (Lansoprazole [Prevacid] 30 MG Capsule.Dr) PO SCH (09:00)
[2022-06-30] MEDS ORDERED: Non-Formulary Medication 1 Each (Aspirin [Adult Low Dose Aspirin Ec] 81 MG Tablet.Dr) PO SCH (09:00)
[2022-06-30] MEDS ORDERED: Non-Formulary Medication 1 Each (Metoprolol Succinate [Toprol Xl] 25 MG Tab.Er) PO SCH (09:00)
[2022-06-30] MEDS ORDERED: Non-Formulary Medication 1 Each (Torsemide [Torsemide] 100 MG Tablet) PO SCH (09:00)
[2022-06-30] MEDS ORDERED: Sertraline 100 MG, Sertraline 25 MG PO SCH ×2 (09:00)
[2022-06-30] MEDS: Pregabalin 75 MG Cap PO SCH (09:01)
[2022-06-30] MEDS: Sucralfate 1 GM Tab PO SCH ×2 (09:02→11:01)
[2022-06-30] MEDS: Potassium Chloride 20 MEQ Tab.ER PO SCH ×2 (09:03→12:06)
[2022-06-30] MEDS: Insulin Lispro 100 Unit/ML 3 ML KwikPen SUBCUT SCH ×2 (09:44→12:05)
[2022-06-30 10:07] VITALS: BP 126/85; PULSE 79
[2022-06-30] MEDS: Insulin Lispro Protamine/Lispro 75-25 100 Units/ML 10 ML Vial SUBCUT SCH (11:00)
== END 2022-06-30 13:16 ==
LOC: JP.ED 08:14 → JP.MS 12:27
PROVIDERS: ADMIT Internal Medicine; ATTEND Internal Medicine
DX: S82.851A Displaced trimalleolar fracture of right lower leg, initial encounter for closed fracture (principal); E11.9 Type 2 diabetes mellitus without complications; G12.29 Other motor neuron disease; J44.9 Chronic obstructive pulmonary disease, unspecified; G63 Polyneuropathy in diseases classified elsewhere; F03.90 Unspecified dementia, unspecified severity, without behavioral disturbance, psychotic disturbance, mood disturbance, and anxiety; G31.09 Other frontotemporal neurocognitive disorder; F02.80 Dementia in other diseases classified elsewhere, unspecified severity, without behavioral disturbance, psychotic disturbance, mood disturbance, and anxiety; I10 Essential (primary) hypertension; E78.00 Pure hypercholesterolemia, unspecified; E66.9 Obesity, unspecified; F41.9 Anxiety disorder, unspecified; K21.9 Gastro-esophageal reflux disease without esophagitis; Z79.4 Long term (current) use of insulin; Z79.899 Other long term (current) drug therapy; Z79.82 Long term (current) use of aspirin; Z91.048 Other nonmedicinal substance allergy status; Z88.8 Allergy status to other drugs, medicaments and biological substances; Z91.040 Latex allergy status; Z88.2 Allergy status to sulfonamides; Z88.0 Allergy status to penicillin; Z98.890 Other specified postprocedural states; Z90.49 Acquired absence of other specified parts of digestive tract; Z96.642 Presence of left artificial hip joint; Z87.891 Personal history of nicotine dependence; Z20.822 Contact with and (suspected) exposure to COVID-19; W19.XXXA Unspecified fall, initial encounter; K76.9 Liver disease, unspecified; G47.33 Obstructive sleep apnea (adult) (pediatric); I25.10 Atherosclerotic heart disease of native coronary artery without angina pectoris
CPT/HCPCS: 27818; 36415; 73600; 76000; 80048; 82947; 85025; 85610; 85730; 93005; 93306; 94640; 96361; 96374; 96376; 97110; 97161; 99285; A9270; C1713; C1776; G0378; J0690; J1170; J1815; J2250; J2704; J3010; J3490; J7121; U0002

== ENCOUNTER 2022-07-02 11:46 | Emergency (ER) | payer MEDICARE ==
[2022-07-02] MEDS ORDERED: Albuterol/Ipratropium 3.0-0.5 MG/3 ML Neb Soln NEB ONE (11:48)
[2022-07-02 12:41] LABS: ESTIMATED GFR 69 mL/min (>60)
[2022-07-02] MEDS ORDERED: Potassium Chloride 20 MEQ Tab.ER PO ONE (13:34)
[2022-07-02 14:52] VITALS: BP 130/55; PULSE 66
== END 2022-07-02 16:01 ==
LOC: JP.ED 11:46
DX: S82.851A Displaced trimalleolar fracture of right lower leg, initial encounter for closed fracture (principal); E87.0 Hyperosmolality and hypernatremia; E87.6 Hypokalemia; K76.9 Liver disease, unspecified; G47.33 Obstructive sleep apnea (adult) (pediatric); I25.10 Atherosclerotic heart disease of native coronary artery without angina pectoris; T40.2X5A Adverse effect of other opioids, initial encounter; J44.9 Chronic obstructive pulmonary disease, unspecified; E78.00 Pure hypercholesterolemia, unspecified; I10 Essential (primary) hypertension; E11.9 Type 2 diabetes mellitus without complications; E66.9 Obesity, unspecified; Z68.43 Body mass index [BMI] 50.0-59.9, adult; Z91.041 Radiographic dye allergy status; Z91.011 Allergy to milk products; Z91.040 Latex allergy status; Z88.1 Allergy status to other antibiotic agents; Z88.2 Allergy status to sulfonamides; Z91.048 Other nonmedicinal substance allergy status; Z88.8 Allergy status to other drugs, medicaments and biological substances; Z79.82 Long term (current) use of aspirin; Z79.899 Other long term (current) drug therapy; Z90.49 Acquired absence of other specified parts of digestive tract; Z90.710 Acquired absence of both cervix and uterus
CPT/HCPCS: 36415; 36600; 80048; 80053; 82140; 82803; 85025; 94640; 99285; A9270; J7620

== ENCOUNTER 2022-07-26 14:08 | Inpatient (IN) | payer MEDICARE ==
[2022-07-26] MEDS ORDERED: Sodium Chloride 0.9% 10 ML Syringe FLUSH PRN (14:24)
[2022-07-26] MEDS ORDERED: 50% Dextrose in Water 50 ML Syringe ONE (14:24)
[2022-07-26] MEDS ORDERED: 50% Dextrose in Water 50 ML Syringe IVPUSH ONE (14:28)
[2022-07-26] MEDS ORDERED: Sodium Chloride 0.9% 1,000 ML IV SCH (14:30)
[2022-07-26 14:47] LABS: ESTIMATED GFR 69 mL/min (>60); TROPONIN I HIGH SENSITIVITY 22.3 pg/mL (<=60.3)
[2022-07-26] MEDS ORDERED: Sodium Chloride 0.9% 1,000 ML IV ONE ×2 (15:10→17:12)
[2022-07-26] MEDS ORDERED: cefTRIAXone 1 GM in Sodium Chloride 0.9% 50 ML IV ONE (15:52)
[2022-07-26] MEDS: Sodium Chloride 0.9% 1,000 ML IV SCH ×2 (16:25→18:07)
[2022-07-26] MEDS ORDERED: Albuterol 0.083% 2.5 MG/3 ML Neb Soln NEB PRN (17:10)
[2022-07-26] MEDS ORDERED: Magnesium Hydroxide 400 MG/5 ML Susp 30 ML Cup PO PRN (17:10)
[2022-07-26] MEDS ORDERED: Ondansetron 4 MG Tab.DIS PO PRN (17:10)
[2022-07-26] MEDS ORDERED: Acetaminophen 325 MG Tab PO PRN (17:10)
[2022-07-26] MEDS ORDERED: Ondansetron 4 MG/2 ML SDV IV PRN (17:10)
[2022-07-26] MEDS ORDERED: oxyCODONE 5 MG Tab PO PRN (17:10)
[2022-07-26] MEDS: Insulin Lispro 100 Unit/ML 3 ML KwikPen SUBCUT SCH ×2 (17:55→20:16)
[2022-07-26] MEDS: Potassium Chloride 10 MEQ in Premix Bag 1 BAG IV SCH ×4 (17:56→21:10)
[2022-07-26] MEDS ORDERED: Enoxaparin 40 MG/0.4 ML Syringe SUBCUT SCH (18:00)
[2022-07-26] MEDS: DULoxetine 30 MG Cap PO SCH (20:35)
[2022-07-26] MEDS: Lactobacillus Rhamnosus GG (Probiotic) Cap PO SCH (20:35)
[2022-07-26] MEDS: Loratadine 10 MG Tab PO SCH (20:35)
[2022-07-26] MEDS: Formoterol/Mometasone 200-5 MCG 8.8 GM Inhaler IH SCH (20:36)
[2022-07-26] MEDS: Melatonin 3 MG Tab PO SCH (20:37)
[2022-07-26] MEDS: Latanoprost 0.005% Ophth Soln 2.5 ML Bottle EYEBOTH SCH (20:37)
[2022-07-26] MEDS: Albuterol/Ipratropium 3.0-0.5 MG/3 ML Neb Soln NEB SCH (20:45)
[2022-07-26] MEDS: Pregabalin 75 MG Cap PO SCH (20:45)
[2022-07-26] MEDS ORDERED: CHLORHEXIDINE GLUCONATE PO SCH (21:00)
[2022-07-26] MEDS ORDERED: Non-Formulary Medication 1 Each (Rifaximin [Xifaxan] 550 MG Tablet) PO SCH (21:00)
[2022-07-26] MEDS ORDERED: [UNRECOGNIZED DRUG - OTHER] PO SCH (21:00)
[2022-07-27] MEDS: Albuterol/Ipratropium 3.0-0.5 MG/3 ML Neb Soln NEB SCH ×4 (07:28→21:20)
[2022-07-27] MEDS: Formoterol/Mometasone 200-5 MCG 8.8 GM Inhaler IH SCH ×2 (07:28→21:20)
[2022-07-27] MEDS: Insulin Lispro 100 Unit/ML 3 ML KwikPen SUBCUT SCH ×4 (07:45→21:14)
[2022-07-27] MEDS: DULoxetine 30 MG Cap PO SCH ×2 (07:48→21:18)
[2022-07-27] MEDS: Pantoprazole 40 MG Tab.CR PO SCH (07:49)
[2022-07-27] MEDS ORDERED: Sertraline 50 MG Tab PO SCH (09:00)
[2022-07-27] MEDS: Sertraline 100 MG, Sertraline 25 MG PO SCH ×2 (09:42)
[2022-07-27] MEDS: Metoprolol Succinate 25 MG Tab.ER PO SCH (09:42)
[2022-07-27] MEDS: Aspirin 81 MG Tab.EC PO SCH (09:42)
[2022-07-27] MEDS: Lactobacillus Rhamnosus GG (Probiotic) Cap PO SCH ×2 (09:42→21:18)
[2022-07-27] MEDS: Pregabalin 75 MG Cap PO SCH ×2 (09:53→21:18)
[2022-07-27 10:33] LABS: CORONAVIRUS COVID-19 NAA NEGATIVE (NEGATIVE)
[2022-07-27] MEDS: Potassium Chloride 10 MEQ in Premix Bag 1 BAG IV SCH ×4 (10:50→14:25)
[2022-07-27] MEDS ORDERED: Lactulose Soln 10 GM/15 ML 15 ML UD Cup PO ONE (13:00)
[2022-07-27] MEDS ORDERED: cefTRIAXone 1 GM in Sodium Chloride 0.9% 50 ML IV SCH (16:00)
[2022-07-27] MEDS: Melatonin 3 MG Tab PO SCH (21:18)
[2022-07-27] MEDS: Loratadine 10 MG Tab PO SCH (21:18)
[2022-07-27] MEDS: Chlorhexidine Gluconate 0.12% Oral Rinse 473 ML Bottle MUCMEM SCH (21:19)
[2022-07-27] MEDS: Latanoprost 0.005% Ophth Soln 2.5 ML Bottle EYEBOTH SCH (21:20)
[2022-07-28] MEDS: Formoterol/Mometasone 200-5 MCG 8.8 GM Inhaler IH SCH ×2 (07:04→20:24)
[2022-07-28] MEDS: Albuterol/Ipratropium 3.0-0.5 MG/3 ML Neb Soln NEB SCH ×4 (07:04→20:23)
[2022-07-28] MEDS: Insulin Lispro 100 Unit/ML 3 ML KwikPen SUBCUT SCH ×4 (07:42→21:38)
[2022-07-28] MEDS: DULoxetine 30 MG Cap PO SCH ×2 (07:45→20:29)
[2022-07-28] MEDS: Pantoprazole 40 MG Tab.CR PO SCH (07:45)
[2022-07-28] MEDS ORDERED: Lactulose Soln 10 GM/15 ML 15 ML UD Cup PO SCH (09:00)
[2022-07-28] MEDS: Lactobacillus Rhamnosus GG (Probiotic) Cap PO SCH ×2 (09:06→20:24)
[2022-07-28] MEDS: Aspirin 81 MG Tab.EC PO SCH (09:06)
[2022-07-28] MEDS: Chlorhexidine Gluconate 0.12% Oral Rinse 473 ML Bottle MUCMEM SCH ×2 (09:06→20:25)
[2022-07-28] MEDS: Sertraline 100 MG, Sertraline 25 MG PO SCH ×2 (09:08)
[2022-07-28] MEDS: Metoprolol Succinate 25 MG Tab.ER PO SCH (09:10)
[2022-07-28] MEDS: Pregabalin 75 MG Cap PO SCH ×2 (09:11→20:32)
[2022-07-28] MEDS: Rifaximin 550 MG Tab PO SCH ×2 (14:59→20:29)
[2022-07-28] MEDS: Melatonin 3 MG Tab PO SCH (20:22)
[2022-07-28] MEDS: Cephalexin 250 MG Cap PO SCH (20:23)
[2022-07-28] MEDS: Loratadine 10 MG Tab PO SCH (20:24)
[2022-07-28] MEDS: Latanoprost 0.005% Ophth Soln 2.5 ML Bottle EYEBOTH SCH (20:28)
[2022-07-29 06:32] VITALS: BP 136/63
[2022-07-29] MEDS: Formoterol/Mometasone 200-5 MCG 8.8 GM Inhaler IH SCH (07:16)
[2022-07-29] MEDS: Albuterol/Ipratropium 3.0-0.5 MG/3 ML Neb Soln NEB SCH (07:16)
[2022-07-29] MEDS: Insulin Lispro 100 Unit/ML 3 ML KwikPen SUBCUT SCH (07:38)
[2022-07-29] MEDS: Pantoprazole 40 MG Tab.CR PO SCH (07:39)
[2022-07-29] MEDS: DULoxetine 30 MG Cap PO SCH (07:39)
[2022-07-29] MEDS: Cephalexin 250 MG Cap PO SCH (08:13)
[2022-07-29] MEDS: Aspirin 81 MG Tab.EC PO SCH (08:13)
[2022-07-29] MEDS: Sertraline 100 MG, Sertraline 25 MG PO SCH ×2 (08:13)
[2022-07-29] MEDS: Metoprolol Succinate 25 MG Tab.ER PO SCH (08:14)
[2022-07-29] MEDS: Lactobacillus Rhamnosus GG (Probiotic) Cap PO SCH (08:14)
[2022-07-29] MEDS: Chlorhexidine Gluconate 0.12% Oral Rinse 473 ML Bottle MUCMEM SCH (08:14)
[2022-07-29] MEDS: Rifaximin 550 MG Tab PO SCH (08:14)
[2022-07-29] MEDS: Pregabalin 75 MG Cap PO SCH (08:16)
[2022-07-29 08:18] VITALS: PULSE 77
== END 2022-07-29 09:10 | DRG 871 ==
LOC: JP.ED 14:08 → JP.ICU 16:16
PROVIDERS: ADMIT Internal Medicine; ATTEND Internal Medicine
DX: A41.51 Sepsis due to Escherichia coli [E. coli] (principal); E11.42 Type 2 diabetes mellitus with diabetic polyneuropathy; I10 Essential (primary) hypertension; E78.00 Pure hypercholesterolemia, unspecified; G93.41 Metabolic encephalopathy; N30.00 Acute cystitis without hematuria; E72.20 Disorder of urea cycle metabolism, unspecified; F02.80 Dementia in other diseases classified elsewhere, unspecified severity, without behavioral disturbance, psychotic disturbance, mood disturbance, and anxiety; E66.9 Obesity, unspecified; Z99.81 Dependence on supplemental oxygen; G12.23 Primary lateral sclerosis; J44.9 Chronic obstructive pulmonary disease, unspecified; E11.649 Type 2 diabetes mellitus with hypoglycemia without coma; E87.6 Hypokalemia; R65.20 Severe sepsis without septic shock; G31.09 Other frontotemporal neurocognitive disorder; F02.B0 Dementia in other diseases classified elsewhere, moderate, without behavioral disturbance, psychotic disturbance, mood disturbance, and anxiety; E78.5 Hyperlipidemia, unspecified; K21.9 Gastro-esophageal reflux disease without esophagitis; K59.09 Other constipation; M81.0 Age-related osteoporosis without current pathological fracture; Z96.642 Presence of left artificial hip joint; F41.9 Anxiety disorder, unspecified; I25.10 Atherosclerotic heart disease of native coronary artery without angina pectoris; Z20.822 Contact with and (suspected) exposure to COVID-19; Z79.82 Long term (current) use of aspirin; Z79.4 Long term (current) use of insulin; Z79.899 Other long term (current) drug therapy; Z79.1 Long term (current) use of non-steroidal anti-inflammatories (NSAID); Z79.52 Long term (current) use of systemic steroids; Z88.8 Allergy status to other drugs, medicaments and biological substances; Z88.1 Allergy status to other antibiotic agents; Z91.040 Latex allergy status; Z88.2 Allergy status to sulfonamides; Z91.041 Radiographic dye allergy status; Z87.891 Personal history of nicotine dependence; I25.2 Old myocardial infarction; Z98.42 Cataract extraction status, left eye; Z98.41 Cataract extraction status, right eye; Z87.01 Personal history of pneumonia (recurrent); Z85.828 Personal history of other malignant neoplasm of skin; Z90.49 Acquired absence of other specified parts of digestive tract; Z90.710 Acquired absence of both cervix and uterus; Z98.51 Tubal ligation status; Z90.89 Acquired absence of other organs; Z98.890 Other specified postprocedural states; Z98.1 Arthrodesis status; Z91.81 History of falling
CPT/HCPCS: 0241U; 36415; 71045; 71045-26; 80048; 80053; 81001; 82140; 82947; 83605; 83690; 83735; 84100; 84145; 84484; 85025; 85027; 86140; 87040; 87086; 87088; 87186; 94640; 99223; 99233; 99239; 99285; A9270-GY; J0696; J1650; J1815; J3480; J7030; J7620

== ENCOUNTER 2022-09-05 08:48 | Inpatient (IN) | payer MEDICARE ==
[2022-09-05 09:45] LABS: ESTIMATED GFR 54 mL/min (>60)
[2022-09-05] MEDS ORDERED: Sodium Chloride 0.9% 1,000 ML IV SCH (09:45)
[2022-09-05] MEDS ORDERED: cefTRIAXone 2 GM in Sodium Chloride 0.9% 50 ML IV ONE (10:06)
[2022-09-05 12:50] LABS: CORONAVIRUS COVID-19 NAA NEGATIVE (NEGATIVE)
[2022-09-05] MEDS ORDERED: Non-Formulary Medication 1 Each (Semaglutide [Ozempic] 1 MG/0.75 ML Pen.Injctr) SUBCUT SCH (13:20)
[2022-09-05] MEDS ORDERED: 50% Dextrose in Water 50 ML Syringe IV PRN (13:20)
[2022-09-05] MEDS ORDERED: 50% Dextrose in Water 50 ML Syringe IVPUSH PRN ×2 (13:20→17:13)
[2022-09-05] MEDS ORDERED: Non-Formulary Medication 1 Each (Albuterol/Ipratropium [Combivent Respimat] 4 GM Inhaler) INH PRN (13:20)
[2022-09-05] MEDS ORDERED: Acetaminophen 325 MG Tab PO PRN (13:20)
[2022-09-05] MEDS ORDERED: Sodium Chloride 0.9% 10 ML Syringe FLUSH PRN (13:20)
[2022-09-05] MEDS ORDERED: Albuterol 0.083% 2.5 MG/3 ML Neb Soln NEB PRN (13:20)
[2022-09-05] MEDS ORDERED: Ondansetron 4 MG/2 ML SDV IV PRN (13:20)
[2022-09-05] MEDS ORDERED: Glucagon,Human Recombinant 1 MG Vial IM PRN ×3 (13:20→17:13)
[2022-09-05] MEDS ORDERED: Glucose Gel 15 GM in 37.5 GM Tube PO PRN (13:20)
[2022-09-05] MEDS: Dextrose 5% in Water 1,000 ML IV SCH ×2 (13:44→23:38)
[2022-09-05] MEDS: Enoxaparin 40 MG/0.4 ML Syringe SUBCUT SCH (13:49)
[2022-09-05] MEDS ORDERED: Non-Formulary Medication 1 Each (Potassium Chloride [Potassium Chloride] 20 MEQ Tablet.Er) PO SCH (14:00)
[2022-09-05] MEDS: Potassium Chloride 20 MEQ Tab.ER PO SCH ×2 (14:28→20:31)
[2022-09-05] MEDS ORDERED: Albuterol/Ipratropium 3.0-0.5 MG/3 ML Neb Soln INH PRN (15:22)
[2022-09-05] MEDS: Sucralfate 1 GM Tab PO SCH (15:55)
[2022-09-05] MEDS ORDERED: Insulin Lispro 100 Unit/ML 3 ML KwikPen SUBCUT SCH (17:00)
[2022-09-05] MEDS ORDERED: Insulin Lispro 100 Units/ML 3 ML Vial SUBCUT ONE (17:30)
[2022-09-05] MEDS: Insulin Lispro 100 Unit/ML 3 ML KwikPen SUBCUT SCH ×2 (17:46→21:04)
[2022-09-05] MEDS: Latanoprost 0.005% Ophth Soln 2.5 ML Bottle EYEBOTH SCH (20:24)
[2022-09-05] MEDS: DULoxetine 30 MG Cap PO SCH (20:30)
[2022-09-05] MEDS: Formoterol/Mometasone 200-5 MCG 8.8 GM Inhaler IH SCH (20:30)
[2022-09-05] MEDS: Chlorhexidine Gluconate 0.12% Oral Rinse 473 ML Bottle MUCMEM SCH (20:31)
[2022-09-05] MEDS: Melatonin 3 MG Tab PO SCH (20:31)
[2022-09-05] MEDS: Rifaximin 550 MG Tab PO SCH (20:32)
[2022-09-05] MEDS: Loratadine 10 MG Tab PO SCH (20:34)
[2022-09-05] MEDS: Pregabalin 75 MG Cap PO SCH (20:42)
[2022-09-05] MEDS ORDERED: [UNRECOGNIZED DRUG - OTHER] PO SCH (21:00)
[2022-09-05] MEDS ORDERED: Non-Formulary Medication 1 Each (Fluticasone/Salmeterol [Advair 250-50] 14 PUFF/INHALER Di INH SCH (21:00)
[2022-09-05] MEDS ORDERED: Non-Formulary Medication 1 Each (Melatonin [Melatonin] 5 MG Tablet) PO SCH (21:00)
[2022-09-05] MEDS ORDERED: CHLORHEXIDINE GLUCONATE PO SCH (21:00)
[2022-09-05] MEDS ORDERED: Non-Formulary Medication 1 Each (Pregabalin [Pregabalin] 150 MG Capsule) PO SCH (21:00)
[2022-09-06] MEDS ORDERED: Alendronate 70 MG Tab PO SCH (07:00)
[2022-09-06] MEDS ORDERED: Non-Formulary Medication 1 Each (Fluticasone Propionate [Flonase Allergy Relief] 9.9 ML Sp NAS SCH (07:30)
[2022-09-06] MEDS ORDERED: DULOXETINE HCL 60 MG PO SCH (07:30)
[2022-09-06] MEDS: Formoterol/Mometasone 200-5 MCG 8.8 GM Inhaler IH SCH ×2 (07:52→21:20)
[2022-09-06] MEDS ORDERED: Potassium Chloride 20 MEQ Tab.ER PO ONE (08:00)
[2022-09-06] MEDS: Rifaximin 550 MG Tab PO SCH ×2 (08:28→21:20)
[2022-09-06] MEDS: Sucralfate 1 GM Tab PO SCH ×3 (08:29→16:06)
[2022-09-06] MEDS: Aspirin 81 MG Tab.EC PO SCH (08:29)
[2022-09-06] MEDS: Fluticasone NASAL Spray 16 GM Bottle NAS SCH (08:29)
[2022-09-06] MEDS: Pantoprazole 40 MG Tab.CR PO SCH (08:30)
[2022-09-06] MEDS: DULoxetine 30 MG Cap PO SCH ×2 (08:30→21:18)
[2022-09-06] MEDS: Chlorhexidine Gluconate 0.12% Oral Rinse 473 ML Bottle MUCMEM SCH ×2 (08:31→21:21)
[2022-09-06] MEDS: Metoprolol Succinate 25 MG Tab.ER PO SCH (08:32)
[2022-09-06] MEDS: Potassium Chloride 20 MEQ Tab.ER PO SCH ×3 (08:32→21:17)
[2022-09-06] MEDS: Insulin Lispro 100 Unit/ML 3 ML KwikPen SUBCUT SCH ×7 (08:33→21:09)
[2022-09-06] MEDS ORDERED: Non-Formulary Medication 1 Each (Torsemide [Torsemide] 100 MG Tablet) PO SCH (09:00)
[2022-09-06] MEDS ORDERED: Non-Formulary Medication 1 Each (Lansoprazole [Prevacid] 30 MG Capsule.Dr) PO SCH (09:00)
[2022-09-06] MEDS ORDERED: Sertraline 50 MG Tab PO SCH (09:00)
[2022-09-06] MEDS ORDERED: cefTRIAXone 1 GM in Sodium Chloride 0.9% 50 ML IV SCH (10:00)
[2022-09-06] MEDS: Pregabalin 75 MG Cap PO SCH ×2 (10:47→21:16)
[2022-09-06] MEDS: Sertraline 100 MG, Sertraline 25 MG PO SCH ×2 (10:48)
[2022-09-06] MEDS: Magnesium Sulfate/Water 2 GM in Premix Bag 1 BAG IV SCH ×3 (11:47→21:23)
[2022-09-06] MEDS: Magnesium Oxide 400 MG Tab PO SCH ×2 (12:43→21:19)
[2022-09-06] MEDS: Enoxaparin 40 MG/0.4 ML Syringe SUBCUT SCH (13:52)
[2022-09-06] MEDS: Melatonin 3 MG Tab PO SCH (21:18)
[2022-09-06] MEDS: Latanoprost 0.005% Ophth Soln 2.5 ML Bottle EYEBOTH SCH (21:20)
[2022-09-06] MEDS: Loratadine 10 MG Tab PO SCH (21:23)
[2022-09-07 07:11] VITALS: BP 128/60; PULSE 70
[2022-09-07] MEDS: Formoterol/Mometasone 200-5 MCG 8.8 GM Inhaler IH SCH (07:18)
[2022-09-07] MEDS: Insulin Lispro 100 Unit/ML 3 ML KwikPen SUBCUT SCH ×2 (08:15→08:46)
[2022-09-07] MEDS: DULoxetine 30 MG Cap PO SCH (08:25)
[2022-09-07] MEDS: Metoprolol Succinate 25 MG Tab.ER PO SCH (08:25)
[2022-09-07] MEDS: Sucralfate 1 GM Tab PO SCH (08:26)
[2022-09-07] MEDS: Pregabalin 75 MG Cap PO SCH (08:26)
[2022-09-07] MEDS: Rifaximin 550 MG Tab PO SCH (08:26)
[2022-09-07] MEDS: Magnesium Oxide 400 MG Tab PO SCH (08:27)
[2022-09-07] MEDS: Chlorhexidine Gluconate 0.12% Oral Rinse 473 ML Bottle MUCMEM SCH (08:27)
[2022-09-07] MEDS: Fluticasone NASAL Spray 16 GM Bottle NAS SCH (08:27)
[2022-09-07] MEDS: Sertraline 100 MG, Sertraline 25 MG PO SCH ×2 (08:27)
[2022-09-07] MEDS: Aspirin 81 MG Tab.EC PO SCH (08:27)
[2022-09-07] MEDS: Pantoprazole 40 MG Tab.CR PO SCH (08:28)
[2022-09-07] MEDS ORDERED: Potassium Chloride 20 MEQ Tab.ER PO ONE (08:30)
[2022-09-07] MEDS ORDERED: Cephalexin 250 MG/5 ML Susp 100 ML Bottle PO SCH (09:00)
[2022-09-07] MEDS: Potassium Chloride 20 MEQ Tab.ER PO SCH (09:02)
[2022-09-07] MEDS ORDERED: Cephalexin 250 MG Cap PO SCH (10:00)
== END 2022-09-07 11:11 | DRG 690 ==
LOC: JP.ED 08:48 → JP.MS 11:42
PROVIDERS: ADMIT Hospitalist; ATTEND Hospitalist
DX: N30.00 Acute cystitis without hematuria (principal); E87.0 Hyperosmolality and hypernatremia; K76.9 Liver disease, unspecified; E86.0 Dehydration; E11.9 Type 2 diabetes mellitus without complications; I25.10 Atherosclerotic heart disease of native coronary artery without angina pectoris; H54.7 Unspecified visual loss; G47.30 Sleep apnea, unspecified; Z20.822 Contact with and (suspected) exposure to COVID-19; K59.09 Other constipation; J44.9 Chronic obstructive pulmonary disease, unspecified; K21.9 Gastro-esophageal reflux disease without esophagitis; G89.29 Other chronic pain; M54.9 Dorsalgia, unspecified; M81.0 Age-related osteoporosis without current pathological fracture; Z96.642 Presence of left artificial hip joint; D69.6 Thrombocytopenia, unspecified; J30.9 Allergic rhinitis, unspecified; F03.90 Unspecified dementia, unspecified severity, without behavioral disturbance, psychotic disturbance, mood disturbance, and anxiety; Z79.82 Long term (current) use of aspirin; Z79.899 Other long term (current) drug therapy; Z98.890 Other specified postprocedural states; Z79.4 Long term (current) use of insulin; Z88.8 Allergy status to other drugs, medicaments and biological substances; Z85.89 Personal history of malignant neoplasm of other organs and systems; Z98.49 Cataract extraction status, unspecified eye; Z90.49 Acquired absence of other specified parts of digestive tract; Z90.710 Acquired absence of both cervix and uterus; Z98.51 Tubal ligation status; Z98.1 Arthrodesis status
CPT/HCPCS: 0241U; 36415; 71045; 71045-26; 73610-26-RT; 73610-RT; 80048; 80053; 81001; 82140; 82947; 83605; 83735; 85025; 87086; 87088; 94640; 96361; 96365; 97110-GP; 97161-GP; 97530-GP; 99223; 99233; 99238; 99285; 99285-25; A9270-GY; J0696; J1650; J1815; J1815-GY; J3475; J3490; J7030; J7060; U0002